=== PATIENT | female | born 1930 | race Caucasian/White ===

== ENCOUNTER 2017-03-09 15:03 | Inpatient (IN) | payer OTHER, BC ==
[2017-03-09] MEDS ORDERED: SODIUM CHLORIDE 0.9% 1000 ML INFUS.BAG IV PRN (16:16)
[2017-03-09 16:54] LABS: VENOUS BLOOD GAS HCO3 27.2 meq/L (19-25); VENOUS PH 7.4 (7.32-7.42)
--- NOTE | 2017-03-09 17:04 | PDOC ---
History of Present Illness - History of Present Illness Initial Comments: 03/09/17 17:02 CHIEF COMPLAINT: fever x 3 days HISTORY OF PRESENT ILLNESS: 86 yo F with hx of COPD, hypertension, hypercholesterolemia, asthma, and NIDDM presents to ED with cough and wheezing x 1 week and fever x 3 days. Patient states she saw her PCP MD Beck last week , who increased her prednisone to 20 mg x 5 days and is now tapering at 10 mg. She complains of decreased appetite secondary to nausea "and lots of burping" over the past two days. No recent travel or sick contacts. PAST MEDICAL HISTORY: Denies past medical history FAMILY HISTORY: Denies SOCIAL HISTORY: Denies tobacco, alcohol, illicit drug use. SURGICAL HISTORY: Denies ALLERGIES: No known drug allergies REVIEW OF SYSTEMS General/Constitutional: Denies fever or chills. Denies weakness, weight change. HEENT: Denies change in vision. Denies ear pain or discharge. Denies sore throat. Cardiovascular: Denies chest pain or shortness of breath. Respiratory: "I always have wheezing on the left side, that's why I'm on the prednisone." Denies hemoptysis. Gastrointestinal: Denies nausea, vomiting, diarrhea or constipation. Denies rectal bleeding. Genitourinary: Denies dysuria, frequency, or change in urination. Musculoskeletal: Denies joint or muscle swelling or pain. Denies neck or back pain. Skin and breasts: Denies rash or easy bruising. Neurologic: Denies headache, vertigo, loss of consciousness, or loss of sensation. PHYSICAL EXAM General Appearance: Well-appearing, appropriately dressed. No apparent distress , no intoxication. HEENT: EOMI, PERRLA, normal ENT inspection, normal voice, TMs normal, pharynx normal. No conjunctival pallor. No photophobia, scleral icterus. Neck: Supple. Trachea midline. No tenderness, rigidity, carotid bruit, stridor , lymphadenopathy, or thyromegaly. Respiratory/Chest: Diffuse wheezing to left lobe. No shortness of breath, chest tenderness, respiratory distress, accessory muscle use. No crackles, rales , rhonchi, stridor, wheezing, dullness Cardiovascular: RRR. S1, S2. No JVD, murmur, bradycardia, tachycardia. Vascular Pulses: Dorsalis-Pedis (R): 2+, Dorsalis-Pedis (L): 2+ Gastrointestinal/Abdominal: Normal bowel sounds. Abdomen soft, non-distended. No tenderness or rebound tenderness. No organomegaly, pulsatile mass, guarding , hernia, hepatomegaly, splenomegaly. Lymphatic: No adenopathy, tenderness. Musculoskeletal/Extremities: L CVA tenderness. Normal inspection. FROM of all extremities, normal capillary refill. Pelvis Stable. No tenderness to extremities, pedal edema, swelling, erythema or deformity. Integumentary: Appropriate color, dry, warm. No cyanosis, erythema, jaundice or rash Neurologic: servicer travel trailers II-XII intact. Fully oriented, alert. Appropriate mood/affect. Motor strength 5/5. No appreciable EOM palsy, facial droop or sensory deficit. <Jennifer Anand - Last Filed: 04/11/17 14:30> <Rusty Sanchez - Last Filed: 04/11/17 18:54> - General Chief Complaint: Cold Symptoms Stated Complaint: SOB,WEAKNESS Time Seen by Provider: 03/09/17 15:36 Past History - Past Medical History Anemia: No Asthma: Yes Cancer: No Cardiac Disorders: No CVA: No COPD: Yes CHF: No Dementia: No Diabetes: Yes ([id number]) GI Disorders: Yes (H/O HEMORROIDS) Disorders: No HTN: Yes Hypercholesterolemia: Yes Liver Disease: No Seizures: No Thyroid Disease: No - Surgical History Abdominal Surgery: Yes (umbilical hernia, bilateral inguinal hernias BY Dr. ZAVALA) Appendectomy: No Cardiac Surgery: No Cholecystectomy: No Lung Surgery: No Neurologic Surgery: No Orthopedic Surgery: Yes (Ankle) - Psycho/Social/Smoking Cessation Hx Anxiety: No Suicidal Ideation: No Smoking Status: No Smoking History: Never smoked Have you smoked in the past 12 months: No Number of Cigarettes Smoked Daily: 0 Cigars Per Day: 0 Hx Alcohol Use: No Drug/Substance Use Hx: No Substance Use Type: None Hx Substance Use Treatment: No <Jennifer Anand - Last Filed: 04/11/17 14:30> <Rusty Sanchez - Last Filed: 04/11/17 18:54> - Past Medical History Allergies/Adverse Reactions: Allergies Allergy/AdvReac Type Severity Reaction Status Date / Time No Known Drug Allergies Allergy Verified 03/09/17 15:21 Home Medications: Ambulatory Orders Budesonide/Formeterol Fumarate [SYMBICORT 160/4.5mcg -] 1 inh PO BID 03/09/17 Diltiazem [Cardizem -] 300 mg PO HS 03/09/17 Montelukast Na [Singulair -] 10 mg PO HS 03/09/17 Prednisone [Deltasone -] 10 mg PO DAILY 03/09/17 Rosuvastatin Calcium [Crestor] 5 mg PO DAILY 03/09/17 Sitagliptin Phos/Metformin HCl [Janumet 50-500 mg Tablet] 1 each PO DAILY Tiotropium [place] [Spiriva] 1 inh IH DAILY 03/09/17 Valsartan [Diovan] 160 mg PO DAILY 03/09/17 Acetaminophen [Tylenol .Regular Strength -] 650 mg PO Q6H PRN #0 tablet Arformoterol Tartrate [Brovana -] 1 amp NEB BID amp 03/12/17 Montelukast Na [Singulair -] 10 mg PO HS tablet 03/12/17 Prednisone [Deltasone -] 10 mg PO DAILY tablet 03/12/17 Rosuvastatin [Crestor -] 5 mg PO HS tablet 03/12/17 Valsartan [Diovan] 160 mg PO DAILY tablet 03/12/17 *Physical Exam - Vital Signs Last Vital Signs Temp Pulse Resp BP Pulse Ox 99 F 109 H 18 133/65 95 03/09/17 15:21 03/09/17 15:21 03/09/17 15:21 03/09/17 15:21 03/09/17 15:21 <Jennifer Anand - Last Filed: 04/11/17 14:30> - Vital Signs Last Vital Signs Temp Pulse Resp BP Pulse Ox 99 F 109 H 18 133/65 95 03/09/17 15:21 03/09/17 15:21 03/09/17 15:21 03/09/17 15:21 03/09/17 15:21 <Rusty Sanchez - Last Filed: 04/11/17 18:54> Heart Score/ECG Review - ECG Impressions Comment:: 03/09/17 17:59 Twelve-lead EKG was performed and reviewed by me. There is normal sinus rhythm with a normal rate. Rate of 99 The axis is normal. The intervals are normal. There is normal R wave progression There are no ST or T wave abnormalities. Impression: Normal twelve-lead EKG <Rusty Sanchez - Last Filed: 04/11/17 18:54> ED Treatment Course - LABORATORY CBC & Chemistry Diagram: 03/09/17 20:11 03/09/17 20:11 - ADDITIONAL ORDERS Additional order review: Laboratory Results 03/09/17 16:40 VBG pH 7.40 POC VBG pCO2 45.0 POC VBG pO2 28.4 Mixed VBG HCO3 27.2 H - RADIOLOGY Radiology Studies Ordered: Category Date Time Status CHEST PA & LAT [RAD] Stat Radiology 03/09/17 17:01 Ordered <Jennifer Anand - Last Filed: 04/11/17 14:30> - LABORATORY CBC & Chemistry Diagram: 03/09/17 20:11 03/09/17 20:11 - ADDITIONAL ORDERS Additional order review: Laboratory Results 03/09/17 03/09/17 03/09/17 16:40 16:30 16:30 INR 1.08 PTT (Actin FS) 30.0 VBG pH 7.40 POC VBG pCO2 45.0 POC VBG pO2 28.4 Mixed VBG HCO3 27.2 H Sodium Cancelled Potassium Cancelled Chloride Cancelled Carbon Dioxide Cancelled Anion Gap Cancelled BUN Cancelled Creatinine Cancelled Creat Clearance w eGFR Cancelled Random Glucose Cancelled Calcium Cancelled Total Bilirubin Cancelled AST Cancelled ALT Cancelled Alkaline Phosphatase Cancelled Creatine Kinase Cancelled Troponin I Cancelled Total Protein Cancelled Albumin Cancelled 03/09/17 16:30 RBC 4.47 D MCV 87.6 MCHC 32.5 RDW 13.5 MPV 9.1 Neutrophils % 50.6 D Lymphocytes % 31.6 D Monocytes % 12.7 H D Eosinophils % 4.9 H D Basophils % 0.2 <Rusty Sanchez - Last Filed: 04/11/17 18:54> Medical Decision Making - Medical Decision Making 03/09/17 17:07 86 yo F with hx of COPD, hypertension, hypercholesterolemia, asthma, and NIDDM presents to ED with cough and wheezing x 1 week and fever x 3 days. Patient VS notable for 99.0F oral temp, HR 107. Will order full sepsis workup. DDx includes but is not limited to: pnuemonia, COPD exacerbation, UTI -CBC, CMP, PT/INR, cardiac profile -UA, UCx -EKG, CXR EKG: NSR. 03/09/17 17:44 Labs: WBC 11.8 03/09/17 18:03 Case discussed in detail with oncoming emergency provider including history, physical exam and ancillary studies. In brief, this patient is being seen in the ED for a chief complaint of: I have completed the initial assessment interview note and have ordered the following labs: CBC, CMP, PT/INR, trop, UA, Ucx I have reviewed the following results: CBC, EKG Pending results: CMP, trop, lactic acid, UA, UCx, CXR Please call the PCP: Paul Diez Plan for disposition as follows: pending Oncoming TOD Webb has assumed care for the patient and will complete the evaluation and treatment. 03/09/17 18:56 <Jennifer Anand - Last Filed: 04/11/17 14:30> - Medical Decision Making 04/11/17 18:53 The patient was seen and evaluated in conjunction with MICHELLE Anand under my direct supervision, ancillary studies were reviewed. I agree with the plan as outlined by MICHELLE Anand . <Rusty Sanchez - Last Filed: 04/11/17 18:54> *DC/Admit/Observation/Transfer <Jennifer Anand - Last Filed: 04/11/17 14:30> <Rusty Sanchez - Last Filed: 04/11/17 18:54> Diagnosis at time of Disposition: Acute respiratory distress, COPD exacerbation - Discharge Dispostion Disposition: HOME Condition at time of disposition: Improved - Referrals
[2017-03-09 17:09] LABS: BASOPHIL 0.2 % (0-2.0); EOSINOPHIL 4.9 % (0-4.5); MCH 28.4 pg (25.7-33.7); MCHC 32.5 g/dl (32.0-36.0); MEAN CELL VOLUME 87.6 fl (80-96); MEAN PLT VOLUME 9.1 fl (7.5-11.1); NEUTROPHILS 50.6 % (42.8-82.8); PLATELET COUNT 309 K/MM3 (134-434); RDW 13.5 % (11.6-15.6); WHITE BLOOD COUNT 11.8 K/mm3 (4.0-10.0)
[2017-03-09 17:26] LABS: INR 1.08 (0.82-1.09); PROTHROMBIN TIME (PATIENT) 11.9 SEC (9.98-11.88)
[2017-03-09 19:06] LABS: ALBUMIN 3.1 g/dl (3.4-5.0); ALK PHOS 49 U/L (45-117); ANION GAP 9 (8-16); BILIRUBIN,TOTAL 0.8 mg/dL (0.2-1.0); CALCIUM 8.2 mg/dL (8.5-10.1); CO2 29 mmol/L (21-32); COCKROFT - GAULT 41.7605; CREATININE 0.9 mg/dL (0.55-1.02); GLUCOSE,RANDOM 101 mg/dL (74-106); SGOT/AST 12 U/L (15-37); SGPT/ALT 16 U/L (12-78); TOT PROT 5.6 g/dl (6.4-8.2); TROPONIN I < 0.02 ng/ml (0.00-0.05)
[2017-03-09] MEDS ORDERED: ONDANSETRON *ODT* 4 MG TABLET SL PRN (19:16)
[2017-03-09] MEDS ORDERED: ACETAMINOPHEN 325 MG TABLET (FP) PO PRN (19:16)
--- NOTE | 2017-03-09 19:16 | PDOC ---
*Physical Exam - Vital Signs Last Vital Signs Temp Pulse Resp BP Pulse Ox 99 F 109 H 18 133/65 95 03/09/17 15:21 03/09/17 15:21 03/09/17 15:21 03/09/17 15:21 03/09/17 15:21 <Jon Andrews - Last Filed: 03/09/17 21:41> - Vital Signs Last Vital Signs Temp Pulse Resp BP Pulse Ox 98.5 F 72 20 140/53 95 03/12/17 14:23 03/12/17 14:23 03/12/17 14:23 03/12/17 14:23 03/12/17 09:00 <Rusty Sanchez - Last Filed: 03/13/17 03:04> ED Treatment Course - LABORATORY CBC & Chemistry Diagram: 03/09/17 20:11 03/09/17 17:56 - ADDITIONAL ORDERS Additional order review: Laboratory Results 03/09/17 03/09/17 03/09/17 16:40 16:30 16:30 INR PTT (Actin FS) VBG pH 7.40 POC VBG pCO2 45.0 POC VBG pO2 28.4 Mixed VBG HCO3 27.2 H Sodium Potassium Chloride Carbon Dioxide Anion Gap BUN Creatinine Creat Clearance w eGFR Random Glucose Lactic Acid 1.055 Calcium Total Bilirubin AST ALT Alkaline Phosphatase Creatine Kinase Troponin I Total Protein Albumin Blood Type O POSITIVE Antibody Screen Negative 03/09/17 03/09/17 16:30 16:30 INR 1.08 PTT (Actin FS) 30.0 VBG pH POC VBG pCO2 POC VBG pO2 Mixed VBG HCO3 Sodium Cancelled Potassium Cancelled Chloride Cancelled Carbon Dioxide Cancelled Anion Gap Cancelled BUN Cancelled Creatinine Cancelled Creat Clearance w eGFR Cancelled Random Glucose Cancelled Lactic Acid Calcium Cancelled Total Bilirubin Cancelled AST Cancelled ALT Cancelled Alkaline Phosphatase Cancelled Creatine Kinase Cancelled Troponin I Cancelled Total Protein Cancelled Albumin Cancelled Blood Type Antibody Screen 03/09/17 16:30 RBC 4.47 D MCV 87.6 MCHC 32.5 RDW 13.5 MPV 9.1 Neutrophils % 50.6 D Lymphocytes % 31.6 D Monocytes % 12.7 H D Eosinophils % 4.9 H D Basophils % 0.2 <Jon Andrews - Last Filed: 03/09/17 21:41> - LABORATORY CBC & Chemistry Diagram: 03/09/17 20:11 03/09/17 20:11 - ADDITIONAL ORDERS Additional order review: 03/09/17 16:30 Blood Culture - Preliminary Blood - Peripheral Venous NO GROWTH OBTAINED AFTER 72 HOURS, INCUBATION TO CONTINUE FOR 2 DAYS. 03/09/17 16:30 Blood Culture - Preliminary Blood - Peripheral Venous NO GROWTH OBTAINED AFTER 72 HOURS, INCUBATION TO CONTINUE FOR 2 DAYS. 03/09/17 16:30 RBC 4.47 D MCV 87.6 MCHC 32.5 RDW 13.5 MPV 9.1 Neutrophils % 50.6 D Lymphocytes % 31.6 D Monocytes % 12.7 H D Eosinophils % 4.9 H D Basophils % 0.2 - Medications Given in the ED: ED Medications Discontinued Medications Generic Name Dose Route Start Last Admin Trade Name Freq PRN Reason Stop Dose Admin Arformoterol Tartrate 1 amp 03/09/17 22:00 03/12/17 10:08 Brovana (Restricted To Pulmonology/Resp) - NEB 1 amp BID URSULA Administration Diltiazem HCl 300 mg 03/10/17 10:00 03/12/17 10:08 Cardizem Cd - PO 300 mg DAILY URSULA Administration Furosemide 40 mg 03/10/17 10:00 03/10/17 09:38 Lasix Injection - IVPB 40 mg DAILY URSULA Administration Ceftriaxone Sodium 100 mls @ 200 mls/hr 03/10/17 14:00 03/12/17 10:08 Rocephin 2gm Ivpb (Pre-Docked) IVPB 200 mls/hr DAILY URSULA Administration Insulin Aspart 1 vial 03/09/17 22:00 03/12/17 16:34 Novolog Vial Sliding Scale - SQ 4 units ACHS URSULA Administration Protocol Methylprednisolone Sodium Succinate 40 mg 03/09/17 22:00 03/10/17 09:37 Solu-Medrol - IVPB 40 mg BID URSULA Administration Montelukast Sodium 10 mg 03/09/17 22:00 03/11/17 22:48 Singulair - PO 10 mg HS URSULA Administration Prednisone 10 mg 03/11/17 10:00 03/12/17 10:07 Deltasone - PO 10 mg DAILY URSULA Administration Rosuvastatin Calcium 5 mg 03/09/17 22:00 03/11/17 22:48 Crestor - PO 5 mg HS URSULA Administration Sitagliptin Phosphate 50 mg 03/10/17 07:00 03/12/17 06:27 Januvia - PO 50 mg DAILY@0700 URSULA Administration Valsartan 160 mg 03/10/17 10:00 03/12/17 10:07 Diovan - PO 160 mg DAILY URSULA Administration <Rusty Sanchez - Last Filed: 03/13/17 03:04> Medical Decision Making - Medical Decision Making The patient was seen and evaluated in conjunction with NUNU Andrews under my direct supervision, ancillary studies were reviewed. I independently interviewed and evaluated the patient and I agree with the plan as outlined by NUNU Andrews . <Rusty Sanchez - Last Filed: 03/13/17 03:04> *DC/Admit/Observation/Transfer - Discharge Dispostion Admit: Yes <Jon Andrews - Last Filed: 03/09/17 21:41> <Rusty Sanchez - Last Filed: 03/13/17 03:04> Diagnosis at time of Disposition: Acute respiratory distress, COPD exacerbation - Discharge Dispostion Disposition: HOME Condition at time of disposition: Improved - Referrals - Patient Instructions - Post Discharge Activity
[2017-03-09 19:43] LABS: URINE APPEARANCE CLOUDY; URINE BILIRUBIN NEGATIVE (NEGATIVE); URINE COLOR DKYELLOW; URINE GLUCOSE (UA) NEGATIVE (NEGATIVE); URINE KETONE TRACE (NEGATIVE); URINE NITRITE NEGATIVE (NEGATIVE); URINE UROBILINOGEN NEGATIVE E.U./dl (0.2-1.0)
[2017-03-09 20:06] LABS: URINE BLOOD 1+ (NEGATIVE); URINE LEUK ESTERASE 3+ (NEGATIVE); URINE PROTEIN 1+ (NEGATIVE)
[2017-03-09 20:39] LABS: MCH 27.7 pg (25.7-33.7); MCHC 31.5 g/dl (32.0-36.0); MEAN CELL VOLUME 87.9 fl (80-96); MEAN PLT VOLUME 8.9 fl (7.5-11.1); PLATELET COUNT 293 K/MM3 (134-434); RDW 13.1 % (11.6-15.6); WHITE BLOOD COUNT 12.3 K/mm3 (4.0-10.0)
[2017-03-09 21:25] LABS: ALBUMIN 3.1 g/dl (3.4-5.0); BILIRUBIN,TOTAL 0.6 mg/dL (0.2-1.0); CALCIUM 8.2 mg/dL (8.5-10.1); COCKROFT - GAULT 41.7605; CREATININE 0.9 mg/dL (0.55-1.02); TOT PROT 5.6 g/dl (6.4-8.2)
[2017-03-09 21:29] LABS: URINE MUCUS RARE; URINE RBC 317 /hpf (0-3); URINE WBC 1322 /hpf (3-5)
[2017-03-09 21:38] LABS: ERYTHROCYTE SEDIMENTATION RATE 36 mm/hr (0-30)
[2017-03-09] MEDS: MONTELUKAST NA 10 MG TABLET PO SCH (22:24)
[2017-03-09] MEDS: methylPREDNISolone NA SUCC 40 MG/1 ML VIAL IVPB SCH (22:24)
[2017-03-09] MEDS: INSULIN SLIDING SCALE (NOVOLOG) 1 VIAL SQ SCH (22:25)
[2017-03-09] MEDS: ROSUVASTATIN CA 5 MG TABLET (FP) PO SCH (22:40)
[2017-03-09] MEDS: ARFORMOTEROL TARTRATE 15 MCG/2 ML VIAL NEB SCH (22:54)
[2017-03-09 23:19] VITALS: BMI 24.5
[2017-03-10] MEDS: sitaGLIPtin PHOSPHATE 50 MG TABLET PO SCH (06:04)
[2017-03-10] MEDS: INSULIN SLIDING SCALE (NOVOLOG) 1 VIAL SQ SCH ×4 (06:05→21:41)
[2017-03-10] MEDS ORDERED: PT OWN MED DRAWER 7, Y5N ONE (09:36)
[2017-03-10] MEDS: methylPREDNISolone NA SUCC 40 MG/1 ML VIAL IVPB SCH (09:37)
[2017-03-10] MEDS: VALSARTAN 160 MG TABLET (UD) PO SCH (09:38)
[2017-03-10] MEDS ORDERED: FUROSEMIDE 40 MG/4 ML INJECTABLE VIAL IVPB SCH (10:00)
[2017-03-10] MEDS: ARFORMOTEROL TARTRATE 15 MCG/2 ML VIAL NEB SCH ×2 (10:27→22:53)
--- NOTE | 2017-03-10 11:17 | EKG ---
Test Reason : Blood Pressure : / mmHG Vent. Rate : 099 BPM Atrial Rate : 099 BPM P-R Int : 160 ms QRS Dur : 072 ms QT Int : 322 ms P-R-T Axes : 079 044 063 degrees QTc Int : 413 ms NORMAL SINUS RHYTHM NORMAL ECG WHEN COMPARED WITH ECG OF 21-MAY-2016 10:21, NO SIGNIFICANT CHANGE WAS FOUND Confirmed by JAIME CORDOVA MD ([id number]) on 03/10/2017 11:17:28 AM Referred By: Confirmed By:JAIME CORDOVA MD
[2017-03-10] MEDS: CEFTRIAXONE 100 ML IVPB SCH (15:08)
--- NOTE | 2017-03-10 17:16 | HP ---
Admitting History and Physical - Primary Care Physician PCP: Paul Diez - Admission Chief Complaint: WEAK AND DIZZY/ RESP DISTRESS History of Present Illness: 86 Y/O FEMALE WITH ASTHMA EXACERBATION AND ACUTE UTI. HISTORY OF DM/HTN/ LIPIDEMIA History Source: Patient - Past Medical History Pulmonary: Yes: Asthma, COPD Gastrointestinal: Yes: Constipation, Hemorrhoids, Other (RECTAL BLEEDING) ...: No Endocrine: Yes: Diabetes Mellitus - Smoking History Smoking history: Never smoked Have you smoked in the past 12 months: No Aproximately how many cigarettes per day: 0 - Alcohol/Substance Use Hx Alcohol Use: No Home Medications - Allergies Allergies/Adverse Reactions: Allergies Allergy/AdvReac Type Severity Reaction Status Date / Time No Known Drug Allergies Allergy Verified 03/09/17 15:21 - Home Medications Home Medications: Ambulatory Orders Budesonide/Formeterol Fumarate [SYMBICORT 160/4.5mcg -] 1 inh PO BID 03/09/17 Diltiazem [Cardizem -] 300 mg PO HS 03/09/17 Montelukast Na [Singulair -] 10 mg PO HS 03/09/17 Prednisone [Deltasone -] 10 mg PO DAILY 03/09/17 Rosuvastatin Calcium [Crestor] 5 mg PO DAILY 03/09/17 Sitagliptin Phos/Metformin HCl [Janumet 50-500 mg Tablet] 1 each PO DAILY Tiotropium [place] [Spiriva] 1 inh IH DAILY 03/09/17 Valsartan [Diovan] 160 mg PO DAILY 03/09/17 Review of Systems - Review of Systems Constitutional: reports: Loss of Appetite, Weakness Eyes: reports: No Symptoms HENT: reports: No Symptoms Neck: reports: No Symptoms Cardiovascular: reports: No Symptoms Respiratory: reports: SOB Gastrointestinal: reports: No Symptoms Genitourinary: reports: Urgency Musculoskeletal: reports: No Symptoms Integumentary: reports: No Symptoms Neurological: reports: No Symptoms Endocrine: reports: No Symptoms Physical Examination Vital Signs: Vital Signs Temperature 98.0 F 03/10/17 14:00 Pulse Rate 86 03/10/17 14:00 Respiratory Rate 20 03/10/17 14:00 Blood Pressure 112/66 03/10/17 14:00 O2 Sat by Pulse Oximetry (%) 96 03/10/17 09:00 Constitutional: Yes: Mild Distress Eyes: Yes: WNL HENT: Yes: WNL Neck: Yes: WNL Cardiovascular: Yes: WNL Respiratory: Yes: Diminished, Wheezes Gastrointestinal: Yes: WNL Renal/: Yes: Other Musculoskeletal: Yes: WNL Extremities: Yes: WNL Edema: Yes Edema: LLE: Trace, RLE: Trace Peripheral Pulses WNL: Yes Integumentary: Yes: WNL Wound/Incision: Yes: Clean/Dry Neurological: Yes: WNL ...Motor Strength: WNL Psychiatric: Yes: WNL Labs: CBC, BMP 03/09/17 20:11 03/09/17 20:11 Imaging - Results Chest X-ray: Report Reviewed Problem List - Problems (1) Acute respiratory distress Code(s): R06.00 - DYSPNEA, UNSPECIFIED (2) DM2 (diabetes mellitus, type 2) Code(s): E11.9 - TYPE 2 DIABETES MELLITUS WITHOUT COMPLICATIONS Qualifiers: Diabetes mellitus complication detail: with diabetic retinopathy (3) UTI (urinary tract infection) Code(s): N39.0 - URINARY TRACT INFECTION, SITE NOT SPECIFIED Qualifiers: Urinary tract infection type: acute cystitis Assessment/Plan IV ABX IV STEROIDS ID CONSULT URINE C AND S PENDING CHECK LABS
[2017-03-10] MEDS ORDERED: INSULIN (NOVOLOG) ASPART 100 UNITS/ML 10ML VIAL ONE (21:16)
[2017-03-10] MEDS: ROSUVASTATIN CA 5 MG TABLET (FP) PO SCH (21:40)
[2017-03-10] MEDS: MONTELUKAST NA 10 MG TABLET PO SCH (21:41)
[2017-03-11] MEDS: INSULIN SLIDING SCALE (NOVOLOG) 1 VIAL SQ SCH ×4 (06:35→22:48)
[2017-03-11] MEDS: sitaGLIPtin PHOSPHATE 50 MG TABLET PO SCH (06:36)
[2017-03-11] MEDS ORDERED: INSULIN (NOVOLOG) ASPART 100 UNITS/ML 10ML VIAL ONE ×2 (06:39→11:22)
[2017-03-11] MEDS ORDERED: PT OWN MED DRAWER 7, Y5N ONE (09:15)
[2017-03-11] MEDS: predniSONE 10 MG TABLET (UD) PO SCH (09:17)
[2017-03-11] MEDS: VALSARTAN 160 MG TABLET (UD) PO SCH (09:17)
[2017-03-11] MEDS: CEFTRIAXONE 100 ML IVPB SCH (09:18)
[2017-03-11] MEDS: ARFORMOTEROL TARTRATE 15 MCG/2 ML VIAL NEB SCH ×2 (10:15→22:05)
--- NOTE | 2017-03-11 14:25 | PN ---
Progress Note (short form) - Note Progress Note: ID Consult dictated UTI/ possible sepsis secondary to UTI COPD Await c/s Continue ceftriaxone
--- NOTE | 2017-03-11 15:23 | CONS ---
DATE OF CONSULTATION: DATE OF DICTATION: 03/11/2017 An 86-year-old female evaluated for fever. The patient has a history of steroid-dependent COPD. She reports for the last week she had had increased dyspnea, cough and wheezing. She was instructed by her PMD to increase her prednisone dose. Over the past 2 to 3 days she reports developing fever. Source of fever not clear. She denies any chest pain, sputum production or hemoptysis. She has had no vomiting or diarrhea. Denies any urinary tract symptoms. On admission, she was found to have pyuria. Cultures are pending. She was empirically treated with ceftriaxone. She is a . She denies any ill contacts. No recent travel. No recent hospitalizations. She reports having received influenza vaccine. PAST MEDICAL HISTORY: Positive for steroid-dependent COPD, hypertension, hyperlipidemia, asthma. PAST SURGICAL HISTORY: Status post umbilical hernia repair, bilateral inguinal hernia. No known allergies. MEDICATION: Zofran, prednisone, Tylenol, Diovan, Cardizem, Januvia, Crestor, NovoLog, Singulair. SOCIAL HISTORY: She is a . She is a lifelong nonsmoker. No recent travel or pet exposure. SYSTEMS REVIEW: Neurologic: No loss of consciousness, seizure activity, focal weakness. Cardiac: Negative chest pain or palpitations. Respiratory: As per HPI. Gastrointestinal: Negative vomiting or diarrhea. Genitourinary: As per HPI. LABORATORY DATA: White count 12.3, hematocrit 38.3, platelet count 293. Urinalysis: 1322 white cells. Urine culture pending. Blood cultures preliminarily negative. Chest x-ray negative for acute infiltrate. BUN 11, creatinine 0.9. PHYSICAL EXAMINATION: General: She is out of bed to chair. She is not acutely toxic appearing in no acute respiratory distress. Vital Signs: Temperature 98.0. Blood pressure 133/77. Pulse 71, regular. Respiration 20 per minute. Eyes: Sclerae anicteric. Heart Sounds: S1, S2. Lungs: Clear. Diminished breath sounds bilaterally. Abdomen: Obese, soft, nontender. Extremities: Positive for edema. IMPRESSION 1. Urinary tract infection/possible sepsis secondary to urinary tract infection. 2. Chronic obstructive pulmonary disease. Await cultures. Empiric antibiotic coverage with ceftriaxone. Influenza swab. Will follow. Thank you for the kind referral. JANN WEBBER M.D. [id number]
--- NOTE | 2017-03-11 19:06 | PN ---
Progress Note, Physician History of Present Illness: doing well - Current Medication List Current Medications: Active Medications Acetaminophen (Tylenol -) 650 mg PO Q6H PRN PRN Reason: FEVER OR PAIN Arformoterol Tartrate (Brovana (Restricted To Pulmonology/Resp) -) 1 amp NEB BID [facility] Last Admin: 03/11/17 10:15 Dose: 1 amp Diltiazem HCl (Cardizem Cd -) 300 mg PO DAILY [facility] Last Admin: 03/11/17 09:17 Dose: 300 mg Ceftriaxone Sodium (Rocephin 2gm Ivpb (Pre-Docked)) 100 mls @ 200 mls/hr IVPB DAILY [facility] Last Admin: 03/11/17 09:18 Dose: 200 mls/hr Insulin Aspart (Novolog Vial Sliding Scale -) 1 vial SQ ACHS [facility] PRN Reason: Protocol Last Admin: 03/11/17 16:43 Dose: 4 units Montelukast Sodium (Singulair -) 10 mg PO HS [facility] Last Admin: 03/10/17 21:41 Dose: 10 mg Ondansetron HCl (Zofran Odt -) 4 mg SL Q6H PRN PRN Reason: NAUSEA AND/OR VOMITING Prednisone (Deltasone -) 10 mg PO DAILY [facility] Last Admin: 03/11/17 09:17 Dose: 10 mg Rosuvastatin Calcium (Crestor -) 5 mg PO HS [facility] Last Admin: 03/10/17 21:40 Dose: 5 mg Sitagliptin Phosphate (Januvia -) 50 mg PO DAILY@0700 [facility] Last Admin: 03/11/17 06:36 Dose: 50 mg Sodium Chloride (Normal Saline -) 1,000 ml IV Q20M PRN PRN Reason: MAP<65mm Hg OR SBP <90 Valsartan (Diovan -) 160 mg PO DAILY [facility] Last Admin: 03/11/17 09:17 Dose: 160 mg - Objective Vital Signs: Vital Signs Temperature 98.3 F 03/11/17 18:58 Pulse Rate 65 03/11/17 18:58 Respiratory Rate 20 03/11/17 18:58 Blood Pressure 120/61 03/11/17 18:58 O2 Sat by Pulse Oximetry (%) 95 03/11/17 09:00 Constitutional: Yes: No Distress HENT: Yes: Atraumatic Neck: Yes: Supple Cardiovascular: Yes: Regular Rate and Rhythm Respiratory: Yes: CTA Bilaterally Gastrointestinal: Yes: Normal Bowel Sounds Extremities: Yes: WNL Neurological: Yes: Alert, Oriented Labs: CBC, BMP 03/09/17 20:11 03/09/17 20:11 INR, PTT INR 1.08 (0.82-1.09) 03/09/17 16:30 Problem List - Problems (1) UTI (urinary tract infection) Assessment/Plan: on iv abx stable Code(s): N39.0 - URINARY TRACT INFECTION, SITE NOT SPECIFIED Qualifiers: Urinary tract infection type: acute cystitis (2) Asthma dependent on systemic steroids with acute exacerbation Assessment/Plan: stable Code(s): J45.901 - UNSPECIFIED ASTHMA WITH (ACUTE) EXACERBATION Z79.52 - DETENTION (CURRENT) USE OF SYSTEMIC STEROIDS (3) DM2 (diabetes mellitus, type 2) Assessment/Plan: on meds stable Code(s): E11.9 - TYPE 2 DIABETES MELLITUS WITHOUT COMPLICATIONS Qualifiers: Diabetes mellitus complication detail: with diabetic retinopathy (4) HTN (hypertension) Assessment/Plan: on meds stable Code(s): I10 - ESSENTIAL (PRIMARY) HYPERTENSION Assessment/Plan covering dr elizalde
[2017-03-11] MEDS: MONTELUKAST NA 10 MG TABLET PO SCH (22:48)
[2017-03-11] MEDS: ROSUVASTATIN CA 5 MG TABLET (FP) PO SCH (22:48)
[2017-03-12] MEDS: sitaGLIPtin PHOSPHATE 50 MG TABLET PO SCH (06:27)
[2017-03-12] MEDS: INSULIN SLIDING SCALE (NOVOLOG) 1 VIAL SQ SCH ×3 (06:27→16:34)
[2017-03-12] MEDS: predniSONE 10 MG TABLET (UD) PO SCH (10:07)
[2017-03-12] MEDS: VALSARTAN 160 MG TABLET (UD) PO SCH (10:07)
[2017-03-12] MEDS: CEFTRIAXONE 100 ML IVPB SCH (10:08)
[2017-03-12] MEDS: ARFORMOTEROL TARTRATE 15 MCG/2 ML VIAL NEB SCH (10:08)
[2017-03-12 15:27] VITALS: BP 140/53; PULSE 72; TEMP 98.5
--- NOTE | 2017-03-12 16:15 | PN ---
Progress Note, Physician History of Present Illness: Awake, alert No c/o fever/ chills No c/o dysuria/ hematuria Urine c/s no growth - Current Medication List Current Medications: Active Medications Acetaminophen (Tylenol -) 650 mg PO Q6H PRN PRN Reason: FEVER OR PAIN Arformoterol Tartrate (Brovana (Restricted To Pulmonology/Resp) -) 1 amp NEB BID [facility] Last Admin: 03/12/17 10:08 Dose: 1 amp Diltiazem HCl (Cardizem Cd -) 300 mg PO DAILY [facility] Last Admin: 03/12/17 10:08 Dose: 300 mg Ceftriaxone Sodium (Rocephin 2gm Ivpb (Pre-Docked)) 100 mls @ 200 mls/hr IVPB DAILY [facility] Last Admin: 03/12/17 10:08 Dose: 200 mls/hr Insulin Aspart (Novolog Vial Sliding Scale -) 1 vial SQ ACHS [facility] PRN Reason: Protocol Last Admin: 03/12/17 11:42 Dose: Not Given Montelukast Sodium (Singulair -) 10 mg PO [facility] Last Admin: 03/11/17 22:48 Dose: 10 mg Ondansetron HCl (Zofran Odt -) 4 mg SL Q6H PRN PRN Reason: NAUSEA AND/OR VOMITING Prednisone (Deltasone -) 10 mg PO DAILY [facility] Last Admin: 03/12/17 10:07 Dose: 10 mg Rosuvastatin Calcium (Crestor -) 5 mg PO HS [facility] Last Admin: 03/11/17 22:48 Dose: 5 mg Sitagliptin Phosphate (Januvia -) 50 mg PO DAILY@0700 [facility] Last Admin: 03/12/17 06:27 Dose: 50 mg Sodium Chloride (Normal Saline -) 1,000 ml IV Q20M PRN PRN Reason: MAP<65mm Hg OR SBP <90 Valsartan (Diovan -) 160 mg PO DAILY [facility] Last Admin: 03/12/17 10:07 Dose: 160 mg - Objective Vital Signs: Vital Signs Temperature 98.5 F 03/12/17 14:23 Pulse Rate 72 03/12/17 14:23 Respiratory Rate 20 03/12/17 14:23 Blood Pressure 140/53 03/12/17 14:23 O2 Sat by Pulse Oximetry (%) 95 03/12/17 09:00 Constitutional: Yes: No Distress Cardiovascular: Yes: Regular Rate and Rhythm, S1, S2 Respiratory: Yes: Diminished Gastrointestinal: Yes: Normal Bowel Sounds, Soft, Abdomen, Obese. No: Tenderness Labs: CBC, BMP 03/09/17 20:11 03/09/17 20:11 INR, PTT INR 1.08 (0.82-1.09) 03/09/17 16:30 Assessment/Plan UTI S/P course of ceftriaxone COPD Observe off antibiotics
[2017-03-12] MEDS ORDERED: INSULIN (NOVOLOG) ASPART 100 UNITS/ML 10ML VIAL ONE (16:29)
--- NOTE | 2017-03-12 17:18 | DS ---
Physical Examination Vital Signs: Vital Signs Temperature 98.5 F 03/12/17 14:23 Pulse Rate 72 03/12/17 14:23 Respiratory Rate 20 03/12/17 14:23 Blood Pressure 140/53 03/12/17 14:23 O2 Sat by Pulse Oximetry (%) 95 03/12/17 09:00 Constitutional: Yes: No Distress Eyes: Yes: WNL HENT: Yes: WNL Neck: Yes: WNL Cardiovascular: Yes: WNL Respiratory: Yes: WNL Gastrointestinal: Yes: WNL Renal/: Yes: WNL Musculoskeletal: Yes: WNL Extremities: Yes: WNL Edema: No Peripheral Pulses WNL: Yes Integumentary: Yes: WNL Wound/Incision: Yes: Clean/Dry Neurological: Yes: WNL ...Motor Strength: WNL Psychiatric: Yes: WNL Labs: CBC, BMP 03/09/17 20:11 03/09/17 20:11 Discharge Summary Reason For Visit: OBSTRUCTIVE CHRONIC BRONCHITIS;ACUTE RESP DISTRESS Current Active Problems Acute respiratory distress (Acute) COPD exacerbation (Acute) UTI (urinary tract infection) (Acute) Procedures: Principal: CXR Other Procedures: LABS/CX Hospital Course: ADMITTED FOR ACUTE CYSTITIS/ACUTE ASTHMA EXACERBATION, TREATED WITH IV ABX AND IV STEROIDS, IMPROVED F/U OUTPATIENT Condition: Improved - Instructions Diet, Activity, Other Instructions: ADA/LOW SODIUM Referrals: Paul Diez MD [Primary Care Provider] - Disposition: HOME - Home Medications Comprehensive Discharge Medication List: Ambulatory Orders Budesonide/Formeterol Fumarate [SYMBICORT 160/4.5mcg -] 1 inh PO BID 03/09/17 Diltiazem [Cardizem -] 300 mg PO HS 03/09/17 Montelukast Na [Singulair -] 10 mg PO HS 03/09/17 Prednisone [Deltasone -] 10 mg PO DAILY 03/09/17 Rosuvastatin Calcium [Crestor] 5 mg PO DAILY 03/09/17 Sitagliptin Phos/Metformin HCl [Janumet 50-500 mg Tablet] 1 each PO DAILY Tiotropium [place] [Spiriva] 1 inh IH DAILY 03/09/17 Valsartan [Diovan] 160 mg PO DAILY 03/09/17 Acetaminophen [Tylenol .Regular Strength -] 650 mg PO Q6H PRN #0 tablet Arformoterol Tartrate [Brovana -] 1 amp NEB BID amp 03/12/17 Montelukast Na [Singulair -] 10 mg PO HS tablet 03/12/17 Prednisone [Deltasone -] 10 mg PO DAILY tablet 03/12/17 Rosuvastatin [Crestor -] 5 mg PO HS tablet 03/12/17 Valsartan [Diovan] 160 mg PO DAILY tablet 03/12/17
== END 2017-03-12 19:12 | disposition home or self-care (01) | DRG 191 ==
LOC: JER 15:03 → JERBED 19:16 → J5S 21:53
PROVIDERS: ADMIT Family Medicine; ATTEND Family Medicine
DX: J44.1 Chronic obstructive pulmonary disease with (acute) exacerbation (principal); N39.0 Urinary tract infection, site not specified; I10 Essential (primary) hypertension; E78.00 Pure hypercholesterolemia, unspecified; E11.9 Type 2 diabetes mellitus without complications; K42.9 Umbilical hernia without obstruction or gangrene; K40.20 Bilateral inguinal hernia, without obstruction or gangrene, not specified as recurrent; K59.09 Other constipation; K64.8 Other hemorrhoids; R06.00 Dyspnea, unspecified; Z79.52 Long term (current) use of systemic steroids
CPT/HCPCS: 36415; 71020-TC; 80053; 81003; 81015; 82550; 82803; 83036; 83605; 83880; 84484; 85025; 85027; 85610; 85651; 85730; 86850; 86900; 86901; 87040; 87086; 87254; 87804; 93005; 93010; 94640; 99282-25

== ENCOUNTER 2017-06-25 16:01 | Inpatient (IN) | payer OTHER, BC ==
--- NOTE | 2017-06-25 16:26 | PDOC ---
History of Present Illness - General Chief Complaint: Shortness of Breath Stated Complaint: TROUBLE BREATHING, FATIGUE Time Seen by Provider: 06/25/17 16:23 History Source: Patient Exam Limitations: No Limitations - History of Present Illness Initial Comments: 06/25/17 16:25 CHIEF COMPLAINT: Shortness of breath HISTORY OF PRESENT ILLNESS: This is an 87-year-old female with a history of HTN , HLD, asthma (prednisone-dependent), and NIDDM who presents complaining of two days of shortness of breath (with dyspnea on minimal exertion), cough productive of yellow sputum, chills, and nausea. She reports no relief from albuterol nebulizers at home. She denies travel or sick contacts. V/s on arrival are notable for SpO2 89% on room air. PCP is Dr. Diez. REVIEW OF SYSTEMS: GENERAL/CONSTITUTIONAL: Chills, no fever. No weakness. No weight change. HEAD, EYES, EARS, NOSE AND THROAT: No change in vision. No ear pain or discharge. No sore throat. CARDIOVASCULAR: No chest pain or palpitations. RESPIRATORY: See HPI. GASTROINTESTINAL: Nausea. No vomiting, diarrhea or constipation. GENITOURINARY: No dysuria, frequency, or change in urination. MUSCULOSKELETAL: No joint or muscle swelling or pain. No neck or back pain. SKIN: No rash or easy bruising. NEUROLOGIC: No headache, vertigo, loss of consciousness, or loss of sensation. PSYCHIATRIC: No depression or anxiety. ENDOCRINE: No increased thirst. No abnormal weight change. HEMATOLOGIC/LYMPHATIC: No anemia, easy bleeding, or history of blood clots. ALLERGIC/IMMUNOLOGIC: No hives or skin allergy. No latex allergy. PHYSICAL EXAM: GENERAL: The patient is awake, alert, and fully oriented, in no acute distress. ENT: Pupils equal, round and reactive to light, extraocular movements intact, sclera anicteric, conjunctiva clear. Neck supple. LUNGS: Diffuse expiratory wheezing with scattered ronchi. Normal excursion. No respiratory distress or use of accessory muscles. CV: RRR, S1/S2, no MRG. Cap refill < 2 sec. ABDOMEN: Soft, non-distended, non-tender. EXTREMITIES: Normal range of motion, no edema. NEUROLOGICAL: Normal speech, normal gait. CN II-XII grossly intact. PSYCH: Normal mood, normal affect. SKIN: Warm, dry, normal turgor, no rashes or lesions noted. Past History - Past Medical History Allergies/Adverse Reactions: Allergies Allergy/AdvReac Type Severity Reaction Status Date / Time No Known Drug Allergies Allergy Verified 06/25/17 16:07 Home Medications: Ambulatory Orders Budesonide/Formeterol Fumarate [SYMBICORT 160/4.5mcg -] 1 inh PO BID 03/09/17 Diltiazem [Cardizem -] 300 mg PO HS 03/09/17 Montelukast Na [Singulair -] 10 mg PO HS 03/09/17 Prednisone [Deltasone -] 5 mg PO DAILY 03/09/17 Rosuvastatin Calcium [Crestor] 5 mg PO DAILY 03/09/17 Sitagliptin Phos/Metformin HCl [Janumet 50-500 mg Tablet] 1 each PO DAILY Tiotropium [place] [Spiriva] 1 inh IH DAILY 03/09/17 Valsartan [Diovan] 160 mg PO DAILY 03/09/17 Acetaminophen [Tylenol .Regular Strength -] 650 mg PO Q6H PRN #0 tablet Sitagliptin Phos/Metformin HCl [Janumet 50-500 mg Tablet] 1 tablet PO DAILY Anemia: No Asthma: Yes Cancer: No Cardiac Disorders: No CVA: No COPD: Yes CHF: No Dementia: No Diabetes: Yes ([id number]) GI Disorders: Yes (H/O HEMORROIDS) Disorders: No HTN: Yes Hypercholesterolemia: Yes Liver Disease: No Seizures: No Thyroid Disease: No - Surgical History Abdominal Surgery: Yes (umbilical hernia, bilateral inguinal hernias BY Dr. ZAVALA) Appendectomy: No Cardiac Surgery: No Cholecystectomy: No Lung Surgery: No Neurologic Surgery: No Orthopedic Surgery: Yes (Ankle) - Psycho/Social/Smoking Cessation Hx Anxiety: No Suicidal Ideation: No Smoking Status: No Smoking History: Never smoked Have you smoked in the past 12 months: No Number of Cigarettes Smoked Daily: 0 Cigars Per Day: 0 Hx Alcohol Use: No Drug/Substance Use Hx: No Substance Use Type: None Hx Substance Use Treatment: No *Physical Exam - Vital Signs Last Vital Signs Temp Pulse Resp BP Pulse Ox 98.1 F 80 16 144/67 89 L 06/25/17 16:04 06/25/17 16:04 06/25/17 16:04 06/25/17 16:04 06/25/17 16:04 ED Treatment Course - LABORATORY CBC & Chemistry Diagram: 06/25/17 17:00 06/25/17 17:00 - RADIOLOGY Radiology Studies Ordered: Category Date Time Status CHEST PA & LAT [RAD] Stat Radiology 06/25/17 16:24 Ordered Medical Decision Making - Medical Decision Making 06/25/17 17:22 A/P: 87 year old asthmatic female with shortness of breath, productive cough, and hypoxia. 1. EKG 2. Cardiac labs 3. CXR 4. DuoNeb followed by albuterol nebulizers 5. Solu-Medrol 125mg IVP 6. Re-assess WBC 11.1. 06/25/17 18:48 CXR: Bibasilar atelectasis, no definite infiltrate. 4mm pulmonary nodule not previously seen. Patient re-examined with very little improvement in wheezing. Will add azithromycin. Will obtain CT Chest to rule out infiltrate and request observation. *DC/Admit/Observation/Transfer Diagnosis at time of Disposition: Bronchitis Asthma Qualifiers: Asthma severity: unspecified severity Asthma complication type: with acute exacerbation Qualified Code(s): J45.901 - Unspecified asthma with (acute) exacerbation - Discharge Dispostion Condition at time of disposition: Guarded Admit: Yes
[2017-06-25] MEDS ORDERED: ALBUTEROL SO4 2.5/IPRATROPIUM 0.5 INH SOL 3 ML VIAL.NEB. NEB ONE ×2 (16:32→16:40)
[2017-06-25] MEDS ORDERED: methylPREDNISolone NA SUCC 125 MG/2 ML VIAL IVPB ONE (16:33)
[2017-06-25] MEDS ORDERED: ALBUTEROL SO4 0.083% IH SOL 2.5 MG/3 ML VIAL.NEB. NEB ONE (16:39)
[2017-06-25] MEDS ORDERED: methylPREDNISolone NA SUCC 125 MG/2 ML VIAL ONE (16:40)
[2017-06-25] MEDS: ALBUTEROL SO4 0.083% IH SOL 2.5 MG/3 ML VIAL.NEB. NEB SCH ×3 (17:10→17:21)
[2017-06-25 17:17] LABS: BASOPHIL 1.1 % (0-2.0); EOSINOPHIL 5.3 % (0-4.5); MCH 28.3 pg (25.7-33.7); MCHC 32.7 g/dl (32.0-36.0); MEAN CELL VOLUME 86.4 fl (80-96); MEAN PLT VOLUME 8.3 fl (7.5-11.1); NEUTROPHILS 40.6 % (42.8-82.8); PLATELET COUNT 347 K/MM3 (134-434); RDW 14.3 % (11.6-15.6); WHITE BLOOD COUNT 11.1 K/mm3 (4.0-10.0)
[2017-06-25 17:40] LABS: ALBUMIN 3.8 g/dl (3.4-5.0); ANION GAP 9 (8-16); CALCIUM 9.5 mg/dL (8.5-10.1); CO2 30 mmol/L (21-32); CREATININE 0.9 mg/dL (0.55-1.02); GLUCOSE,RANDOM 99 mg/dL (74-106); SGOT/AST 9 U/L (15-37)
[2017-06-25 18:00] LABS: ALK PHOS 66 U/L (45-117); BILIRUBIN,TOTAL 0.7 mg/dL (0.2-1.0); SGPT/ALT 20 U/L (12-78); TOT PROT 6.8 g/dl (6.4-8.2)
[2017-06-25 18:42] LABS: CPK 42 IU/L (26-192)
[2017-06-25 18:45] LABS: TROPONIN I < 0.02 ng/ml (0.00-0.05)
[2017-06-25] MEDS ORDERED: AZITHROMYCIN IVPB 500 MG in DEXTROSE 5%-WATER - 250 ML IVPB ONE (18:49)
[2017-06-25] MEDS ORDERED: AZITHROMYCIN IVPB 250 ML IVPB ONE (19:11)
[2017-06-25] MEDS ORDERED: ACETAMINOPHEN 325 MG TABLET (FP) PO PRN (20:01)
[2017-06-25 22:25] VITALS: BMI 24.5
[2017-06-25] MEDS: INSULIN SLIDING SCALE (NOVOLOG) 1 VIAL SQ SCH (22:58)
[2017-06-25] MEDS: BUDESONIDE/FORMETEROL FUMARATE 160/4.5 mcg INHALER IH SCH (22:58)
[2017-06-25] MEDS: ROSUVASTATIN CA 10 MG TABLET (FP) PO SCH (22:58)
[2017-06-25] MEDS: ACLIDINIUM BROMIDE 400 MCG/INH AERO.POWD IH SCH (22:58)
[2017-06-25] MEDS: MONTELUKAST NA 10 MG TABLET PO SCH (22:58)
[2017-06-26 02:02] LABS: URINE APPEARANCE SLCLOUDY; URINE BILIRUBIN NEGATIVE (NEGATIVE); URINE BLOOD NEGATIVE (NEGATIVE); URINE COLOR LTYELLOW; URINE GLUCOSE (UA) 3+ (NEGATIVE); URINE KETONE TRACE (NEGATIVE); URINE NITRITE NEGATIVE (NEGATIVE); URINE PROTEIN NEGATIVE (NEGATIVE); URINE UROBILINOGEN NEGATIVE mg/dL (0.2-1.0)
[2017-06-26 02:07] LABS: URINE LEUK ESTERASE 3+ (NEGATIVE)
[2017-06-26 02:08] LABS: URINE RBC 2 /hpf (0-3); URINE WBC 23 /hpf (3-5)
[2017-06-26] MEDS: sitaGLIPtin PHOSPHATE 50 MG TABLET PO SCH (06:30)
[2017-06-26] MEDS: metFORMIN HCL 500 MG TABLET (FP) PO SCH ×2 (06:30→17:52)
[2017-06-26] MEDS: INSULIN SLIDING SCALE (NOVOLOG) 1 VIAL SQ SCH ×4 (06:36→22:47)
[2017-06-26 08:26] LABS: MCH 28.4 pg (25.7-33.7); MCHC 32.8 g/dl (32.0-36.0); MEAN CELL VOLUME 86.7 fl (80-96); MEAN PLT VOLUME 8.7 fl (7.5-11.1); PLATELET COUNT 319 K/MM3 (134-434); RDW 14.4 % (11.6-15.6); WHITE BLOOD COUNT 9.5 K/mm3 (4.0-10.0)
[2017-06-26 09:05] LABS: ALBUMIN 3.5 g/dl (3.4-5.0); ALK PHOS 69 U/L (45-117); ANION GAP 12 (8-16); BILIRUBIN,TOTAL 0.4 mg/dL (0.2-1.0); CALCIUM 9.1 mg/dL (8.5-10.1); CHOLESTEROL 150 mg/dL (50-200); CO2 24 mmol/L (21-32); CREATININE 1.1 mg/dL (0.55-1.02); LDL CHOLESTEROL (ONLY SJRH) 69 mg/dL (5-100); SGOT/AST 6 U/L (15-37); SGPT/ALT 18 U/L (12-78); TOT PROT 6.5 g/dl (6.4-8.2)
[2017-06-26 09:13] LABS: GLUCOSE,RANDOM 307 mg/dL (74-106)
[2017-06-26] MEDS ORDERED: AZITHROMYCIN 250 MG TABLET (FP) PO SCH (10:00)
[2017-06-26] MEDS ORDERED: CEFTRIAXONE 50 ML IVPB SCH (10:00)
[2017-06-26] MEDS ORDERED: PT OWN MED DRAWER 7, Y5N ONE ×2 (10:53→21:07)
[2017-06-26] MEDS: VALSARTAN 160 MG TABLET (UD) PO SCH (11:02)
[2017-06-26] MEDS: POLYETHYLENE GLYCOL 3350 119 GM BTL PO SCH (11:03)
[2017-06-26] MEDS: ACLIDINIUM BROMIDE 400 MCG/INH AERO.POWD IH SCH ×2 (11:03→22:29)
[2017-06-26] MEDS: BUDESONIDE/FORMETEROL FUMARATE 160/4.5 mcg INHALER IH SCH ×2 (11:03→22:28)
--- NOTE | 2017-06-26 12:02 | CON.PULM ---
Consult Consult Specialty:: PULMONARY Referred by:: Dr. Diez Reason for Consultation:: shortness of breath - History of Present Illness Chief Complaint: shortness of breath History of Present Illness: 87yo female with h/o HTN, hyperlipidemia, DM, asthma/COPD who presents with chills and sweats x 2 days. Also reports increasing shortness of breath. No significant change in her chronic cough productive of white/light yellow sputum. She reports chronic wheezing as well which is unchanged. No nausea, vomiting or abdominal pain. No recent travel or sick contacts. She is a never smoker but has had significant 2nd hand smoke exposure. She is not on home O2 but upon arrival to the ER, she was saturating 89% on room air. - History Source History Provided By: Patient, Medical Record Limitations to Obtaining History: No Limitations - Past Medical History Pulmonary: Yes: Asthma, COPD Gastrointestinal: Yes: Constipation, Hemorrhoids, Other (RECTAL BLEEDING) Endocrine: Yes: Diabetes Mellitus - Alcohol/Substance Use Hx Alcohol Use: No - Smoking History Smoking history: Never smoked Have you smoked in the past 12 months: No Aproximately how many cigarettes per day: 0 Home Medications - Allergies Allergies/Adverse Reactions: Allergies Allergy/AdvReac Type Severity Reaction Status Date / Time No Known Drug Allergies Allergy Verified 06/25/17 16:07 - Home Medications Home Medications: Ambulatory Orders Budesonide/Formeterol Fumarate [SYMBICORT 160/4.5mcg -] 1 inh PO BID 03/09/17 Diltiazem [Cardizem -] 300 mg PO HS 03/09/17 Montelukast Na [Singulair -] 10 mg PO HS 03/09/17 Prednisone [Deltasone -] 5 mg PO DAILY 03/09/17 Rosuvastatin Calcium [Crestor] 5 mg PO DAILY 03/09/17 Sitagliptin Phos/Metformin HCl [Janumet 50-500 mg Tablet] 1 each PO DAILY Tiotropium [place] [Spiriva] 1 inh IH DAILY 03/09/17 Valsartan [Diovan] 160 mg PO DAILY 03/09/17 Acetaminophen [Tylenol .Regular Strength -] 650 mg PO Q6H PRN #0 tablet Review of Systems - Review of Systems Constitutional: reports: Chills, Malaise, Night Sweats, Weakness Eyes: denies: Recent Change in Vision HENT: denies: Nasal Congestion, Throat Pain Neck: denies: Stiffness, Tenderness Cardiovascular: reports: Shortness of Breath. denies: Chest Pain, Palpitations Respiratory: reports: Cough, SOB, SOB on Exertion, Wheezing. denies: Hemoptysis Gastrointestinal: denies: Abdominal Pain, Nausea, Vomiting Genitourinary: denies: Dysuria, Hematuria Neurological: denies: Dizziness, Headache Endocrine: denies: Unexplained Weight Loss Physical Exam Vital Sings: Vital Signs Temperature 98.0 F 06/26/17 11:00 Pulse Rate 76 06/26/17 11:00 Respiratory Rate 20 06/26/17 11:00 Blood Pressure 123/53 06/26/17 11:00 O2 Sat by Pulse Oximetry (%) 96 06/25/17 22:00 Constitutional: Yes: Calm Eyes: Yes: Conjunctiva Clear, EOM Intact HENT: Yes: Atraumatic, Normocephalic Neck: Yes: Supple, Trachea Midline Cardiovascular: Yes: Regular Rate and Rhythm Respiratory: Yes: Rales (scattered) ...Clubbing: No Gastrointestinal: Yes: Normal Bowel Sounds, Soft. No: Tenderness Edema: No Neurological: Yes: Alert, Oriented Labs: CBC, BMP 06/26/17 08:05 06/26/17 08:05 Imaging - Results Cat Scan: Report Reviewed, Image Reviewed (basilar atelectasis, RLL nodule) Problem List - Problems (1) UTI (urinary tract infection) Code(s): N39.0 - URINARY TRACT INFECTION, SITE NOT SPECIFIED Qualifiers: Urinary tract infection type: acute cystitis (2) COPD exacerbation Code(s): J44.1 - CHRONIC OBSTRUCTIVE PULMONARY DISEASE W (ACUTE) EXACERBATION (3) DM2 (diabetes mellitus, type 2) Code(s): E11.9 - TYPE 2 DIABETES MELLITUS WITHOUT COMPLICATIONS Qualifiers: Diabetes mellitus complication detail: with diabetic retinopathy (4) HTN (hypertension) Code(s): I10 - ESSENTIAL (PRIMARY) HYPERTENSION Assessment/Plan UTI Acute COPD Exacerbation HTN DM Atelectasis Hypoxia - antibiotics for UTI - f/u cultures - inhaled bronchodilators - received IV medrol in ER with improvement, can resume her home dose of prednisone - check ambulatory SpO2 on room air when ready for discharge to assess for home O2 - incentive spirometry - DVT prophylaxis Thank you for this consult Patrice Balderas MD
[2017-06-26] MEDS: predniSONE 5 MG TABLET (UD) PO SCH (13:06)
--- NOTE | 2017-06-26 14:40 | CON.CARD ---
Consult Consult Specialty:: Cardiology Referred by:: Dr. Diez Reason for Consultation:: Shortness of breath - History of Present Illness Chief Complaint: Shortness of breath History of Present Illness: 87-year-old woman with a PMHx of HTN, DM, HLD, asthma/COPD (prednisone-dependent ) and NIDDM who is admitted with shortness of breath. The patient has two days of shortness of breath with decreased exercise tolerance, cough productive of yellow sputum, chills, and nausea. She reports no relief from albuterol nebulizers at home. V/s on arrival are notable for SpO2 89% on room air. She was seen by pulmonary for COPD exacerbation. Seen by ID for UTI. The patient denies chest pain, palpitation, dizziness, syncope or near syncope. She has mild ankle edema. But she has no orthopnea or PND. 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: Alzheimer's, CVA, Dementia, Migraine, Multiple Sclerosis, Peripheral Neuropathy, Parkinson's, Seizure, Syncope, TIA, Vertigo, Other Pulmonary: Yes: Asthma, COPD Gastrointestinal: Yes: Constipation, Hemorrhoids, Other (RECTAL BLEEDING) Endocrine: Yes: Diabetes Mellitus - Alcohol/Substance Use Hx Alcohol Use: No - Smoking History Smoking history: Never smoked Have you smoked in the past 12 months: No Aproximately how many cigarettes per day: 0 - Social History History of Recent Travel: No Home Medications - Allergies Allergies/Adverse Reactions: Allergies Allergy/AdvReac Type Severity Reaction Status Date / Time No Known Drug Allergies Allergy Verified 06/25/17 16:07 - Home Medications Home Medications: Ambulatory Orders Budesonide/Formeterol Fumarate [SYMBICORT 160/4.5mcg -] 1 inh PO BID 03/09/17 Diltiazem [Cardizem -] 300 mg PO HS 03/09/17 Montelukast Na [Singulair -] 10 mg PO HS 03/09/17 Prednisone [Deltasone -] 5 mg PO DAILY 03/09/17 Rosuvastatin Calcium [Crestor] 5 mg PO DAILY 03/09/17 Sitagliptin Phos/Metformin HCl [Janumet 50-500 mg Tablet] 1 each PO DAILY Tiotropium [place] [Spiriva] 1 inh IH DAILY 03/09/17 Valsartan [Diovan] 160 mg PO DAILY 03/09/17 Acetaminophen [Tylenol .Regular Strength -] 650 mg PO Q6H PRN #0 tablet Review of Systems - Review of Systems Cardiovascular: reports: Shortness of Breath Respiratory: reports: Cough, SOB, SOB on Exertion, Wheezing Gastrointestinal: reports: No Symptoms Genitourinary: reports: No Symptoms Vital Signs: Vital Signs Temperature 98.0 F 06/26/17 11:00 Pulse Rate 76 06/26/17 11:00 Respiratory Rate 20 06/26/17 11:00 Blood Pressure 123/53 06/26/17 11:00 O2 Sat by Pulse Oximetry (%) 96 06/25/17 22:00 Constitutional: Yes: Well Nourished, No Distress Eyes: Yes: WNL, Conjunctiva Clear, PERRL HENT: Yes: Atraumatic, Normocephalic Neck: Yes: Supple, Trachea Midline Respiratory: Yes: Regular, Diminished, On Nasal O2, Rales, Rhonchi, SOB on Exertion Gastrointestinal: Yes: WNL Renal/: Yes: WNL Cardiovascular: Yes: Regular Rate and Rhythm JVD: No Carotid Bruit: No Heart Sounds: Yes: S1, S2 Musculoskeletal: Yes: WNL Edema: Yes Edema: LLE: Trace, RLE: Trace Peripheral Pulses WNL: Yes - Other Data Labs, Other Data: CBC, BMP 06/26/17 08:05 06/26/17 08:05 Sinus rhythm at 73 BPM, Normal axis. Normal ST-T. Echo: Other (Normal cardiac dimension and systolic function in April 2013.) Imaging - Results Chest X-ray: Report Reviewed Cat Scan: Report Reviewed Problem List - Problems (1) Dyspnea and respiratory abnormalities Code(s): R06.00 - DYSPNEA, UNSPECIFIED R06.89 - OTHER ABNORMALITIES OF BREATHING Assessment/Plan 87-year-old woman with a PMHx of HTN, DM, HLD, asthma/COPD (prednisone-dependent ) and NIDDM who is admitted with shortness of breath. She was seen by pulmonary for COPD exacerbation. Seen by ID for UTI. She has no symptoms of angina or CHF except mild ankle edema. 1) Dyspnea: Worsening dyspnea, likely secondary to COPD exacerbation. She has no physical signs of CHF except for mild ankle edema. Echocardiogram in April 2013 showed normal cardiac function. 2) HTN. BP is well controlled. Continue Valsartan and cardizem. Please call us for reconsult as neede.
--- NOTE | 2017-06-26 15:07 | PN ---
Teaching Attending Note Name of Resident: Allen Jimenez ATTENDING PHYSICIAN STATEMENT I saw and evaluated the patient. I reviewed the resident's note and discussed the case with the resident. I agree with the resident's findings and plan as documented. SUBJECTIVE: feels well had one day of chills and sweats at home-Sunday wheezing on arrival to ED- now feels well back at baseline turning a/c off and on at home on Sunday no fevers some SOB no dysuria OBJECTIVE: Vital Signs Period Temp Pulse Resp BP Sys/[place] Pulse Ox Last 24 Hr 97.9 F-98.1 F 70-82 16-20 119-151/51-67 89-96 cor-rrr lungs decreased bs at bases abd soft,nt ext no edema no suprpubic discomfort, no cvat CBC, BMP 06/26/17 08:05 06/26/17 08:05 cultures pending ASSESSMENT AND PLAN: copd exacerbation- ?bronchitis doubt UTI continue rocephin d/c zithromax f/u cultures in am suspect she can go home in am
--- NOTE | 2017-06-26 15:30 | CONSULT ---
Consultation: REQUESTING PROVIDER: CONSULT REQUEST: We have been asked to medically evaluate this patient for ( specify). HISTORY OF PRESENT ILLNESS: Patient is an 87 yo F with a history of COPD ( prednisone dependent) and DM, came in to the ED complaining of 1 day of severe chills, night sweats and nausea. She also experiences some productive cough with yellow sputum which says is chronic for her. She denies fever, dysuria, vomiting, weight changes, dizziness, sore throat, recent travel, and exposure to sick contacts. Anemia: No Asthma: Yes Cancer: No Cardiac Disorders: No CVA: No COPD: Yes CHF: No Dementia: No Diabetes: Yes ([id number]) GI Disorders: Yes (H/O HEMORROIDS) Disorders: No HTN: Yes Hypercholesterolemia: Yes Liver Disease: No Seizures: No Thyroid Disease: No - Surgical History Abdominal Surgery: Yes (umbilical hernia, bilateral inguinal hernias BY Dr. ZAVALA) Appendectomy: No Cardiac Surgery: No Cholecystectomy: No Lung Surgery: No Neurologic Surgery: No Orthopedic Surgery: Yes (Ankle) - Psycho/Social/Smoking Cessation Hx Anxiety: No Suicidal Ideation: No Smoking Status: No Smoking History: Never smoked Have you smoked in the past 12 months: No Number of Cigarettes Smoked Daily: 0 Cigars Per Day: 0 Hx Alcohol Use: No Drug/Substance Use Hx: No Substance Use Type: None Hx Substance Use Treatment: No REVIEW OF SYSTEMS: CONSTITUTIONAL: chills, diaphoresis Absent: fever, generalized weakness, malaise, loss of appetite, weight change HEENT: Absent: rhinorrhea, nasal congestion, throat pain, throat swelling, difficulty swallowing, mouth swelling, ear pain, eye pain, visual changes CARDIOVASCULAR: Absent: chest pain, syncope, palpitations, irregular heart rate, lightheadedness , peripheral edema RESPIRATORY: cough, SOB, dyspnea on minimal exertion Absent: orthopnea, wheezing, stridor, hemoptysis GASTROINTESTINAL: Absent: abdominal pain, abdominal distension, nausea, vomiting, diarrhea, constipation, melena, hematochezia GENITOURINARY: Absent: dysuria, frequency, urgency, hesitancy, hematuria, flank pain, genital pain MUSCULOSKELETAL: Absent: myalgia, arthralgia, joint swelling, back pain, neck pain SKIN: Absent: rash, itching, pallor HEMATOLOGIC/IMMUNOLOGIC: Absent: easy bleeding, easy bruising, lymphadenopathy, frequent infections ENDOCRINE: Absent: unexplained weight gain, unexplained weight loss, heat intolerance, cold intolerance NEUROLOGIC: Absent: headache, focal weakness or paresthesias, dizziness, unsteady gait, seizure, mental status changes, bladder or bowel incontinence PSYCHIATRIC: Absent: anxiety, depression, suicidal or homicidal ideation, hallucinations. PHYSICAL EXAMINATION Vital Signs - 24 hr 06/25/17 06/25/17 06/25/17 20:30 20:48 22:00 Temperature 97.9 F 97.9 F Pulse Rate 76 Pulse Rate [ 82 Apical] Respiratory 16 18 18 Rate Blood Pressure 133/51 Blood Pressure 151/64 [Right Arm] O2 Sat by Pulse 92 L 96 96 Oximetry (%) 06/26/17 06/26/17 06/26/17 06:00 11:00 14:16 Temperature 97.9 F 98.0 F 98.4 F Pulse Rate 70 76 82 Pulse Rate [ Apical] Respiratory 18 20 22 Rate Blood Pressure 119/53 123/53 149/72 Blood Pressure [Right Arm] O2 Sat by Pulse Oximetry (%) GENERAL: Awake, alert, and fully oriented, in no acute distress. HEAD: Normal with no signs of trauma. EYES: Pupils equal, round and reactive to light, extraocular movements intact, sclera anicteric, conjunctiva clear. No lid lag. EARS, NOSE, THROAT: Ears normal, nares patent, oropharynx clear without exudates. Moist mucous membranes. NECK: Normal range of motion, supple without lymphadenopathy, JVD, or masses. LUNGS: Breath sounds equal, clear to auscultation bilaterally. No wheezes, and no crackles. No accessory muscle use. HEART: Regular rate and rhythm, normal S1 and S2 without murmur, rub or gallop. ABDOMEN: Soft, nontender, not distended, normoactive bowel sounds, no guarding, no rebound, no masses. No hepatomegaly or splenomegaly. UPPER EXTREMITIES: 2+ pulses, warm, well-perfused. No cyanosis. No clubbing. Cap refill <2 seconds. No peripheral edema. LOWER EXTREMITIES: 2+ pulses, warm, well-perfused. No calf tenderness. No peripheral edema. PSYCHIATRIC: Cooperative. Good eye contact. Appropriate mood and affect. SKIN: Warm, dry, normal turgor, no rashes or lesions noted. Laboratory Results - last 24 hr 06/25/17 06/26/1717 22:14 00:00 06:34 WBC RBC Hgb Hct MCV MCH MCHC RDW Plt Count MPV Sodium Potassium Chloride Carbon Dioxide Anion Gap BUN Creatinine Creat Clearance w eGFR POC Glucometer 285 271 Random Glucose Hemoglobin A1c % Calcium Total Bilirubin AST ALT Alkaline Phosphatase Total Protein Albumin Triglycerides Cholesterol Total LDL Cholesterol HDL Cholesterol Urine Color Ltyellow Urine Appearance Slcloudy Urine pH 5.0 Urine Protein Negative Urine Glucose (UA) 3+ H Urine Ketones Trace H Urine Blood Negative Urine Nitrite Negative Urine Bilirubin Negative Urine Urobilinogen Negative Ur Leukocyte Esterase 3+ H Urine RBC 2 Urine WBC 23 Ur Epithelial Cells Rare 06/26/17 06/26/17 06/26/17 08:05 08:05 08:05 WBC 9.5 RBC 4.49 Hgb 12.7 Hct 38.9 MCV 86.7 MCH 28.4 MCHC 32.8 RDW 14.4 Plt Count 319 MPV 8.7 Sodium 136 Potassium 4.5 Chloride 100 Carbon Dioxide 24 Anion Gap 12 BUN 23 H D Creatinine 1.1 H D Creat Clearance w eGFR 46.98 POC Glucometer Random Glucose 307 H* D Hemoglobin A1c % 8.0 H D Calcium 9.1 Total Bilirubin 0.4 D AST 6 L D ALT 18 Alkaline Phosphatase 69 Total Protein 6.5 Albumin 3.5 Triglycerides 82 Cholesterol 150 Total LDL Cholesterol 69 HDL Cholesterol 57 D Urine Color Urine Appearance Urine pH Urine Protein Urine Glucose (UA) Urine Ketones Urine Blood Urine Nitrite Urine Bilirubin Urine Urobilinogen Ur Leukocyte Esterase Urine RBC Urine WBC Ur Epithelial Cells 06/26/17 11:31 WBC RBC Hgb Hct MCV MCH MCHC RDW Plt Count MPV Sodium Potassium Chloride Carbon Dioxide Anion Gap BUN Creatinine Creat Clearance w eGFR POC Glucometer 298 Random Glucose Hemoglobin A1c % Calcium Total Bilirubin AST ALT Alkaline Phosphatase Total Protein Albumin Triglycerides Cholesterol Total LDL Cholesterol HDL Cholesterol Urine Color Urine Appearance Urine pH Urine Protein Urine Glucose (UA) Urine Ketones Urine Blood Urine Nitrite Urine Bilirubin Urine Urobilinogen Ur Leukocyte Esterase Urine RBC Urine WBC Ur Epithelial Cells Active Medications Generic Name Dose Route Start Last Admin Trade Name Freq PRN Reason Stop Dose Admin Acetaminophen 650 mg 06/25/17 20:01 Tylenol - PO Q6H PRN FEVER OR PAIN Aclidinium [place] 1 puff 06/25/17 22:00 06/26/17 11:03 Tudorza - IH 1 puff BID URSULA Administration Albuterol Sulfate 1 amp 06/26/17 18:00 Ventolin 0.083% Nebulizer Soln - NEB QIDR URSULA Azithromycin 250 mg 06/26/17 10:00 06/26/17 11:02 Zithromax - PO 250 mg DAILY URSULA Administration Budesonide/Formoterol Fumarate 2 puff 06/25/17 22:00 06/26/17 11:03 Symbicort 160/4.5mcg - IH 2 puff BID URSULA Administration Diltiazem HCl 300 mg 06/26/17 10:00 06/26/17 12:17 Cardizem Cd - PO 300 mg DAILY URSULA Administration Ceftriaxone Sodium 50 mls @ 100 mls/hr 06/26/17 10:00 06/26/17 11:03 Rocephin 1gm Ivpb (Pre-Docked) IVPB 100 mls/hr DAILY URSULA Administration Insulin Aspart 1 vial 06/25/17 22:00 06/26/17 13:06 Novolog Vial Sliding Scale - SQ 4 units ACHS URSULA Administration Protocol Metformin HCl 500 mg 06/26/17 07:00 06/26/17 06:30 Glucophage - PO 500 mg BID@0700,1630 URSULA Administration Montelukast Sodium 10 mg 06/25/17 22:00 06/25/17 22:58 Singulair - PO 10 mg HS URSULA Administration Polyethylene Glycol 17 gm 06/26/17 10:00 06/26/17 11:03 Miralax (For Daily Use) - PO 17 gm DAILY URSULA Administration Prednisone 5 mg 06/26/17 12:15 06/26/17 13:06 Deltasone - PO 5 mg DAILY URSULA Administration Rosuvastatin Calcium 10 mg 06/25/17 22:00 06/25/17 22:58 Crestor - PO 10 mg HS URSULA Administration Sitagliptin Phosphate 50 mg 06/26/17 07:00 06/26/17 06:30 Januvia - PO 50 mg DAILY@0700 URSULA Administration Valsartan 160 mg 06/26/17 10:00 06/26/17 11:02 Diovan - PO 160 mg DAILY URSULA Administration ASSESSMENT/PLAN: 1) Doubtful UTI -afebrile -asymptomatic -Cultures pending. F/up in the AM 2) COPD exacerbation - ?bronchitis -history of COPD -continue rocephin -d/c zithromax -Possibly can go home in the AM Dispo: We will continue to follow the patient. Thank you for this consultative opportunity. Visit type - Emergency Visit Emergency Visit: No - New Patient This patient is new to me today: Yes Date on this admission: 06/26/17 - Critical Care Critical Care patient: No
--- NOTE | 2017-06-26 16:07 | HP ---
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: Alzheimer's, CVA, Dementia, Migraine, Multiple Sclerosis, Peripheral Neuropathy, Parkinson's, Seizure, Syncope, TIA, Vertigo, Other Pulmonary: Yes: Asthma, COPD Gastrointestinal: Yes: Constipation, Hemorrhoids, Other (RECTAL BLEEDING) Endocrine: Yes: Diabetes Mellitus - Smoking History Smoking history: Never smoked Have you smoked in the past 12 months: No Aproximately how many cigarettes per day: 0 - Alcohol/Substance Use Hx Alcohol Use: No - Social History History of Recent Travel: No Home Medications - Allergies Allergies/Adverse Reactions: Allergies Allergy/AdvReac Type Severity Reaction Status Date / Time No Known Drug Allergies Allergy Verified 06/25/17 16:07 - Home Medications Home Medications: Ambulatory Orders Budesonide/Formeterol Fumarate [SYMBICORT 160/4.5mcg -] 1 inh PO BID 03/09/17 Diltiazem [Cardizem -] 300 mg PO HS 03/09/17 Montelukast Na [Singulair -] 10 mg PO HS 03/09/17 Prednisone [Deltasone -] 5 mg PO DAILY 03/09/17 Rosuvastatin Calcium [Crestor] 5 mg PO DAILY 03/09/17 Sitagliptin Phos/Metformin HCl [Janumet 50-500 mg Tablet] 1 each PO DAILY Tiotropium [place] [Spiriva] 1 inh IH DAILY 03/09/17 Valsartan [Diovan] 160 mg PO DAILY 03/09/17 Acetaminophen [Tylenol .Regular Strength -] 650 mg PO Q6H PRN #0 tablet Review of Systems - Review of Systems Constitutional: reports: Fever, Lethargy, Loss of Appetite, Malaise, Night Sweats, Weakness Eyes: reports: No Symptoms HENT: reports: No Symptoms Neck: reports: No Symptoms Cardiovascular: reports: No Symptoms Respiratory: reports: Cough, SOB Gastrointestinal: reports: Abdominal Pain, Constipation Genitourinary: reports: Incontinence Musculoskeletal: reports: No Symptoms Integumentary: reports: No Symptoms Neurological: reports: No Symptoms Endocrine: reports: No Symptoms Hematology/Lymphatic: reports: No Symptoms Psychiatric: reports: No Symptoms Physical Examination Vital Signs: Vital Signs Temperature 98.4 F 06/26/17 14:16 Pulse Rate 82 06/26/17 14:16 Respiratory Rate 22 06/26/17 14:16 Blood Pressure 149/72 06/26/17 14:16 O2 Sat by Pulse Oximetry (%) 96 06/25/17 22:00 Constitutional: Yes: Mild Distress Eyes: Yes: WNL HENT: Yes: WNL Neck: Yes: WNL Cardiovascular: Yes: WNL Respiratory: Yes: Wheezes Gastrointestinal: Yes: WNL Renal/: Yes: WNL Musculoskeletal: Yes: WNL Extremities: Yes: WNL Edema: No Peripheral Pulses WNL: Yes Integumentary: Yes: WNL Wound/Incision: Yes: Clean/Dry Neurological: Yes: WNL ...Motor Strength: WNL Psychiatric: Yes: WNL Labs: CBC, BMP 06/26/17 08:05 06/26/17 08:05 Imaging - Results Cat Scan: Report Reviewed Ultrasound: Report Reviewed Problem List - Problems (1) DM2 (diabetes mellitus, type 2) Code(s): E11.9 - TYPE 2 DIABETES MELLITUS WITHOUT COMPLICATIONS Qualifiers: Diabetes mellitus complication detail: with diabetic retinopathy (2) UTI (urinary tract infection) Code(s): N39.0 - URINARY TRACT INFECTION, SITE NOT SPECIFIED Qualifiers: Urinary tract infection type: acute cystitis Assessment/Plan IV CEFTRIAXONE URINE CX PENDING ID CONSULT BLADDER SONO NORMAL STOP AZITHROMYCIN
[2017-06-26] MEDS: ALBUTEROL SO4 0.083% IH SOL 2.5 MG/3 ML VIAL.NEB. NEB SCH (18:01)
[2017-06-26] MEDS ORDERED: SENNOSIDES 8.6MG TABLET (FP) PO SCH (22:00)
[2017-06-26] MEDS: MONTELUKAST NA 10 MG TABLET PO SCH (22:28)
[2017-06-26] MEDS: ROSUVASTATIN CA 10 MG TABLET (FP) PO SCH (22:28)
[2017-06-27] MEDS: ALBUTEROL SO4 0.083% IH SOL 2.5 MG/3 ML VIAL.NEB. NEB SCH ×3 (00:02→11:40)
[2017-06-27] MEDS: metFORMIN HCL 500 MG TABLET (FP) PO SCH (06:27)
[2017-06-27] MEDS: sitaGLIPtin PHOSPHATE 50 MG TABLET PO SCH (06:27)
[2017-06-27] MEDS: INSULIN SLIDING SCALE (NOVOLOG) 1 VIAL SQ SCH ×2 (06:28→11:42)
[2017-06-27] MEDS ORDERED: PT OWN MED DRAWER 7, Y5N ONE ×2 (09:18→15:56)
[2017-06-27] MEDS: predniSONE 5 MG TABLET (UD) PO SCH (09:24)
[2017-06-27] MEDS: POLYETHYLENE GLYCOL 3350 119 GM BTL PO SCH (09:24)
[2017-06-27] MEDS: VALSARTAN 160 MG TABLET (UD) PO SCH (09:24)
[2017-06-27] MEDS: ACLIDINIUM BROMIDE 400 MCG/INH AERO.POWD IH SCH (09:25)
[2017-06-27] MEDS: BUDESONIDE/FORMETEROL FUMARATE 160/4.5 mcg INHALER IH SCH (09:25)
--- NOTE | 2017-06-27 09:53 | DS ---
Physical Examination Vital Signs: Vital Signs Temperature 98.1 F 06/27/17 06:00 Pulse Rate 60 06/27/17 06:00 Respiratory Rate 18 06/27/17 06:00 Blood Pressure 105/45 06/27/17 06:00 O2 Sat by Pulse Oximetry (%) 96 06/26/17 21:05 Constitutional: Yes: No Distress Eyes: Yes: WNL HENT: Yes: WNL Neck: Yes: WNL Cardiovascular: Yes: WNL Respiratory: Yes: Wheezes Gastrointestinal: Yes: WNL Renal/: Yes: WNL Musculoskeletal: Yes: WNL Extremities: Yes: WNL Edema: No Peripheral Pulses WNL: Yes Integumentary: Yes: WNL Wound/Incision: Yes: Clean/Dry Neurological: Yes: WNL ...Motor Strength: WNL Psychiatric: Yes: WNL Labs: CBC, BMP 06/26/17 08:05 06/26/17 08:05 Discharge Summary Reason For Visit: ASTHMA,BRONCHITIS Current Active Problems Asthma (Acute) Bronchitis (Acute) Dyspnea and respiratory abnormalities (Acute) Procedures: Principal: echo Other Procedures: ct scan Hospital Course: admitted for dizziness, fever, chills, woked up for infection, + UTI. treated with abx. Echo was read as difficult to interpret with possible vlavular changes and thrombus? Discussed with staff to contact cardiology dr zuleta prior to discharge to clear from their point of view or to keep here for further work up. Condition: Improved - Instructions Diet, Activity, Other Instructions: ada low sodium see dr frances in 1 week Referrals: Paul Frances MD [Primary Care Provider] - Disposition: HOME - Home Medications Comprehensive Discharge Medication List: Ambulatory Orders Budesonide/Formeterol Fumarate [SYMBICORT 160/4.5mcg -] 1 inh PO BID 03/09/17 Diltiazem [Cardizem -] 300 mg PO HS 03/09/17 Montelukast Na [Singulair -] 10 mg PO HS 03/09/17 Prednisone [Deltasone -] 5 mg PO DAILY 03/09/17 Rosuvastatin Calcium [Crestor] 5 mg PO DAILY 03/09/17 Sitagliptin Phos/Metformin HCl [Janumet 50-500 mg Tablet] 1 each PO DAILY Tiotropium [place] [Spiriva] 1 inh IH DAILY 03/09/17 Valsartan [Diovan] 160 mg PO DAILY 03/09/17 Acetaminophen [Tylenol .Regular Strength -] 650 mg PO Q6H PRN #0 tablet
[2017-06-27] MEDS ORDERED: NITROFURANTOIN MACROCRYSTAL 50 MG CAPSULE (FP) PO SCH (10:00)
[2017-06-27] MEDS ORDERED: CEFTRIAXONE 1 GM in DEXTROSE 5%-WATER - 50 ML IVPB SCH (10:00)
--- NOTE | 2017-06-27 12:12 | PN ---
Progress Note (short form) - Note Progress Note: PULMONARY Denies shortness of breath, cough or wheezing. Last Vital Signs Temp Pulse Resp BP Pulse Ox 98.1 F 60 18 105/45 96 06/27/17 06:00 06/27/17 06:00 06/27/17 06:00 06/27/17 06:00 06/26/17 21:05 Gen: NAD in chair Heart: RRR Lung: decreased breath sounds at the bases Abd: soft, nontender Ext: no edema CBC, BMP 06/26/17 08:05 06/26/17 08:05 Active Medications Acetaminophen (Tylenol -) 650 mg PO Q6H PRN PRN Reason: FEVER OR PAIN Aclidinium [place] (Tudorza -) 1 puff IH BID [facility] Last Admin: 06/27/17 09:25 Dose: 1 puff Albuterol Sulfate (Ventolin 0.083% Nebulizer Soln -) 1 amp NEB QIDR [facility] Last Admin: 06/27/17 07:13 Dose: 1 amp Budesonide/Formoterol Fumarate (Symbicort 160/4.5mcg -) 2 puff IH BID [facility] Last Admin: 06/27/17 09:25 Dose: 2 puff Diltiazem HCl (Cardizem Cd -) 300 mg PO DAILY [facility] Last Admin: 06/27/17 09:24 Dose: 300 mg Ceftriaxone Sodium 1 gm/ (Dextrose) 50 mls @ 100 mls/hr IVPB DAILY [facility] Last Admin: 06/27/17 09:37 Dose: Not Given Insulin Aspart (Novolog Vial Sliding Scale -) 1 vial SQ ACHS [facility] PRN Reason: Protocol Last Admin: 06/27/17 11:42 Dose: Not Given Metformin HCl (Glucophage -) 500 mg PO BID@0700,1630 [facility] Last Admin: 06/27/17 06:27 Dose: 500 mg Montelukast Sodium (Singulair -) 10 mg PO HS [facility] Last Admin: 06/26/17 22:28 Dose: 10 mg Nitrofurantoin Macrocrystals (Macrodantin -) 100 mg PO BID [facility] Polyethylene Glycol (Miralax (For Daily Use) -) 17 gm PO DAILY [facility] Last Admin: 06/27/17 09:24 Dose: 17 gm Prednisone (Deltasone -) 5 mg PO DAILY [facility] Last Admin: 06/27/17 09:24 Dose: 5 mg Rosuvastatin Calcium (Crestor -) 10 mg PO [facility] Last Admin: 06/26/17 22:28 Dose: 10 mg Senna (Senna -) 1 tab PO [facility] Last Admin: 06/26/17 22:28 Dose: 1 tab Sitagliptin Phosphate (Januvia -) 50 mg PO DAILY@0700 [facility] Last Admin: 06/27/17 06:27 Dose: 50 mg Valsartan (Diovan -) 160 mg PO DAILY [facility] Last Admin: 06/27/17 09:24 Dose: 160 mg A/P UTI Acute COPD Exacerbation HTN DM Atelectasis Hypoxia - antibiotics for UTI - f/u cultures - inhaled bronchodilators - continue home dose of prednisone - incentive spirometry - DVT prophylaxis - can d/c home from pulmonary standpoint Problem List - Problems (1) UTI (urinary tract infection) Code(s): N39.0 - URINARY TRACT INFECTION, SITE NOT SPECIFIED Qualifiers: Urinary tract infection type: acute cystitis (2) COPD exacerbation Code(s): J44.1 - CHRONIC OBSTRUCTIVE PULMONARY DISEASE W (ACUTE) EXACERBATION (3) DM2 (diabetes mellitus, type 2) Code(s): E11.9 - TYPE 2 DIABETES MELLITUS WITHOUT COMPLICATIONS Qualifiers: Diabetes mellitus complication detail: with diabetic retinopathy (4) HTN (hypertension) Code(s): I10 - ESSENTIAL (PRIMARY) HYPERTENSION
--- NOTE | 2017-06-27 14:45 | PN ---
Physical Exam: SUBJECTIVE: Patient seen and examined. No overnight events and no new complaints. She feels much better than yesterday. She denies urinary symptoms, cough, SOB, chills, and nausea. OBJECTIVE: Vital Signs Period Temp Pulse Resp BP Sys/[place] Pulse Ox Last 24 Hr 97.9 F-98.5 F 60-72 18-22 105-145/45-65 92-98 GENERAL: The patient is awake, alert, and fully oriented, in no acute distress. HEAD: Normal with no signs of trauma. EYES: PERRL, extraocular movements intact, sclera anicteric, conjunctiva clear. No ptosis. ENT: Ears normal, nares patent, oropharynx clear without exudates, moist mucous membranes. NECK: supple, no LAD LUNGS: Breath sounds equal, clear to auscultation bilaterally, no wheezes, no crackles, no accessory muscle use. HEART: Regular rate and rhythm, S1, S2 without murmur, rub or gallop. ABDOMEN: Soft, nontender, nondistended, normoactive bowel sounds, no guarding, no rebound, no hepatosplenomegaly, no masses. EXTREMITIES: 2+ pulses, warm, well-perfused, no edema. PSYCH: Normal mood, normal affect. SKIN: Warm, dry, normal turgor, no rashes or lesions noted Laboratory Results - last 24 hr 06/26/17 06/26/17 06/26/17 00:00 17:43 22:31 POC Glucometer 247 307 Urine Color Ltyellow Urine Appearance Slcloudy Urine pH 5.0 Ur Specific [place] 1.015 Urine Protein Negative Urine Glucose (UA) 3+ H Urine Ketones Trace H Urine Blood Negative Urine Nitrite Negative Urine Bilirubin Negative Urine Urobilinogen Negative Ur Leukocyte Esterase 3+ H Urine RBC 2 Urine WBC 23 Ur Epithelial Cells Rare 06/27/17 06/27/17 05:58 11:08 POC Glucometer 184 169 Urine Color Urine Appearance Urine pH Ur Specific [place] Urine Protein Urine Glucose (UA) Urine Ketones Urine Blood Urine Nitrite Urine Bilirubin Urine Urobilinogen Ur Leukocyte Esterase Urine RBC Urine WBC Ur Epithelial Cells Active Medications Generic Name Dose Route Start Last Admin Trade Name Freq PRN Reason Stop Dose Admin Acetaminophen 650 mg 06/25/17 20:01 Tylenol - PO Q6H PRN FEVER OR PAIN Aclidinium [place] 1 puff 06/25/17 22:00 08/16/17 09:25 Tudorza - IH 1 puff BID URSULA Administration Albuterol Sulfate 1 amp 06/26/17 18:00 06/27/17 11:40 Ventolin 0.083% Nebulizer Soln - NEB 1 amp QIDR URSULA Administration Budesonide/Formoterol Fumarate 2 puff 06/25/17 22:00 06/27/17 09:25 Symbicort 160/4.5mcg - IH 2 puff BID URSULA Administration Diltiazem HCl 300 mg 06/26/17 10:00 06/27/17 09:24 Cardizem Cd - PO 300 mg DAILY URSULA Administration Ceftriaxone Sodium 1 gm/ 50 mls @ 100 mls/hr 06/27/17 10:00 06/27/17 09:37 Dextrose IVPB Not Given DAILY URSULA Insulin Aspart 1 vial 06/25/17 22:00 06/27/17 11:42 Novolog Vial Sliding Scale - SQ Not Given ACHS URSULA Protocol Metformin HCl 500 mg 06/26/17 07:00 06/27/17 06:27 Glucophage - PO 500 mg BID@0700,1630 URSULA Administration Montelukast Sodium 10 mg 06/25/17 22:00 06/26/17 22:28 Singulair - PO 10 mg HS URSULA Administration Polyethylene Glycol 17 gm 06/26/17 10:00 06/27/17 09:24 Miralax (For Daily Use) - PO 17 gm DAILY URSULA Administration Prednisone 5 mg 06/26/17 12:15 06/27/17 09:24 Deltasone - PO 5 mg DAILY URSULA Administration Rosuvastatin Calcium 10 mg 06/25/17 22:00 06/26/17 22:28 Crestor - PO 10 mg HS URSULA Administration Senna 1 tab 06/26/17 22:00 06/26/17 22:28 Senna - PO 1 tab HS URSULA Administration Sitagliptin Phosphate 50 mg 06/26/17 07:00 06/27/17 06:27 Januvia - PO 50 mg DAILY@0700 URSULA Administration Valsartan 160 mg 06/26/17 10:00 06/27/17 09:24 Diovan - PO 160 mg DAILY URSULA Administration Microbiology 06/26/17 00:00 Urine - Urine Clean Catch Urine Culture - Preliminary Beta Hemolytic Strep ASSESSMENT/PLAN: 87 yo F with a past medical history of COPD admitted for UTI secondary to beta hemolytic strep. Problem List - Problems (1) UTI (urinary tract infection) Assessment/Plan: -Cultures were positive for beta hemolytic strept - treated with 2 days of IV antibiotics with resolution of symptoms -recommend continuing antibiotic therapy with Amoxocillin 500mg BID for 7 days. Visit type - Emergency Visit Emergency Visit: Yes ED Registration Date: 06/25/17 Care time: The patient presented to the Emergency Department on the above date and was hospitalized for further evaluation of their emergent condition. - New Patient This patient is new to me today: No - Critical Care Critical Care patient: No - Discharge Referral Referred to [facility] No
--- NOTE | 2017-06-27 14:59 | PN ---
Progress Note, Physician Chief Complaint: Patient is sitting comfortably. She has improved SOB. No chest pain or SOB. Echocardiogram images 06/27/2017 reviwed which showed normal LV size, wall motion and systolic function. 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 No evidence of apical thrombus. History of Present Illness: 87-year-old woman with a PMHx of HTN, DM, HLD, asthma/COPD (prednisone-dependent ) and NIDDM who is admitted with shortness of breath. The patient has two days of shortness of breath with decreased exercise tolerance, cough productive of yellow sputum, chills, and nausea. She reports no relief from albuterol nebulizers at home. V/s on arrival are notable for SpO2 89% on room air. She was seen by pulmonary for COPD exacerbation. Seen by ID for UTI. The patient denies chest pain, palpitation, dizziness, syncope or near syncope. She has mild ankle edema. But she has no orthopnea or PND. Echocardiogram images 06/27/2017 reviwed. It showed normal LV size with hyperkenetic wall motion and increased LV systolic function. 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 No evidence of apical thrombus. - Current Medication List Current Medications: Active Medications Acetaminophen (Tylenol -) 650 mg PO Q6H PRN PRN Reason: FEVER OR PAIN Aclidinium [place] (Tudorza -) 1 puff IH BID [facility] Last Admin: 06/27/17 09:25 Dose: 1 puff Albuterol Sulfate (Ventolin 0.083% Nebulizer Soln -) 1 amp NEB QIDR [facility] Last Admin: 06/27/17 11:40 Dose: 1 amp Budesonide/Formoterol Fumarate (Symbicort 160/4.5mcg -) 2 puff IH BID [facility] Last Admin: 06/27/17 09:25 Dose: 2 puff Diltiazem HCl (Cardizem Cd -) 300 mg PO DAILY [facility] Last Admin: 06/27/17 09:24 Dose: 300 mg Ceftriaxone Sodium 1 gm/ (Dextrose) 50 mls @ 100 mls/hr IVPB DAILY [facility] Last Admin: 06/27/17 09:37 Dose: Not Given Insulin Aspart (Novolog Vial Sliding Scale -) 1 vial SQ ACHS [facility] PRN Reason: Protocol Last Admin: 06/27/17 11:42 Dose: Not Given Metformin HCl (Glucophage -) 500 mg PO BID@0700,1630 [facility] Last Admin: 06/27/17 06:27 Dose: 500 mg Montelukast Sodium (Singulair -) 10 mg PO [facility] Last Admin: 06/26/17 22:28 Dose: 10 mg Polyethylene Glycol (Miralax (For Daily Use) -) 17 gm PO DAILY [facility] Last Admin: 06/27/17 09:24 Dose: 17 gm Prednisone (Deltasone -) 5 mg PO DAILY [facility] Last Admin: 06/27/17 09:24 Dose: 5 mg Rosuvastatin Calcium (Crestor -) 10 mg PO [facility] Last Admin: 06/26/17 22:28 Dose: 10 mg Senna (Senna -) 1 tab PO [facility] Last Admin: 06/26/17 22:28 Dose: 1 tab Sitagliptin Phosphate (Januvia -) 50 mg PO DAILY@0700 [facility] Last Admin: 06/27/17 06:27 Dose: 50 mg Valsartan (Diovan -) 160 mg PO DAILY [facility] Last Admin: 06/27/17 09:24 Dose: 160 mg - Objective Vital Signs: Vital Signs Temperature 97.9 F 06/27/17 10:00 Pulse Rate 69 06/27/17 11:40 Respiratory Rate 22 06/27/17 10:00 Blood Pressure 116/54 06/27/17 10:00 O2 Sat by Pulse Oximetry (%) 97 06/27/17 11:40 Constitutional: Yes: Well Nourished, No Distress Eyes: Yes: WNL, Conjunctiva Clear, PERRL HENT: Yes: Atraumatic, Normocephalic Neck: Yes: Supple, Trachea Midline Cardiovascular: Yes: Regular Rate and Rhythm, Murmur, S1, S2, Other (II/ PRADIP.) Respiratory: Yes: Regular, Diminished (Poor air entry with decreased BS.) Gastrointestinal: Yes: Normal Bowel Sounds, Soft ...Rectal Exam: Yes: Deferred Extremities: Yes: WNL Edema: No Labs: CBC, BMP 06/26/17 08:05 06/26/17 08:05 Problem List - Problems (1) Dyspnea and respiratory abnormalities Code(s): R06.00 - DYSPNEA, UNSPECIFIED R06.89 - OTHER ABNORMALITIES OF BREATHING Assessment/Plan 87-year-old woman with a PMHx of HTN, DM, HLD, asthma/COPD (prednisone-dependent ) and NIDDM who is admitted with shortness of breath. She was seen by pulmonary for COPD exacerbation. Seen by ID for UTI. She has no symptoms of angina or CHF except mild ankle edema. 1) Echo 06/27/2017 showed Increased apical echogenicity. Echocardiogram images 06/27/2017 reviwed which showed normal LV size, wall motion and systolic function. 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 No evidence of apical thrombus. 2) Dyspnea: COPD exacerbation with improved dyspnea on current regimen. She has no physical signs of CHF except for mild ankle edema. 3) HTN. BP is well controlled. Continue Valsartan and cardizem. Please call us for reconsult as neede.
[2017-06-27 15:30] VITALS: BP 150/56; PULSE 88; TEMP 98.5
--- NOTE | 2017-06-27 16:46 | EKG ---
Test Reason : Blood Pressure : / mmHG Vent. Rate : 073 BPM Atrial Rate : 073 BPM P-R Int : 160 ms QRS Dur : 076 ms QT Int : 410 ms P-R-T Axes : 080 046 070 degrees QTc Int : 451 ms NORMAL SINUS RHYTHM CANNOT RULE OUT ANTERIOR INFARCT , AGE UNDETERMINED ABNORMAL ECG WHEN COMPARED WITH ECG OF 09-MAR-2017 16:32, NO SIGNIFICANT CHANGE WAS FOUND Confirmed by CINDI BREWSTER MD ([id number]) on 06/27/2017 4:46:02 PM Referred By: Confirmed By:CINDI BREWSTER MD
--- NOTE | 2017-06-29 12:11 | PN ---
Teaching Attending Note Name of Resident: Allen Jimenez ATTENDING PHYSICIAN STATEMENT I saw and evaluated the patient. I reviewed the resident's note and discussed the case with the resident. I agree with the resident's findings and plan as documented. SUBJECTIVE: no complaints OBJECTIVE: ASSESSMENT AND PLAN: patient was seen prior to discharge out of bed resting comfortably agree with switch to po antibiotics as outlined in the resident note
== END 2017-06-27 16:32 | disposition home health service (06) | DRG 191 ==
LOC: JER 16:01 → JERBED 18:50 → OBSVTOIN 19:53 → J5S 21:52
PROVIDERS: ADMIT Family Medicine; ATTEND Family Medicine
DX: J44.1 Chronic obstructive pulmonary disease with (acute) exacerbation (principal); N39.0 Urinary tract infection, site not specified; J98.11 Atelectasis; J45.901 Unspecified asthma with (acute) exacerbation; I10 Essential (primary) hypertension; E11.9 Type 2 diabetes mellitus without complications; E78.5 Hyperlipidemia, unspecified; J20.9 Acute bronchitis, unspecified
CPT/HCPCS: 36415; 71020-TC; 71250-TC; 76856-TC; 80053; 80061; 81003; 81015; 83036; 83721; 83880; 84484; 85025; 85027; 87040; 87086; 87186; 93005; 93010; 93306-TC; 94640; 99284-25; G0378

== ENCOUNTER 2018-11-21 12:23 | Inpatient (IN) | payer OTHER, BC ==
[2018-11-21 12:38] VITALS: BMI 33.2
[2018-11-21] MEDS ORDERED: methylPREDNISolone NA SUCC 125 MG/2 ML VIAL IVPUSH ONE (13:20)
[2018-11-21] MEDS ORDERED: ALBUTEROL SO4 2.5/IPRATROPIUM 0.5 INH SOL 3 ML VIAL.NEB. NEB ONE ×2 (13:20→13:41)
--- NOTE | 2018-11-21 13:36 | PDOC ---
History of Present Illness - General Chief Complaint: Shortness of Breath Stated Complaint: SOB Time Seen by Provider: 11/21/18 13:06 History Source: Patient Exam Limitations: Clinical Condition - History of Present Illness Initial Comments: 11/21/18 13:33 Patient with history of COPD, asthma, hypertension and hyperlipidemia and diabetes on meds present with complaint of one-week history of persistent cough , shortness of breath and chills. Patient reported using Symbicort for COPD. Patient not on oxygen therapy at home. Patient denies fever, dizziness, chest pain, nausea or vomiting. Patient denies any other symptoms. Timing/Duration: 1 week Past History - Past Medical History Allergies/Adverse Reactions: Allergies Allergy/AdvReac Type Severity Reaction Status Date / Time No Known Drug Allergies Allergy Verified 11/21/18 12:34 Home Medications: Ambulatory Orders Budesonide/Formeterol Fumarate [SYMBICORT 160/4.5mcg -] 1 inh PO BID 03/09/17 Diltiazem [Cardizem -] 300 mg PO HS 03/09/17 Montelukast Na [Singulair -] 10 mg PO HS 03/09/17 Rosuvastatin Calcium [Crestor] 5 mg PO DAILY 03/09/17 Sitagliptin Phos/Metformin HCl [Janumet 50-500 mg Tablet] 1 each PO DAILY Tiotropium [place] [Spiriva] 1 inh IH DAILY 03/09/17 Valsartan [Diovan] 160 mg PO DAILY 03/09/17 predniSONE [Deltasone -] 5 mg PO DAILY 03/09/17 Acetaminophen [Tylenol .Regular Strength -] 650 mg PO Q6H PRN #0 tablet Budesonide/Formeterol Fumarate [SYMBICORT 160/4.5mcg -] 2 puff IH BID inhaler 06/27/17 Montelukast Na [Singulair -] 10 mg PO HS tablet 06/27/17 Nitrofurantoin Macrocrystal [Macrodantin -] 100 mg PO BID #20 tab 06/27/17 Polyethylene Glycol 3350 [Miralax 119 gm Btl -] 17 gm PO DAILY #1 bottle Sennosides [Senna -] 1 tab PO HS #30 tablet 06/27/17 Anemia: No Asthma: Yes Cancer: No Cardiac Disorders: No CVA: No COPD: Yes CHF: No Dementia: No Diabetes: Yes ([id number]) GI Disorders: Yes (H/O HEMORROIDS) Disorders: No HTN: Yes Hypercholesterolemia: Yes Liver Disease: No Seizures: No Thyroid Disease: No - Surgical History Abdominal Surgery: Yes (umbilical hernia, bilateral inguinal hernias BY Dr. ZAVALA) Appendectomy: No Cardiac Surgery: No Cholecystectomy: No Lung Surgery: No Neurologic Surgery: No Orthopedic Surgery: Yes (Ankle) - Immunization History Immunization Up to Date: Yes - Suicide/Smoking/Psychosocial Hx Smoking Status: No Smoking History: Never smoked Have you smoked in the past 12 months: No Number of Cigarettes Smoked Daily: 0 Cigars Per Day: 0 Information on smoking cessation initiated: No Hx Alcohol Use: No Drug/Substance Use Hx: No Substance Use Type: None Hx Substance Use Treatment: No Review of Systems - Review of Systems Able to Perform ROS?: Yes Is the patient limited Divehi proficient: No Constitutional: Yes: Chills, Malaise. No: Fever, Weakness HEENTM: Yes: Symptoms Reported, See HPI, Nose Congestion. No: Eye Pain, Blurred Vision, Tearing, Recent change in vision, Double Vision, Cataracts, Ear Pain, Ocular Prothesis, Ear Discharge, Nose Pain, Tinnitus, Nose Bleeding, Hearing Loss, Throat Pain, Throat Swelling, Mouth Pain, Dental Problems, Difficulty Swallowing, Mouth Swelling, Other Respiratory: Yes: Symptoms reported, See HPI, Cough, Shortness of Breath, SOB with Exertion, Wheezing, Productive cough (yellow). No: Orthopnea, SOB at Rest , Stridor, Hemoptysis, Other Cardiac (ROS): No: Symptoms Reported, See HPI, Chest Pain, Edema, Irregular Heart Rate, Lightheadedness, Palpitations, Syncope, Chest Tightness, Other ABD/GI: No: Constipated, Diarrhea, Nausea, Vomiting All Other Systems: Reviewed and Negative *Physical Exam - Vital Signs Last Vital Signs Temp Pulse Resp BP Pulse Ox 98.2 F 85 16 177/65 H 90 L 11/21/18 12:34 11/21/18 12:34 11/21/18 12:34 11/21/18 12:34 11/21/18 12:34 - Physical Exam Comments: 11/21/18 13:35 GENERAL: Well developed, well nourished. Awake and alert. No acute distress. HEENT: Normocephalic, atraumatic. PERRLA, EOMI. No conjunctival pallor. Sclera are non-icteric. Moist mucous membranes. Oropharynx is clear. NECK: Supple. Full ROM. CARDIOVASCULAR: Regular rate and rhythm. No murmurs, rubs, or gallops. Distal pulses are 2+ and symmetric. PULMONARY: Moderate diffuse wheezing with rhonchi to bilateral lung edwards.No evidence of respiratory distress. No rales . ABDOMINAL: Soft. Non-tender. Non-distended. No rebound or guarding. No organomegaly. Normoactive bowel sounds. MUSCULOSKELETAL Normal range of motion at all joints. EXTREMITIES: No cyanosis. No clubbing. No edema. No calf tenderness. SKIN: Warm and dry. Normal capillary refill. No rashes. No jaundice. NEUROLOGICAL: Alert, awake, appropriate. Gait is normal without ataxia. PSYCHIATRIC: Cooperative. Good eye contact. Appropriate mood General Appearance: Yes: Nourished, Appropriately Dressed, Mild Distress Moderate Sedation - Procedure Monitoring Vital Signs: Procedure Monitoring Vital Signs Temperature 98.2 F 11/21/18 12:34 Pulse Rate 85 11/21/18 12:34 Respiratory Rate 16 11/21/18 12:34 Blood Pressure 177/65 H 11/21/18 12:34 O2 Sat by Pulse Oximetry (%) 90 L 11/21/18 12:34 ED Treatment Course - LABORATORY CBC & Chemistry Diagram: 11/21/18 13:00 11/21/18 13:00 Medical Decision Making - Medical Decision Making 11/21/18 13:05 Patient with history of COPD, asthma, hypertension and hyperlipidemia and diabetes on meds present with complaint of one-week history of persistent cough , shortness of breath and chills.Exam significant for moderate diffuse wheezing with rhonchi. Patient with no O2 sat of 90% on room air. Patient placed on oxygen therapy from triage. Nebulizer treatment with Atrovent and albuterol ordered. Solu-Medrol 125 mg IV push ordered for bronchospasm. Chest x-ray ordered. Reassess after nebulizer treatment. 11/21/18 15:25 Patient with mild wheezing after nebulizer treatment. Chest x-ray shows small haziness in left lower lobe which is unchanged from last chest x-ray from last year. Patient will be admitted for COPD exacerbation given persistent wheezing after nebulizer and Solu-Medrol treatment. 11/21/18 16:[address] Diez who agrees to admit patient under him *DC/Admit/Observation/Transfer Diagnosis at time of Disposition: COPD exacerbation - Discharge Dispostion Condition at time of disposition: Stable Decision to Admit order: Yes Decision to Admit order Date/Time: 11/21/18 15:29 Admit for COPD exacerbation treatment - Referrals - Patient Instructions - Post Discharge Activity
[2018-11-21] MEDS ORDERED: methylPREDNISolone NA SUCC 125 MG/2 ML VIAL ONE (13:41)
[2018-11-21 13:54] LABS: BASO % 1.1 % (0-2.0); HEMATOCRIT 41.6 % (32.4-45.2); HEMOGLOBIN 14.3 GM/dL (10.7-15.3); LYMPH % 25.4 % (8-40); MCH 29.5 pg (25.7-33.7); MCHC 34.3 g/dl (32.0-36.0); MEAN CELL VOLUME 86.1 fl (80-96); MEAN PLT VOLUME 8.7 fl (7.5-11.1); MONO % 12.5 % (3.8-10.2); PLATELET COUNT 309 K/MM3 (134-434); RBC 4.84 M/mm3 (3.60-5.2); RDW 14.1 % (11.6-15.6); WHITE BLOOD COUNT 11.2 K/mm3 (4.0-10.0)
[2018-11-21 14:26] LABS: ALBUMIN 3.6 g/dl (3.4-5.0); ALK PHOS 76 U/L (45-117); ANION GAP 7 MMOL/L (8-16); BILIRUBIN,TOTAL 0.5 mg/dL (0.2-1); BLOOD UREA NITROGEN 18 mg/dL (7-18); CALCIUM 8.7 mg/dL (8.5-10.1); CHLORIDE 99 mmol/L (98-107); CO2 31 mmol/L (21-32); CREATININE 0.9 mg/dL (0.55-1.3); GLUCOSE,RANDOM 87 mg/dL (74-106); POTASSIUM 4.6 mmol/L (3.5-5.1); SGOT/AST 26 U/L (15-37); SGPT/ALT 25 U/L (13-61); SODIUM 136 mmol/L (136-145)
[2018-11-21] MEDS ORDERED: ACETAMINOPHEN 325 MG TABLET (FP) PO PRN (22:35)
[2018-11-21] MEDS: methylPREDNISolone NA SUCC 40 MG/1 ML VIAL IVPUSH SCH (22:50)
[2018-11-22] MEDS: metFORMIN HCL 500 MG TABLET (FP) PO SCH ×2 (06:04→17:22)
[2018-11-22] MEDS: sitaGLIPtin PHOSPHATE 50 MG TABLET PO SCH (06:04)
[2018-11-22] MEDS: INSULIN SLIDING SCALE (NOVOLOG) 1 VIAL SQ SCH ×4 (06:04→22:01)
[2018-11-22 07:47] LABS: HEMATOCRIT 42.3 % (32.4-45.2); HEMOGLOBIN 13.5 GM/dL (10.7-15.3); MEAN CELL VOLUME 87.5 fl (80-96); MEAN PLT VOLUME 8.7 fl (7.5-11.1); PLATELET COUNT 289 K/MM3 (134-434); RBC 4.83 M/mm3 (3.60-5.2); WHITE BLOOD COUNT 6.1 K/mm3 (4.0-10.0)
[2018-11-22 08:24] LABS: ALBUMIN 3.5 g/dl (3.4-5.0); ALK PHOS 76 U/L (45-117); ANION GAP 11 MMOL/L (8-16); BILIRUBIN,TOTAL 0.4 mg/dL (0.2-1); BLOOD UREA NITROGEN 32 mg/dL (7-18); CALCIUM 8.4 mg/dL (8.5-10.1); CHLORIDE 97 mmol/L (98-107); CO2 27 mmol/L (21-32); CREATININE 1.3 mg/dL (0.55-1.3); GLUCOSE,RANDOM 264 mg/dL (74-106); POTASSIUM 3.7 mmol/L (3.5-5.1); SGOT/AST 10 U/L (15-37); SGPT/ALT 23 U/L (13-61); SODIUM 134 mmol/L (136-145); TOT PROT 6.9 g/dl (6.4-8.2)
[2018-11-22] MEDS ORDERED: PT OWN MED DRAWER 7, Y5N ONE ×2 (10:15→21:53)
[2018-11-22] MEDS: POLYETHYLENE GLYCOL 3350 119 GM BTL PO SCH (10:30)
[2018-11-22] MEDS: TIOTROPIUM BROMIDE 2.5 MCG (SPIRIVA) RESPIMAT INHALER IH SCH (10:31)
[2018-11-22] MEDS: methylPREDNISolone NA SUCC 40 MG/1 ML VIAL IVPUSH SCH ×2 (10:31→17:22)
[2018-11-22] MEDS: VALSARTAN 160 MG TABLET (UD) PO SCH (10:31)
--- NOTE | 2018-11-22 10:48 | ECHO ---
Name: MARIA LUZ SNOWDEN Exam:Adult Echocardiogram Study Date: 11/22/2018 07:53 AM Age: 88 yrs Reason For Study: EF Height: 60 in Weight: 170 lb BSA: 1.7 m2 MMode/2D Measurements & Calculations IVSd: 1.0 cm Ao root diam: 3.0 cm LVIDd: 3.2 cm LA dimension: 2.6 cm LVIDs: 2.0 cm LVPWd: 1.0 cm EDV(Teich): 42.0 ml LVOT diam: 2.0 cm ESV(Teich): 12.7 ml Doppler Measurements & Calculations MV E max karson: 108.0 cm/sec TR max karson: 202.2 cm/sec MV A max karson: 122.7 cm/sec TR max P.4 mmHg MV E/A: 0.88 MV dec time: 0.18 sec Med Peak E' Karson: 6.1 cm/sec Med E/e': 17.7 Lat Peak E' Karson: 6.2 cm/sec Lat E/e': 17.4 Left Ventricle Left ventricular systolic function is normal. Ejection Fraction = 55-60%. The transmitral spectral Do ppler flow pattern is suggestive of impaired LV relaxation. Right Ventricle The right ventricle is normal in size and function. Atria Normal left and right atrial size and function. Mitral Valve There is moderate mitral annular calcification. There is no mitral valve stenosis. There is mild mitr al regurgitation. Tricuspid Valve The tricuspid valve is normal in structure and function. There is mild tricuspid regurgitation. Aortic Valve There is mild aortic sclerosis.;. No hemodynamically significant valvular aortic stenosis. No aortic regurgitation is present. Pulmonic Valve The pulmonic valve is not well seen, but is grossly normal. There is no pulmonic valvular stenosis. Great Vessels The aortic root is normal size. Pericardium/Pleura There is pericardial thickening and/or a small pericardial effusion. Interpretation Summary Left ventricular systolic function is normal. Ejection Fraction = 55-60%. The right ventricle is normal in size and function. There is moderate mitral annular calcification. There is mild mitral regurgitation. There is mild tricuspid regurgitation. There is mild aortic sclerosis.; There is pericardial thickening and/or a small pericardial effusion. MD Jacobs *Shy 11/22/2018 10:48 AM
[2018-11-22] MEDS ORDERED: INSULIN (NOVOLOG) ASPART 100 UNITS/ML 10ML VIAL ONE (11:27)
[2018-11-22] MEDS: BUDESONIDE/FORMETEROL FUMARATE 160/4.5 mcg INHALER IH SCH ×2 (12:53→22:01)
--- NOTE | 2018-11-22 13:27 | PN ---
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
[2018-11-22] MEDS ORDERED: ALBUTEROL SO4 0.083% IH SOL 2.5 MG/3 ML VIAL.NEB. NEB PRN (13:28)
--- NOTE | 2018-11-22 14:05 | CONS ---
DATE OF CONSULTATION: 11/22/2018 PULMONARY CONSULTATION REFERRING PHYSICIAN: Paul Diez MD Patient is an 88-year-old white female known to me in previous hospitalizations as well as office followup of past medical history of chronic and persistent asthma, hypertension, hyperlipidemia, diabetes, nonsmoker, admitted to [facility] with complaint of 1-2 week history of increasing shortness of breath, cough, chest congestion. Patient states about a week and a half prior to admission she started developing some cough productive of yellowish sputum. At the time she was placed on antibiotic therapy. She was also started on her prednisone 40 mg. Despite these measures, symptoms worsened at which time she was advised to go to the emergency room. Denies any fever. Did have some chills. Denies any nausea or vomiting or diaphoresis. Denies hemoptysis. On admission she was started on inhaled bronchodilators and steroids. Patient states was a nonsmoker. She has a history of multiple exacerbations of asthma requiring hospitalization as well as steroid therapy. PAST MEDICAL HISTORY: Again includes chronic and persistent asthma, hypertension, hyperlipidemia, diabetes. CURRENT MEDICATIONS: Include Symbicort, Solu-Medrol, Tylenol, Diovan, Spiriva, Glucophage, Cardizem, MiraLAX, Januvia, Crestor, NovoLog, Singulair. REVIEW OF SYSTEMS: Positive for cough. Positive shortness of breath. Positive for chills. No chest pain. No palpitation. No fever. No nausea. No vomiting. No abdominal pain. PHYSICAL EXAMINATION: General: Patient is an elderly, white female, awake, alert, in no acute distress. Vital Signs: She is currently afebrile, O2 saturation is 91% on room air, respiratory rate is 18, blood pressure is 146/60. HEENT: Exam is normocephalic, atraumatic. Neck: Supple. Heart: Regular, S1, S2. Chest: Scattered bilateral wheezes throughout. Abdomen: Soft. Bowel sounds positive. Extremities: No cyanosis. Edema. LABORATORIES: WBC is 6.1, hemoglobin 13.5, hematocrit 42.3 with a platelet count 289,000. Sodium 134. BUN 32, creatinine 1.3. Chest x-ray reveals prominent left basilar atelectasis. IMPRESSION: Chronic persistent asthma with acute exacerbation likely secondary to: 1. Upper respiratory infection. 2. Hypertension. 3. Diabetes. 4. Hyperlipidemia. PLAN: IV steroids. Inhaled bronchodilators. Supplemental O2. Antibiotics. Obtain CT scan of the chest. Monitor peak flow. Sputum for C and S. REFUGIO YOUNG M.D. [id number]
[2018-11-22 14:38] LABS: URINE APPEARANCE CLEAR; URINE BILIRUBIN NEGATIVE (<2.0 mg/dL); URINE COLOR LTYELLOW; URINE GLUCOSE (UA) 3+ (NEGATIVE); URINE KETONE NEGATIVE (NEGATIVE); URINE LEUK ESTERASE 2+ (NEGATIVE); URINE NITRITE NEGATIVE (NEGATIVE); URINE PROTEIN NEGATIVE (NEGATIVE); URINE UROBILINOGEN NEGATIVE mg/dL (0.2-1.0)
[2018-11-22 15:12] LABS: EPI CELLS RARE /HPF (FEW); URINE BACTERIA RARE /hpf (NONE SEEN); URINE HYALINE CAST 3 /lpf
--- NOTE | 2018-11-22 18:29 | HP ---
Admitting History and Physical - Primary Care Physician PCP: Paul Diez - Admission Chief Complaint: Cough and Difficulty breathing History of Present Illness: Patient is a 88 y/o female patient with past medical history of COPD, asthma, HTN, HLD, Diabetes. Patient states that since last weekend she was experiencing heavy breathing and productive cough with yellow/white sputum. She had an appointment with her guest services agent Dr. Dodd who said patient should come to ED. CXR in ED shows L basilar atelectasis. Patient denies chest pain. States dyspnea is improving but cough is about the same. History Source: Patient Limitations to Obtaining History: No Limitations - Past Medical History Pulmonary: Yes: Asthma, COPD Gastrointestinal: Yes: Constipation, Hemorrhoids, Other (RECTAL BLEEDING) ...: No Endocrine: Yes: Diabetes Mellitus - Past Surgical History Past Surgical History: Yes: Hernia Repair - Smoking History Smoking history: Never smoked Have you smoked in the past 12 months: No Aproximately how many cigarettes per day: 0 - Alcohol/Substance Use Hx Alcohol Use: No - Social History Usual Living Arrangement: Yes: Alone (Lives with son in 2 family house) ADL: Family Assistance History of Recent Travel: No <Ghazala Penaloza - Last Filed: 11/22/18 18:23> Home Medications <Ghazala Penaloza - Last Filed: 11/22/18 18:23> <Paul Diez - Last Filed: 11/23/18 08:36> - Allergies Allergies/Adverse Reactions: Allergies Allergy/AdvReac Type Severity Reaction Status Date / Time No Known Drug Allergies Allergy Verified 11/21/18 12:34 - Home Medications Home Medications: Ambulatory Orders Diltiazem [Cardizem -] 300 mg PO HS 03/09/17 Rosuvastatin Calcium [Crestor] 5 mg PO DAILY 03/09/17 Sitagliptin Phos/Metformin HCl [Janumet 50-500 mg Tablet] 1 each PO HS 03/09/17 Tiotropium [place] [Spiriva] 1 inh IH DAILY 03/09/17 predniSONE [Deltasone -] 5 mg PO DAILY 03/09/17 Montelukast Na [Singulair -] 10 mg PO HS tablet 06/27/17 Budesonide/Formeterol Fumarate [SYMBICORT 160/4.5mcg -] 2 puff IH DAILY Losartan Potassium 100 mg PO DAILY 11/21/18 Review of Systems - Review of Systems Constitutional: reports: No Symptoms Eyes: reports: No Symptoms HENT: reports: Hearing Loss Neck: reports: No Symptoms Cardiovascular: reports: No Symptoms Respiratory: reports: Cough, SOB Gastrointestinal: reports: No Symptoms Genitourinary: reports: No Symptoms Breasts: reports: No Symptoms Reported Musculoskeletal: reports: Muscle Weakness Integumentary: reports: No Symptoms Neurological: reports: No Symptoms Endocrine: reports: No Symptoms Hematology/Lymphatic: reports: No Symptoms Psychiatric: reports: No Symptoms <Ghazala Penaloza - Last Filed: 11/22/18 18:23> Physical Examination Vital Signs: Vital Signs Temperature 98.1 F 11/22/18 17:37 Pulse Rate 67 11/22/18 17:37 Respiratory Rate 18 11/22/18 17:37 Blood Pressure 128/57 L 11/22/18 17:37 O2 Sat by Pulse Oximetry (%) 91 L 11/22/18 09:00 Constitutional: Yes: No Distress, Calm Eyes: Yes: Conjunctiva Clear Neck: Yes: Supple Cardiovascular: Yes: Regular Rate and Rhythm Respiratory: Yes: On Nasal O2, Wheezes Gastrointestinal: Yes: Normal Bowel Sounds, Soft Musculoskeletal: Yes: Muscle Weakness Extremities: Yes: WNL Edema: No Integumentary: Yes: WNL Neurological: Yes: Alert Psychiatric: Yes: Alert Labs: CBC, JIA 11/22/18 06:30 11/22/18 06:30 <Ghazala Penaloza - Last Filed: 11/22/18 18:23> Vital Signs: Vital Signs Temperature 97.6 F 11/23/18 05:49 Pulse Rate 70 11/23/18 05:49 Respiratory Rate 18 11/23/18 05:49 Blood Pressure 133/72 11/23/18 05:49 O2 Sat by Pulse Oximetry (%) 95 11/22/18 21:00 Labs: CBC, JIA 11/22/18 06:30 11/22/18 06:30 <Paul Diez - Last Filed: 11/23/18 08:36> Imaging - Results Chest X-ray: Report Reviewed Cat Scan: Pending <Ghazala Penaloza - Last Filed: 11/22/18 18:23> Problem List - Problems (1) COPD exacerbation Code(s): J44.1 - CHRONIC OBSTRUCTIVE PULMONARY DISEASE W (ACUTE) EXACERBATION (2) Asthma Code(s): J45.909 - UNSPECIFIED ASTHMA, UNCOMPLICATED (3) DM2 (diabetes mellitus, type 2) Code(s): E11.9 - TYPE 2 DIABETES MELLITUS WITHOUT COMPLICATIONS (4) HTN (hypertension) Code(s): I10 - ESSENTIAL (PRIMARY) HYPERTENSION <Ghazala Penaloza - Last Filed: 11/22/18 18:23> Assessment/Plan -Pulm on board -Chest CT scan pending -bronchodilators, O2 via NC -keep SpO2 >90% -incentive spirometer -sputum c+s ordered -IV solumedrol -cont with valsartin, cardizem -cont with rosuvastatin -BGM, ACHS, ISS, metformin and januvia -diabetic diet -fall precaution -PT -dvt ppx <Ghazala Penaloza - Last Filed: 11/22/18 18:23> I HAVE SEEN AND EXAMINED THE ELINOR PATIENT AND AGREE WITH NOTE <Paul Diez - Last Filed: 11/23/18 08:36>
[2018-11-22] MEDS: MONTELUKAST NA 10 MG TABLET PO SCH (22:01)
[2018-11-22] MEDS: SENNOSIDES 8.6MG TABLET (FP) PO SCH (22:01)
[2018-11-22] MEDS: ROSUVASTATIN CA 5 MG TABLET (FP) PO SCH (22:28)
[2018-11-23] MEDS: methylPREDNISolone NA SUCC 40 MG/1 ML VIAL IVPUSH SCH ×3 (01:36→17:50)
[2018-11-23] MEDS: sitaGLIPtin PHOSPHATE 50 MG TABLET PO SCH (06:12)
[2018-11-23] MEDS: INSULIN SLIDING SCALE (NOVOLOG) 1 VIAL SQ SCH ×4 (06:13→21:13)
[2018-11-23] MEDS: metFORMIN HCL 500 MG TABLET (FP) PO SCH ×2 (06:13→17:50)
[2018-11-23] MEDS: VALSARTAN 160 MG TABLET (UD) PO SCH (09:29)
[2018-11-23] MEDS: POLYETHYLENE GLYCOL 3350 119 GM BTL PO SCH (09:30)
[2018-11-23] MEDS: BUDESONIDE/FORMETEROL FUMARATE 160/4.5 mcg INHALER IH SCH ×2 (09:31→22:02)
[2018-11-23] MEDS: TIOTROPIUM BROMIDE 2.5 MCG (SPIRIVA) RESPIMAT INHALER IH SCH (09:31)
--- NOTE | 2018-11-23 09:43 | PN ---
Progress Note, Physician History of Present Illness: Feels better - Current Medication List Current Medications: Active Medications Acetaminophen (Tylenol -) 650 mg PO Q6H PRN PRN Reason: FEVER Albuterol Sulfate (Ventolin 0.083% Nebulizer Soln -) 1 amp NEB Q4H PRN PRN Reason: SHORT OF BREATH/WHEEZING Last Admin: 11/22/18 17:44 Dose: 1 amp Budesonide/Formoterol Fumarate (Symbicort 160/4.5mcg -) 2 puff IH BID [facility] Last Admin: 11/23/18 09:31 Dose: 2 puff Diltiazem HCl (Cardizem Cd -) 300 mg PO DAILY [facility] Last Admin: 11/23/18 09:30 Dose: 300 mg Insulin Aspart (Novolog Vial Sliding Scale -) 1 vial SQ [facility]; Protocol Last Admin: 11/23/18 06:13 Dose: 4 units Metformin HCl (Glucophage -) 500 mg PO BID@0700,1630 [facility] Last Admin: 11/23/18 06:13 Dose: 500 mg Methylprednisolone Sodium Succinate (Solu-Medrol -) 40 mg IVPUSH Q8H-IV [facility] Last Admin: 11/23/18 09:29 Dose: 40 mg Montelukast Sodium (Singulair -) [address] [facility] Last Admin: 11/22/18 22:01 Dose: 10 mg Polyethylene Glycol (Miralax (For Daily Use) -) 17 gm PO DAILY [facility] Last Admin: 11/23/18 09:30 Dose: Not Given Rosuvastatin Calcium (Crestor -) [address] [facility] Last Admin: 11/22/18 22:28 Dose: 5 mg Senna (Senna -) [address] [facility] Last Admin: 11/22/18 22:01 Dose: 1 tab Sitagliptin Phosphate (Januvia -) 50 mg PO DAILY@0700 [facility] Last Admin: 11/23/18 06:12 Dose: 50 mg Tiotropium [place] (Spiriva Respimat) 2 puff IH DAILY [facility] Last Admin: 11/23/18 09:31 Dose: 2 puff Valsartan (Diovan -) 160 mg PO DAILY [facility] Last Admin: 11/23/18 09:29 Dose: 160 mg - Objective Vital Signs: Vital Signs Temperature 98.2 F 11/23/18 09:29 Pulse Rate 69 11/23/18 09:29 Respiratory Rate 18 11/23/18 09:29 Blood Pressure 129/56 L 11/23/18 09:29 O2 Sat by Pulse Oximetry (%) 95 11/22/18 21:00 Cardiovascular: Yes: Regular Rate and Rhythm Respiratory: Yes: Regular, CTA Bilaterally Gastrointestinal: Yes: Normal Bowel Sounds, Soft Labs: CBC, BMP 11/22/18 06:30 11/22/18 06:30 Problem List - Problems (1) COPD exacerbation Assessment/Plan: -Continue with Symbicort and spiriva -IV Steroids Code(s): J44.1 - CHRONIC OBSTRUCTIVE PULMONARY DISEASE W (ACUTE) EXACERBATION (2) DM2 (diabetes mellitus, type 2) Code(s): E11.9 - TYPE 2 DIABETES MELLITUS WITHOUT COMPLICATIONS (3) HTN (hypertension) Assessment/Plan: -Monitor Code(s): I10 - ESSENTIAL (PRIMARY) HYPERTENSION
--- NOTE | 2018-11-23 15:20 | PN ---
Progress Note, Physician History of Present Illness: PULMONARY ALERT,FEELING BETTER,LESS DYSPNEIC. - Current Medication List Current Medications: Active Medications Acetaminophen (Tylenol -) 650 mg PO Q6H PRN PRN Reason: FEVER Albuterol Sulfate (Ventolin 0.083% Nebulizer Soln -) 1 amp NEB Q4H PRN PRN Reason: COUGH Budesonide/Formoterol Fumarate (Symbicort 160/4.5mcg -) 2 puff IH BID [facility] Last Admin: 11/23/18 09:31 Dose: 2 puff Diltiazem HCl (Cardizem Cd -) 300 mg PO DAILY [facility] Last Admin: 11/23/18 09:30 Dose: 300 mg Insulin Aspart (Novolog Vial Sliding Scale -) 1 vial SQ [facility]; Protocol Last Admin: 11/23/18 12:23 Dose: 4 units Metformin HCl (Glucophage -) 500 mg PO BID@0700,1630 [facility] Last Admin: 11/23/18 06:13 Dose: 500 mg Methylprednisolone Sodium Succinate (Solu-Medrol -) 40 mg IVPUSH Q8H-IV [facility] Last Admin: 11/23/18 09:29 Dose: 40 mg Montelukast Sodium (Singulair -) 10 mg PO [facility] Last Admin: 11/22/18 22:01 Dose: 10 mg Polyethylene Glycol (Miralax (For Daily Use) -) 17 gm PO DAILY [facility] Last Admin: 11/23/18 09:30 Dose: Not Given Rosuvastatin Calcium (Crestor -) 5 mg PO [facility] Last Admin: 11/22/18 22:28 Dose: 5 mg Senna (Senna -) 1 tab PO [facility] Last Admin: 11/22/18 22:01 Dose: 1 tab Sitagliptin Phosphate (Januvia -) 50 mg PO DAILY@0700 [facility] Last Admin: 11/23/18 06:12 Dose: 50 mg Tiotropium [place] (Spiriva Respimat) 2 puff IH DAILY [facility] Last Admin: 11/23/18 09:31 Dose: 2 puff Valsartan (Diovan -) 160 mg PO DAILY [facility] Last Admin: 11/23/18 09:29 Dose: 160 mg - Objective Vital Signs: Vital Signs Temperature 98.2 F 11/23/18 09:29 Pulse Rate 69 11/23/18 09:29 Respiratory Rate 18 11/23/18 09:29 Blood Pressure 129/56 L 11/23/18 09:29 O2 Sat by Pulse Oximetry (%) 95 11/23/18 09:00 Constitutional: Yes: Well Nourished, Calm Eyes: Yes: WNL HENT: Yes: WNL Neck: Yes: WNL Cardiovascular: Yes: Regular Rate and Rhythm, S1, S2 Respiratory: Yes: Wheezes (SCATTERED МАРИНА WHEEZES) Gastrointestinal: Yes: Normal Bowel Sounds, Soft Extremities: Yes: WNL Edema: No Labs: Problem List - Problems (1) Asthma Code(s): J45.909 - UNSPECIFIED ASTHMA, UNCOMPLICATED (2) Asthma dependent on systemic steroids with acute exacerbation Code(s): J45.901 - UNSPECIFIED ASTHMA WITH (ACUTE) EXACERBATION; 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 (3) DM2 (diabetes mellitus, type 2) Code(s): E11.9 - TYPE 2 DIABETES MELLITUS WITHOUT COMPLICATIONS (4) HTN (hypertension) Code(s): I10 - ESSENTIAL (PRIMARY) HYPERTENSION Assessment/Plan IMP CHRONIC PERSISTENT ASTHMA WITH ACUTE EXACERBATION CLINICALLY IMPROVING LIKELY URI DM HTN HLD PLAN IV STEROIDS INHALED BRONCHODILATORS O2 TO MAINTAIN O2 SAT > 90% MONITOR 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
[2018-11-23] MEDS ORDERED: PT OWN MED DRAWER 7, Y5N ONE (20:07)
[2018-11-23] MEDS: MONTELUKAST NA 10 MG TABLET PO SCH (21:09)
[2018-11-23] MEDS: SENNOSIDES 8.6MG TABLET (FP) PO SCH (21:09)
[2018-11-23] MEDS: ROSUVASTATIN CA 5 MG TABLET (FP) PO SCH (21:09)
[2018-11-23] MEDS: ALBUTEROL SO4 0.083% IH SOL 2.5 MG/3 ML VIAL.NEB. NEB PRN (21:35)
[2018-11-24] MEDS: methylPREDNISolone NA SUCC 40 MG/1 ML VIAL IVPUSH SCH ×3 (01:19→17:19)
[2018-11-24] MEDS: metFORMIN HCL 500 MG TABLET (FP) PO SCH ×2 (06:05→17:19)
[2018-11-24] MEDS: sitaGLIPtin PHOSPHATE 50 MG TABLET PO SCH (06:05)
[2018-11-24] MEDS: INSULIN SLIDING SCALE (NOVOLOG) 1 VIAL SQ SCH ×4 (06:05→21:25)
[2018-11-24] MEDS ORDERED: PT OWN MED DRAWER 7, Y5N ONE ×4 (09:04→20:49)
--- NOTE | 2018-11-24 09:22 | PN ---
Progress Note, Physician - Current Medication List Current Medications: Active Medications Acetaminophen (Tylenol -) 650 mg PO Q6H PRN PRN Reason: FEVER Albuterol Sulfate (Ventolin 0.083% Nebulizer Soln -) 1 amp NEB Q4H PRN PRN Reason: COUGH Last Admin: 11/23/18 21:35 Dose: 1 amp Budesonide/Formoterol Fumarate (Symbicort 160/4.5mcg -) 2 puff IH BID [facility] Last Admin: 11/23/18 22:02 Dose: 2 puff Diltiazem HCl (Cardizem Cd -) 300 mg PO DAILY [facility] Last Admin: 11/23/18 09:30 Dose: 300 mg Insulin Aspart (Novolog Vial Sliding Scale -) 1 vial SQ ACHS [facility]; Protocol Last Admin: 11/24/18 06:05 Dose: 4 units Metformin HCl (Glucophage -) 500 mg PO BID@0700,1630 [facility] Last Admin: 11/24/18 06:05 Dose: 500 mg Methylprednisolone Sodium Succinate (Solu-Medrol -) 40 mg IVPUSH Q8H-IV [facility] Last Admin: 11/24/18 01:19 Dose: 40 mg Montelukast Sodium (Singulair -) 10 mg PO [facility] Last Admin: 11/23/18 21:09 Dose: 10 mg Polyethylene Glycol (Miralax (For Daily Use) -) 17 gm PO DAILY [facility] Last Admin: 11/23/18 09:30 Dose: Not Given Rosuvastatin Calcium (Crestor -) 5 mg PO [facility] Last Admin: 11/23/18 21:09 Dose: 5 mg Senna (Senna -) 1 tab PO [facility] Last Admin: 11/23/18 21:09 Dose: 1 tab Sitagliptin Phosphate (Januvia -) 50 mg PO DAILY@0700 [facility] Last Admin: 11/24/18 06:05 Dose: 50 mg Tiotropium [place] (Spiriva Respimat) 2 puff IH DAILY [facility] Last Admin: 11/23/18 09:31 Dose: 2 puff Valsartan (Diovan -) 160 mg PO DAILY [facility] Last Admin: 11/23/18 09:29 Dose: 160 mg - Objective Vital Signs: Vital Signs Temperature 97.8 F 11/24/18 06:11 Pulse Rate 67 11/24/18 06:11 Respiratory Rate 20 11/24/18 06:11 Blood Pressure 124/62 11/24/18 06:11 O2 Sat by Pulse Oximetry (%) 95 11/23/18 21:00 Cardiovascular: Yes: Regular Rate and Rhythm Respiratory: Yes: Rhonchi, Wheezes Gastrointestinal: Yes: Normal Bowel Sounds, Soft Labs: CBC, BMP 11/22/18 06:30 11/22/18 06:30 Problem List - Problems (1) COPD exacerbation Assessment/Plan: -Continue with Symbicort and spiriva -IV Steroids Code(s): J44.1 - CHRONIC OBSTRUCTIVE PULMONARY DISEASE W (ACUTE) EXACERBATION (2) DM2 (diabetes mellitus, type 2) Code(s): E11.9 - TYPE 2 DIABETES MELLITUS WITHOUT COMPLICATIONS (3) HTN (hypertension) Assessment/Plan: -Monitor Code(s): I10 - ESSENTIAL (PRIMARY) HYPERTENSION
[2018-11-24] MEDS: VALSARTAN 160 MG TABLET (UD) PO SCH (09:36)
[2018-11-24] MEDS: POLYETHYLENE GLYCOL 3350 119 GM BTL PO SCH (09:37)
[2018-11-24] MEDS: BUDESONIDE/FORMETEROL FUMARATE 160/4.5 mcg INHALER IH SCH ×2 (09:38→21:26)
[2018-11-24] MEDS: TIOTROPIUM BROMIDE 2.5 MCG (SPIRIVA) RESPIMAT INHALER IH SCH (10:47)
--- NOTE | 2018-11-24 13:33 | PN ---
Progress Note, Physician History of Present Illness: pulmonary alert,less congested,+ cough clear sputum - Current Medication List Current Medications: Active Medications Acetaminophen (Tylenol -) 650 mg PO Q6H PRN PRN Reason: FEVER Albuterol Sulfate (Ventolin 0.083% Nebulizer Soln -) 1 amp NEB Q4H PRN PRN Reason: COUGH Last Admin: 11/23/18 21:35 Dose: 1 amp Budesonide/Formoterol Fumarate (Symbicort 160/4.5mcg -) 2 puff IH BID [facility] Last Admin: 11/24/18 09:38 Dose: 2 puff Diltiazem HCl (Cardizem Cd -) 300 mg PO DAILY [facility] Last Admin: 11/24/18 09:37 Dose: 300 mg Insulin Aspart (Novolog Vial Sliding Scale -) 1 vial SQ ACHS [facility]; Protocol Last Admin: 11/24/18 11:21 Dose: 2 units Metformin HCl (Glucophage -) 500 mg PO BID@0700,1630 [facility] Last Admin: 11/24/18 06:05 Dose: 500 mg Methylprednisolone Sodium Succinate (Solu-Medrol -) 40 mg IVPUSH Q8H-IV [facility] Last Admin: 11/24/18 09:36 Dose: 40 mg Montelukast Sodium (Singulair -) 10 mg PO [facility] Last Admin: 11/23/18 21:09 Dose: 10 mg Polyethylene Glycol (Miralax (For Daily Use) -) 17 gm PO DAILY [facility] Last Admin: 11/24/18 09:37 Dose: Not Given Rosuvastatin Calcium (Crestor -) 5 mg PO [facility] Last Admin: 11/23/18 21:09 Dose: 5 mg Senna (Senna -) 1 tab PO [facility] Last Admin: 11/23/18 21:09 Dose: 1 tab Sitagliptin Phosphate (Januvia -) 50 mg PO DAILY@0700 [facility] Last Admin: 11/24/18 06:05 Dose: 50 mg Tiotropium [place] (Spiriva Respimat) 2 puff IH DAILY [facility] Last Admin: 11/24/18 10:47 Dose: 2 puff Valsartan (Diovan -) 160 mg PO DAILY [facility] Last Admin: 11/24/18 09:36 Dose: 160 mg - Objective Vital Signs: Vital Signs Temperature 97.6 F 11/24/18 09:00 Pulse Rate 62 01/13/19 09:00 Respiratory Rate 20 11/24/18 09:00 Blood Pressure 121/63 11/24/18 09:00 O2 Sat by Pulse Oximetry (%) 96 11/24/18 09:00 Constitutional: Yes: Well Nourished, Calm Eyes: Yes: WNL HENT: Yes: WNL Neck: Yes: WNL Cardiovascular: Yes: Regular Rate and Rhythm, S1, S2 Respiratory: Yes: Wheezes (less wheezes bilaterally) Gastrointestinal: Yes: Normal Bowel Sounds, Soft Extremities: Yes: WNL Edema: No Labs: CBC, BMP Problem List - Problems (1) Asthma Code(s): J45.909 - UNSPECIFIED ASTHMA, UNCOMPLICATED (2) Asthma dependent on systemic steroids with acute exacerbation Code(s): J45.901 - UNSPECIFIED ASTHMA WITH (ACUTE) EXACERBATION; Z79.52 - CUSTODIAL (CURRENT) USE OF SYSTEMIC STEROIDS (3) DM2 (diabetes mellitus, type 2) Code(s): E11.9 - TYPE 2 DIABETES MELLITUS WITHOUT COMPLICATIONS (4) HTN (hypertension) Code(s): I10 - ESSENTIAL (PRIMARY) HYPERTENSION Assessment/Plan IMP CHRONIC PERSISTENT ASTHMA WITH ACUTE EXACERBATION CLINICALLY IMPROVING LIKELY URI DM HTN HLD PLAN IV STEROIDS SAME DOSE INHALED BRONCHODILATORS O2 TO MAINTAIN O2 SAT > 90% MONITOR 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
[2018-11-24] MEDS: CEFUROXIME AXETIL 500 MG TABLET PO SCH ×2 (15:15→21:21)
[2018-11-24] MEDS: SENNOSIDES 8.6MG TABLET (FP) PO SCH (21:21)
[2018-11-24] MEDS: MONTELUKAST NA 10 MG TABLET PO SCH (21:21)
[2018-11-24] MEDS: ROSUVASTATIN CA 5 MG TABLET (FP) PO SCH (21:21)
[2018-11-25] MEDS: methylPREDNISolone NA SUCC 40 MG/1 ML VIAL IVPUSH SCH ×3 (01:22→17:54)
[2018-11-25] MEDS: ALBUTEROL SO4 0.083% IH SOL 2.5 MG/3 ML VIAL.NEB. NEB PRN (01:36)
[2018-11-25] MEDS: sitaGLIPtin PHOSPHATE 50 MG TABLET PO SCH (06:16)
[2018-11-25] MEDS: INSULIN SLIDING SCALE (NOVOLOG) 1 VIAL SQ SCH ×4 (06:16→21:37)
[2018-11-25] MEDS: metFORMIN HCL 500 MG TABLET (FP) PO SCH (06:16)
--- NOTE | 2018-11-25 10:06 | EKG ---
Test Reason : Blood Pressure : / mmHG Vent. Rate : 087 BPM Atrial Rate : 087 BPM P-R Int : 224 ms QRS Dur : 074 ms QT Int : 352 ms P-R-T Axes : 043 054 057 degrees QTc Int : 423 ms SINUS RHYTHM WITH 1ST DEGREE A-V BLOCK CANNOT RULE OUT ANTERIOR INFARCT (CITED ON OR BEFORE 25-JUN-2017) ABNORMAL ECG WHEN COMPARED WITH ECG OF 25-JUN-2017 19:05, HI INTERVAL HAS INCREASED Confirmed by WINNIE JAMA MD ([id number]) on 11/25/2018 10:06:48 AM Referred By: Confirmed By:WINNIE JAMA MD
[2018-11-25] MEDS ORDERED: sitaGLIPtin PHOSPHATE 50 MG TABLET PO SCH (11:00)
[2018-11-25] MEDS ORDERED: BENZOCAINE/MENTH/CETYLPYRD CL 1 EACH LOZENGE MM PRN (11:04)
--- NOTE | 2018-11-25 11:06 | PN ---
Progress Note, Physician Chief Complaint: SOB COPD exacerbation Pneumonia History of Present Illness: NAD + cough Feeling better Seen by pulmonary on iv abx - Current Medication List Current Medications: Active Medications Acetaminophen (Tylenol -) 650 mg PO Q6H PRN PRN Reason: FEVER Albuterol Sulfate (Ventolin 0.083% Nebulizer Soln -) 1 amp NEB Q4H PRN PRN Reason: COUGH Last Admin: 11/25/18 01:36 Dose: 1 amp Budesonide/Formoterol Fumarate (Symbicort 160/4.5mcg -) 2 puff IH BID [facility] Last Admin: 11/24/18 21:26 Dose: 2 puff Cefuroxime Axetil (Ceftin -) 500 mg PO BID [facility] Last Admin: 11/24/18 21:21 Dose: 500 mg Diltiazem HCl (Cardizem Cd -) 300 mg PO DAILY [facility] Last Admin: 11/24/18 09:37 Dose: 300 mg Insulin Aspart (Novolog Vial Sliding Scale -) 1 vial SQ [facility]; Protocol Last Admin: 11/25/18 06:16 Dose: 2 units Methylprednisolone Sodium Succinate (Solu-Medrol -) 40 mg IVPUSH Q8H-IV [facility] Last Admin: 11/25/18 01:22 Dose: 40 mg Montelukast Sodium (Singulair -) 10 mg PO [facility] Last Admin: 11/24/18 21:21 Dose: 10 mg Polyethylene Glycol (Miralax (For Daily Use) -) 17 gm PO DAILY [facility] Last Admin: 11/24/18 09:37 Dose: Not Given Rosuvastatin Calcium (Crestor -) 5 mg PO [facility] Last Admin: 11/24/18 21:21 Dose: 5 mg Senna (Senna -) 1 tab PO [facility] Last Admin: 11/24/18 21:21 Dose: 1 tab Sitagliptin Phosphate (Januvia -) 100 mg PO DAILY@0700 [facility] Tiotropium [place] (Spiriva Respimat) 2 puff IH DAILY [facility] Last Admin: 11/24/18 10:47 Dose: 2 puff Valsartan (Diovan -) 160 mg PO DAILY [facility] Last Admin: 11/24/18 09:36 Dose: 160 mg - Objective Vital Signs: Vital Signs Temperature 97.2 F L 11/25/18 06:00 Pulse Rate 70 11/25/18 06:00 Respiratory Rate 18 11/25/18 06:00 Blood Pressure 147/58 L 11/25/18 06:00 O2 Sat by Pulse Oximetry (%) 96 11/24/18 21:00 Constitutional: Yes: Well Nourished, No Distress, Calm Cardiovascular: Yes: Regular Rate and Rhythm Respiratory: Yes: Regular Gastrointestinal: Yes: Normal Bowel Sounds, Soft Musculoskeletal: Yes: WNL Extremities: Yes: WNL Edema: No Peripheral Pulses WNL: Yes Neurological: Yes: Alert, Oriented Psychiatric: Yes: Alert, Oriented Labs: CBC, BMP 11/22/18 06:30 11/22/18 06:30 Problem List - Problems (1) Pneumonia Assessment/Plan: -Chest CT reviewed -On IV abx -Seen by Pulmoanry -ID consulted -Check legionella urine ag -IV steroids -bronchodilators -Expectorant PRN Code(s): J18.9 - PNEUMONIA, UNSPECIFIED ORGANISM (2) COPD exacerbation Assessment/Plan: -Chest CT reviewed -On IV abx -Seen by Pulmoanry -ID consulted -Check legionella urine ag -IV steroids -bronchodilators -Expectorant PRN Code(s): J44.1 - CHRONIC OBSTRUCTIVE PULMONARY DISEASE W (ACUTE) EXACERBATION (3) DM2 (diabetes mellitus, type 2) Assessment/Plan: -On metformin at home, hold for now for cr 1.3 -On Januvia 100 mg po daily -BGM ACHS -Insulin Novolog sliding scale -Diabetic/low sodium diet -RD consult -recheck A1c today Code(s): E11.9 - TYPE 2 DIABETES MELLITUS WITHOUT COMPLICATIONS Assessment/Plan see problem list Did well with PT
[2018-11-25] MEDS ORDERED: PT OWN MED DRAWER 7, Y5N ONE ×2 (11:09→12:33)
[2018-11-25] MEDS: VALSARTAN 160 MG TABLET (UD) PO SCH (11:16)
[2018-11-25] MEDS: CEFUROXIME AXETIL 500 MG TABLET PO SCH (11:16)
[2018-11-25] MEDS: TIOTROPIUM BROMIDE 2.5 MCG (SPIRIVA) RESPIMAT INHALER IH SCH (11:18)
[2018-11-25] MEDS: POLYETHYLENE GLYCOL 3350 119 GM BTL PO SCH (11:18)
[2018-11-25] MEDS: BUDESONIDE/FORMETEROL FUMARATE 160/4.5 mcg INHALER IH SCH ×2 (11:18→21:36)
--- NOTE | 2018-11-25 11:20 | PN ---
Progress Note (short form) - Note Progress Note: PULMONARY Still with shortness of breath, cough with yellow sputum and wheezing. Vital Signs Period Temp Pulse Resp BP Sys/[place] Pulse Ox Last 24 Hr 97.2 F-98 F 60-70 18-18 117-147/51-78 96 Gen: NAD in chair Heart: RRR Lung: bilateral rhonchi, wheezes Abd: soft, nontender Ext: no edema CBC, BMP 11/22/18 06:30 11/22/18 06:30 Active Medications Acetaminophen (Tylenol -) 650 mg PO Q6H PRN PRN Reason: FEVER Albuterol Sulfate (Ventolin 0.083% Nebulizer Soln -) 1 amp NEB Q4H PRN PRN Reason: COUGH Last Admin: 11/25/18 01:36 Dose: 1 amp Benzocaine/Menthol (Cepacol Lozenge -) 1 each MM PRN PRN PRN Reason: SORE THROAT Budesonide/Formoterol Fumarate (Symbicort 160/4.5mcg -) 2 puff IH BID [facility] Last Admin: 11/24/18 21:26 Dose: 2 puff Cefuroxime Axetil (Ceftin -) 500 mg PO BID [facility] Last Admin: 11/24/18 21:21 Dose: 500 mg Diltiazem HCl (Cardizem Cd -) 300 mg PO DAILY [facility] Last Admin: 11/24/18 09:37 Dose: 300 mg Guaifenesin (Diabetic Tussin Dm -) 10 ml PO Q6H [facility] Insulin Aspart (Novolog Vial Sliding Scale -) 1 vial SQ [facility]; Protocol Last Admin: 11/25/18 06:16 Dose: 2 units Methylprednisolone Sodium Succinate (Solu-Medrol -) 40 mg IVPUSH Q8H-IV [facility] Last Admin: 11/25/18 01:22 Dose: 40 mg Montelukast Sodium (Singulair -) 10 mg PO HS [facility] Last Admin: 11/24/18 21:21 Dose: 10 mg Polyethylene Glycol (Miralax (For Daily Use) -) 17 gm PO DAILY [facility] Last Admin: 11/24/18 09:37 Dose: Not Given Rosuvastatin Calcium (Crestor -) 5 mg PO HS [facility] Last Admin: 11/24/18 21:21 Dose: 5 mg Senna (Senna -) 1 tab PO [facility] Last Admin: 11/24/18 21:21 Dose: 1 tab Sitagliptin Phosphate (Januvia -) 100 mg PO DAILY@0700 [facility] Tiotropium [place] (Spiriva Respimat) 2 puff IH DAILY [facility] Last Admin: 11/24/18 10:47 Dose: 2 puff Valsartan (Diovan -) 160 mg PO DAILY [facility] Last Admin: 11/24/18 09:36 Dose: 160 mg A/P Acute Asthma Exacerbation URI HTN DM Hyperlipidemia - continue medrol at current dose - inhaled bronchodilators standing and PRN - O2 to keep SpO2 >90% - empiric azithromycin - glucose control while on systemic steroids - DVT prophylaxis
--- NOTE | 2018-11-25 11:55 | PN ---
Progress Note (short form) - Note Progress Note: ID consult dictated imp/reccd 88 yo female lives at home with son son had a cold, she started sneezing last weeknd, then started wheezing and coughing, saw Dr Dodd last who advised admission no fevers +yellow sputum production no travel UTD on vaccines saw Dr Diez 10/23 and was given prednisone taper and Zpak with improvement imp/reccd copd exacerbation cannot r/o pneumonia (ct scan with bibasilar atelectasis/infiltrates) influenza screen negative continue rocephin/zithromax f/u cultures urinary antigens Problem List - Problems (1) COPD exacerbation Code(s): J44.1 - CHRONIC OBSTRUCTIVE PULMONARY DISEASE W (ACUTE) EXACERBATION (2) Pneumonia Code(s): J18.9 - PNEUMONIA, UNSPECIFIED ORGANISM
[2018-11-25 12:03] LABS: BASO % 0.1 % (0-2.0); HEMOGLOBIN 13.3 GM/dL (10.7-15.3); LYMPH % 9.8 % (8-40); MCH 29.5 pg (25.7-33.7); MCHC 34.1 g/dl (32.0-36.0); MEAN CELL VOLUME 86.5 fl (80-96); MEAN PLT VOLUME 8.9 fl (7.5-11.1); NEUT % 83.1 % (42.8-82.8); PLATELET COUNT 343 K/MM3 (134-434); RDW 14.7 % (11.6-15.6); WHITE BLOOD COUNT 15.7 K/mm3 (4.0-10.0)
[2018-11-25] MEDS ORDERED: AZITHROMYCIN IVPB 500 MG in DEXTROSE 5%-WATER - 250 ML IVPB SCH (12:30)
[2018-11-25] MEDS ORDERED: cefTRIAXone SODIUM 1 GM VIAL ONE (12:33)
[2018-11-25] MEDS ORDERED: DEXTROSE 5%-WATER - 50 ML IVPB ONE (12:33)
[2018-11-25] MEDS: CEFTRIAXONE 1 GM in DEXTROSE 5%-WATER - 50 ML IVPB SCH (12:38)
[2018-11-25 12:45] LABS: ALBUMIN 3.2 g/dl (3.4-5.0); ALK PHOS 63 U/L (45-117); ANION GAP 12 MMOL/L (8-16); BILIRUBIN,TOTAL 0.3 mg/dL (0.2-1); BLOOD UREA NITROGEN 41 mg/dL (7-18); CALCIUM 8.1 mg/dL (8.5-10.1); CHLORIDE 104 mmol/L (98-107); CO2 23 mmol/L (21-32); CREATININE 1.2 mg/dL (0.55-1.3); GLUCOSE,RANDOM 250 mg/dL (74-106); POTASSIUM 4.6 mmol/L (3.5-5.1); SGOT/AST 4 U/L (15-37); SGPT/ALT 23 U/L (13-61); SODIUM 139 mmol/L (136-145); TOT PROT 6.3 g/dl (6.4-8.2)
--- NOTE | 2018-11-25 13:18 | CONS ---
DATE OF CONSULTATION: DATE OF DICTATION: 11/25/2018 REQUESTING PHYSICIAN: Paul Diez MD HISTORY: This is an 88-year-old woman. She lives at home with her son. Her son had a cold, which she thinks she caught from him now about 9-10 days ago. She started sneezing and feeling like she had cold symptoms. By Sunday, she started having chest congestion, cough, and wheezing. She had an appointment to see Dr. Dodd, which she kept on who advised admission. She had a CAT scan done that reveals a question of bibasilar infiltrates versus atelectasis. She has had no fever, but she has had copious yellow sputum production. No hemoptysis. There is no history of any travel. She is up to date on vaccines. Her most recent URI bronchitis was in October when she saw Dr. Diez. She was given a prednisone taper and a Z-James with improvement. PAST MEDICAL HISTORY: Notable for COPD, asthma, hypertension, hyperlipidemia, and diabetes. She has a history of constipation and hemorrhoids with rectal bleeding in the past. She is also very hard of hearing. PAST SURGICAL HISTORY: Notable for hernia repair. ALLERGIES: She has no known drug allergies. MEDICATIONS: At home include losartan, Singulair, Cardizem, Symbicort, Crestor, Janumet, Spiriva, and prednisone 5 mg. FAMILY HISTORY: Noncontributory. SOCIAL HISTORY: Her son lives with her. There is no history of any cigarette or substance use. She is up to date on her vaccines. REVIEW OF SYSTEMS: Her appetite is fair. She has not had any vomiting. She has had no diarrhea. PHYSICAL EXAMINATION: Vital Signs: She is afebrile. Temperature is 97.2. She has been afebrile since admission. HEENT: She is normocephalic. Her eyes are anicteric. Neck: Supple. Lungs: Bilateral rhonchi and wheezes. Heart: Regular rate and rhythm. Abdomen: Soft and nontender. Extremities: Without edema. White count is 6.1, hemoglobin 13.5, platelets 280. BUN 32, creatinine 1.3 with normal LFTs. Urinalysis has 18 white cells. Influenza screen was negative. A sputum culture is pending. 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 Chest CT has been read as there is a development of posterior bibasilar opacities representing a combination of atelectasis and small infiltrates. In summary, this is an elderly woman admitted with wheezing and cough and worsening respiratory status with yellow sputum production up to date on vaccines, Influenza screen negative with a COPD exacerbation. Cannot rule out pneumonia. Would treat her with Rocephin and Zithromax for community-acquired pneumonia at this time. Would order a Legionella urinary antigen for completeness. Further recommendations to follow. Fred [id number]
[2018-11-25] MEDS: AZITHROMYCIN IVPB 500 MG/250 ML BAG IVPB SCH (13:34)
[2018-11-25] MEDS: ALBUTEROL SO4 2.5/IPRATROPIUM 0.5 INH SOL 3 ML VIAL.NEB. NEB SCH ×3 (14:16→20:50)
[2018-11-25 14:23] LABS: ACANTHOCYTES 0; ANISOCYTOSIS 0; HELMET CELLS 0; HOWELL-JOLLY BODIES 0; MACROCYTOSIS 0; OVALOCYTE 0; PLATELET ESTIMATE NORMAL; ROULEAU 0; SICKELED CELLS 0; TARGET CELLS 0; TEAR DROP CELLS 0; TOXIC GRANULATION 0
[2018-11-25] MEDS: guaiFENesin/D-M SUGAR-FREE/ACLHOL-FREE 118 ML BOTTLE PO SCH ×3 (15:34→23:00)
[2018-11-25] MEDS: MONTELUKAST NA 10 MG TABLET PO SCH (21:34)
[2018-11-25] MEDS: SENNOSIDES 8.6MG TABLET (FP) PO SCH (21:34)
[2018-11-25] MEDS: ROSUVASTATIN CA 5 MG TABLET (FP) PO SCH (21:35)
[2018-11-26] MEDS: methylPREDNISolone NA SUCC 40 MG/1 ML VIAL IVPUSH SCH ×3 (02:20→18:02)
[2018-11-26] MEDS: guaiFENesin/D-M SUGAR-FREE/ACLHOL-FREE 118 ML BOTTLE PO SCH ×4 (05:57→22:30)
[2018-11-26] MEDS: sitaGLIPtin PHOSPHATE 50 MG TABLET PO SCH (06:47)
[2018-11-26] MEDS: INSULIN SLIDING SCALE (NOVOLOG) 1 VIAL SQ SCH ×4 (07:10→21:52)
[2018-11-26] MEDS: INSULIN (LEVEMIR) 100 UNITS/ML UNITS SQ SCH (07:11)
[2018-11-26] MEDS: ALBUTEROL SO4 2.5/IPRATROPIUM 0.5 INH SOL 3 ML VIAL.NEB. NEB SCH ×4 (08:02→20:30)
--- NOTE | 2018-11-26 09:03 | PN ---
Progress Note, Physician - Current Medication List Current Medications: Active Medications Acetaminophen (Tylenol -) 650 mg PO Q6H PRN PRN Reason: FEVER Albuterol Sulfate (Ventolin 0.083% Nebulizer Soln -) 1 amp NEB Q4H PRN PRN Reason: COUGH Last Admin: 11/25/18 01:36 Dose: 1 amp Albuterol/Ipratropium (Duoneb -) 1 amp NEB RQID [facility] Last Admin: 11/26/18 08:02 Dose: 1 amp Benzocaine/Menthol (Cepacol Lozenge -) 1 each MM PRN PRN PRN Reason: SORE THROAT Budesonide/Formoterol Fumarate (Symbicort 160/4.5mcg -) 2 puff IH BID [facility] Last Admin: 11/25/18 21:36 Dose: 2 puff Diltiazem HCl (Cardizem Cd -) 300 mg PO DAILY [facility] Last Admin: 11/25/18 11:17 Dose: 300 mg Guaifenesin (Diabetic Tussin Dm -) 10 ml PO Q6H [facility] Last Admin: 11/26/18 05:57 Dose: 10 ml Ceftriaxone Sodium 1 gm/ (Dextrose) 50 mls @ 100 mls/hr IVPB DAILY [facility]; Protocol Last Admin: 11/25/18 12:38 Dose: 100 mls/hr Azithromycin (Zithromax 500mg Ivpb (Pre-Docked)) 500 mg in 250 mls @ 250 mls/ hr IVPB DAILY [facility] Last Admin: 11/25/18 13:34 Dose: 250 mls/hr Insulin Aspart (Novolog Vial Sliding Scale -) 1 vial SQ ACHS [facility]; Protocol Last Admin: 11/26/18 07:10 Dose: 2 units Insulin Detemir (Levemir Vial) 10 units SQ AM [facility] Last Admin: 11/26/18 07:11 Dose: 10 units Methylprednisolone Sodium Succinate (Solu-Medrol -) 40 mg IVPUSH Q8H-IV [facility] Last Admin: 11/26/18 02:20 Dose: 40 mg Montelukast Sodium (Singulair -) 10 mg PO HS [facility] Last Admin: 11/25/18 21:34 Dose: 10 mg Polyethylene Glycol (Miralax (For Daily Use) -) 17 gm PO DAILY [facility] Last Admin: 11/25/18 11:18 Dose: Not Given Rosuvastatin Calcium (Crestor -) 5 mg PO [facility] Last Admin: 11/25/18 21:35 Dose: 5 mg Senna (Senna -) 1 tab PO [facility] Last Admin: 11/25/18 21:34 Dose: 1 tab Sitagliptin Phosphate (Januvia -) 50 mg PO DAILY@0700 [facility] Last Admin: 11/26/18 06:47 Dose: 50 mg Valsartan (Diovan -) 160 mg PO DAILY [facility] Last Admin: 11/25/18 11:16 Dose: 160 mg - Objective Vital Signs: Vital Signs Temperature 97.7 F 11/26/18 06:00 Pulse Rate 68 11/26/18 06:00 Respiratory Rate 20 11/26/18 06:00 Blood Pressure 144/52 L 11/26/18 06:00 O2 Sat by Pulse Oximetry (%) 96 11/25/18 21:00 Labs: CBC, BMP 11/25/18 11:35 11/25/18 11:35 Problem List - Problems (1) COPD exacerbation Code(s): J44.1 - CHRONIC OBSTRUCTIVE PULMONARY DISEASE W (ACUTE) EXACERBATION (2) DM2 (diabetes mellitus, type 2) Code(s): E11.9 - TYPE 2 DIABETES MELLITUS WITHOUT COMPLICATIONS (3) HTN (hypertension) Code(s): I10 - ESSENTIAL (PRIMARY) HYPERTENSION
[2018-11-26] MEDS ORDERED: cefTRIAXone SODIUM 1 GM VIAL ONE (10:15)
[2018-11-26] MEDS ORDERED: DEXTROSE 5%-WATER - 50 ML IVPB ONE (10:15)
--- NOTE | 2018-11-26 10:28 | PN ---
Progress Note, Physician History of Present Illness: pulmonary alert,still congested,+ cough yellow sputum. - Current Medication List Current Medications: Active Medications Acetaminophen (Tylenol -) 650 mg PO Q6H PRN PRN Reason: FEVER Albuterol Sulfate (Ventolin 0.083% Nebulizer Soln -) 1 amp NEB Q4H PRN PRN Reason: COUGH Last Admin: 11/25/18 01:36 Dose: 1 amp Albuterol/Ipratropium (Duoneb -) 1 amp NEB RQID [facility] Last Admin: 11/26/18 08:02 Dose: 1 amp Benzocaine/Menthol (Cepacol Lozenge -) 1 each MM PRN PRN PRN Reason: SORE THROAT Budesonide/Formoterol Fumarate (Symbicort 160/4.5mcg -) 2 puff IH BID [facility] Last Admin: 11/25/18 21:36 Dose: 2 puff Diltiazem HCl (Cardizem Cd -) 300 mg PO DAILY [facility] Last Admin: 11/25/18 11:17 Dose: 300 mg Guaifenesin (Diabetic Tussin Dm -) 10 ml PO Q6H [facility] Last Admin: 11/26/18 05:57 Dose: 10 ml Ceftriaxone Sodium 1 gm/ (Dextrose) 50 mls @ 100 mls/hr IVPB DAILY [facility]; Protocol Last Admin: 11/25/18 12:38 Dose: 100 mls/hr Azithromycin (Zithromax 500mg Ivpb (Pre-Docked)) 500 mg in 250 mls @ 250 mls/ hr IVPB DAILY [facility] Last Admin: 11/25/18 13:34 Dose: 250 mls/hr Insulin Aspart (Novolog Vial Sliding Scale -) 1 vial SQ ACHS [facility]; Protocol Last Admin: 11/26/18 07:10 Dose: 2 units Insulin Detemir (Levemir Vial) 10 units SQ AM [facility] Last Admin: 11/26/18 07:11 Dose: 10 units Methylprednisolone Sodium Succinate (Solu-Medrol -) 40 mg IVPUSH Q8H-IV [facility] Last Admin: 11/26/18 02:20 Dose: 40 mg Montelukast Sodium (Singulair -) 10 mg PO HS [facility] Last Admin: 11/25/18 21:34 Dose: 10 mg Polyethylene Glycol (Miralax (For Daily Use) -) 17 gm PO DAILY [facility] Last Admin: 11/25/18 11:18 Dose: Not Given Rosuvastatin Calcium (Crestor -) 5 mg PO [facility] Last Admin: 11/25/18 21:35 Dose: 5 mg Senna (Senna -) 1 tab PO HS [facility] Last Admin: 11/25/18 21:34 Dose: 1 tab Sitagliptin Phosphate (Januvia -) 50 mg PO DAILY@0700 [facility] Last Admin: 11/26/18 06:47 Dose: 50 mg Valsartan (Diovan -) 160 mg PO DAILY [facility] Last Admin: 11/25/18 11:16 Dose: 160 mg - Objective Vital Signs: Vital Signs Temperature 97.7 F 11/26/18 06:00 Pulse Rate 68 11/26/18 06:00 Respiratory Rate 20 11/26/18 06:00 Blood Pressure 144/52 L 11/26/18 06:00 O2 Sat by Pulse Oximetry (%) 96 11/25/18 21:00 Constitutional: Yes: Well Nourished, Calm Eyes: Yes: WNL HENT: Yes: WNL Neck: Yes: WNL Cardiovascular: Yes: Regular Rate and Rhythm, S1, S2 Respiratory: Yes: Wheezes (bilateral wheezes) Gastrointestinal: Yes: Normal Bowel Sounds, Soft Extremities: Yes: WNL Edema: No Labs: CBC, BMP Problem List - Problems (1) Asthma Code(s): J45.909 - UNSPECIFIED ASTHMA, UNCOMPLICATED (2) Asthma dependent on systemic steroids with acute exacerbation Code(s): J45.901 - UNSPECIFIED ASTHMA WITH (ACUTE) EXACERBATION; Z79.52 - [facility] (CURRENT) USE OF SYSTEMIC STEROIDS (3) DM2 (diabetes mellitus, type 2) Code(s): E11.9 - TYPE 2 DIABETES MELLITUS WITHOUT COMPLICATIONS (4) HTN (hypertension) Code(s): I10 - ESSENTIAL (PRIMARY) HYPERTENSION Assessment/Plan IMP CHRONIC PERSISTENT ASTHMA WITH ACUTE EXACERBATION CLINICALLY IMPROVING LIKELY URI DM HTN HLD PLAN IV STEROIDSSAME DOSE ABX PER ID INHALED BRONCHODILATORS O2 TO MAINTAIN O2 SAT > 90% MONITOR PEAK FLOW 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
[2018-11-26] MEDS: VALSARTAN 160 MG TABLET (UD) PO SCH (10:37)
[2018-11-26] MEDS: AZITHROMYCIN IVPB 500 MG/250 ML BAG IVPB SCH (10:37)
[2018-11-26] MEDS: CEFTRIAXONE 1 GM in DEXTROSE 5%-WATER - 50 ML IVPB SCH (10:37)
[2018-11-26] MEDS: POLYETHYLENE GLYCOL 3350 119 GM BTL PO SCH (10:39)
[2018-11-26] MEDS: BUDESONIDE/FORMETEROL FUMARATE 160/4.5 mcg INHALER IH SCH ×2 (10:40→21:54)
--- NOTE | 2018-11-26 12:29 | PN ---
Progress Note, Physician Chief Complaint: Pneumonia COPD exacerbation Cough SOB History of Present Illness: Previous notes and events reviewed awake and alert, OOB to chair afebrile c/o productive cough with yellow phlegm - Current Medication List Current Medications: Active Medications Acetaminophen (Tylenol -) 650 mg PO Q6H PRN PRN Reason: FEVER Albuterol Sulfate (Ventolin 0.083% Nebulizer Soln -) 1 amp NEB Q4H PRN PRN Reason: COUGH Last Admin: 11/25/18 01:36 Dose: 1 amp Albuterol/Ipratropium (Duoneb -) 1 amp NEB RQID [facility] Last Admin: 11/26/18 11:23 Dose: 1 amp Benzocaine/Menthol (Cepacol Lozenge -) 1 each MM PRN PRN PRN Reason: SORE THROAT Budesonide/Formoterol Fumarate (Symbicort 160/4.5mcg -) 2 puff IH BID [facility] Last Admin: 11/26/18 10:40 Dose: 2 puff Diltiazem HCl (Cardizem Cd -) 300 mg PO DAILY [facility] Last Admin: 11/26/18 10:38 Dose: 300 mg Guaifenesin (Diabetic Tussin Dm -) 10 ml PO Q6H [facility] Last Admin: 11/26/18 05:57 Dose: 10 ml Ceftriaxone Sodium 1 gm/ (Dextrose) 50 mls @ 100 mls/hr IVPB DAILY [facility]; Protocol Last Admin: 11/26/18 10:37 Dose: 100 mls/hr Azithromycin (Zithromax 500mg Ivpb (Pre-Docked)) 500 mg in 250 mls @ 250 mls/ hr IVPB DAILY [facility] Last Admin: 11/26/18 10:37 Dose: 250 mls/hr Insulin Aspart (Novolog Vial Sliding Scale -) 1 vial SQ ACHS [facility]; Protocol Last Admin: 11/26/18 07:10 Dose: 2 units Insulin Detemir (Levemir Vial) 10 units SQ AM [facility] Last Admin: 11/26/18 07:11 Dose: 10 units Methylprednisolone Sodium Succinate (Solu-Medrol -) 40 mg IVPUSH Q8H-IV [facility] Last Admin: 11/26/18 10:40 Dose: 40 mg Montelukast Sodium (Singulair -) 10 mg PO HS [facility] Last Admin: 11/25/18 21:34 Dose: 10 mg Polyethylene Glycol (Miralax (For Daily Use) -) 17 gm PO DAILY [facility] Last Admin: 11/26/18 10:39 Dose: Not Given Rosuvastatin Calcium (Crestor -) 5 mg PO HS [facility] Last Admin: 11/25/18 21:35 Dose: 5 mg Senna (Senna -) 1 tab PO HS [facility] Last Admin: 11/25/18 21:34 Dose: 1 tab Sitagliptin Phosphate (Januvia -) 50 mg PO DAILY@0700 [facility] Last Admin: 11/26/18 06:47 Dose: 50 mg Valsartan (Diovan -) 160 mg PO DAILY [facility] Last Admin: 11/26/18 10:37 Dose: 160 mg - Objective Vital Signs: Vital Signs Temperature 97.7 F 11/26/18 06:00 Pulse Rate 68 11/26/18 06:00 Respiratory Rate 20 11/26/18 06:00 Blood Pressure 144/52 L 11/26/18 06:00 O2 Sat by Pulse Oximetry (%) 96 11/25/18 21:00 Constitutional: Yes: No Distress, Calm Eyes: Yes: Conjunctiva Clear Neck: Yes: Supple Cardiovascular: Yes: Regular Rate and Rhythm Respiratory: Yes: Rhonchi Gastrointestinal: Yes: Soft Musculoskeletal: Yes: Muscle Weakness Extremities: Yes: WNL Edema: Yes Edema: LLE: Trace, RLE: Trace Integumentary: Yes: WNL Neurological: Yes: Alert, Oriented Psychiatric: Yes: Alert, Oriented Labs: CBC, BMP 11/25/18 11:35 11/25/18 11:35 - ....Imaging Chest X-ray: Report Reviewed <Ghazala Penaloza - Last Filed: 11/26/18 12:40> - Current Medication List Current Medications: Active Medications Acetaminophen (Tylenol -) 650 mg PO Q6H PRN PRN Reason: FEVER Albuterol Sulfate (Ventolin 0.083% Nebulizer Soln -) 1 amp NEB Q4H PRN PRN Reason: COUGH Last Admin: 11/25/18 01:36 Dose: 1 amp Albuterol/Ipratropium (Duoneb -) 1 amp NEB RQID [facility] Last Admin: 11/29/18 20:35 Dose: 1 amp Benzocaine/Menthol (Cepacol Lozenge -) 1 each MM PRN PRN PRN Reason: SORE THROAT Budesonide/Formoterol Fumarate (Symbicort 160/4.5mcg -) 2 puff IH BID [facility] Last Admin: 11/29/18 09:27 Dose: 2 puff Diltiazem HCl (Cardizem Cd -) 300 mg PO DAILY [facility] Last Admin: 11/29/18 09:24 Dose: 300 mg Guaifenesin (Diabetic Tussin Dm -) 10 ml PO Q6H [facility] Last Admin: 11/29/18 17:03 Dose: 10 ml Insulin Aspart (Novolog Vial Sliding Scale -) 1 vial SQ ACHS [facility]; Protocol Last Admin: 11/29/18 16:34 Dose: 2 units Insulin Detemir (Levemir Vial) 10 units SQ AM [facility] Last Admin: 11/29/18 06:21 Dose: 10 units Levofloxacin (Levaquin -) 250 mg PO DAILY@0600 [facility] Last Admin: 11/29/18 06:20 Dose: 250 mg Metformin HCl (Glucophage -) 500 mg PO BID@0700,1630 [facility] Last Admin: 11/29/18 16:33 Dose: 500 mg Methimazole (Tapazole -) 5 mg PO DAILY [facility] Last Admin: 11/29/18 09:27 Dose: 5 mg Methylprednisolone Sodium Succinate (Solu-Medrol -) 40 mg IVPUSH Q12H [facility] Last Admin: 11/29/18 09:29 Dose: 40 mg Montelukast Sodium (Singulair -) 10 mg PO [facility] Last Admin: 11/28/18 21:42 Dose: 10 mg Ondansetron HCl (Zofran Odt -) 4 mg SL Q6H PRN PRN Reason: NAUSEA AND/OR VOMITING Last Admin: 11/28/18 12:23 Dose: 4 mg Pantoprazole Sodium (Protonix Iv) 40 mg IVPUSH BID [facility] Last Admin: 11/29/18 09:28 Dose: 40 mg Polyethylene Glycol (Miralax (For Daily Use) -) 17 gm PO DAILY [facility] Last Admin: 11/29/18 09:26 Dose: 17 gm Rosuvastatin Calcium (Crestor -) 5 mg PO [facility] Last Admin: 11/28/18 21:42 Dose: 5 mg Senna (Senna -) 1 tab PO [facility] Last Admin: 11/28/18 21:42 Dose: 1 tab Sitagliptin Phosphate (Januvia -) 50 mg PO DAILY@0700 [facility] Last Admin: 11/29/18 06:20 Dose: 50 mg Valsartan (Diovan -) 160 mg PO DAILY [facility] Last Admin: 11/29/18 09:25 Dose: 160 mg - Objective Vital Signs: Vital Signs Temperature 97.8 F 11/29/18 15:20 Pulse Rate 71 11/29/18 15:20 Respiratory Rate 19 11/29/18 15:20 Blood Pressure 140/67 11/29/18 15:20 O2 Sat by Pulse Oximetry (%) 97 11/29/18 09:00 Labs: CBC, BMP 11/27/18 06:30 11/29/18 11:30 <Paul Diez - Last Filed: 11/29/18 21:15> Problem List - Problems (1) COPD exacerbation Code(s): J44.1 - CHRONIC OBSTRUCTIVE PULMONARY DISEASE W (ACUTE) EXACERBATION (2) Asthma Code(s): J45.909 - UNSPECIFIED ASTHMA, UNCOMPLICATED (3) DM2 (diabetes mellitus, type 2) Code(s): E11.9 - TYPE 2 DIABETES MELLITUS WITHOUT COMPLICATIONS (4) HTN (hypertension) Code(s): I10 - ESSENTIAL (PRIMARY) HYPERTENSION <Ghazala Penaloza - Last Filed: 11/26/18 12:40> - Problems (1) COPD exacerbation Code(s): J44.1 - CHRONIC OBSTRUCTIVE PULMONARY DISEASE W (ACUTE) EXACERBATION (2) Pneumonia Code(s): J18.9 - PNEUMONIA, UNSPECIFIED ORGANISM (3) Acute respiratory distress Code(s): R06.00 - DYSPNEA, UNSPECIFIED (4) Asthma Code(s): J45.909 - UNSPECIFIED ASTHMA, UNCOMPLICATED (5) Asthma dependent on systemic steroids with acute exacerbation Code(s): J45.901 - UNSPECIFIED ASTHMA WITH (ACUTE) EXACERBATION; Z79.52 - [employer] (CURRENT) USE OF SYSTEMIC STEROIDS (6) Bronchitis Code(s): J40 - BRONCHITIS, NOT SPECIFIED ACUTE OR CHRONIC (7) DM2 (diabetes mellitus, type 2) Code(s): E11.9 - TYPE 2 DIABETES MELLITUS WITHOUT COMPLICATIONS (8) Dyspnea and respiratory abnormalities Code(s): R06.00 - DYSPNEA, UNSPECIFIED; R06.89 - OTHER ABNORMALITIES OF BREATHING (9) HTN (hypertension) Code(s): I10 - ESSENTIAL (PRIMARY) HYPERTENSION <Paul Diez - Last Filed: 11/29/18 21:15> Assessment/Plan -Pulm on board -bronchodilators, O2 via NC PRN for SOB -keep SpO2 >90% -albuterol and duoneb tx PRN -guafenisin PRN for cough -incentive spirometer -ID on board, cont IV ABT -IV solumedrol -WBC elev 15.7, will monitor for downward trend -tylenol PRN for fever >100.4F -cont with valsartin, cardizem -cont with rosuvastatin -BGM, ACHS, ISS, metformin and januvia -diabetic diet -fall precaution -PT -dvt ppx <Ghazala Penaloza - Last Filed: 11/26/18 12:40> I HAVE EXAMINED THE PATIENT AND I AGREE WITH THE ABOVE NOTE <Paul Diez - Last Filed: 11/29/18 21:15>
--- NOTE | 2018-11-26 14:29 | CONSULT ---
Consult - text type - Consultation Consultation Note: Renal Consult for Elevated Serum Cr This is a 88 year woman with hx of COPD, Asthma, HTN, HLD, DM who presented from home with SOB and cough and noted to have Cr of 1.3 (baseline Cr 0.9). Pt denies any hx of CKD. Denies any NSAID use. No recent contrast exposure. no flank pain, dysuria, hematuia. No N/V/D. Has wheezing and cough. No CASAREZ, CP, Abd pain, N/V/D. Reports normal oral intake. No skin rash. PMhx: as above Allergies: NKDA Family Hx: NC Social hx: No T/A/D ROS: as per HPI Home Medications Medication Instructions Recorded Diltiazem [Cardizem -] 300 mg PO HS 03/09/17 Rosuvastatin Calcium [Crestor] 5 mg PO DAILY 03/09/17 Sitagliptin Phos/Metformin HCl 1 each PO HS 03/09/17 [Janumet 50-500 mg Tablet] Tiotropium [address] [Spiriva] 1 inh IH DAILY 03/09/17 predniSONE [Deltasone -] 5 mg PO DAILY 03/09/17 Montelukast Na [Singulair -] 10 mg PO HS tablet 06/27/17 Budesonide/Formeterol Fumarate 2 puff IH DAILY 11/21/18 [SYMBICORT 160/4.5mcg -] Losartan Potassium 100 mg PO DAILY 11/21/18 Vital Signs Temperature 97.9 F 11/26/18 10:00 Pulse Rate 88 11/26/18 10:00 Respiratory Rate 22 H 11/26/18 10:00 Blood Pressure 158/78 11/26/18 10:00 O2 Sat by Pulse Oximetry (%) 96 11/25/18 21:00 NAD awake and alert on NC O2 NEck supple, no JVD MMM RRR Course BS, + wheeze soft NT/ND No LE edema, clubbing or cyanosis CBC, BMP 11/25/18 11:35 11/25/18 11:35 Laboratory Tests 11/22/18 14:00 Urine Glucose (UA) 3+ H Ur Leukocyte Esterase 2+ H Urine WBC (Auto) 18 Urine RBC (Auto) <1 Ur Epithelial Cells Rare Current Medications Acetaminophen (Tylenol -) 650 mg PO Q6H PRN PRN Reason: FEVER Albuterol Sulfate (Ventolin 0.083% Nebulizer Soln -) 1 amp NEB Q4H PRN PRN Reason: COUGH Last Admin: 11/25/18 01:36 Dose: 1 amp Albuterol/Ipratropium (Duoneb -) 1 amp NEB RQID [facility] Last Admin: 11/26/18 11:23 Dose: 1 amp Benzocaine/Menthol (Cepacol Lozenge -) 1 each MM PRN PRN PRN Reason: SORE THROAT Budesonide/Formoterol Fumarate (Symbicort 160/4.5mcg -) 2 puff IH BID [facility] Last Admin: 11/26/18 10:40 Dose: 2 puff Diltiazem HCl (Cardizem Cd -) 300 mg PO DAILY [facility] Last Admin: 11/26/18 10:38 Dose: 300 mg Guaifenesin (Diabetic Tussin Dm -) 10 ml PO Q6H [facility] Last Admin: 11/26/18 12:33 Dose: Not Given Ceftriaxone Sodium 1 gm/ (Dextrose) 50 mls @ 100 mls/hr IVPB DAILY [facility]; Protocol Last Admin: 11/26/18 10:37 Dose: 100 mls/hr Azithromycin (Zithromax 500mg Ivpb (Pre-Docked)) 500 mg in 250 mls @ 250 mls/ hr IVPB DAILY [facility] Last Admin: 11/26/18 10:37 Dose: 250 mls/hr Insulin Aspart (Novolog Vial Sliding Scale -) 1 vial SQ ACHS [facility]; Protocol Last Admin: 11/26/18 12:28 Dose: 6 units Insulin Detemir (Levemir Vial) 10 units SQ AM [facility] Last Admin: 11/26/18 07:11 Dose: 10 units Methylprednisolone Sodium Succinate (Solu-Medrol -) 40 mg IVPUSH Q8H-IV [facility] Last Admin: 11/26/18 10:40 Dose: 40 mg Montelukast Sodium (Singulair -) 10 mg PO HS [facility] Last Admin: 11/25/18 21:34 Dose: 10 mg Polyethylene Glycol (Miralax (For Daily Use) -) 17 gm PO DAILY [facility] Last Admin: 11/26/18 10:39 Dose: Not Given Rosuvastatin Calcium (Crestor -) 5 mg PO HS [facility] Last Admin: 11/25/18 21:35 Dose: 5 mg Senna (Senna -) 1 tab PO HS [facility] Last Admin: 11/25/18 21:34 Dose: 1 tab Sitagliptin Phosphate (Januvia -) 50 mg PO DAILY@0700 [facility] Last Admin: 11/26/18 06:47 Dose: 50 mg Valsartan (Diovan -) 160 mg PO DAILY [facility] Last Admin: 11/26/18 10:37 Dose: 160 mg 88 year woman with hx of COPD, Asthma, HTN, HLD, DM who presented from home with SOB and cough and noted to have Cr of 1.3 (baseline Cr 0.9). #ROMIE #PNA #COPD exacerbation #Hypertension #DM ROMIE likely due to mild volume depletion in setting of PNA Check Urine studies for FeNa start trial of IVF NS at 75cc per hour x 24 hours avoid nephrotoxins such as IV contrast and NSAIDs Continue steroids as per pulmonary Note that BUN will rise with just steroids alone Continue Diovan for now, hold if Cr continues to rise Continue Abx as per primary Thank you Will follow Mamadou Gómez DO
[2018-11-26] MEDS ORDERED: SODIUM CHLORIDE 1,000 ML IV SCH (14:45)
[2018-11-26] MEDS ORDERED: PT OWN MED DRAWER 7, Y5N ONE (21:44)
[2018-11-26] MEDS: ROSUVASTATIN CA 5 MG TABLET (FP) PO SCH (21:53)
[2018-11-26] MEDS: SENNOSIDES 8.6MG TABLET (FP) PO SCH (21:53)
[2018-11-26] MEDS: MONTELUKAST NA 10 MG TABLET PO SCH (21:53)
[2018-11-27] MEDS: methylPREDNISolone NA SUCC 40 MG/1 ML VIAL IVPUSH SCH ×3 (02:37→22:44)
[2018-11-27] MEDS: guaiFENesin/D-M SUGAR-FREE/ACLHOL-FREE 118 ML BOTTLE PO SCH ×4 (04:21→22:45)
[2018-11-27] MEDS: INSULIN (LEVEMIR) 100 UNITS/ML UNITS SQ SCH (05:58)
[2018-11-27] MEDS: sitaGLIPtin PHOSPHATE 50 MG TABLET PO SCH (05:59)
[2018-11-27] MEDS: INSULIN SLIDING SCALE (NOVOLOG) 1 VIAL SQ SCH ×4 (05:59→22:45)
[2018-11-27] MEDS: ALBUTEROL SO4 2.5/IPRATROPIUM 0.5 INH SOL 3 ML VIAL.NEB. NEB SCH ×4 (07:50→21:05)
[2018-11-27 07:59] LABS: BASO % 0.2 % (0-2.0); HEMATOCRIT 36.1 % (32.4-45.2); HEMOGLOBIN 12.1 GM/dL (10.7-15.3); LYMPH % 9.3 % (8-40); MCH 29.1 pg (25.7-33.7); MCHC 33.6 g/dl (32.0-36.0); MEAN CELL VOLUME 86.6 fl (80-96); MEAN PLT VOLUME 8.9 fl (7.5-11.1); MONO % 2.9 % (3.8-10.2); NEUT % 87.6 % (42.8-82.8); PLATELET COUNT 314 K/MM3 (134-434); RBC 4.16 M/mm3 (3.60-5.2); RDW 14.4 % (11.6-15.6); WHITE BLOOD COUNT 12.3 K/mm3 (4.0-10.0)
[2018-11-27 08:16] LABS: ALK PHOS 64 U/L (45-117); ANION GAP 10 MMOL/L (8-16); BILIRUBIN,TOTAL 0.3 mg/dL (0.2-1); BLOOD UREA NITROGEN 28 mg/dL (7-18); CALCIUM 7.6 mg/dL (8.5-10.1); CHLORIDE 105 mmol/L (98-107); CO2 23 mmol/L (21-32); CREATININE 0.8 mg/dL (0.55-1.3); GLUCOSE,RANDOM 193 mg/dL (74-106); MAGNESIUM 2.7 mg/dL (1.8-2.4); PHOSPHOROUS 2.2 mg/dL (2.5-4.9); POTASSIUM 4.5 mmol/L (3.5-5.1); SGOT/AST < 3 U/L (15-37); SGPT/ALT 20 U/L (13-61); SODIUM 138 mmol/L (136-145); TOT PROT 5.7 g/dl (6.4-8.2)
[2018-11-27] MEDS ORDERED: PT OWN MED DRAWER 7, Y5N ONE ×4 (09:01→22:39)
[2018-11-27] MEDS: VALSARTAN 160 MG TABLET (UD) PO SCH (09:04)
[2018-11-27] MEDS: POLYETHYLENE GLYCOL 3350 119 GM BTL PO SCH (09:09)
[2018-11-27] MEDS: BUDESONIDE/FORMETEROL FUMARATE 160/4.5 mcg INHALER IH SCH ×2 (09:09→22:47)
--- NOTE | 2018-11-27 09:31 | PN ---
Progress Note (short form) - Note Progress Note: on nasal canulla Vital Signs Period Temp Pulse Resp BP Sys/Castorena Pulse Ox Last 24 Hr 97.5 F-98.2 F 75-88 14-22 134-158/58-78 95 cor-rrr lungs bilateral wheezing abd soft,nt ext no edema CBC, BMP 11/27/18 06:30 11/27/18 06:30 Microbiology 11/26/18 03:38 Urine For Antigen Detection Legionella Antigen - Final 11/26/18 03:38 Urine For Antigen Detection Streptococcus pneumoniae Antigen (M - Final 11/24/18 06:45 Sputum - Expectorated Gram Stain - Final 11/24/18 06:45 Sputum - Expectorated Sputum Culture - Final Stenotrophomon.(X.)Maltophilia 11/22/18 14:00 Urine - Urine Clean Catch Urine Culture - Final Contaminated: Please Repeat 8 imp/reccd copd exacerbation cannot r/o pneumonia (ct scan with bibasilar atelectasis/infiltrates) influenza screen negative d/c iv antibiotics switch to po levaquin 250 daily for 7 days plese call back if needed Problem List - Problems (1) COPD exacerbation Code(s): J44.1 - CHRONIC OBSTRUCTIVE PULMONARY DISEASE W (ACUTE) EXACERBATION (2) Pneumonia Code(s): J18.9 - PNEUMONIA, UNSPECIFIED ORGANISM
--- NOTE | 2018-11-27 09:58 | PN ---
Progress Note, Physician Chief Complaint: AWAKE ALERT CHART AND NOTES REVIEWED STILL WITH DYSPNEA/COUGH - Current Medication List Current Medications: Active Medications Acetaminophen (Tylenol -) 650 mg PO Q6H PRN PRN Reason: FEVER Albuterol Sulfate (Ventolin 0.083% Nebulizer Soln -) 1 amp NEB Q4H PRN PRN Reason: COUGH Last Admin: 11/25/18 01:36 Dose: 1 amp Albuterol/Ipratropium (Duoneb -) 1 amp NEB RQID [facility] Last Admin: 11/26/18 20:30 Dose: 1 amp Benzocaine/Menthol (Cepacol Lozenge -) 1 each MM PRN PRN PRN Reason: SORE THROAT Budesonide/Formoterol Fumarate (Symbicort 160/4.5mcg -) 2 puff IH BID [facility] Last Admin: 11/27/18 09:09 Dose: 2 puff Diltiazem HCl (Cardizem Cd -) 300 mg PO DAILY [facility] Last Admin: 11/27/18 09:06 Dose: 300 mg Guaifenesin (Diabetic Tussin Dm -) 10 ml PO Q6H [facility] Last Admin: 11/27/18 04:21 Dose: Not Given Sodium Chloride (Normal Saline -) 1,000 mls @ 75 mls/hr IV ASDIR [facility] Stop: 11/27/18 14:44 Last Admin: 11/26/18 18:10 Dose: 75 mls/hr Insulin Aspart (Novolog Vial Sliding Scale -) 1 vial SQ [facility]; Protocol Last Admin: 11/27/18 05:59 Dose: Not Given Insulin Detemir (Levemir Vial) 10 units SQ AM [facility] Last Admin: 11/27/18 05:58 Dose: 10 units Levofloxacin (Levaquin -) 250 mg PO DAILY [facility] Methylprednisolone Sodium Succinate (Solu-Medrol -) 40 mg IVPUSH Q8H-IV [facility] Last Admin: 11/27/18 09:04 Dose: 40 mg Montelukast Sodium (Singulair -) 10 mg PO HS [facility] Last Admin: 11/26/18 21:53 Dose: 10 mg Polyethylene Glycol (Miralax (For Daily Use) -) 17 gm PO DAILY [facility] Last Admin: 11/27/18 09:09 Dose: Not Given Rosuvastatin Calcium (Crestor -) 5 mg PO [facility] Last Admin: 11/26/18 21:53 Dose: 5 mg Senna (Senna -) 1 tab PO [facility] Last Admin: 11/26/18 21:53 Dose: 1 tab Sitagliptin Phosphate (Januvia -) 50 mg PO DAILY@0700 [facility] Last Admin: 11/27/18 05:59 Dose: 50 mg Valsartan (Diovan -) 160 mg PO DAILY [facility] Last Admin: 11/27/18 09:04 Dose: 160 mg - Objective Vital Signs: Vital Signs Temperature 97.5 F L 11/27/18 08:28 Pulse Rate 77 11/27/18 08:28 Respiratory Rate 14 11/27/18 08:28 Blood Pressure 149/78 11/27/18 08:28 O2 Sat by Pulse Oximetry (%) 95 11/26/18 21:00 Constitutional: Yes: Mild Distress Eyes: Yes: WNL HENT: Yes: WNL Neck: Yes: WNL Cardiovascular: Yes: Tachycardia Respiratory: Yes: Cough, Rhonchi Gastrointestinal: Yes: WNL Genitourinary: Yes: WNL Musculoskeletal: Yes: WNL Extremities: Yes: WNL Edema: No Peripheral Pulses WNL: Yes Integumentary: Yes: WNL Wound/Incision: Yes: Clean/Dry Neurological: Yes: WNL ...Motor Strength: WNL Psychiatric: Yes: WNL Labs: CBC, BMP 11/27/18 06:30 11/27/18 06:30 Problem List - Problems (1) COPD exacerbation Code(s): J44.1 - CHRONIC OBSTRUCTIVE PULMONARY DISEASE W (ACUTE) EXACERBATION (2) Pneumonia Code(s): J18.9 - PNEUMONIA, UNSPECIFIED ORGANISM (3) Acute respiratory distress Code(s): R06.00 - DYSPNEA, UNSPECIFIED (4) Asthma Code(s): J45.909 - UNSPECIFIED ASTHMA, UNCOMPLICATED (5) Asthma dependent on systemic steroids with acute exacerbation Code(s): J45.901 - UNSPECIFIED ASTHMA WITH (ACUTE) EXACERBATION; Z79.52 - [employer] (CURRENT) USE OF SYSTEMIC STEROIDS (6) Bronchitis Code(s): J40 - BRONCHITIS, NOT SPECIFIED ACUTE OR CHRONIC (7) DM2 (diabetes mellitus, type 2) Code(s): E11.9 - TYPE 2 DIABETES MELLITUS WITHOUT COMPLICATIONS (8) Dyspnea and respiratory abnormalities Code(s): R06.00 - DYSPNEA, UNSPECIFIED; R06.89 - OTHER ABNORMALITIES OF BREATHING (9) HTN (hypertension) Code(s): I10 - ESSENTIAL (PRIMARY) HYPERTENSION Assessment/Plan CONTINUE STEROIDS IV MONITOR BGM WITH SSI NEBS PULM EVAL APPRECIATED DVT PROPHYLAXIS OOB TO CHAIR
--- NOTE | 2018-11-27 13:59 | PN ---
Progress Note (short form) - Note Progress Note: PULMONARY Still with shortness of breath, cough with yellow sputum and wheezing but feels slightly better. Vital Signs Period Temp Pulse Resp BP Sys/Castorena Pulse Ox Last 24 Hr 97.5 F-98.2 F 75-88 14-21 134-149/58-78 95 Gen: NAD in chair Heart: RRR Lung: bilateral rhonchi, wheezes Abd: soft, nontender Ext: no edema CBC, BMP 11/27/18 06:30 11/27/18 06:30 Active Medications Acetaminophen (Tylenol -) 650 mg PO Q6H PRN PRN Reason: FEVER Albuterol Sulfate (Ventolin 0.083% Nebulizer Soln -) 1 amp NEB Q4H PRN PRN Reason: COUGH Last Admin: 11/25/18 01:36 Dose: 1 amp Albuterol/Ipratropium (Duoneb -) 1 amp NEB RQID [facility] Last Admin: 11/27/18 11:30 Dose: 1 amp Benzocaine/Menthol (Cepacol Lozenge -) 1 each MM PRN PRN PRN Reason: SORE THROAT Budesonide/Formoterol Fumarate (Symbicort 160/4.5mcg -) 2 puff IH BID [facility] Last Admin: 11/27/18 09:09 Dose: 2 puff Diltiazem HCl (Cardizem Cd -) 300 mg PO DAILY [facility] Last Admin: 11/27/18 09:06 Dose: 300 mg Guaifenesin (Diabetic Tussin Dm -) 10 ml PO Q6H [facility] Last Admin: 11/27/18 04:21 Dose: Not Given Sodium Chloride (Normal Saline -) 1,000 mls @ 75 mls/hr IV ASDIR [facility] Stop: 11/27/18 14:44 Last Admin: 11/26/18 18:10 Dose: 75 mls/hr Insulin Aspart (Novolog Vial Sliding Scale -) 1 vial SQ ACHS [facility]; Protocol Last Admin: 11/27/18 11:30 Dose: 6 units Insulin Detemir (Levemir Vial) 10 units SQ AM [facility] Last Admin: 11/27/18 05:58 Dose: 10 units Levofloxacin (Levaquin -) 250 mg PO DAILY [facility] Last Admin: 11/27/18 11:14 Dose: 250 mg Methylprednisolone Sodium Succinate (Solu-Medrol -) 40 mg IVPUSH Q8H-IV [facility] Last Admin: 11/27/18 09:04 Dose: 40 mg Montelukast Sodium (Singulair -) 10 mg PO HS [facility] Last Admin: 11/26/18 21:53 Dose: 10 mg Polyethylene Glycol (Miralax (For Daily Use) -) 17 gm PO DAILY [facility] Last Admin: 11/27/18 09:09 Dose: Not Given Rosuvastatin Calcium (Crestor -) 5 mg PO HS [facility] Last Admin: 11/26/18 21:53 Dose: 5 mg Senna (Senna -) 1 tab PO HS [facility] Last Admin: 11/26/18 21:53 Dose: 1 tab Sitagliptin Phosphate (Januvia -) 50 mg PO DAILY@0700 [facility] Last Admin: 11/27/18 05:59 Dose: 50 mg Valsartan (Diovan -) 160 mg PO DAILY [facility] Last Admin: 11/27/18 09:04 Dose: 160 mg A/P Acute Asthma Exacerbation URI HTN DM Hyperlipidemia - will decrease medrol to q12h - inhaled bronchodilators standing and PRN - O2 to keep SpO2 >90% - antibiotics per ID - glucose control while on systemic steroids - DVT prophylaxis
--- NOTE | 2018-11-27 14:07 | PN ---
Progress Note (short form) - Note Progress Note: Renal follow up for ROMIE Pt seen and examined at the bedside has cough no cp, abd pain making urine has been on IVF Vital Signs Temperature 97.5 F L 11/27/18 08:28 Pulse Rate 77 11/27/18 08:28 Respiratory Rate 14 11/27/18 08:28 Blood Pressure 149/78 11/27/18 08:28 O2 Sat by Pulse Oximetry (%) 95 11/26/18 21:00 Intake & Output 11/24/18 11/25/18 11/26/18 11/27/18 23:59 23:59 23:59 23:59 Intake Total 180 169 2545 120 Output Total 135 5 Balance 559 352 3953 120 NAD Dec BS no edema CBC, BMP 11/27/18 06:30 11/27/18 06:30 Current Medications Acetaminophen (Tylenol -) 650 mg PO Q6H PRN PRN Reason: FEVER Albuterol Sulfate (Ventolin 0.083% Nebulizer Soln -) 1 amp NEB Q4H PRN PRN Reason: COUGH Last Admin: 11/25/18 01:36 Dose: 1 amp Albuterol/Ipratropium (Duoneb -) 1 amp NEB RQID [facility] Last Admin: 11/27/18 11:30 Dose: 1 amp Benzocaine/Menthol (Cepacol Lozenge -) 1 each MM PRN PRN PRN Reason: SORE THROAT Budesonide/Formoterol Fumarate (Symbicort 160/4.5mcg -) 2 puff IH BID [facility] Last Admin: 11/27/18 09:09 Dose: 2 puff Diltiazem HCl (Cardizem Cd -) 300 mg PO DAILY [facility] Last Admin: 11/27/18 09:06 Dose: 300 mg Guaifenesin (Diabetic Tussin Dm -) 10 ml PO Q6H [facility] Last Admin: 11/27/18 04:21 Dose: Not Given Sodium Chloride (Normal Saline -) 1,000 mls @ 75 mls/hr IV ASDIR [facility] Stop: 11/27/18 14:44 Last Admin: 11/26/18 18:10 Dose: 75 mls/hr Insulin Aspart (Novolog Vial Sliding Scale -) 1 vial SQ ACHS [facility]; Protocol Last Admin: 11/27/18 11:30 Dose: 6 units Insulin Detemir (Levemir Vial) 10 units SQ AM [facility] Last Admin: 11/27/18 05:58 Dose: 10 units Levofloxacin (Levaquin -) 250 mg PO DAILY [facility] Last Admin: 11/27/18 11:14 Dose: 250 mg Methylprednisolone Sodium Succinate (Solu-Medrol -) 40 mg IVPUSH Q12H [facility] Montelukast Sodium (Singulair -) 10 mg PO HS [facility] Last Admin: 11/26/18 21:53 Dose: 10 mg Polyethylene Glycol (Miralax (For Daily Use) -) 17 gm PO DAILY [facility] Last Admin: 11/27/18 09:09 Dose: Not Given Rosuvastatin Calcium (Crestor -) 5 mg PO HS [facility] Last Admin: 11/26/18 21:53 Dose: 5 mg Senna (Senna -) 1 tab PO [facility] Last Admin: 11/26/18 21:53 Dose: 1 tab Sitagliptin Phosphate (Januvia -) 50 mg PO DAILY@0700 [facility] Last Admin: 11/27/18 05:59 Dose: 50 mg Valsartan (Diovan -) 160 mg PO DAILY [facility] Last Admin: 11/27/18 09:04 Dose: 160 mg 88 year woman with hx of COPD, Asthma, HTN, HLD, DM who presented from home with SOB and cough and noted to have Cr of 1.3 (baseline Cr 0.9). #ROMIE #PNA #COPD exacerbation #Hypertension #DM Renal function now improved to baseline can d/c IVF Trend renal function and electrolytes Mamadou Gómez DO
[2018-11-27 14:08] LABS: ANISOCYTOSIS 1+; MACROCYTOSIS 0; PLATELET ESTIMATE NORMAL
[2018-11-27] MEDS: MONTELUKAST NA 10 MG TABLET PO SCH (22:44)
[2018-11-27] MEDS: SENNOSIDES 8.6MG TABLET (FP) PO SCH (22:44)
[2018-11-27] MEDS: ROSUVASTATIN CA 5 MG TABLET (FP) PO SCH (22:45)
--- NOTE | 2018-11-27 23:20 | CONSULT ---
Consult Consult Specialty:: endocrine Referred by:: clarissa guo np Reason for Consultation:: hyperthyroidism/dm - History of Present Illness Chief Complaint: anxious and tremor History of Present Illness: 88 y/o female patient with past medical history of COPD, asthma, HTN, HLD, Diabetes. Patient states that she has been experiencing heavy breathing and productive cough urti symptoms. She has anxiety and times,denies weight loss, sweats or chest pain. she takes pill for sugar but usually keeps diet and control with medication. - History Source History Provided By: Patient - Past Medical History Pulmonary: Yes: Asthma, COPD Gastrointestinal: Yes: Constipation, Hemorrhoids, Other (RECTAL BLEEDING) ...: No Endocrine: Yes: Diabetes Mellitus - Past Surgical History Past Surgical History: Yes: Hernia Repair - Alcohol/Substance Use Hx Alcohol Use: No - Smoking History Smoking history: Never smoked Have you smoked in the past 12 months: No Aproximately how many cigarettes per day: 0 - Social History ADL: Family Assistance History of Recent Travel: No Home Medications - Allergies Allergies/Adverse Reactions: Allergies Allergy/AdvReac Type Severity Reaction Status Date / Time No Known Drug Allergies Allergy Verified 11/21/18 12:34 - Home Medications Home Medications: Ambulatory Orders Diltiazem [Cardizem -] 300 mg PO HS 03/09/17 Rosuvastatin Calcium [Crestor] 5 mg PO DAILY 03/09/17 Sitagliptin Phos/Metformin HCl [Janumet 50-500 mg Tablet] 1 each PO HS 03/09/17 Tiotropium [place] [Spiriva] 1 inh IH DAILY 03/09/17 predniSONE [Deltasone -] 5 mg PO DAILY 03/09/17 Montelukast Na [Singulair -] 10 mg PO HS tablet 06/27/17 Budesonide/Formeterol Fumarate [SYMBICORT 160/4.5mcg -] 2 puff IH DAILY Losartan Potassium 100 mg PO DAILY 11/21/18 Review of Systems - Review of Systems Constitutional: reports: Weakness Eyes: reports: No Symptoms HENT: reports: No Symptoms Neck: reports: No Symptoms Cardiovascular: reports: Palpitations, Shortness of Breath Respiratory: reports: Exercise Intolerance, SOB on Exertion Gastrointestinal: reports: Bloating Genitourinary: reports: No Symptoms Breasts: reports: No Symptoms Reported Musculoskeletal: reports: Extremity Pain, Muscle Pain, Muscle Cramps, Muscle Weakness Integumentary: reports: No Symptoms Neurological: reports: Tremors, Weakness Endocrine: reports: Intolerance to Heat Physical Exam Vital Signs: Vital Signs Temperature 98.2 F 11/27/18 17:13 Pulse Rate 70 11/27/18 17:13 Respiratory Rate 20 11/27/18 17:13 Blood Pressure 151/71 11/27/18 17:13 O2 Sat by Pulse Oximetry (%) 95 11/27/18 09:00 Constitutional: Yes: Anxious Eyes: Yes: EOM Intact HENT: Yes: Normocephalic Neck: Yes: Trachea Midline Cardiovascular: Yes: Tachycardia Respiratory: Yes: Cough, Rhonchi, Tachypnea Gastrointestinal: Yes: Normal Bowel Sounds ...Rectal Exam: Yes: Deferred Renal/: Yes: WNL Breast(s): Yes: WNL Musculoskeletal: Yes: Back Pain, Muscle Weakness Neurological: Yes: Alert, Oriented, Tremors Labs: CBC, BMP 11/27/18 06:30 11/27/18 06:30 Problem List - Problems (1) Subclinical hyperthyroidism Code(s): E05.90 - THYROTOXICOSIS, UNSP WITHOUT THYROTOXIC CRISIS OR STORM (2) COPD exacerbation Code(s): J44.1 - CHRONIC OBSTRUCTIVE PULMONARY DISEASE W (ACUTE) EXACERBATION (3) Asthma Code(s): J45.909 - UNSPECIFIED ASTHMA, UNCOMPLICATED (4) Asthma dependent on systemic steroids with acute exacerbation Code(s): J45.901 - UNSPECIFIED ASTHMA WITH (ACUTE) EXACERBATION; Z79.52 - 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 OF SYSTEMIC STEROIDS (5) Bronchitis Code(s): J40 - BRONCHITIS, NOT SPECIFIED ACUTE OR CHRONIC (6) DM2 (diabetes mellitus, type 2) Code(s): E11.9 - TYPE 2 DIABETES MELLITUS WITHOUT COMPLICATIONS Assessment/Plan Current Active Problems COPD exacerbation (Acute) Pneumonia (Acute) Subclinical hyperthyroidism (Acute) Abnormal Lab Results 11/27/18 11/27/18 06:30 06:30 WBC 12.3 H Absolute Neuts (auto) 10.8 H Neutrophils % 87.6 H Neutrophils % (Manual) 86.7 H Lymphocytes % (Manual) 7.2 L Monocytes % 2.9 L Monocytes % (Manual) 1 L Nucleated RBC % 2 H BUN 28 H Random Glucose 193 H Calcium 7.6 L Phosphorus 2.2 L Magnesium 2.7 H AST < 3 L Total Protein 5.7 L Albumin 3.0 L Laboratory Results - last 24 hr 11/27/18 11/27/18 06:30 06:30 WBC 12.3 H RBC 4.16 Hgb 12.1 Hct 36.1 MCV 86.6 MCH 29.1 MCHC 33.6 RDW 14.4 Plt Count 314 MPV 8.9 Absolute Neuts (auto) 10.8 H Neutrophils % 87.6 H Neutrophils % (Manual) 86.7 H Band Neutrophils % 0.0 Lymphocytes % 9.3 Lymphocytes % (Manual) 7.2 L Monocytes % 2.9 L Monocytes % (Manual) 1 L Eosinophils % 0.0 Eosinophils % (Manual) 0.0 Basophils % 0.2 Basophils % (Manual) 0.0 Myelocytes % (Man) 2 D Promyelocytes % (Man) 0 Blast Cells % (Manual) 0 Nucleated RBC % 2 H Metamyelocytes 2 D Hypochromia 0 Platelet Estimate Normal Polychromasia 0 Poikilocytosis 0 Anisocytosis 1+ Microcytosis 1+ Macrocytosis 0 Sodium 138 Potassium 4.5 Chloride 105 Carbon Dioxide 23 Anion Gap 10 BUN 28 H Creatinine 0.8 Creat Clearance w eGFR > 60 Random Glucose 193 H Calcium 7.6 L Phosphorus 2.2 L Magnesium 2.7 H Total Bilirubin 0.3 AST < 3 L ALT 20 Alkaline Phosphatase 64 Total Protein 5.7 L Albumin 3.0 L Laboratory Tests 11/26/18 06:15 TSH 0.09 L Free T4 0.76 plan: methimazole 5mg daily to normalize tsh continue januvia 5omg daily bgm qid novolog scale continue titrate as steroid may require insulin doses metformin 500mg bid
[2018-11-28] MEDS: metFORMIN HCL 500 MG TABLET (FP) PO SCH ×2 (06:38→17:21)
[2018-11-28] MEDS: guaiFENesin/D-M SUGAR-FREE/ACLHOL-FREE 118 ML BOTTLE PO SCH ×4 (06:38→23:39)
[2018-11-28] MEDS: sitaGLIPtin PHOSPHATE 50 MG TABLET PO SCH (06:38)
[2018-11-28] MEDS: INSULIN SLIDING SCALE (NOVOLOG) 1 VIAL SQ SCH ×4 (06:39→21:45)
[2018-11-28] MEDS: INSULIN (LEVEMIR) 100 UNITS/ML UNITS SQ SCH (06:39)
[2018-11-28] MEDS: ALBUTEROL SO4 2.5/IPRATROPIUM 0.5 INH SOL 3 ML VIAL.NEB. NEB SCH ×4 (07:34→20:31)
[2018-11-28] MEDS: METHIMAZOLE 5 MG TABLET (FP) PO SCH (10:04)
[2018-11-28] MEDS: methylPREDNISolone NA SUCC 40 MG/1 ML VIAL IVPUSH SCH ×2 (10:04→21:42)
[2018-11-28] MEDS: VALSARTAN 160 MG TABLET (UD) PO SCH (10:04)
[2018-11-28] MEDS: POLYETHYLENE GLYCOL 3350 119 GM BTL PO SCH (10:05)
[2018-11-28] MEDS: BUDESONIDE/FORMETEROL FUMARATE 160/4.5 mcg INHALER IH SCH ×2 (10:07→21:50)
--- NOTE | 2018-11-28 10:09 | PN ---
Progress Note (short form) - Note Progress Note: PULMONARY Still with shortness of breath, cough with yellow sputum, wheezing and chest tightness. Vital Signs Period Temp Pulse Resp BP Sys/Castorena Pulse Ox Last 24 Hr 97.5 F-98.4 F 70-84 12-20 138-158/56-77 95 Gen: NAD in chair Heart: RRR Lung: bilateral rhonchi, wheezes Abd: soft, nontender Ext: no edema CBC, BMP 11/27/18 06:30 11/27/18 06:30 Active Medications Acetaminophen (Tylenol -) 650 mg PO Q6H PRN PRN Reason: FEVER Albuterol Sulfate (Ventolin 0.083% Nebulizer Soln -) 1 amp NEB Q4H PRN PRN Reason: COUGH Last Admin: 11/25/18 01:36 Dose: 1 amp Albuterol/Ipratropium (Duoneb -) 1 amp NEB RQID [facility] Last Admin: 11/28/18 07:34 Dose: 1 amp Benzocaine/Menthol (Cepacol Lozenge -) 1 each MM PRN PRN PRN Reason: SORE THROAT Budesonide/Formoterol Fumarate (Symbicort 160/4.5mcg -) 2 puff IH BID [facility] Last Admin: 11/27/18 22:47 Dose: 2 puff Diltiazem HCl (Cardizem Cd -) 300 mg PO DAILY [facility] Last Admin: 11/27/18 09:06 Dose: 300 mg Guaifenesin (Diabetic Tussin Dm -) 10 ml PO Q6H [facility] Last Admin: 11/28/18 06:38 Dose: 10 ml Insulin Aspart (Novolog Vial Sliding Scale -) 1 vial SQ ACHS [facility]; Protocol Last Admin: 11/28/18 06:39 Dose: 2 units Insulin Detemir (Levemir Vial) 10 units SQ AM [facility] Last Admin: 11/28/18 06:39 Dose: 10 units Levofloxacin (Levaquin -) 250 mg PO DAILY@0600 [facility] Last Admin: 11/28/18 06:39 Dose: 250 mg Metformin HCl (Glucophage -) 500 mg PO BID@0700,1630 [facility] Last Admin: 11/28/18 06:38 Dose: 500 mg Methimazole (Tapazole -) 5 mg PO DAILY [facility] Methylprednisolone Sodium Succinate (Solu-Medrol -) 40 mg IVPUSH Q12H [facility] Last Admin: 11/27/18 22:44 Dose: 40 mg Montelukast Sodium (Singulair -) 10 mg PO HS [facility] Last Admin: 11/27/18 22:44 Dose: 10 mg Polyethylene Glycol (Miralax (For Daily Use) -) 17 gm PO DAILY [facility] Last Admin: 11/27/18 09:09 Dose: Not Given Rosuvastatin Calcium (Crestor -) 5 mg PO [facility] Last Admin: 11/27/18 22:45 Dose: 5 mg Senna (Senna -) 1 tab PO [facility] Last Admin: 11/27/18 22:44 Dose: 1 tab Sitagliptin Phosphate (Januvia -) 50 mg PO DAILY@0700 [facility] Last Admin: 11/28/18 06:38 Dose: 50 mg Valsartan (Diovan -) 160 mg PO DAILY [facility] Last Admin: 11/27/18 09:04 Dose: 160 mg A/P Acute Asthma Exacerbation URI HTN DM Hyperlipidemia - continue medrol at current dose - inhaled bronchodilators standing and PRN - O2 to keep SpO2 >90% - antibiotics per ID - glucose control while on systemic steroids - DVT prophylaxis
[2018-11-28] MEDS ORDERED: PT OWN MED DRAWER 7, Y5N ONE (10:11)
--- NOTE | 2018-11-28 11:33 | PN ---
Progress Note, Physician Chief Complaint: IN A CHAIR SITTING UP STILL COUGHING AND SOB - Current Medication List Current Medications: Active Medications Acetaminophen (Tylenol -) 650 mg PO Q6H PRN PRN Reason: FEVER Albuterol Sulfate (Ventolin 0.083% Nebulizer Soln -) 1 amp NEB Q4H PRN PRN Reason: COUGH Last Admin: 11/25/18 01:36 Dose: 1 amp Albuterol/Ipratropium (Duoneb -) 1 amp NEB RQID [facility] Last Admin: 11/28/18 11:25 Dose: Not Given Benzocaine/Menthol (Cepacol Lozenge -) 1 each MM PRN PRN PRN Reason: SORE THROAT Budesonide/Formoterol Fumarate (Symbicort 160/4.5mcg -) 2 puff IH BID [facility] Last Admin: 11/28/18 10:07 Dose: 2 puff Diltiazem HCl (Cardizem Cd -) 300 mg PO DAILY [facility] Last Admin: 11/28/18 10:12 Dose: 300 mg Guaifenesin (Diabetic Tussin Dm -) 10 ml PO Q6H [facility] Last Admin: 11/28/18 10:14 Dose: 10 ml Insulin Aspart (Novolog Vial Sliding Scale -) 1 vial SQ ACHS [facility]; Protocol Last Admin: 11/28/18 06:39 Dose: 2 units Insulin Detemir (Levemir Vial) 10 units SQ AM [facility] Last Admin: 11/28/18 06:39 Dose: 10 units Levofloxacin (Levaquin -) 250 mg PO DAILY@0600 [facility] Last Admin: 11/28/18 06:39 Dose: 250 mg Metformin HCl (Glucophage -) 500 mg PO BID@0700,1630 [facility] Last Admin: 11/28/18 06:38 Dose: 500 mg Methimazole (Tapazole -) 5 mg PO DAILY [facility] Last Admin: 11/28/18 10:04 Dose: 5 mg Methylprednisolone Sodium Succinate (Solu-Medrol -) 40 mg IVPUSH Q12H [facility] Last Admin: 11/28/18 10:04 Dose: 40 mg Montelukast Sodium (Singulair -) 10 mg PO HS [facility] Last Admin: 11/27/18 22:44 Dose: 10 mg Polyethylene Glycol (Miralax (For Daily Use) -) 17 gm PO DAILY [facility] Last Admin: 11/28/18 10:05 Dose: Not Given Rosuvastatin Calcium (Crestor -) 5 mg PO [facility] Last Admin: 11/27/18 22:45 Dose: 5 mg Senna (Senna -) 1 tab PO [facility] Last Admin: 11/27/18 22:44 Dose: 1 tab Sitagliptin Phosphate (Januvia -) 50 mg PO DAILY@0700 [facility] Last Admin: 11/28/18 06:38 Dose: 50 mg Valsartan (Diovan -) 160 mg PO DAILY [facility] Last Admin: 11/28/18 10:04 Dose: 160 mg - Objective Vital Signs: Vital Signs Temperature 97.5 F L 11/28/18 08:30 Pulse Rate 84 11/28/18 08:30 Respiratory Rate 12 11/28/18 08:30 Blood Pressure 149/77 11/28/18 08:30 O2 Sat by Pulse Oximetry (%) 95 11/27/18 21:00 Constitutional: Yes: Mild Distress HENT: Yes: WNL Cardiovascular: Yes: Regular Rate and Rhythm Respiratory: Yes: Cough, On Nasal O2, Rhonchi Gastrointestinal: Yes: WNL Genitourinary: Yes: WNL Musculoskeletal: Yes: WNL Edema: No Labs: CBC, BMP 11/27/18 06:30 11/27/18 06:30 Problem List - Problems (1) COPD exacerbation Code(s): J44.1 - CHRONIC OBSTRUCTIVE PULMONARY DISEASE W (ACUTE) EXACERBATION (2) Pneumonia Code(s): J18.9 - PNEUMONIA, UNSPECIFIED ORGANISM (3) Acute respiratory distress Code(s): R06.00 - DYSPNEA, UNSPECIFIED (4) Asthma Code(s): J45.909 - UNSPECIFIED ASTHMA, UNCOMPLICATED (5) Asthma dependent on systemic steroids with acute exacerbation Code(s): J45.901 - UNSPECIFIED ASTHMA WITH (ACUTE) EXACERBATION; Z79.52 - HALFWAY (CURRENT) USE OF SYSTEMIC STEROIDS (6) Bronchitis Code(s): J40 - BRONCHITIS, NOT SPECIFIED ACUTE OR CHRONIC (7) DM2 (diabetes mellitus, type 2) Code(s): E11.9 - TYPE 2 DIABETES MELLITUS WITHOUT COMPLICATIONS (8) Dyspnea and respiratory abnormalities Code(s): R06.00 - DYSPNEA, UNSPECIFIED; R06.89 - OTHER ABNORMALITIES OF BREATHING (9) HTN (hypertension) Code(s): I10 - ESSENTIAL (PRIMARY) HYPERTENSION Assessment/Plan CONTINUE STEROIDS IV MONITOR BGM WITH SSI NEBS PULM EVAL APPRECIATED DVT PROPHYLAXIS OOB TO CHAIR
[2018-11-28] MEDS ORDERED: ONDANSETRON *ODT* 4 MG TABLET SL PRN (11:34)
[2018-11-28] MEDS: PANTOPRAZOLE SODIUM 40 MG VIAL IVPUSH SCH ×2 (12:23→21:43)
[2018-11-28] MEDS: ROSUVASTATIN CA 5 MG TABLET (FP) PO SCH (21:42)
[2018-11-28] MEDS: MONTELUKAST NA 10 MG TABLET PO SCH (21:42)
[2018-11-28] MEDS: SENNOSIDES 8.6MG TABLET (FP) PO SCH (21:42)
[2018-11-29] MEDS: guaiFENesin/D-M SUGAR-FREE/ACLHOL-FREE 118 ML BOTTLE PO SCH ×4 (05:00→22:46)
[2018-11-29] MEDS: metFORMIN HCL 500 MG TABLET (FP) PO SCH ×2 (06:20→16:33)
[2018-11-29] MEDS: sitaGLIPtin PHOSPHATE 50 MG TABLET PO SCH (06:20)
[2018-11-29] MEDS: INSULIN (LEVEMIR) 100 UNITS/ML UNITS SQ SCH (06:21)
[2018-11-29] MEDS: INSULIN SLIDING SCALE (NOVOLOG) 1 VIAL SQ SCH ×4 (06:21→21:59)
[2018-11-29] MEDS: ALBUTEROL SO4 2.5/IPRATROPIUM 0.5 INH SOL 3 ML VIAL.NEB. NEB SCH ×4 (07:54→20:35)
[2018-11-29] MEDS ORDERED: PT OWN MED DRAWER 7, Y5N ONE ×4 (09:22→17:01)
[2018-11-29] MEDS: VALSARTAN 160 MG TABLET (UD) PO SCH (09:25)
[2018-11-29] MEDS: POLYETHYLENE GLYCOL 3350 119 GM BTL PO SCH (09:26)
[2018-11-29] MEDS: BUDESONIDE/FORMETEROL FUMARATE 160/4.5 mcg INHALER IH SCH ×2 (09:27→21:56)
[2018-11-29] MEDS: METHIMAZOLE 5 MG TABLET (FP) PO SCH (09:27)
[2018-11-29] MEDS: PANTOPRAZOLE SODIUM 40 MG VIAL IVPUSH SCH ×2 (09:28→22:01)
[2018-11-29] MEDS: methylPREDNISolone NA SUCC 40 MG/1 ML VIAL IVPUSH SCH ×2 (09:29→21:55)
--- NOTE | 2018-11-29 09:31 | PN ---
Progress Note, Physician - Current Medication List Current Medications: Active Medications Acetaminophen (Tylenol -) 650 mg PO Q6H PRN PRN Reason: FEVER Albuterol Sulfate (Ventolin 0.083% Nebulizer Soln -) 1 amp NEB Q4H PRN PRN Reason: COUGH Last Admin: 11/25/18 01:36 Dose: 1 amp Albuterol/Ipratropium (Duoneb -) 1 amp NEB RQID [facility] Last Admin: 11/29/18 07:54 Dose: 1 amp Benzocaine/Menthol (Cepacol Lozenge -) 1 each MM PRN PRN PRN Reason: SORE THROAT Budesonide/Formoterol Fumarate (Symbicort 160/4.5mcg -) 2 puff IH BID [facility] Last Admin: 11/29/18 09:27 Dose: 2 puff Diltiazem HCl (Cardizem Cd -) 300 mg PO DAILY [facility] Last Admin: 11/29/18 09:24 Dose: 300 mg Guaifenesin (Diabetic Tussin Dm -) 10 ml PO Q6H [facility] Last Admin: 11/29/18 05:00 Dose: 10 ml Insulin Aspart (Novolog Vial Sliding Scale -) 1 vial SQ [facility]; Protocol Last Admin: 11/29/18 06:21 Dose: Not Given Insulin Detemir (Levemir Vial) 10 units SQ AM [facility] Last Admin: 11/29/18 06:21 Dose: 10 units Levofloxacin (Levaquin -) 250 mg PO DAILY@0600 [facility] Last Admin: 11/29/18 06:20 Dose: 250 mg Metformin HCl (Glucophage -) 500 mg PO BID@0700,1630 [facility] Last Admin: 11/29/18 06:20 Dose: 500 mg Methimazole (Tapazole -) 5 mg PO DAILY [facility] Last Admin: 11/29/18 09:27 Dose: 5 mg Methylprednisolone Sodium Succinate (Solu-Medrol -) 40 mg IVPUSH Q12H [facility] Last Admin: 11/29/18 09:29 Dose: 40 mg Montelukast Sodium (Singulair -) 10 mg PO HS [facility] Last Admin: 11/28/18 21:42 Dose: 10 mg Ondansetron HCl (Zofran Odt -) 4 mg SL Q6H PRN PRN Reason: NAUSEA AND/OR VOMITING Last Admin: 11/28/18 12:23 Dose: 4 mg Pantoprazole Sodium (Protonix Iv) 40 mg IVPUSH BID [facility] Last Admin: 11/29/18 09:28 Dose: 40 mg Polyethylene Glycol (Miralax (For Daily Use) -) 17 gm PO DAILY [facility] Last Admin: 11/29/18 09:26 Dose: 17 gm Rosuvastatin Calcium (Crestor -) 5 mg PO [facility] Last Admin: 11/28/18 21:42 Dose: 5 mg Senna (Senna -) 1 tab PO [facility] Last Admin: 11/28/18 21:42 Dose: 1 tab Sitagliptin Phosphate (Januvia -) 50 mg PO DAILY@0700 [facility] Last Admin: 11/29/18 06:20 Dose: 50 mg Valsartan (Diovan -) 160 mg PO DAILY [facility] Last Admin: 11/29/18 09:25 Dose: 160 mg - Objective Vital Signs: Vital Signs Temperature 98.2 F 11/29/18 06:32 Pulse Rate 76 11/29/18 06:32 Respiratory Rate 18 11/29/18 06:32 Blood Pressure 141/79 11/29/18 06:32 O2 Sat by Pulse Oximetry (%) 95 11/28/18 21:00 Cardiovascular: Yes: S1, S2 Labs: CBC, BMP 11/27/18 06:30 11/27/18 06:30 Problem List - Problems (1) COPD exacerbation Assessment/Plan: -Continue with Symbicort and spiriva -IV Steroids Code(s): J44.1 - CHRONIC OBSTRUCTIVE PULMONARY DISEASE W (ACUTE) EXACERBATION (2) DM2 (diabetes mellitus, type 2) Assessment/Plan: SS Code(s): E11.9 - TYPE 2 DIABETES MELLITUS WITHOUT COMPLICATIONS (3) HTN (hypertension) Assessment/Plan: -Monitor Code(s): I10 - ESSENTIAL (PRIMARY) HYPERTENSION
--- NOTE | 2018-11-29 11:24 | PN ---
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
[2018-11-29 12:02] LABS: ANION GAP 13 MMOL/L (8-16); BLOOD UREA NITROGEN 28 mg/dL (7-18); CALCIUM 7.8 mg/dL (8.5-10.1); CHLORIDE 101 mmol/L (98-107); CO2 20 mmol/L (21-32); GLUCOSE,RANDOM 203 mg/dL (74-106); MAGNESIUM 2.2 mg/dL (1.8-2.4); PHOSPHOROUS 2.4 mg/dL (2.5-4.9); POTASSIUM 5.1 mmol/L (3.5-5.1); SODIUM 134 mmol/L (136-145)
--- NOTE | 2018-11-29 18:00 | PN ---
Progress Note (short form) - Note Progress Note: Renal follow up for ROMIE Pt seen and examined at the bedside no acute complaints sob slightly improved Vital Signs Temperature 97.8 F 11/29/18 15:20 Pulse Rate 71 11/29/18 15:20 Respiratory Rate 19 11/29/18 15:20 Blood Pressure 140/67 11/29/18 15:20 O2 Sat by Pulse Oximetry (%) 97 11/29/18 09:00 NAD Dec BS no edema CBC, BMP 11/27/18 06:30 11/29/18 11:30 Current Medications Acetaminophen (Tylenol -) 650 mg PO Q6H PRN PRN Reason: FEVER Albuterol Sulfate (Ventolin 0.083% Nebulizer Soln -) 1 amp NEB Q4H PRN PRN Reason: COUGH Last Admin: 11/25/18 01:36 Dose: 1 amp Albuterol/Ipratropium (Duoneb -) 1 amp NEB RQID [facility] Last Admin: 11/29/18 15:56 Dose: 1 amp Benzocaine/Menthol (Cepacol Lozenge -) 1 each MM PRN PRN PRN Reason: SORE THROAT Budesonide/Formoterol Fumarate (Symbicort 160/4.5mcg -) 2 puff IH BID [facility] Last Admin: 11/29/18 09:27 Dose: 2 puff Diltiazem HCl (Cardizem Cd -) 300 mg PO DAILY [facility] Last Admin: 11/29/18 09:24 Dose: 300 mg Guaifenesin (Diabetic Tussin Dm -) 10 ml PO Q6H [facility] Last Admin: 11/29/18 17:03 Dose: 10 ml Insulin Aspart (Novolog Vial Sliding Scale -) 1 vial SQ ACHS [facility]; Protocol Last Admin: 11/29/18 16:34 Dose: 2 units Insulin Detemir (Levemir Vial) 10 units SQ AM [facility] Last Admin: 11/29/18 06:21 Dose: 10 units Levofloxacin (Levaquin -) 250 mg PO DAILY@0600 [facility] Last Admin: 11/29/18 06:20 Dose: 250 mg Metformin HCl (Glucophage -) 500 mg PO BID@0700,1630 [facility] Last Admin: 11/29/18 16:33 Dose: 500 mg Methimazole (Tapazole -) 5 mg PO DAILY [facility] Last Admin: 11/29/18 09:27 Dose: 5 mg Methylprednisolone Sodium Succinate (Solu-Medrol -) 40 mg IVPUSH Q12H [facility] Last Admin: 11/29/18 09:29 Dose: 40 mg Montelukast Sodium (Singulair -) 10 mg PO [facility] Last Admin: 11/28/18 21:42 Dose: 10 mg Ondansetron HCl (Zofran Odt -) 4 mg SL Q6H PRN PRN Reason: NAUSEA AND/OR VOMITING Last Admin: 11/28/18 12:23 Dose: 4 mg Pantoprazole Sodium (Protonix Iv) 40 mg IVPUSH BID [facility] Last Admin: 11/29/18 09:28 Dose: 40 mg Polyethylene Glycol (Miralax (For Daily Use) -) 17 gm PO DAILY [facility] Last Admin: 11/29/18 09:26 Dose: 17 gm Rosuvastatin Calcium (Crestor -) 5 mg PO [facility] Last Admin: 11/28/18 21:42 Dose: 5 mg Senna (Senna -) 1 tab PO [facility] Last Admin: 11/28/18 21:42 Dose: 1 tab Sitagliptin Phosphate (Januvia -) 50 mg PO DAILY@0700 [facility] Last Admin: 11/29/18 06:20 Dose: 50 mg Valsartan (Diovan -) 160 mg PO DAILY [facility] Last Admin: 11/29/18 09:25 Dose: 160 mg 88 year woman with hx of COPD, Asthma, HTN, HLD, DM who presented from home with SOB and cough and noted to have Cr of 1.3 (baseline Cr 0.9). #ROMIE #PNA #COPD exacerbation #Hypertension #DM Renal function improved and stable continue steroids as per pulmonary will sign off case at this time please call if there is any questions or concerns Mamadou Gómez DO
[2018-11-29] MEDS: SENNOSIDES 8.6MG TABLET (FP) PO SCH (21:54)
[2018-11-29] MEDS: MONTELUKAST NA 10 MG TABLET PO SCH (21:54)
[2018-11-29] MEDS: ROSUVASTATIN CA 5 MG TABLET (FP) PO SCH (21:54)
[2018-11-30] MEDS: sitaGLIPtin PHOSPHATE 50 MG TABLET PO SCH (06:09)
[2018-11-30] MEDS: guaiFENesin/D-M SUGAR-FREE/ACLHOL-FREE 118 ML BOTTLE PO SCH ×4 (06:09→22:54)
[2018-11-30] MEDS: metFORMIN HCL 500 MG TABLET (FP) PO SCH ×2 (06:09→17:54)
[2018-11-30] MEDS: INSULIN SLIDING SCALE (NOVOLOG) 1 VIAL SQ SCH ×5 (06:12→20:59)
[2018-11-30] MEDS: INSULIN (LEVEMIR) 100 UNITS/ML UNITS SQ SCH (06:12)
[2018-11-30] MEDS: ALBUTEROL SO4 2.5/IPRATROPIUM 0.5 INH SOL 3 ML VIAL.NEB. NEB SCH (07:26)
--- NOTE | 2018-11-30 09:14 | PN ---
Progress Note, Physician Chief Complaint: SOB COPD exacerbation Pneumonia History of Present Illness: NAD + cough Feeling better Seen by pulmonary on PO Levaquin On medrol IV 40 mg BID Still wheezing with SOB on exertion - Current Medication List Current Medications: Active Medications Acetaminophen (Tylenol -) 650 mg PO Q6H PRN PRN Reason: FEVER Albuterol Sulfate (Ventolin 0.083% Nebulizer Soln -) 1 amp NEB Q4H PRN PRN Reason: COUGH Last Admin: 11/25/18 01:36 Dose: 1 amp Albuterol/Ipratropium (Duoneb -) 1 amp NEB RQID [facility] Last Admin: 11/30/18 07:26 Dose: 1 amp Benzocaine/Menthol (Cepacol Lozenge -) 1 each MM PRN PRN PRN Reason: SORE THROAT Budesonide/Formoterol Fumarate (Symbicort 160/4.5mcg -) 2 puff IH BID [facility] Last Admin: 11/29/18 21:56 Dose: 2 puff Diltiazem HCl (Cardizem Cd -) 300 mg PO DAILY [facility] Last Admin: 11/29/18 09:24 Dose: 300 mg Guaifenesin (Diabetic Tussin Dm -) 10 ml PO Q6H [facility] Last Admin: 11/30/18 06:09 Dose: 10 ml Insulin Aspart (Novolog Vial Sliding Scale -) 1 vial SQ [facility]; Protocol Last Admin: 11/30/18 06:12 Dose: Not Given Insulin Detemir (Levemir Vial) 10 units SQ AM [facility] Last Admin: 11/30/18 06:12 Dose: 10 units Levofloxacin (Levaquin -) 250 mg PO DAILY@0600 [facility] Last Admin: 11/30/18 06:09 Dose: 250 mg Metformin HCl (Glucophage -) 500 mg PO BID@0700,1630 [facility] Last Admin: 11/30/18 06:09 Dose: 500 mg Methimazole (Tapazole -) 5 mg PO DAILY [facility] Last Admin: 11/29/18 09:27 Dose: 5 mg Methylprednisolone Sodium Succinate (Solu-Medrol -) 40 mg IVPUSH Q12H [facility] Last Admin: 11/29/18 21:55 Dose: 40 mg Montelukast Sodium (Singulair -) 10 mg PO HS [facility] Last Admin: 11/29/18 21:54 Dose: 10 mg Ondansetron HCl (Zofran Odt -) 4 mg SL Q6H PRN PRN Reason: NAUSEA AND/OR VOMITING Last Admin: 11/28/18 12:23 Dose: 4 mg Pantoprazole Sodium (Protonix Iv) 40 mg IVPUSH BID [facility] Last Admin: 11/29/18 22:01 Dose: 40 mg Polyethylene Glycol (Miralax (For Daily Use) -) 17 gm PO DAILY [facility] Last Admin: 11/29/18 09:26 Dose: 17 gm Rosuvastatin Calcium (Crestor -) 5 mg PO HS [facility] Last Admin: 11/29/18 21:54 Dose: 5 mg Senna (Senna -) 1 tab PO [facility] Last Admin: 11/29/18 21:54 Dose: 1 tab Sitagliptin Phosphate (Januvia -) 50 mg PO DAILY@0700 [facility] Last Admin: 11/30/18 06:09 Dose: 50 mg Valsartan (Diovan -) 160 mg PO DAILY [facility] Last Admin: 11/29/18 09:25 Dose: 160 mg - Objective Vital Signs: Vital Signs Temperature 98.1 F 11/30/18 06:00 Pulse Rate 84 11/30/18 06:00 Respiratory Rate 19 11/30/18 06:00 Blood Pressure 156/74 11/30/18 06:00 O2 Sat by Pulse Oximetry (%) 97 11/29/18 21:00 Constitutional: Yes: Well Nourished, Calm, Mild Distress Cardiovascular: Yes: Regular Rate and Rhythm Respiratory: Yes: On Nasal O2, SOB on Exertion, Wheezes (diffuse) Gastrointestinal: Yes: Normal Bowel Sounds, Soft Musculoskeletal: Yes: WNL Extremities: Yes: WNL Edema: No Peripheral Pulses WNL: Yes Neurological: Yes: Alert, Oriented Psychiatric: Yes: Alert, Oriented Labs: CBC, BMP 11/27/18 06:30 11/29/18 11:30 Problem List - Problems (1) Pneumonia Assessment/Plan: -Chest CT reviewed -On PO levaquin -Seen by Pulmoanry -ID consulted -legionella urine ag negative -IV steroids medrol 40 mg bid -bronchodilators -Expectorant PRN Code(s): J18.9 - PNEUMONIA, UNSPECIFIED ORGANISM (2) COPD exacerbation Assessment/Plan: -Chest CT reviewed -On PO Levaquin -Seen by Pulmoanry -ID consulted -legionella urine ag neg -IV steroids medrol 40 mg BID -bronchodilators -Expectorant PRN Code(s): J44.1 - CHRONIC OBSTRUCTIVE PULMONARY DISEASE W (ACUTE) EXACERBATION (3) DM2 (diabetes mellitus, type 2) Assessment/Plan: -On metformin at home, hold for now for cr 1.3 -On Januvia 50 mg po daily due to cr cl -Also on Metformin 500 mg po bid -BGM ACHS -Insulin Novolog sliding scale -Diabetic/low sodium diet -RD consult - A1c 8.1 Code(s): E11.9 - TYPE 2 DIABETES MELLITUS WITHOUT COMPLICATIONS (4) Renal insufficiency Assessment/Plan: -Cr improved and stable -Seen by Nephrology Code(s): N28.9 - DISORDER OF KIDNEY AND URETER, UNSPECIFIED Assessment/Plan see problem list Did well with PT
[2018-11-30] MEDS: VALSARTAN 160 MG TABLET (UD) PO SCH (11:10)
[2018-11-30] MEDS: METHIMAZOLE 5 MG TABLET (FP) PO SCH (11:10)
[2018-11-30] MEDS: PANTOPRAZOLE SODIUM 40 MG VIAL IVPUSH SCH ×3 (11:23→20:59)
[2018-11-30] MEDS: POLYETHYLENE GLYCOL 3350 119 GM BTL PO SCH (11:23)
[2018-11-30] MEDS: BUDESONIDE/FORMETEROL FUMARATE 160/4.5 mcg INHALER IH SCH ×2 (11:24→21:35)
[2018-11-30] MEDS: methylPREDNISolone NA SUCC 40 MG/1 ML VIAL IVPUSH SCH ×3 (11:24→21:00)
[2018-11-30] MEDS ORDERED: PT OWN MED DRAWER 7, Y5N ONE (11:27)
--- NOTE | 2018-11-30 12:22 | PN ---
Progress Note (short form) - Note Progress Note: PULMONARY Still with some shortness of breath, cough and wheezing but feeling better. Vital Signs Period Temp Pulse Resp BP Sys/Castorena Pulse Ox Last 24 Hr 97.8 F-98.1 F 71-84 - 140-156/67-74 97 Gen: NAD in chair Heart: RRR Lung: bilateral rhonchi, wheezes Abd: soft, nontender Ext: no edema CBC, BMP 11/27/18 06:30 11/29/18 11:30 Active Medications Acetaminophen (Tylenol -) 650 mg PO Q6H PRN PRN Reason: FEVER Albuterol Sulfate (Ventolin 0.083% Nebulizer Soln -) 1 amp NEB Q4H PRN PRN Reason: COUGH Last Admin: 11/25/18 01:36 Dose: 1 amp Benzocaine/Menthol (Cepacol Lozenge -) 1 each MM PRN PRN PRN Reason: SORE THROAT Budesonide/Formoterol Fumarate (Symbicort 160/4.5mcg -) 2 puff IH BID [facility] Last Admin: 11/30/18 11:24 Dose: 2 puff Diltiazem HCl (Cardizem Cd -) 300 mg PO DAILY [facility] Last Admin: 11/30/18 11:12 Dose: 300 mg Guaifenesin (Diabetic Tussin Dm -) 10 ml PO Q6H [facility] Last Admin: 11/30/18 06:09 Dose: 10 ml Insulin Aspart (Novolog Vial Sliding Scale -) 1 vial SQ ACHS [facility]; Protocol Last Admin: 11/30/18 06:12 Dose: Not Given Insulin Detemir (Levemir Vial) 10 units SQ AM [facility] Last Admin: 11/30/18 06:12 Dose: 10 units Levofloxacin (Levaquin -) 250 mg PO DAILY@0600 [facility] Last Admin: 11/30/18 06:09 Dose: 250 mg Metformin HCl (Glucophage -) 500 mg PO BID@0700,1630 [facility] Last Admin: 11/30/18 06:09 Dose: 500 mg Methimazole (Tapazole -) 5 mg PO DAILY [facility] Last Admin: 11/30/18 11:10 Dose: 5 mg Methylprednisolone Sodium Succinate (Solu-Medrol -) 40 mg IVPUSH Q12H [facility] Last Admin: 11/30/18 11:24 Dose: 40 mg Montelukast Sodium (Singulair -) 10 mg PO [facility] Last Admin: 11/29/18 21:54 Dose: 10 mg Ondansetron HCl (Zofran Odt -) 4 mg SL Q6H PRN PRN Reason: NAUSEA AND/OR VOMITING Last Admin: 11/28/18 12:23 Dose: 4 mg Pantoprazole Sodium (Protonix Iv) 40 mg IVPUSH BID [facility] Last Admin: 11/30/18 11:23 Dose: 40 mg Polyethylene Glycol (Miralax (For Daily Use) -) 17 gm PO DAILY [facility] Last Admin: 11/30/18 11:23 Dose: 17 gm Rosuvastatin Calcium (Crestor -) 5 mg PO [facility] Last Admin: 11/29/18 21:54 Dose: 5 mg Senna (Senna -) 1 tab PO [facility] Last Admin: 11/29/18 21:54 Dose: 1 tab Sitagliptin Phosphate (Januvia -) 50 mg PO DAILY@0700 [facility] Last Admin: 11/30/18 06:09 Dose: 50 mg Valsartan (Diovan -) 160 mg PO DAILY [facility] Last Admin: 11/30/18 11:10 Dose: 160 mg A/P Acute Asthma Exacerbation URI HTN DM Hyperlipidemia - will decrease medrol to 30mg q12h - inhaled bronchodilators standing and PRN - O2 to keep SpO2 >90% - antibiotics per ID - glucose control while on systemic steroids - DVT prophylaxis
[2018-11-30] MEDS ORDERED: FUROSEMIDE 40 MG/4 ML INJECTABLE VIAL IVPUSH ONE (12:45)
[2018-11-30] MEDS: MONTELUKAST NA 10 MG TABLET PO SCH ×2 (20:47→20:59)
[2018-11-30] MEDS: SENNOSIDES 8.6MG TABLET (FP) PO SCH ×2 (20:47→20:59)
[2018-11-30] MEDS: ROSUVASTATIN CA 5 MG TABLET (FP) PO SCH (20:59)
[2018-12-01] MEDS: guaiFENesin/D-M SUGAR-FREE/ACLHOL-FREE 118 ML BOTTLE PO SCH ×4 (05:48→22:38)
[2018-12-01] MEDS: INSULIN SLIDING SCALE (NOVOLOG) 1 VIAL SQ SCH ×4 (06:00→21:47)
[2018-12-01] MEDS: sitaGLIPtin PHOSPHATE 50 MG TABLET PO SCH (06:00)
[2018-12-01] MEDS: INSULIN (LEVEMIR) 100 UNITS/ML UNITS SQ SCH (06:00)
[2018-12-01] MEDS: metFORMIN HCL 500 MG TABLET (FP) PO SCH ×2 (06:00→17:29)
--- NOTE | 2018-12-01 08:53 | PN ---
Progress Note, Physician Chief Complaint: SOB COPD exacerbation Pneumonia History of Present Illness: NAD + cough Feeling better Seen by pulmonary on PO Levaquin On medrol IV 40 mg BID Still wheezing with SOB on exertion - Current Medication List Current Medications: Active Medications Acetaminophen (Tylenol -) 650 mg PO Q6H PRN PRN Reason: FEVER Albuterol Sulfate (Ventolin 0.083% Nebulizer Soln -) 1 amp NEB Q4H PRN PRN Reason: COUGH Last Admin: 11/25/18 01:36 Dose: 1 amp Benzocaine/Menthol (Cepacol Lozenge -) 1 each MM PRN PRN PRN Reason: SORE THROAT Budesonide/Formoterol Fumarate (Symbicort 160/4.5mcg -) 2 puff IH BID [facility] Last Admin: 11/30/18 21:35 Dose: 2 puff Diltiazem HCl (Cardizem Cd -) 300 mg PO DAILY [facility] Last Admin: 11/30/18 11:12 Dose: 300 mg Guaifenesin (Diabetic Tussin Dm -) 10 ml PO Q6H [facility] Last Admin: 12/01/18 05:48 Dose: 10 ml Insulin Aspart (Novolog Vial Sliding Scale -) 1 vial SQ [facility]; Protocol Last Admin: 12/01/18 06:00 Dose: Not Given Insulin Detemir (Levemir Vial) 10 units SQ AM [facility] Last Admin: 12/01/18 06:00 Dose: 10 units Levofloxacin (Levaquin -) 250 mg PO DAILY@0600 [facility] Last Admin: 12/01/18 05:59 Dose: 250 mg Metformin HCl (Glucophage -) 500 mg PO BID@0700,1630 [facility] Last Admin: 12/01/18 06:00 Dose: 500 mg Methimazole (Tapazole -) 5 mg PO DAILY [facility] Last Admin: 11/30/18 11:10 Dose: 5 mg Methylprednisolone Sodium Succinate (Solu-Medrol -) 30 mg IVPUSH BID [facility] Last Admin: 11/30/18 21:00 Dose: Not Given Montelukast Sodium (Singulair -) 10 mg PO HS [facility] Last Admin: 11/30/18 20:59 Dose: Not Given Ondansetron HCl (Zofran Odt -) 4 mg SL Q6H PRN PRN Reason: NAUSEA AND/OR VOMITING Last Admin: 11/28/18 12:23 Dose: 4 mg Pantoprazole Sodium (Protonix Iv) 40 mg IVPUSH BID [facility] Last Admin: 11/30/18 20:59 Dose: Not Given Polyethylene Glycol (Miralax (For Daily Use) -) 17 gm PO DAILY [facility] Last Admin: 11/30/18 11:23 Dose: 17 gm Rosuvastatin Calcium (Crestor -) 5 mg PO HS [facility] Last Admin: 11/30/18 20:59 Dose: Not Given Senna (Senna -) 1 tab PO [facility] Last Admin: 11/30/18 20:59 Dose: Not Given Sitagliptin Phosphate (Januvia -) 50 mg PO DAILY@0700 [facility] Last Admin: 12/01/18 06:00 Dose: 50 mg Valsartan (Diovan -) 160 mg PO DAILY [facility] - Objective Vital Signs: Vital Signs Temperature 97.7 F 12/01/18 06:00 Pulse Rate 70 12/01/18 06:00 Respiratory Rate 18 12/01/18 06:00 Blood Pressure 157/75 12/01/18 06:00 O2 Sat by Pulse Oximetry (%) 95 11/30/18 19:50 Constitutional: Yes: Well Nourished, No Distress, Calm Cardiovascular: Yes: Regular Rate and Rhythm Respiratory: Yes: Regular, Wheezes (LLL) Gastrointestinal: Yes: Normal Bowel Sounds, Soft, Abdomen, Obese Genitourinary: Yes: WNL Musculoskeletal: Yes: WNL Extremities: Yes: WNL Edema: No Peripheral Pulses WNL: Yes Neurological: Yes: Alert, Oriented Psychiatric: Yes: Alert, Oriented Labs: CBC, BMP 11/27/18 06:30 11/29/18 11:30 Problem List - Problems (1) Pneumonia Assessment/Plan: -Chest CT reviewed -On PO levaquin -Seen by Pulmoanry -ID consulted -legionella urine ag negative -IV medrol changed to 30 mg po bid -bronchodilators -Expectorant PRN Code(s): J18.9 - PNEUMONIA, UNSPECIFIED ORGANISM (2) COPD exacerbation Assessment/Plan: -Chest CT reviewed -On PO Levaquin -Seen by Pulmoanry -ID consulted -legionella urine ag neg -IV medrol changed to 30 mg po bid -bronchodilators -Expectorant PRN Code(s): J44.1 - CHRONIC OBSTRUCTIVE PULMONARY DISEASE W (ACUTE) EXACERBATION (3) DM2 (diabetes mellitus, type 2) Assessment/Plan: -On metformin at home, hold for now for cr 1.3 -On Januvia 50 mg po daily due to cr cl -Also on Metformin 500 mg po bid -BGM ACHS -Insulin Novolog sliding scale -Diabetic/low sodium diet -RD consult - A1c 8.1 Code(s): E11.9 - TYPE 2 DIABETES MELLITUS WITHOUT COMPLICATIONS (4) Renal insufficiency Assessment/Plan: -Cr improved and stable -Seen by Nephrology Code(s): N28.9 - DISORDER OF KIDNEY AND URETER, UNSPECIFIED (5) HTN (hypertension) Assessment/Plan: -mild rise in BP 2/2 to medrol -low sodium diet -monitor trend for now -May increase Valsartan to 320 mg if needed Code(s): I10 - ESSENTIAL (PRIMARY) HYPERTENSION Assessment/Plan see problem list Did well with PT
[2018-12-01] MEDS: predniSONE 10 MG TABLET (UD) PO SCH ×2 (11:15→21:48)
[2018-12-01] MEDS: VALSARTAN 160 MG TABLET (UD) PO SCH (11:16)
[2018-12-01] MEDS: METHIMAZOLE 5 MG TABLET (FP) PO SCH (11:16)
[2018-12-01] MEDS: PANTOPRAZOLE SODIUM 40 MG VIAL IVPUSH SCH (11:19)
[2018-12-01] MEDS: POLYETHYLENE GLYCOL 3350 119 GM BTL PO SCH (11:23)
--- NOTE | 2018-12-01 11:23 | PN ---
Progress Note (short form) - Note Progress Note: PULMONARY Still with some shortness of breath, cough and wheezing but overall better. Vital Signs Period Temp Pulse Resp BP Sys/Castorena Pulse Ox Last 24 Hr 97.7 F-98.2 F 70-80 18-18 140-157/66-78 95 Gen: NAD in chair Heart: RRR Lung: scattered rhonchi, wheezes Abd: soft, nontender Ext: no edema CBC, BMP 11/27/18 06:30 11/29/18 11:30 Active Medications Acetaminophen (Tylenol -) 650 mg PO Q6H PRN PRN Reason: FEVER Albuterol Sulfate (Ventolin 0.083% Nebulizer Soln -) 1 amp NEB Q4H PRN PRN Reason: COUGH Last Admin: 11/25/18 01:36 Dose: 1 amp Benzocaine/Menthol (Cepacol Lozenge -) 1 each MM PRN PRN PRN Reason: SORE THROAT Budesonide/Formoterol Fumarate (Symbicort 160/4.5mcg -) 2 puff IH BID [facility] Last Admin: 11/30/18 21:35 Dose: 2 puff Diltiazem HCl (Cardizem Cd -) 300 mg PO DAILY [facility] Last Admin: 12/01/18 11:17 Dose: 300 mg Furosemide (Lasix -) 20 mg PO DAILY [facility] Guaifenesin (Diabetic Tussin Dm -) 10 ml PO Q6H [facility] Last Admin: 12/01/18 05:48 Dose: 10 ml Insulin Aspart (Novolog Vial Sliding Scale -) [facility]; Protocol Last Admin: 12/01/18 06:00 Dose: Not Given Insulin Detemir (Levemir Vial) 10 units SQ AM [facility] Last Admin: 12/01/18 06:00 Dose: 10 units Levofloxacin (Levaquin -) 250 mg PO DAILY@0600 [facility] Last Admin: 12/01/18 05:59 Dose: 250 mg Metformin HCl (Glucophage -) 500 mg PO BID@0700,1630 [facility] Last Admin: 12/01/18 06:00 Dose: 500 mg Methimazole (Tapazole -) 5 mg PO DAILY [facility] Last Admin: 12/01/18 11:16 Dose: 5 mg Montelukast Sodium (Singulair -) 10 mg PO HS [facility] Last Admin: 11/30/18 20:59 Dose: Not Given Ondansetron HCl (Zofran Odt -) 4 mg SL Q6H PRN PRN Reason: NAUSEA AND/OR VOMITING Last Admin: 11/28/18 12:23 Dose: 4 mg Pantoprazole Sodium (Protonix -) 40 mg PO BID [facility] Polyethylene Glycol (Miralax (For Daily Use) -) 17 gm PO DAILY [facility] Last Admin: 11/30/18 11:23 Dose: 17 gm Prednisone (Deltasone -) 30 mg PO BID [facility] Last Admin: 12/01/18 11:15 Dose: 30 mg Rosuvastatin Calcium (Crestor -) 5 mg PO [facility] Last Admin: 11/30/18 20:59 Dose: Not Given Senna (Senna -) 1 tab PO [facility] Last Admin: 11/30/18 20:59 Dose: Not Given Sitagliptin Phosphate (Januvia -) 50 mg PO DAILY@0700 [facility] Last Admin: 12/01/18 06:00 Dose: 50 mg Valsartan (Diovan -) 160 mg PO DAILY [facility] Last Admin: 12/01/18 11:16 Dose: 160 mg A/P Acute Asthma Exacerbation URI HTN DM Hyperlipidemia - prednisone taper - inhaled bronchodilators standing and PRN - O2 to keep SpO2 >90% - antibiotics per ID - glucose control while on systemic steroids - DVT prophylaxis
[2018-12-01] MEDS: BUDESONIDE/FORMETEROL FUMARATE 160/4.5 mcg INHALER IH SCH ×2 (11:52→21:49)
[2018-12-01] MEDS: FUROSEMIDE 20 MG TABLET (FP) PO SCH (11:53)
[2018-12-01] MEDS ORDERED: PT OWN MED DRAWER 7, Y5N ONE (21:39)
[2018-12-01] MEDS: ROSUVASTATIN CA 5 MG TABLET (FP) PO SCH (21:48)
[2018-12-01] MEDS: PANTOPRAZOLE 40 MG TABLET (FP) PO SCH (21:48)
[2018-12-01] MEDS: SENNOSIDES 8.6MG TABLET (FP) PO SCH (21:48)
[2018-12-01] MEDS: MONTELUKAST NA 10 MG TABLET PO SCH (21:48)
[2018-12-02] MEDS: INSULIN (LEVEMIR) 100 UNITS/ML UNITS SQ SCH (06:41)
[2018-12-02] MEDS: INSULIN SLIDING SCALE (NOVOLOG) 1 VIAL SQ SCH ×2 (06:41→11:50)
[2018-12-02] MEDS: guaiFENesin/D-M SUGAR-FREE/ACLHOL-FREE 118 ML BOTTLE PO SCH ×2 (06:42→10:54)
[2018-12-02] MEDS: sitaGLIPtin PHOSPHATE 50 MG TABLET PO SCH (06:42)
[2018-12-02] MEDS: metFORMIN HCL 500 MG TABLET (FP) PO SCH (06:42)
--- NOTE | 2018-12-02 08:13 | DS ---
Physical Examination Vital Signs: Vital Signs Temperature 97.4 F L 12/02/18 06:00 Pulse Rate 66 12/02/18 06:00 Respiratory Rate 20 12/02/18 06:00 Blood Pressure 171/79 H 12/02/18 06:00 O2 Sat by Pulse Oximetry (%) 95 12/01/18 21:55 Constitutional: Yes: No Distress Eyes: Yes: WNL HENT: Yes: WNL Neck: Yes: WNL Cardiovascular: Yes: WNL Respiratory: Yes: CTA Bilaterally Gastrointestinal: Yes: WNL Renal/: Yes: WNL Musculoskeletal: Yes: WNL Extremities: Yes: WNL Edema: No Peripheral Pulses WNL: Yes Integumentary: Yes: WNL Wound/Incision: Yes: Clean/Dry Neurological: Yes: WNL ...Motor Strength: WNL Psychiatric: Yes: WNL Labs: CBC, BMP 11/27/18 06:30 11/29/18 11:30 Discharge Summary Reason For Visit: DYSPNEA,RESP ABNORMALITY,OBST CHRONIC BRONCHITIS Current Active Problems COPD exacerbation (Acute) Pneumonia (Acute) Renal insufficiency (Acute) Subclinical hyperthyroidism (Acute) Procedures: Principal: ECHO Hospital Course: ADMITTED WITH ACUTE ON CHRONIC COPD/ASTHMA EXACERBATION WITH BRONCHITIS TREATED IV STEROIDS, NEBS, ABX Condition: Stable - Instructions Diet, Activity, Other Instructions: SEE DR ESPINAL IN JANUARY FOR FOLLOW UP APPOINTMENT Disposition: HOME - Home Medications Comprehensive Discharge Medication List: Ambulatory Orders Diltiazem [Cardizem -] 300 mg PO HS 03/09/17 Rosuvastatin Calcium [Crestor] 5 mg PO DAILY 03/09/17 Sitagliptin Phos/Metformin HCl [Janumet 50-500 mg Tablet] 1 each PO HS 03/09/17 Tiotropium Faber [Spiriva] 1 inh IH DAILY 03/09/17 Montelukast Na [Singulair -] 10 mg PO HS tablet 06/27/17 Budesonide/Formeterol Fumarate [SYMBICORT 160/4.5mcg -] 2 puff IH DAILY Losartan Potassium 100 mg PO DAILY 11/21/18 Acetaminophen [Tylenol .Regular Strength -] 650 mg PO Q6H PRN tablet 12/02/18 Albuterol 0.083% Nebulizer Alysa [Ventolin 0.083% Nebulizer Soln -] 1 amp NEB Q4H PRN amp 12/02/18 Budesonide/Formeterol Fumarate [SYMBICORT 160/4.5mcg -] 2 puff IH BID inhaler 12/02/18 Diltiazem Cd [Cardizem Cd -] 300 mg PO DAILY cap.cd.24h 12/02/18 Furosemide [Lasix -] 20 mg PO DAILY tablet 12/02/18 Methimazole [Tapazole -] 5 mg PO DAILY #30 tablet 12/02/18 Montelukast Na [Singulair -] 10 mg PO HS tablet 12/02/18 Pantoprazole Sodium [Protonix -] 40 mg PO BID #60 tablet.ec 12/02/18 Polyethylene Glycol 3350 [Miralax 119 gm Btl -] 17 gm PO DAILY bottle 12/02/18 Rosuvastatin [Crestor -] 5 mg PO HS tablet 12/02/18 Sennosides [Senna -] 1 tab PO HS tablet 12/02/18 predniSONE [Deltasone -] See Taper PO BID tablet 12/02/18
--- NOTE | 2018-12-02 09:06 | PN ---
Progress Note (short form) - Note Progress Note: Feels overall better. Still with some WALLS, but improved. No acute events overnight. Intake & Output 11/29/18 11/30/18 12/01/18 12/02/18 23:59 23:59 23:59 23:59 Intake Total 410 397 4242 10 Balance 307 831 4185 10 Last Vital Signs Temp Pulse Resp BP Pulse Ox 97.4 F L 66 20 171/79 H 95 12/02/18 06:00 12/02/18 06:00 12/02/18 06:00 12/02/18 06:00 12/01/18 21:55 Active Medications Acetaminophen (Tylenol -) 650 mg PO Q6H PRN PRN Reason: FEVER Albuterol Sulfate (Ventolin 0.083% Nebulizer Soln -) 1 amp NEB Q4H PRN PRN Reason: COUGH Last Admin: 11/25/18 01:36 Dose: 1 amp Benzocaine/Menthol (Cepacol Lozenge -) 1 each MM PRN PRN PRN Reason: SORE THROAT Budesonide/Formoterol Fumarate (Symbicort 160/4.5mcg -) 2 puff IH BID [facility] Last Admin: 12/01/18 21:49 Dose: 2 puff Diltiazem HCl (Cardizem Cd -) 300 mg PO DAILY [facility] Last Admin: 12/01/18 11:17 Dose: 300 mg Furosemide (Lasix -) 20 mg PO DAILY [facility] Last Admin: 12/01/18 11:53 Dose: 20 mg Guaifenesin (Diabetic Tussin Dm -) 10 ml PO Q6H [facility] Last Admin: 12/02/18 06:42 Dose: 10 ml Insulin Aspart (Novolog Vial Sliding Scale -) 1 vial SQ ACHS [facility]; Protocol Last Admin: 12/02/18 06:41 Dose: Not Given Insulin Detemir (Levemir Vial) 10 units SQ AM [facility] Last Admin: 12/02/18 06:41 Dose: 10 units Levofloxacin (Levaquin -) 250 mg PO DAILY@0600 [facility] Last Admin: 12/02/18 06:42 Dose: 250 mg Metformin HCl (Glucophage -) 500 mg PO BID@0700,1630 [facility] Last Admin: 12/02/18 06:42 Dose: 500 mg Methimazole (Tapazole -) 5 mg PO DAILY [facility] Last Admin: 12/01/18 11:16 Dose: 5 mg Montelukast Sodium (Singulair -) [address] [facility] Last Admin: 12/01/18 21:48 Dose: 10 mg Ondansetron HCl (Zofran Odt -) 4 mg SL Q6H PRN PRN Reason: NAUSEA AND/OR VOMITING Last Admin: 11/28/18 12:23 Dose: 4 mg Pantoprazole Sodium (Protonix -) 40 mg PO BID [facility] Last Admin: 12/01/18 21:48 Dose: 40 mg Polyethylene Glycol (Miralax (For Daily Use) -) 17 gm PO DAILY [facility] Last Admin: 12/01/18 11:23 Dose: 17 gm Prednisone (Deltasone -) 30 mg PO BID [facility] Last Admin: 12/01/18 21:48 Dose: 30 mg Rosuvastatin Calcium (Crestor -) [address] [facility] Last Admin: 12/01/18 21:48 Dose: 5 mg Senna (Senna -) [address] [facility] Last Admin: 12/01/18 21:48 Dose: 1 tab Sitagliptin Phosphate (Januvia -) 50 mg PO DAILY@0700 [facility] Last Admin: 12/02/18 06:42 Dose: 50 mg Valsartan (Diovan -) 160 mg PO DAILY [facility] Last Admin: 12/01/18 11:16 Dose: 160 mg Gen: NAD in chair Heart: RRR Lung: scattered rhonchi, no wheezes Abd: soft, nontender Ext: no edema Laboratory Results - last 24 hr 12/01/18 12/01/18 12/01/18 12:30 17:28 21:46 POC Glucometer 93 163 145 12/02/18 06:40 POC Glucometer 147 A/P Acute Asthma Exacerbation URI HTN DM Hyperlipidemia - prednisone taper - inhaled bronchodilators standing and PRN - O2 to keep SpO2 >90% - antibiotics per ID - glucose control while on systemic steroids - DVT prophylaxis - Follow with Dr Dodd in the office Dr Escobedo
[2018-12-02] MEDS ORDERED: PT OWN MED DRAWER 7, Y5N ONE (10:37)
[2018-12-02] MEDS: predniSONE 10 MG TABLET (UD) PO SCH (10:38)
[2018-12-02] MEDS: PANTOPRAZOLE 40 MG TABLET (FP) PO SCH (10:39)
[2018-12-02] MEDS: FUROSEMIDE 20 MG TABLET (FP) PO SCH (10:39)
[2018-12-02] MEDS: METHIMAZOLE 5 MG TABLET (FP) PO SCH (10:39)
[2018-12-02] MEDS: VALSARTAN 160 MG TABLET (UD) PO SCH (10:39)
[2018-12-02] MEDS: POLYETHYLENE GLYCOL 3350 119 GM BTL PO SCH (10:40)
[2018-12-02 10:41] VITALS: BP 155/71; PULSE 70; TEMP 98.3
[2018-12-02] MEDS: BUDESONIDE/FORMETEROL FUMARATE 160/4.5 mcg INHALER IH SCH (10:46)
== END 2018-12-02 16:46 | disposition home health service (06) | DRG 190 ==
LOC: JER 12:23 → JERBED 16:32 → J8W 19:00 → OBSVTOIN 22:33
PROVIDERS: ADMIT Family Medicine; ATTEND Family Medicine
DX: J44.1 Chronic obstructive pulmonary disease with (acute) exacerbation (principal); J18.9 Pneumonia, unspecified organism; J98.11 Atelectasis; J45.901 Unspecified asthma with (acute) exacerbation; N17.9 Acute kidney failure, unspecified; E11.9 Type 2 diabetes mellitus without complications; N28.9 Disorder of kidney and ureter, unspecified; E78.5 Hyperlipidemia, unspecified; J06.9 Acute upper respiratory infection, unspecified; I10 Essential (primary) hypertension; E05.90 Thyrotoxicosis, unspecified without thyrotoxic crisis or storm
CPT/HCPCS: 36415; 71046-TC-FY; 71250-TC; 76775-TC; 76856-TC; 80048; 80053; 81003; 81015; 82570; 82962; 83036; 83735; 84100; 84156; 84300; 84439; 84443; 84480; 85025; 85027; 87070; 87086; 87186; 87205; 87804; 87899; 93005; 93010; 93306-TC; 94010; 94640; 97116-GP; 97161-GP; 99282-25; G0378; J7030; Q0162

== ENCOUNTER 2018-12-05 17:59 | Inpatient (IN) | payer OTHER, BC ==
--- NOTE | 2018-12-05 19:19 | PDOC ---
History of Present Illness <Sonya Lipscomb - Last Filed: 12/06/18 01:20> - General History Source: Patient Exam Limitations: No Limitations - History of Present Illness Initial Comments: 12/05/18 19:37 88 yo F with a hx of HTN, DM, HLD, and COPD recently admitted for pneumonia and COPD exacerbation for 1 week with discharge this past week presents to the emergency department with generalized weakness and right neck/shoulder pain. Family states since she came home, she has been nauseous, SOB, poor PO intake, and complaining of right arm/shoulder pain that is throbbing/tightness description constant with radiation down to the elbow and up to the midline neck. Subsequently, she had an unwitnessed slide out of her bed this morning as she was going to go to the bathroom (normally ambulates with cane assistance) and hit her knee (unsure if she hit both). Denies LOC and head trauma. Denies antecedent events such as lightheadedness, dizziness, headache, palpitations, chest pain, and vomiting. Denies fevers, chills, abdominal pain, dysuria, hematuria, and hematochezia. Endorses diarrhea. <Dougie Kingston - Last Filed: 12/08/18 19:36> - General Chief Complaint: Weakness Stated Complaint: SICK Time Seen by Provider: 12/05/18 19:18 Past History <Sonya Lipscomb - Last Filed: 12/06/18 01:20> - Past Medical History Anemia: No Asthma: Yes Cancer: No Cardiac Disorders: No CVA: No COPD: Yes CHF: No Dementia: No Diabetes: Yes ([id number]) GI Disorders: Yes (H/O HEMORROIDS) Disorders: No HTN: Yes Hypercholesterolemia: Yes Liver Disease: No Seizures: No Thyroid Disease: No - Surgical History Abdominal Surgery: Yes (umbilical hernia, bilateral inguinal hernias BY Dr. ZAVALA) Appendectomy: No Cardiac Surgery: No Cholecystectomy: No Lung Surgery: No Neurologic Surgery: No Orthopedic Surgery: Yes (Ankle) - Immunization History Immunization Up to Date: Yes - Suicide/Smoking/Psychosocial Hx Smoking Status: No Smoking History: Never smoked Have you smoked in the past 12 months: No Number of Cigarettes Smoked Daily: 0 Cigars Per Day: 0 Information on smoking cessation initiated: No Hx Alcohol Use: No Drug/Substance Use Hx: No Substance Use Type: None Hx Substance Use Treatment: No <Dougie Kingston - Last Filed: 12/08/18 19:36> - Past Medical History Allergies/Adverse Reactions: Allergies Allergy/AdvReac Type Severity Reaction Status Date / Time No Known Drug Allergies Allergy Verified 11/21/18 12:34 Home Medications: Ambulatory Orders Diltiazem [Cardizem -] 300 mg PO HS 03/09/17 Sitagliptin Phos/Metformin HCl [Janumet 50-500 mg Tablet] 1 each PO HS 03/09/17 Tiotropium [place] [Spiriva] 1 inh IH DAILY 03/09/17 Losartan Potassium 100 mg PO DAILY 11/21/18 Acetaminophen [Tylenol .Regular Strength -] 650 mg PO Q6H PRN tablet 12/02/18 Albuterol 0.083% Nebulizer Alysa [Ventolin 0.083% Nebulizer Soln -] 1 amp NEB Q4H PRN amp 12/02/18 Budesonide/Formeterol Fumarate [SYMBICORT 160/4.5mcg -] 2 puff IH BID inhaler 12/02/18 Furosemide [Lasix -] 20 mg PO DAILY tablet 12/02/18 Methimazole [Tapazole -] 5 mg PO DAILY #30 tablet 12/02/18 Montelukast Na [Singulair -] 10 mg PO HS tablet 12/02/18 Pantoprazole Sodium [Protonix -] 40 mg PO BID #60 tablet.ec 12/02/18 Rosuvastatin [Crestor -] 5 mg PO HS tablet 12/02/18 Sennosides [Senna -] 1 tab PO HS tablet 12/02/18 predniSONE [Deltasone -] See Taper PO BID tablet 12/02/18 Review of Systems - Review of Systems Able to Perform ROS?: Yes Is the patient limited Lithuanian proficient: No Constitutional: Yes: Weakness. No: Chills, Diaphoresis, Fever HEENTM: No: Eye Pain, Recent change in vision, Ear Pain, Nose Pain, Throat Pain , Mouth Pain Respiratory: Yes: Shortness of Breath. No: Cough, Hemoptysis Cardiac (ROS): No: Chest Pain, Lightheadedness, Palpitations, Syncope, Chest Tightness ABD/GI: Yes: Diarrhea, Nausea, Poor Appetite, Poor Fluid Intake. No: Constipated, Rectal Bleeding, Vomiting, Tarry Stools : No: Burning, Dysuria, Hematuria, Urgency Musculoskeletal: Yes: Joint Pain (bilateral knee pain. right shoulder pain), Neck Pain. No: Back Pain Neurological: Yes: Weakness. No: Headache, Numbness, Tingling, Tremors, Ataxia , Dizziness Psychiatric: No: Change in Appetite Endocrine: No: Unexplained Weight Gain Hematologic/Lymphatic: No: Anemia <Dougie Kingston - Last Filed: 12/08/18 19:36> *Physical Exam - Vital Signs Last Vital Signs Temp Pulse Resp BP Pulse Ox 98.5 F 87 16 172/80 H 98 12/05/18 18:00 12/05/18 18:00 12/05/18 18:00 12/05/18 18:00 12/05/18 20:25 <Sonya Lipscomb - Last Filed: 12/06/18 01:20> - Vital Signs Last Vital Signs Temp Pulse Resp BP Pulse Ox 98.5 F 87 16 172/80 H 100 12/05/18 18:00 12/05/18 18:00 12/05/18 18:00 12/05/18 18:00 12/05/18 18:00 - Physical Exam General Appearance: Yes: Nourished, Appropriately Dressed, Thin. No: Apparent Distress, Intoxicated HEENT: positive: EOMI, PIERRE, Normal ENT Inspection, Normal Voice, Symmetrical, TMs Normal, Pharynx Normal, Hearing Grossly Normal, Other. negative: Pale Conjunctivae, Scleral Icterus (R), Scleral Icterus (L), Muffled/Hoarse voice, Pharyngeal Erythema, Tonsillar Exudate, Tonsillar Erythema, Nasal Congestion, Rhinorrhea, Sinus Tenderness, Excessive drooling Neck: positive: Trachea midline. negative: Tender, Lymphadenopathy (R), Lymphadenopathy (L), Tender lateral, Tender midline Respiratory/Chest: positive: Lungs Clear, Normal Breath Sounds. negative: Chest Tender, Respiratory Distress, Accessory Muscle Use, Crackles, Rales, Rhonchi, Stridor, Wheezing, Hyperresonant Cardiovascular: positive: Regular Rhythm, Regular Rate, S1, S2. negative: Systolic Murmur Gastrointestinal/Abdominal: positive: Normal Bowel Sounds, Flat, Soft. negative : Tender, Distended, Guarding, Tenderness, Hernia Lymphatic: negative: Adenopathy Musculoskeletal: positive: Normal Inspection. negative: CVA Tenderness, Vertebral Tenderness Extremity: positive: Normal Capillary Refill, Normal Range of Motion, Other ( ecchymosis located bilaterally on the knees lateral aspect L>R. Tenderness to palpation on the ecchymosis bilatrally. Intact ROM. Negative anterior and posterior drawer test bilaterally. Pelvis stable non tender. No tenderness to palpation or limited ROM in the hips and ankles. ). negative: Normal Inspection , Tender Integumentary: positive: Normal Color, Dry, Warm, Ecchymosis (reference extremity note) Neurologic: positive: target protection specialist II-XII NML intact, Fully Oriented, Alert, Normal Mood/ Affect, Normal Response, Motor Strength 5/5. negative: EOM Palsy, Facial Droop , Sensory Deficit <Dougie Kingston - Last Filed: 12/08/18 19:36> Moderate Sedation - Procedure Monitoring Vital Signs: Procedure Monitoring Vital Signs Temperature 98.5 F 12/05/18 18:00 Pulse Rate 87 12/05/18 18:00 Respiratory Rate 16 12/05/18 18:00 Blood Pressure 172/80 H 12/05/18 18:00 O2 Sat by Pulse Oximetry (%) 98 12/05/18 20:25 <Sonya Lipscomb - Last Filed: 12/06/18 01:20> - Procedure Monitoring Vital Signs: Procedure Monitoring Vital Signs Temperature 98.5 F 12/05/18 18:00 Pulse Rate 87 12/05/18 18:00 Respiratory Rate 16 12/05/18 18:00 Blood Pressure 172/80 H 12/05/18 18:00 O2 Sat by Pulse Oximetry (%) 100 12/05/18 18:00 <Dougie Kingston - Last Filed: 12/08/18 19:36> ED Treatment Course - LABORATORY CBC & Chemistry Diagram: 12/05/18 20:25 12/05/18 21:55 - ADDITIONAL ORDERS Additional order review: Laboratory Results 12/05/18 12/05/18 12/05/18 21:55 20:25 20:25 Sodium 130 L Cancelled Potassium 2.9 L* Cancelled Chloride 93 L Cancelled Carbon Dioxide 25 Cancelled Anion Gap 12 Cancelled BUN 12 Cancelled Creatinine 0.5 L Cancelled Creat Clearance w eGFR > 60 Cancelled Random Glucose 63 L Cancelled Calcium 6.7 L* Cancelled Magnesium 1.6 L Total Bilirubin 0.8 Cancelled AST 10 L Cancelled ALT 22 Cancelled Alkaline Phosphatase 50 Cancelled Creatine Kinase 75 Cancelled Troponin I 0.07 H Cancelled B-Natriuretic Peptide 1267.3 H Cancelled Total Protein 4.6 L Cancelled Albumin 2.3 L Cancelled Urine Color Ltyellow Urine Appearance Clear Urine pH 7.0 D Ur Specific [place] 1.012 Urine Protein Negative Urine Glucose (UA) Negative Urine Ketones 1+ H Urine Blood Negative Urine Nitrite Negative Urine Bilirubin Negative Urine Urobilinogen Negative Ur Leukocyte Esterase Negative 12/05/18 20:25 RBC 4.58 MCV 85.5 MCHC 35.5 RDW 13.0 MPV 9.2 Neutrophils % 71.9 Lymphocytes % 20.4 D Monocytes % 6.6 D Eosinophils % 0.9 D Basophils % 0.2 - RADIOLOGY Radiograph Interpretation: EXAM#: TYPE/EXAM: RESULT: [id number] CT/CERVICAL SPINE CT W/O CONTR Cervical spine CT without contrast Impression: No fracture is identified. Paranasal sinus disease as discussed above. Reported By: Kory Orourke MD 12/05/18 23:14 EXAM#: TYPE/EXAM: RESULT: [id number] CT/HEAD CT WITHOUT CONTRAST Cranial CT without contrast Impression: No CT evidence of acute intracranial pathology. Moderate to marked periventricular and subcortical chronic microvascular ischemic changes are seen. Small curvilinear bilateral cerebellar calcifications are noted which may be idiopathic in nature. Clinical/laboratory correlation is also suggested in regards the possibility of thyroid dysfunction. The intracranial structures demonstrate no definite interval change in comparison to a previous CT exam of 08/14/2015. Paranasal sinus disease is seen including mild to moderate mucosal thickening within the sphenoid sinuses - ? Acute/subacute sinusitis. Reported By: Kory Orourke MD 12/05/18 22:56 EXAM#: TYPE/EXAM: RESULT: [id number] RAD/CHEST - PA Chest AP 1 view Clinical information: weakness, dyspnea Similar to a prior radiographic study of 2018 there is mild bibasilar opacity which may be on the basis of atelectasis and/or small infiltrates. The degree of inspiration is limited. A very small right pleural effusion noted on chest CT of 11/21/2018 cannot be appreciated on radiography. Correlation with follow-up CT study may be considered versus close follow-up radiography. The heart, tina and mediastinum demonstrate no obvious pathology. Reported By: Kory Orourke MD 12/05/18 23:28 EXAM#: TYPE/EXAM: RESULT: [id number] RAD/KNEE 3 POS-LEFT [id number] RAD/KNEE Bilateral knee evaluation demonstrates no radiographic evidence of fracture or dislocation. The left knee demonstrates moderate to marked degenerative changes of the medial femoral-tibial joint compartment. A left-sided suprapatellar joint effusion is noted. Reported By: Kory Orourke MD 12/05/18 23:35 12/06/18 01:20 - Medications Given in the ED: ED Medications Discontinued Medications Generic Name Dose Route Start Last Admin Trade Name Freq PRN Reason Stop Dose Admin Acetaminophen 1,000 mg 12/05/18 19:59 12/05/18 20:45 Ofirmev Injection - IVPB 12/05/18 20:00 1,000 mg ONCE ONE Administration Aspirin 162 mg 12/05/18 23:27 12/06/18 00:03 Asa - PO 12/05/18 23:28 162 mg ONCE ONE Administration Furosemide 40 mg 12/05/18 23:21 12/06/18 00:03 Lasix Injection - IVPUSH 12/05/18 23:22 40 mg ONCE ONE Administration Sodium Chloride 1,000 mls @ 1,000 mls/hr 12/05/18 19:59 12/05/18 20:45 Normal Saline - IV 12/05/18 20:58 1,000 mls/hr ASDIR STA Administration Sodium Chloride 1,000 mls @ 1,000 mls/hr 12/05/18 22:30 12/06/18 00:39 Normal Saline - IV 12/05/18 23:29 1,000 mls/hr ASDIR STA Administration Piperacillin Sod/Tazobactam 50 mls @ 100 mls/hr 12/05/18 23:38 12/06/18 00:54 Sod 3.375 gm/ Dextrose IVPB 12/06/18 00:07 100 mls/hr ONCE ONE Administration Protocol Methocarbamol 500 mg 12/05/18 20:39 12/05/18 20:45 Robaxin - PO 12/05/18 20:40 500 mg ONCE ONE Administration Ondansetron HCl 4 mg 12/05/18 20:45 12/05/18 20:51 Zofran Injection IVPUSH 12/05/18 20:46 4 mg ONCE ONE Administration Potassium Chloride 40 meq 12/05/18 23:25 12/06/18 00:03 Potassium Chloride Oral Liquid PO 12/05/18 23:26 40 meq ONCE ONE Administration <Sonya Lipscomb - Last Filed: 12/06/18 01:20> - LABORATORY CBC & Chemistry Diagram: 12/08/18 07:00 12/08/18 07:00 <Dougie Kingston - Last Filed: 12/08/18 19:36> Medical Decision Making - Medical Decision Making 12/05/18 20:47 88 yo F with a hx of HTN, DM, HLD, and COPD recently admitted for pneumonia and COPD exacerbation for 1 week with discharge this past week presents to the emergency department with generalized weakness and right neck/shoulder pain. Initial vitals: Initial Vital Signs Temp Pulse Resp BP Pulse Ox 98.5 F 87 16 172/80 H 100 12/05/18 18:00 12/05/18 18:00 12/05/18 18:00 12/05/18 18:00 12/05/18 18:00 Work up: ddx: weakness (etiology infectious vs malnutrition vs metabolic disturbance vs dehydration vs deconditioning (recent stay in the hospital; 1 week) vs COPD exacerbation vs CHF vs ACS vs UTI. Concerns exist for the fall she sustained out of her bed. patient denies head trauma, but has neck pain on exam paravertebral. Patient's daughter at bedside states she is not confused, off baseline, or disoriented, but acting weaker. will order head ct, cervical spine CT, cxr, and bilateral knee xrays. Laboratory Tests 12/05/18 12/05/18 12/05/18 20:25 20:25 20:25 WBC 17.5 H RBC 4.58 Hgb 13.9 Hct 39.2 MCV 85.5 MCH 30.4 MCHC 35.5 RDW 13.0 Plt Count 208 D MPV 9.2 Absolute Neuts (auto) 12.6 H Neutrophils % 71.9 Lymphocytes % 20.4 D Monocytes % 6.6 D Eosinophils % 0.9 D Basophils % 0.2 Nucleated RBC % 0 Sodium Cancelled Potassium Cancelled Chloride Cancelled Carbon Dioxide Cancelled Anion Gap Cancelled BUN Cancelled Creatinine Cancelled Creat Clearance w eGFR Cancelled Random Glucose Cancelled Calcium Cancelled Magnesium Total Bilirubin Cancelled AST Cancelled ALT Cancelled Alkaline Phosphatase Cancelled Creatine Kinase Cancelled Troponin I Cancelled B-Natriuretic Peptide Cancelled Total Protein Cancelled Albumin Cancelled Urine Color Ltyellow Urine Appearance Clear Urine pH 7.0 D Ur Specific [place] 1.012 Urine Protein Negative Urine Glucose (UA) Negative Urine Ketones 1+ H Urine Blood Negative Urine Nitrite Negative Urine Bilirubin Negative Urine Urobilinogen Negative Ur Leukocyte Esterase Negative 12/05/18 21:55 WBC RBC Hgb Hct MCV MCH MCHC RDW Plt Count MPV Absolute Neuts (auto) Neutrophils % Lymphocytes % Monocytes % Eosinophils % Basophils % Nucleated RBC % Sodium 130 L Potassium 2.9 L* Chloride 93 L Carbon Dioxide 25 Anion Gap 12 BUN 12 Creatinine 0.5 L Creat Clearance w eGFR > 60 Random Glucose 63 L Calcium 6.7 L* Magnesium 1.6 L Total Bilirubin 0.8 AST 10 L ALT 22 Alkaline Phosphatase 50 Creatine Kinase 75 Troponin I 0.07 H B-Natriuretic Peptide 1267.3 H Total Protein 4.6 L Albumin 2.3 L Urine Color Urine Appearance Urine pH Ur Specific [place] Urine Protein Urine Glucose (UA) Urine Ketones Urine Blood Urine Nitrite Urine Bilirubin Urine Urobilinogen Ur Leukocyte Esterase patients potassium was low with a low magnesium. repletion for both were initiated. patient had an elevated troponin. possible infiltrate seen on cxr. refer to radiographic notes. given aspirin, zosyn, vancomycin, fluids, lasix. will admit. Dispo: Admit tele. 12/08/18 19:13 12/08/18 19:23 <Dougie Kingston - Last Filed: 12/08/18 19:36> *DC/Admit/Observation/Transfer - Attestations Scribe Attestion: Documentation prepared by AVTAR Hyman, acting as medical research associate for Maricarmen Yousif DO. 12/06/18 01:24 <Sonya Lipscomb - Last Filed: 12/06/18 01:20> <Dougie Kingston - Last Filed: 12/08/18 19:36> Diagnosis at time of Disposition: CHF (congestive heart failure)
[2018-12-05] MEDS ORDERED: ACETAMINOPHEN 1000 MG/100 ML VIAL (NON FORMULARY) IVPB ONE (19:59)
[2018-12-05] MEDS ORDERED: SODIUM CHLORIDE 1,000 ML IV STA ×2 (19:59→22:30)
[2018-12-05] MEDS ORDERED: METHOCARBAMOL 500 MG TABLET PO ONE (20:39)
--- NOTE | 2018-12-05 20:39 | PDOC ---
Attending Attestation - HPI HPI: The patient is an 88 year old female, with a significant PMH of HTN, DM, HLD, asthma, hypercholesterolemia, and COPD, who presents to the emergency department today complaining of SOB, nausea, diarrhea, decreased PO intake, right neck/shoulder pain, and associated generalized diffuse weakness s/p recent discharge for pneumonia and COPD exacerbation. As per patients daughter , she notes that since the patient was discharged 3 days ago, she has been experiencing SOB, nausea, and diarrhea. Patient has decreased PO intake secondary to her constant nausea and diarrhea. Patient notes she fell out of her bed this morning onto her left side, which was unwitnessed. She reports associated throbbing right neck and shoulder pain/tightness, and both of her knees are visibly bruised. Patient denies LOC or head contusion. The patient denies chest pain, shortness of breath, headache and dizziness. Denies fever, chills, vomit, and constipation. Denies dysuria, frequency, urgency and hematuria. Allergies: NKA Past surgical history: Umbilical hernia, bilateral inguinal hernias, and ankle ORIF Social history: No reported PCP: Dr. Diez 12/05/18 20:51 - Physicial Exam PE: GENERAL: Awake, alert, and fully oriented, appearing uncomfortable HEAD: No signs of trauma EYES: PERRLA, EOMI, sclera anicteric, conjunctiva clear ENT: +Dry mucous membranes. +Dry cracked tongue and lips. Auricles normal inspection, hearing grossly normal, nares patent, oropharynx clear without exudates. NECK: +RIght paraspinal tenderness. No midline or CT tenderness. Normal ROM, supple, no lymphadenopathy, JVD, or masses LUNGS: Breath sounds equal, clear to auscultation bilaterally. No wheezes, and no crackles HEART: Regular rate and rhythm, normal S1 and S2, no murmurs, rubs or gallops ABDOMEN: Soft, nontender, normoactive bowel sounds. No guarding, no rebound. No masses EXTREMITIES: +Ecchymosis bilateral knees, left greater than right. Normal range of motion, no edema. No clubbing or cyanosis. No cords, erythema, or tenderness. NEUROLOGICAL: Cranial nerves II through XII grossly intact. Normal speech, normal gait SKIN: Warm, Dry, normal turgor, no rashes or lesions noted. 12/05/18 20:51 - Medical Decision Making Documentation prepared by AVTAR Hyman, acting as medical billing clerk for Maricarmen Yousif DO. 12/05/18 20:51 <Sonya Lipscomb - Last Filed: 12/05/18 20:51> - Resident Resident Name: Dougie Kingston - ED Attending Attestation I have performed the following: I have examined & evaluated the patient, The case was reviewed & discussed with the resident, I agree w/resident's findings & plan, Exceptions are as noted - Medical Decision Making 12/05/18 20:39 I, Dr. Maricarmen Yousif, DO, attest that this document has been prepared under my direction and personally reviewed by me in its entirety. I further attest, that it accurately reflects all work, treatment, procedures and medical decision -making performed by me. 12/05/18 20:43 a/p: 88yo female with recent admission for pna who has complained of weakness since discharge -not eating and drinking secondary to nausea -no vomiting -no abd pain -no urinary complaints -will send labs, ua, trop, ekg, cxr, knee xrays, head ct and c spine -will give tylenol/ivf hydration -zofran for nausea -will monitor and reassess -pt rolled out of bed last night landed on her knees- bruising 12/05/18 22:22 pt with increasing wbc from last admission 12/05/18 23:32 pt with small bibasilar infiltrate, increasing wbc will treat with abx will send cultures will need admission 12/05/18 23:43 resident discussed the case with RIANNA who accepts pt to service, covering for Dr. Diez <Maricarmen Yousif - Last Filed: 12/06/18 00:05> Heart Score/ECG Review - ECG Intrepretation Comment:: 12/06/18 00:04 sinus at 75, nl axis, nl interval, no acute st/t wave findings <Maricarmen Yousif - Last Filed: 12/06/18 00:05>
[2018-12-05] MEDS ORDERED: ONDANSETRON 4 MG/2 ML VIAL IVPUSH ONE (20:45)
[2018-12-05] MEDS ORDERED: METHOCARBAMOL 500 MG TABLET ONE (20:46)
[2018-12-05] MEDS ORDERED: ONDANSETRON 4 MG/2 ML VIAL ONE (20:46)
[2018-12-05] MEDS ORDERED: ACETAMINOPHEN INJECTION 100 ML IVPB ONE (20:46)
[2018-12-05 21:17] VITALS: BMI 31.2
[2018-12-05 21:21] LABS: BASO % 0.2 % (0-2.0); EOS % 0.9 % (0-4.5); HEMATOCRIT 39.2 % (32.4-45.2); HEMOGLOBIN 13.9 GM/dL (10.7-15.3); LYMPH % 20.4 % (8-40); MCH 30.4 pg (25.7-33.7); MCHC 35.5 g/dl (32.0-36.0); MEAN CELL VOLUME 85.5 fl (80-96); MEAN PLT VOLUME 9.2 fl (7.5-11.1); MONO % 6.6 % (3.8-10.2); NEUT % 71.9 % (42.8-82.8); PLATELET COUNT 208 K/MM3 (134-434); RBC 4.58 M/mm3 (3.60-5.2); WHITE BLOOD COUNT 17.5 K/mm3 (4.0-10.0)
[2018-12-05 22:03] LABS: URINE APPEARANCE CLEAR; URINE BILIRUBIN NEGATIVE (<2.0 mg/dL); URINE COLOR LTYELLOW; URINE GLUCOSE (UA) NEGATIVE (NEGATIVE); URINE KETONE 1+ (NEGATIVE); URINE LEUK ESTERASE NEGATIVE (NEGATIVE); URINE NITRITE NEGATIVE (NEGATIVE); URINE PROTEIN NEGATIVE (NEGATIVE); URINE UROBILINOGEN NEGATIVE mg/dL (0.2-1.0)
[2018-12-05 23:04] LABS: ALBUMIN 2.3 g/dl (3.4-5.0); ALK PHOS 50 U/L (45-117); ANION GAP 12 MMOL/L (8-16); BILIRUBIN,TOTAL 0.8 mg/dL (0.2-1); BLOOD UREA NITROGEN 12 mg/dL (7-18); CHLORIDE 93 mmol/L (98-107); CO2 25 mmol/L (21-32); CREATININE 0.5 mg/dL (0.55-1.3); GLUCOSE,RANDOM 63 mg/dL (74-106); N-TERMINAL BNP 1267.3 pg/ml (5-450); SGOT/AST 10 U/L (15-37); SGPT/ALT 22 U/L (13-61); SODIUM 130 mmol/L (136-145); TOT PROT 4.6 g/dl (6.4-8.2)
[2018-12-05] MEDS ORDERED: FUROSEMIDE 40 MG/4 ML INJECTABLE VIAL IVPUSH ONE (23:21)
[2018-12-05 23:23] LABS: POTASSIUM 2.9 mmol/L (3.5-5.1)
[2018-12-05 23:24] LABS: CALCIUM 6.7 mg/dL (8.5-10.1)
[2018-12-05] MEDS ORDERED: POTASSIUM CHLORIDE ORAL LIQUID 20 MEQ/15 ML PO ONE (23:25)
[2018-12-05] MEDS ORDERED: ASPIRIN 81 MG CHEWABLE TABLETS PO ONE (23:27)
[2018-12-05 23:35] LABS: MAGNESIUM 1.6 mg/dL (1.8-2.4)
[2018-12-05] MEDS ORDERED: VANCOMYCIN 1 GRAM (PRE-DOCKED) 1,000 MG/250 ML BAG IVPB ONE (23:38)
[2018-12-05] MEDS ORDERED: PIPERACILLIN/TAZOB 3.375 GM 3.375 GM in DEXTROSE 5%-WATER - 50 ML IVPB ONE (23:38)
[2018-12-05] MEDS ORDERED: ASPIRIN 81 MG CHEWABLE TABLETS ONE (23:39)
[2018-12-05] MEDS ORDERED: FUROSEMIDE 40 MG/4 ML INJECTABLE VIAL ONE (23:40)
[2018-12-05] MEDS ORDERED: POTASSIUM CHLORIDE ORAL LIQUID 20 MEQ/15 ML ONE (23:40)
[2018-12-05] MEDS ORDERED: KCL 10 MEQ IVPB 10 MEQ/100 ML INFUS.BAG IVPB ONE (23:40)
--- NOTE | 2018-12-05 23:45 | HP ---
Admitting History and Physical - Admission History of Present Illness: This is a 88 yo woman with a past medical history of HTN, DM, HLD, COPD recent admission for Pneumonia and COPD Exacerbation for 1 week with discharge this past week. Who presents to the ED with generalized weakness, right cervical and shoulder pain. Per ED records: Family states since she came home, she has been nauseous, SOB, poor PO intake, and complaining of right arm/shoulder pain that is throbbing/tightness description constant with radiation down to the elbow and up to the midline neck. Subsequently, she had an unwitnessed slide out of her bed this morning as she was going to go to the bathroom (normally ambulates with cane assistance) and hit her knee (unsure if she hit both). Patient denies LOC, head injury. Patient denies fever, chills, cough, dizziness , CP, palpitations, AP, vomiting, constipation, dysuria History Source: Patient, Family Member, Medical Record Limitations to Obtaining History: No Limitations - Past Medical History Cardiovascular: Yes: HTN Pulmonary: Yes: Asthma, COPD Gastrointestinal: Yes: Constipation, Hemorrhoids, Other (RECTAL BLEEDING) Endocrine: Yes: Diabetes Mellitus - Past Surgical History Past Surgical History: Yes: Hernia Repair - Smoking History Smoking history: Never smoked Have you smoked in the past 12 months: No Aproximately how many cigarettes per day: 0 - Alcohol/Substance Use Hx Alcohol Use: No - Social History Usual Living Arrangement: Yes: With Child ADL: Family Assistance History of Recent Travel: No Home Medications - Allergies Allergies/Adverse Reactions: Allergies Allergy/AdvReac Type Severity Reaction Status Date / Time No Known Drug Allergies Allergy Verified 11/21/18 12:34 - Home Medications Home Medications: Ambulatory Orders Diltiazem [Cardizem -] 300 mg PO HS 03/09/17 Sitagliptin Phos/Metformin HCl [Janumet 50-500 mg Tablet] 1 each PO HS 03/09/17 Tiotropium [place] [Spiriva] 1 inh IH DAILY 03/09/17 Losartan Potassium 100 mg PO DAILY 11/21/18 Acetaminophen [Tylenol .Regular Strength -] 650 mg PO Q6H PRN tablet 12/02/18 Albuterol 0.083% Nebulizer Alysa [Ventolin 0.083% Nebulizer Soln -] 1 amp NEB Q4H PRN amp 12/02/18 Budesonide/Formeterol Fumarate [SYMBICORT 160/4.5mcg -] 2 puff IH BID inhaler 12/02/18 Furosemide [Lasix -] 20 mg PO DAILY tablet 12/02/18 Methimazole [Tapazole -] 5 mg PO DAILY #30 tablet 12/02/18 Montelukast Na [Singulair -] 10 mg PO HS tablet 12/02/18 Pantoprazole Sodium [Protonix -] 40 mg PO BID #60 tablet.ec 12/02/18 Rosuvastatin [Crestor -] 5 mg PO HS tablet 12/02/18 Sennosides [Senna -] 1 tab PO HS tablet 12/02/18 predniSONE [Deltasone -] See Taper PO BID tablet 12/02/18 Family Disease History - Family Disease History Family History: Unable to Obtain Review of Systems - Review of Systems Constitutional: reports: Loss of Appetite, Weakness Eyes: reports: No Symptoms HENT: reports: No Symptoms Neck: reports: Pain on Movement Cardiovascular: reports: Shortness of Breath Respiratory: reports: Cough, SOB, SOB on Exertion Gastrointestinal: reports: Diarrhea, Nausea Genitourinary: reports: No Symptoms Breasts: reports: No Symptoms Reported Musculoskeletal: reports: Joint Pain (right shoulder) Integumentary: reports: Bruising Neurological: reports: Unsteady Gait, Weakness Endocrine: reports: No Symptoms Hematology/Lymphatic: reports: No Symptoms Psychiatric: reports: No Symptoms Physical Examination Vital Signs: Vital Signs Temperature 98.5 F 12/05/18 18:00 Pulse Rate 87 12/05/18 18:00 Respiratory Rate 16 12/05/18 18:00 Blood Pressure 172/80 H 12/05/18 18:00 O2 Sat by Pulse Oximetry (%) 98 12/05/18 20:25 Labs: CBC, BMP 12/05/18 20:25 12/05/18 21:55 Imaging - Results Chest X-ray: Report Reviewed, Image Reviewed Problem List - Problems (1) Elevated troponin Code(s): R74.8 - ABNORMAL LEVELS OF OTHER SERUM ENZYMES (2) Hypokalemia Code(s): E87.6 - HYPOKALEMIA (3) Generalized weakness Code(s): R53.1 - WEAKNESS (4) COPD exacerbation Code(s): J44.1 - CHRONIC OBSTRUCTIVE PULMONARY DISEASE W (ACUTE) EXACERBATION (5) Poor appetite Code(s): R63.0 - ANOREXIA (6) Asthma Code(s): J45.909 - UNSPECIFIED ASTHMA, UNCOMPLICATED (7) Vertigo Code(s): R42 - DIZZINESS AND GIDDINESS (8) DM2 (diabetes mellitus, type 2) Code(s): E11.9 - TYPE 2 DIABETES MELLITUS WITHOUT COMPLICATIONS (9) HTN (hypertension) Code(s): I10 - ESSENTIAL (PRIMARY) HYPERTENSION Assessment/Plan This is a 88 y/o woman PMHx of HTN, DM, COPD, Pneumonia admitted to Telemetry for Respiratory Failure, Elevated Troponin, Electrolyte Imbalance, Generalized Weakness for further evaluation of their emergent condition. Problems: Elevated Troponin Hypokalemia Hypocalcemia Acute on Chronic COPD Exacerbation Generalized Weakness Fall HTN DM Plan: Admit to Telemetry Serial Enzymes, first Trop elevated likely demand ischemia Appreciate Cardiology consult Appreicate Pulmonology consult Hypokalemia 2.9 likey due to dehydration K repleted in the ED KCL po and K- riders Monitor K closely Hypocalcemia 6.7- calcium corrected 8.1 Consider Echo Chest Xray- ?infiltrates, small right pleural effusion O2 NS fluid bolus given in ED Lasix given in ED Continue home meds Strict INOs Daily weights CBC, BMP in am Appreciate RD consult Appreciate PT eval Fall Precautions Consider STR FEN PO fluids as tolerated Replete lytes prn Low Na, Diabetic Diet DVT ppx OOB SCDs Heparin SQ Dispo: Requires Inpatient Care Visit type - Emergency Visit Emergency Visit: Yes ED Registration Date: 12/05/18 Care time: The patient presented to the Emergency Department on the above date and was hospitalized for further evaluation of their emergent condition. - New Patient This patient is new to me today: Yes Date on this admission: 12/05/18 - Critical Care Critical Care patient: No
[2018-12-06] MEDS: KCL 10 MEQ IVPB 10 MEQ/100 ML INFUS.BAG IVPB SCH ×2 (00:03→06:19)
[2018-12-06] MEDS ORDERED: MAGNESIUM SULF 50% (8.12 MEQ/2 ML-1 GM VIAL) IVPB ONE (00:05)
[2018-12-06] MEDS ORDERED: PIPERACILLIN/TAZOB 3.375 GM 3.375 GM/50 ML BAG IVPB ONE (00:42)
[2018-12-06] MEDS ORDERED: VANCOMYCIN 1 GRAM (PRE-DOCKED) 1,000 MG/250 ML BAG IVPB ONE (02:40)
[2018-12-06] MEDS ORDERED: MAGNESIUM 1GM/D5W - 1 GM/100 ML IVPB IVPB ONE (05:13)
[2018-12-06] MEDS ORDERED: PHENOL 177 ML SPRAY BOTTLE MM PRN (05:35)
[2018-12-06] MEDS ORDERED: SODIUM CHLORIDE NASAL SPRAY 44 ML BOTTLE NS PRN (05:35)
[2018-12-06] MEDS ORDERED: BENZOCAINE/MENTH/CETYLPYRD CL 1 EACH LOZENGE MM PRN (05:35)
[2018-12-06 05:58] LABS: BASO % 0.2 % (0-2.0); EOS % 0.9 % (0-4.5); HEMATOCRIT 36.2 % (32.4-45.2); HEMOGLOBIN 12.6 GM/dL (10.7-15.3); LYMPH % 15.1 % (8-40); MCH 29.7 pg (25.7-33.7); MCHC 34.9 g/dl (32.0-36.0); MEAN CELL VOLUME 85.1 fl (80-96); MONO % 7.2 % (3.8-10.2); NEUT % 76.6 % (42.8-82.8); PLATELET COUNT 182 K/MM3 (134-434); RBC 4.26 M/mm3 (3.60-5.2); RDW 13.5 % (11.6-15.6)
[2018-12-06] MEDS ORDERED: KCL 10 MEQ IVPB 10 MEQ/100 ML INFUS.BAG IVPB ONE (05:59)
[2018-12-06 06:42] LABS: ANION GAP 10 MMOL/L (8-16); BLOOD UREA NITROGEN 12 mg/dL (7-18); CHLORIDE 98 mmol/L (98-107); CO2 26 mmol/L (21-32); CREATININE 0.7 mg/dL (0.55-1.3); GLUCOSE,RANDOM 128 mg/dL (74-106); MAGNESIUM 2.2 mg/dL (1.8-2.4); PHOSPHOROUS 2.9 mg/dL (2.5-4.9); POTASSIUM 3.2 mmol/L (3.5-5.1); SODIUM 134 mmol/L (136-145)
[2018-12-06 06:46] LABS: CALCIUM 6.7 mg/dL (8.5-10.1)
[2018-12-06] MEDS ORDERED: FOLIC ACID INJECTION - 1 MG, THIAMINE HCL 100 MG, MULTIVIT INJECTION ADULT 10 ML in SOD... IVPB ONE (08:00)
[2018-12-06] MEDS: AMINO ACIDS/PROTEIN HYDROLYS 30 ML LIQUID.PKT PO SCH ×2 (10:09→18:43)
[2018-12-06] MEDS: LORATADINE 10 MG TABLET PO SCH (10:09)
[2018-12-06] MEDS: FLUTICASONE PROP 0.05% 16 GM NASAL SPRAY NS SCH ×2 (10:10→23:15)
--- NOTE | 2018-12-06 11:55 | EKG ---
Test Reason : Blood Pressure : / mmHG Vent. Rate : 075 BPM Atrial Rate : 075 BPM P-R Int : 164 ms QRS Dur : 082 ms QT Int : 404 ms P-R-T Axes : 069 029 075 degrees QTc Int : 451 ms NORMAL SINUS RHYTHM WITH SINUS ARRHYTHMIA NONSPECIFIC ST ABNORMALITY ABNORMAL ECG WHEN COMPARED WITH ECG OF 21-NOV-2018 12:48, [place] INTERVAL HAS DECREASED Confirmed by GREGORY BENJAMIN, JOSEPH ([id number]) on 12/06/2018 11:54:48 AM Referred By: Confirmed By:JOSEPH JENKINS MD
--- NOTE | 2018-12-06 12:40 | CON.CARD ---
Consult Consult Specialty:: cardiology Referred by:: Rg Reason for Consultation:: Diffuse body pains - History of Present Illness Chief Complaint: Status post fall History of Present Illness: The patient is an 88-year-old female, minimally ambulatory with a walker, history of diabetes, hypertension, hyperlipidemia, COPD/asthma, now admitted after falling out of bed. The patient denied loss of consciousness. She looks quite comfortable. Complains of diffuse body aches. No chest pains. No shortness of breath. Breathing comfortably. - History Source History Provided By: Patient - Past Medical History Cardio/Vascular: Yes: HTN Pulmonary: Yes: Asthma, COPD Gastrointestinal: Yes: Constipation, Hemorrhoids, Other (RECTAL BLEEDING) Endocrine: Yes: Diabetes Mellitus - Past Surgical History Past Surgical History: Yes: Hernia Repair - Alcohol/Substance Use Hx Alcohol Use: No - Smoking History Smoking history: Never smoked Have you smoked in the past 12 months: No Aproximately how many cigarettes per day: 0 - Social History ADL: Family Assistance History of Recent Travel: No Home Medications - Allergies Allergies/Adverse Reactions: Allergies Allergy/AdvReac Type Severity Reaction Status Date / Time No Known Drug Allergies Allergy Verified 11/21/18 12:34 - Home Medications Home Medications: Ambulatory Orders Diltiazem [Cardizem -] 300 mg PO HS 03/09/17 Sitagliptin Phos/Metformin HCl [Janumet 50-500 mg Tablet] 1 each PO HS 03/09/17 Tiotropium [place] [Spiriva] 1 inh IH DAILY 03/09/17 Losartan Potassium 100 mg PO DAILY 11/21/18 Acetaminophen [Tylenol .Regular Strength -] 650 mg PO Q6H PRN tablet 12/02/18 Albuterol 0.083% Nebulizer Alysa [Ventolin 0.083% Nebulizer Soln -] 1 amp NEB Q4H PRN amp 12/02/18 Budesonide/Formeterol Fumarate [SYMBICORT 160/4.5mcg -] 2 puff IH BID inhaler 12/02/18 Furosemide [Lasix -] 20 mg PO DAILY tablet 12/02/18 Methimazole [Tapazole -] 5 mg PO DAILY #30 tablet 12/02/18 Montelukast Na [Singulair -] 10 mg PO HS tablet 12/02/18 Pantoprazole Sodium [Protonix -] 40 mg PO BID #60 tablet.ec 12/02/18 Rosuvastatin [Crestor -] 5 mg PO HS tablet 12/02/18 Sennosides [Senna -] 1 tab PO HS tablet 12/02/18 predniSONE [Deltasone -] See Taper PO BID tablet 12/02/18 Review of Systems - Review of Systems Constitutional: reports: Lethargy, Loss of Appetite, Malaise, Weakness Eyes: reports: No Symptoms HENT: reports: No Symptoms Neck: reports: Pain on Movement, Stiffness Cardiovascular: reports: No Symptoms Respiratory: reports: No Symptoms Gastrointestinal: reports: No Symptoms Genitourinary: reports: No Symptoms Breasts: reports: No Symptoms Reported Musculoskeletal: reports: Back Pain, Extremity Pain, Joint Pain, Muscle Pain Integumentary: reports: No Symptoms Neurological: reports: No Symptoms Endocrine: reports: No Symptoms Hematology/Lymphatic: reports: No Symptoms Psychiatric: reports: No Symptoms Vital Signs: Vital Signs Temperature 97.5 F L 12/06/18 07:50 Pulse Rate 80 12/06/18 07:50 Respiratory Rate 16 12/06/18 07:50 Blood Pressure 149/78 12/06/18 07:50 O2 Sat by Pulse Oximetry (%) 93 L 12/06/18 07:50 Constitutional: Yes: Well Nourished, No Distress, Calm Eyes: Yes: WNL, Conjunctiva Clear, EOM Intact HENT: Yes: WNL, Atraumatic, Normocephalic Neck: Yes: Supple, Trachea Midline, Tenderness Respiratory: Yes: WNL, Regular, CTA Bilaterally Gastrointestinal: Yes: WNL, Normal Bowel Sounds, Soft Renal/: Yes: WNL Cardiovascular: Yes: WNL, Regular Rate and Rhythm JVD: No Carotid Bruit: No PMI: Non-Displaced Heart Sounds: Yes: S1, S2 Murmur: Yes: Systolic Murmur, Grade 2 Musculoskeletal: Yes: Back Pain, Joint Stiffness, Muscle Pain Edema: No Peripheral Pulses: 1+ Left Carotid, 1+ Right Carotid, 1+ Left Femoral, 1+ Right Femoral, 1+ Left Popliteal, 1+ Right Popliteal, 1+ Left Doralis Pedis, 1+ Right Dorsalis Pedis Integumentary: Yes: WNL Neurological: Yes: WNL ...Motor Strength: WNL - Other Data Labs, Other Data: CBC, BMP 12/06/18 05:35 12/06/18 05:35 Troponin, BNP 12/05/18 12/05/18 12/06/18 20:25 21:55 05:35 Troponin I Cancelled 0.07 H 0.05 B-Natriuretic Peptide Cancelled 1267.3 H 12/06/18 10:12 Troponin I 0.09 H B-Natriuretic Peptide Troponin, BNP 12/05/18 12/05/18 12/06/18 20:25 21:55 05:35 Troponin I Cancelled 0.07 H 0.05 B-Natriuretic Peptide Cancelled 1267.3 H 12/06/18 10:12 Troponin I 0.09 H B-Natriuretic Peptide Assessment/Plan The patient is an 88-year-old female, minimally ambulatory with a walker, history of diabetes, hypertension, hyperlipidemia, COPD/asthma, now admitted after falling out of bed. The patient denied loss of consciousness. She looks quite comfortable. Complains of diffuse body aches. No chest pains. No shortness of breath. Breathing comfortably. There is no evidence of ischemia nor acute coronary syndrome. The patient is in sinus rhythm. There are no acute ECG changes. No angina. No CHF. No acute events on brain imaging. There is no need for further cardiac workup at this point. Please continue home medications. Gentle intravenous hydration. Pain control. No need for cardiac monitoring. Cardiac stable. Please do not hesitate to call us PRN.
--- NOTE | 2018-12-06 17:03 | PN ---
Progress Note (short form) - Note Progress Note: Renal follow up for ROMIE Pt was seen by our service on her piror admission 11/29/2018 This is a 88 year old woman with hx of COPD/Asthma, Hypertension s/p recent admission for PNA/COPD who presented from home with a fall and weakness and noted to have hyponatremia, hypokalemia and hypocalcemia. During her last admission she had ROMIE that resolved. Pt reports making urine. Could not confirm if she was taking a water pill at home since last admission. No dysuria, cough, fever, chills. Home Medications Medication Instructions Recorded Diltiazem [Cardizem -] 300 mg PO HS 03/09/17 Sitagliptin Phos/Metformin HCl 1 each PO HS 03/09/17 [Janumet 50-500 mg Tablet] Tiotropium [place] [Spiriva] 1 inh IH DAILY 03/09/17 Losartan Potassium 100 mg PO DAILY 11/21/18 Acetaminophen [Tylenol .Regular 650 mg PO Q6H PRN tablet 12/02/18 Strength -] Albuterol 0.083% Nebulizer Alysa 1 amp NEB Q4H PRN amp 12/02/18 [Ventolin 0.083% Nebulizer Soln -] Budesonide/Formeterol Fumarate 2 puff IH BID inhaler 12/02/18 [SYMBICORT 160/4.5mcg -] Furosemide [Lasix -] 20 mg PO DAILY tablet 12/02/18 Methimazole [Tapazole -] 5 mg PO DAILY #30 tablet 12/02/18 Montelukast Na [Singulair -] 10 mg PO HS tablet 12/02/18 Pantoprazole Sodium [Protonix -] 40 mg PO BID #60 tablet.ec 12/02/18 Rosuvastatin [Crestor -] 5 mg PO HS tablet 12/02/18 Sennosides [Senna -] 1 tab PO HS tablet 12/02/18 predniSONE [Deltasone -] See Taper PO BID tablet 12/02/18 Vital Signs Temperature 97.5 F L 12/06/18 07:50 Pulse Rate 80 12/06/18 07:50 Respiratory Rate 16 12/06/18 07:50 Blood Pressure 149/78 12/06/18 07:50 O2 Sat by Pulse Oximetry (%) 93 L 12/06/18 07:50 Intake & Output 12/03/18 12/04/18 12/05/18 12/06/18 23:59 23:59 23:59 23:59 Weight 72.575 kg NAD awake and alert RRR CTA, no rales or wheeze soft NT/ND no LE edema CBC, BMP 12/06/18 05:35 12/06/18 05:35 Current Medications Amino Acids (Prosource No Carb Liquid Pkt) 30 ml PO BID@0800,1730 [facility] Last Admin: 12/06/18 10:09 Dose: 30 ml Benzocaine/Menthol (Cepacol Lozenge -) 1 each MM PRN PRN PRN Reason: SORE THROAT Fluticasone Propionate (Flonase -) 1 spray NS BID [facility] Last Admin: 12/06/18 10:10 Dose: Not Given Loratadine (Claritin -) 10 mg PO DAILY [facility] Last Admin: 12/06/18 10:09 Dose: 10 mg Phenol/Menthol (Chloraseptic -) 1 spray MM Q6HPO PRN PRN Reason: SORE THROAT Sodium Chloride ([place] Nasal [place] -) 2 spray NS TID PRN PRN Reason: NASAL CONGESTION 88 year old woman with hx of COPD/Asthma, Hypertension s/p recent admission for PNA/COPD who presented from home with a fall and weakness and noted to have hyponatremia, hypokalemia and hypocalcemia. #Hyponatremia #Hypokalemia #Hypocalcemia #Fall #weakness #Leukocytosis (? due to recent steroid use) No indication for 3% saline at this time continue oral intake as tolerated hold diuretics for now supplement k to value > 3.5 Corrected Ca is 8, start oral calcium carbonate Trend renal function and electrolytes daily Thank you Will follow Mamadou Gómez DO
[2018-12-06] MEDS ORDERED: ALBUTEROL SO4 0.083% IH SOL 2.5 MG/3 ML VIAL.NEB. NEB PRN (18:14)
--- NOTE | 2018-12-06 18:38 | PN ---
Progress Note, Physician Chief Complaint: Neck/shoulder pain weakness elevated troponin History of Present Illness: Previous notes and events reviewed awake and alert NAD complain of R shoulder pain that radiates up neck, pain is described as aching denies chest pain/sob - Current Medication List Current Medications: Active Medications Albuterol Sulfate (Ventolin 0.083% Nebulizer Soln -) 1 amp NEB Q6H PRN PRN Reason: SHORT OF BREATH/WHEEZING Amino Acids (Prosource No Carb Liquid Pkt) 30 ml PO BID@0800,1730 [facility] Last Admin: 12/06/18 10:09 Dose: 30 ml Benzocaine/Menthol (Cepacol Lozenge -) 1 each MM PRN PRN PRN Reason: SORE THROAT Budesonide/Formoterol Fumarate (Symbicort 160/4.5mcg -) 2 puff IH BID [facility] Calcium Carbonate (Calcium Carbonate -) 650 mg PO BID [facility] Fluticasone Propionate (Flonase -) 1 spray NS BID [facility] Last Admin: 12/06/18 10:10 Dose: Not Given Furosemide (Lasix -) 20 mg PO DAILY [facility] Loratadine (Claritin -) 10 mg PO DAILY [facility] Last Admin: 12/06/18 10:09 Dose: 10 mg Losartan Potassium (Cozaar -) 100 mg PO DAILY [facility] Methimazole (Tapazole -) 5 mg PO DAILY [facility] Montelukast Sodium (Singulair -) 10 mg PO HS [facility] Pantoprazole Sodium (Protonix -) 40 mg PO BID [facility] Phenol/Menthol (Chloraseptic -) 1 spray MM Q6HPO PRN PRN Reason: SORE THROAT Prednisone (Deltasone -) 10 mg PO DAILY [facility] Rosuvastatin Calcium (Crestor -) 5 mg PO HS [facility] Senna (Senna -) 1 tab PO HS [facility] Sodium Chloride ([place] Nasal [place] -) 2 spray NS TID PRN PRN Reason: NASAL CONGESTION Tiotropium [place] (Spiriva Respimat) 2 puff IH DAILY [facility] - Objective Vital Signs: Vital Signs Temperature 98.6 F 12/06/18 17:27 Pulse Rate 90 12/06/18 17:27 Respiratory Rate 16 12/06/18 17:27 Blood Pressure 185/76 H 12/06/18 17:27 O2 Sat by Pulse Oximetry (%) 99 12/06/18 17:27 Constitutional: Yes: No Distress, Calm Eyes: Yes: Conjunctiva Clear HENT: Yes: Other (dry mucous membranes) Neck: Yes: Supple Cardiovascular: Yes: Regular Rate and Rhythm Respiratory: Yes: Regular, CTA Bilaterally Gastrointestinal: Yes: Normal Bowel Sounds, Soft Musculoskeletal: Yes: Muscle Weakness Extremities: Yes: WNL Edema: No Integumentary: Yes: Other (bruising L knee) Neurological: Yes: Alert Psychiatric: Yes: Alert Labs: CBC, BMP 12/06/18 05:35 12/06/18 05:35 Troponin, BNP 12/05/18 12/05/18 12/06/18 20:25 21:55 05:35 Troponin I Cancelled 0.07 H 0.05 B-Natriuretic Peptide Cancelled 1267.3 H 12/06/18 10:12 Troponin I 0.09 H B-Natriuretic Peptide <Ghazala Penaloza - Last Filed: 12/06/18 18:33> - Current Medication List Current Medications: Active Medications Acetaminophen (Tylenol -) 650 mg PO Q6H PRN PRN Reason: Fever Or Pain Last Admin: 12/08/18 05:57 Dose: 325 mg Albuterol Sulfate (Ventolin 0.083% Nebulizer Soln -) 1 amp NEB Q6H PRN PRN Reason: SHORT OF BREATH/WHEEZING Amino Acids (Prosource No Carb Liquid Pkt) 30 ml PO BID@0800,1730 [facility] Last Admin: 12/08/18 08:55 Dose: 30 ml Benzocaine/Menthol (Cepacol Lozenge -) 1 each MM PRN PRN PRN Reason: SORE THROAT Budesonide/Formoterol Fumarate (Symbicort 160/4.5mcg -) 2 puff IH BID [facility] Last Admin: 12/08/18 09:00 Dose: 2 puff Calcium Carbonate (Calcium Carbonate -) 650 mg PO BID [facility] Last Admin: 12/08/18 08:59 Dose: 650 mg Fluticasone Propionate (Flonase -) 1 spray NS BID [facility] Last Admin: 12/08/18 09:00 Dose: 1 spray Furosemide (Lasix -) 20 mg PO DAILY [facility] Insulin Aspart (Novolog Vial Sliding Scale -) 1 vial SQ ACHS [facility]; Protocol Last Admin: 12/08/18 06:28 Dose: Not Given Insulin Aspart (Novolog) 10 units SQ ONCE ONE Stop: 12/08/18 18:48 Ketorolac Tromethamine (Toradol Injection -) 15 mg IVPUSH Q6H PRN PRN Reason: PAIN LEVEL 6-10 Stop: 12/12/18 10:19 Lidocaine (Lidoderm Patch -) 1 patch TP DAILY@2200 [facility] Last Admin: 12/08/18 00:09 Dose: 1 patch Loratadine (Claritin -) 10 mg PO DAILY [facility] Last Admin: 12/08/18 09:00 Dose: 10 mg Losartan Potassium (Cozaar -) 100 mg PO DAILY [facility] Last Admin: 12/08/18 09:00 Dose: Not Given Methimazole (Tapazole -) 5 mg PO DAILY [facility] Last Admin: 12/08/18 09:01 Dose: 5 mg Methyl Salicylate ([place] -) 1 applic TP BID [facility] Last Admin: 12/08/18 08:59 Dose: 1 applic Miscellaneous (Lidoderm Patch Removal) 1 each MC DAILY@1000 [facility] Last Admin: 12/08/18 09:00 Dose: 1 each Montelukast Sodium (Singulair -) 10 mg PO [facility] Last Admin: 12/08/18 00:10 Dose: Not Given Pantoprazole Sodium (Protonix -) 40 mg PO BID [facility] Last Admin: 12/08/18 09:00 Dose: 40 mg Phenol/Menthol (Chloraseptic -) 1 spray MM Q6HPO PRN PRN Reason: SORE THROAT Prednisone (Deltasone -) 10 mg PO DAILY [facility] Last Admin: 12/08/18 09:00 Dose: 10 mg Rosuvastatin Calcium (Crestor -) 5 mg PO [facility] Last Admin: 12/08/18 00:10 Dose: Not Given Senna (Senna -) 1 tab PO [facility] Last Admin: 12/08/18 00:06 Dose: Not Given Sodium Chloride ([place] Nasal [place] -) 2 spray NS TID PRN PRN Reason: NASAL CONGESTION Tiotropium [place] (Spiriva Respimat) 2 puff IH DAILY [facility] Last Admin: 12/08/18 09:00 Dose: 2 puff - Objective Vital Signs: Vital Signs Temperature 98.1 F 12/08/18 05:26 Pulse Rate 74 12/08/18 05:26 Respiratory Rate 20 12/08/18 05:26 Blood Pressure 192/82 H 12/08/18 05:26 O2 Sat by Pulse Oximetry (%) 99 12/07/18 21:00 Labs: CBC, BMP 12/08/18 07:00 12/08/18 07:00 <Paul Diez - Last Filed: 12/08/18 09:04> Problem List - Problems (1) CHF (congestive heart failure) Assessment/Plan: -on lasix po -cardiac consult -1L fluid restriction -daily weights Code(s): I50.9 - HEART FAILURE, UNSPECIFIED (2) Elevated troponin Assessment/Plan: -repeat troponin -cardiology on board Code(s): R74.8 - ABNORMAL LEVELS OF OTHER SERUM ENZYMES (3) Generalized weakness Assessment/Plan: -PT eval -fall precaution Code(s): R53.1 - WEAKNESS (4) Hypokalemia Assessment/Plan: -renal on board -will trend K level and replete as need for >3.5 Code(s): E87.6 - HYPOKALEMIA (5) COPD exacerbation Assessment/Plan: -Pulmonary consult -O2 via [place] PRN -keep SpO2 >90% -neb tx prn for SOB Code(s): J44.1 - CHRONIC OBSTRUCTIVE PULMONARY DISEASE W (ACUTE) EXACERBATION (6) DM2 (diabetes mellitus, type 2) Assessment/Plan: -BGM ACHS -continue with sitagliptan -ISS Code(s): E11.9 - TYPE 2 DIABETES MELLITUS WITHOUT COMPLICATIONS (7) HTN (hypertension) Assessment/Plan: -continue with losartaan -low Na diet Code(s): I10 - ESSENTIAL (PRIMARY) HYPERTENSION <Ghazala Penaloza - Last Filed: 12/06/18 18:33> Assessment/Plan PATIENT SEEN AND EXAMINED AND I AGREE WITH THE ABOVE NOTE <Paul Diez - Last Filed: 12/08/18 09:04>
[2018-12-06] MEDS ORDERED: hydrALAZINE HCL 20 MG/ML VIAL IVPUSH ONE (20:12)
[2018-12-06] MEDS: PANTOPRAZOLE 40 MG TABLET (FP) PO SCH (21:00)
[2018-12-06] MEDS: INSULIN SLIDING SCALE (NOVOLOG) 1 VIAL SQ SCH (21:00)
[2018-12-06] MEDS: SENNOSIDES 8.6MG TABLET (FP) PO SCH (21:00)
[2018-12-06] MEDS: ROSUVASTATIN CA 5 MG TABLET (FP) PO SCH (21:01)
[2018-12-06] MEDS: MONTELUKAST NA 10 MG TABLET PO SCH (21:01)
[2018-12-06] MEDS: LIDOCAINE 5% TOPICAL PATCH TP SCH (21:20)
[2018-12-06] MEDS: BUDESONIDE/FORMETEROL FUMARATE 160/4.5 mcg INHALER IH SCH (23:16)
[2018-12-06] MEDS: CALCIUM CARBONATE 650 MG TABLET PO SCH (23:16)
[2018-12-06] MEDS: ACETAMINOPHEN 325 MG TABLET (FP) PO PRN (23:18)
[2018-12-07] MEDS: INSULIN SLIDING SCALE (NOVOLOG) 1 VIAL SQ SCH ×3 (06:11→17:23)
[2018-12-07 07:06] LABS: BASO % 0.3 % (0-2.0); EOS % 1.2 % (0-4.5); HEMOGLOBIN 12.1 GM/dL (10.7-15.3); LYMPH % 19.4 % (8-40); MCH 29.6 pg (25.7-33.7); MCHC 34.6 g/dl (32.0-36.0); MEAN CELL VOLUME 85.4 fl (80-96); MEAN PLT VOLUME 8.5 fl (7.5-11.1); MONO % 11.3 % (3.8-10.2); NEUT % 67.8 % (42.8-82.8); PLATELET COUNT 192 K/MM3 (134-434); RDW 13.2 % (11.6-15.6); WHITE BLOOD COUNT 13.4 K/mm3 (4.0-10.0)
[2018-12-07 07:26] LABS: ALBUMIN 2.1 g/dl (3.4-5.0); ALK PHOS 54 U/L (45-117); ANION GAP 9 MMOL/L (8-16); BILIRUBIN,TOTAL 0.7 mg/dL (0.2-1); BLOOD UREA NITROGEN 10 mg/dL (7-18); CALCIUM 7.4 mg/dL (8.5-10.1); CHLORIDE 101 mmol/L (98-107); CO2 27 mmol/L (21-32); CREATININE 0.5 mg/dL (0.55-1.3); GLUCOSE,RANDOM 104 mg/dL (74-106); PHOSPHOROUS 2.5 mg/dL (2.5-4.9); SGOT/AST 6 U/L (15-37); SGPT/ALT 19 U/L (13-61); SODIUM 137 mmol/L (136-145); TOT PROT 4.8 g/dl (6.4-8.2)
[2018-12-07] MEDS ORDERED: RANITIDINE HCL 150 MG TABLET (FP) PO SCH (10:00)
[2018-12-07] MEDS ORDERED: FUROSEMIDE 20 MG TABLET (FP) PO SCH (10:00)
[2018-12-07] MEDS ORDERED: PT OWN MED DRAWER 7, Y5N ONE (10:03)
[2018-12-07] MEDS: POTASSIUM CHLORIDE TABS 20 MEQ TABLET.ER (FP) PO SCH ×2 (10:09→11:55)
[2018-12-07] MEDS: AMINO ACIDS/PROTEIN HYDROLYS 30 ML LIQUID.PKT PO SCH ×2 (10:09→17:19)
[2018-12-07] MEDS: LOSARTAN POTASSIUM 50 MG TABLET (FP) PO SCH (10:10)
[2018-12-07] MEDS: CALCIUM CARBONATE 650 MG TABLET PO SCH (10:10)
[2018-12-07] MEDS: PANTOPRAZOLE 40 MG TABLET (FP) PO SCH (10:11)
[2018-12-07] MEDS: METHIMAZOLE 5 MG TABLET (FP) PO SCH (10:11)
[2018-12-07] MEDS: LORATADINE 10 MG TABLET PO SCH (10:11)
[2018-12-07] MEDS: predniSONE 10 MG TABLET (UD) PO SCH (10:11)
[2018-12-07] MEDS: BUDESONIDE/FORMETEROL FUMARATE 160/4.5 mcg INHALER IH SCH (10:15)
[2018-12-07] MEDS: LIDOCAINE PATCH REMOVAL MC SCH (10:15)
[2018-12-07] MEDS: FLUTICASONE PROP 0.05% 16 GM NASAL SPRAY NS SCH (10:15)
[2018-12-07] MEDS: TIOTROPIUM BROMIDE 2.5 MCG (SPIRIVA) RESPIMAT INHALER IH SCH (10:15)
[2018-12-07] MEDS ORDERED: KETOROLAC TROMETHAMINE 15 MG/ML VIAL IVPUSH PRN (10:20)
[2018-12-07] MEDS ORDERED: POTASSIUM CHLORIDE ORAL LIQUID 20 MEQ/15 ML PO ONE (10:22)
[2018-12-07] MEDS ORDERED: KCL 10 MEQ IVPB 10 MEQ/100 ML INFUS.BAG IVPB SCH (10:30)
--- NOTE | 2018-12-07 11:22 | PN ---
Progress Note (short form) - Note Progress Note: Renal follow up for ROMIE Pt seen and examined at the bedside feels weak no sob, cp, abd pain making urine Vital Signs Temperature 98.6 F 12/07/18 06:43 Pulse Rate 88 12/07/18 06:43 Respiratory Rate 18 12/07/18 06:43 Blood Pressure 162/81 12/07/18 06:43 O2 Sat by Pulse Oximetry (%) 98 12/06/18 21:00 Intake & Output 12/04/18 12/05/18 12/06/18 12/07/18 23:59 23:59 23:59 23:59 Intake Total 480 Balance 480 Weight 72.575 kg 72.575 kg NAD awake and alert RRR CTA, no rales or wheeze soft NT/ND no LE edema CBC, BMP 12/07/18 06:30 12/07/18 06:30 Laboratory Tests 12/07/18 06:30 Calcium 7.4 L Phosphorus 2.5 Magnesium 2.0 Current Medications Acetaminophen (Tylenol -) 650 mg PO Q6H PRN PRN Reason: Fever Or Pain Last Admin: 12/06/18 23:18 Dose: 650 mg Albuterol Sulfate (Ventolin 0.083% Nebulizer Soln -) 1 amp NEB Q6H PRN PRN Reason: SHORT OF BREATH/WHEEZING Amino Acids (Prosource No Carb Liquid Pkt) 30 ml PO BID@0800,1730 [facility] Last Admin: 12/07/18 10:09 Dose: 30 ml Benzocaine/Menthol (Cepacol Lozenge -) 1 each MM PRN PRN PRN Reason: SORE THROAT Budesonide/Formoterol Fumarate (Symbicort 160/4.5mcg -) 2 puff IH BID [facility] Last Admin: 12/07/18 10:15 Dose: 2 puff Calcium Carbonate (Calcium Carbonate -) 650 mg PO BID [facility] Last Admin: 12/07/18 10:10 Dose: 650 mg Fluticasone Propionate (Flonase -) 1 spray NS BID [facility] Last Admin: 12/07/18 10:15 Dose: 1 spray Furosemide (Lasix -) 20 mg PO DAILY [facility] Potassium Chloride (Potassium Chloride 10 Meq Premix Ivpb -) 10 meq in 100 mls @ 100 mls/hr IVPB Q60M [facility] Stop: 12/07/18 11:29 Insulin Aspart (Novolog Vial Sliding Scale -) 1 vial SQ ACHS [facility]; Protocol Last Admin: 12/07/18 06:11 Dose: Not Given Ketorolac Tromethamine (Toradol Injection -) 15 mg IVPUSH Q6H PRN PRN Reason: PAIN LEVEL 6-10 Stop: 12/12/18 10:19 Lidocaine (Lidoderm Patch -) 1 patch TP DAILY@2200 [facility] Last Admin: 12/06/18 21:20 Dose: 1 patch Loratadine (Claritin -) 10 mg PO DAILY [facility] Last Admin: 12/07/18 10:11 Dose: 10 mg Losartan Potassium (Cozaar -) 100 mg PO DAILY [facility] Last Admin: 12/07/18 10:10 Dose: 100 mg Methimazole (Tapazole -) 5 mg PO DAILY [facility] Last Admin: 12/07/18 10:11 Dose: 5 mg Methyl Salicylate (Neal-King -) 1 applic TP BID [facility] Miscellaneous (Lidoderm Patch Removal) 1 each MC DAILY@1000 [facility] Last Admin: 12/07/18 10:15 Dose: 1 each Montelukast Sodium (Singulair -) 10 mg PO HS [facility] Last Admin: 12/06/18 21:01 Dose: 10 mg Pantoprazole Sodium (Protonix -) 40 mg PO BID [facility] Last Admin: 12/07/18 10:11 Dose: 40 mg Phenol/Menthol (Chloraseptic -) 1 spray MM Q6HPO PRN PRN Reason: SORE THROAT Prednisone (Deltasone -) 10 mg PO DAILY [facility] Last Admin: 12/07/18 10:11 Dose: 10 mg Rosuvastatin Calcium (Crestor -) 5 mg PO HS [facility] Last Admin: 12/06/18 21:01 Dose: 5 mg Senna (Senna -) 1 tab PO HS [facility] Last Admin: 12/06/18 21:00 Dose: 1 tab Sodium Chloride ([place] Nasal [place] -) 2 spray NS TID PRN PRN Reason: NASAL CONGESTION Tiotropium [place] (Spiriva Respimat) 2 puff IH DAILY [facility] Last Admin: 12/07/18 10:15 Dose: 2 puff 88 year old woman with hx of COPD/Asthma, Hypertension s/p recent admission for PNA/COPD who presented from home with a fall and weakness and noted to have hyponatremia, hypokalemia and hypocalcemia. #Hyponatremia #Hypokalemia #Hypocalcemia #Fall #weakness #Leukocytosis (? due to recent steroid use) Renal function stable K remains low, will given KCL 80meq today Mg is at goal would monitor electrolytes daily continue calcium carbonate Mamadou Gómez DO
--- NOTE | 2018-12-07 13:25 | CON.ORTH ---
Consult Reason for Consultation:: left knee and cervical pain - Past Medical History Cardio/Vascular: Yes: HTN Pulmonary: Yes: Asthma, COPD Gastrointestinal: Yes: Constipation, Hemorrhoids, Other (RECTAL BLEEDING) ...: No Endocrine: Yes: Diabetes Mellitus - Past Surgical History Past Surgical History: Yes: Hernia Repair - Alcohol/Substance Use Hx Alcohol Use: No - Smoking History Smoking history: Never smoked Have you smoked in the past 12 months: No Aproximately how many cigarettes per day: 0 - Social History ADL: Family Assistance History of Recent Travel: No Home Medications - Allergies Allergies/Adverse Reactions: Allergies Allergy/AdvReac Type Severity Reaction Status Date / Time No Known Drug Allergies Allergy Verified 11/21/18 12:34 - Home Medications Home Medications: Ambulatory Orders Diltiazem [Cardizem -] 300 mg PO HS 03/09/17 Sitagliptin Phos/Metformin HCl [Janumet 50-500 mg Tablet] 1 each PO HS 03/09/17 Tiotropium [place] [Spiriva] 1 inh IH DAILY 03/09/17 Losartan Potassium 100 mg PO DAILY 11/21/18 Acetaminophen [Tylenol .Regular Strength -] 650 mg PO Q6H PRN tablet 12/02/18 Albuterol 0.083% Nebulizer [place] [Ventolin 0.083% Nebulizer Soln -] 1 amp NEB Q4H PRN amp 12/02/18 Budesonide/Formeterol Fumarate [SYMBICORT 160/4.5mcg -] 2 puff IH BID inhaler 12/02/18 Furosemide [Lasix -] 20 mg PO DAILY tablet 12/02/18 Methimazole [Tapazole -] 5 mg PO DAILY #30 tablet 12/02/18 Montelukast Na [Singulair -] 10 mg PO HS tablet 12/02/18 Pantoprazole Sodium [Protonix -] 40 mg PO BID #60 tablet.ec 12/02/18 Rosuvastatin [Crestor -] 5 mg PO HS tablet 12/02/18 Sennosides [Senna -] 1 tab PO HS tablet 12/02/18 predniSONE [Deltasone -] See Taper PO BID tablet 12/02/18 Physical Exam for Ortho Vital Signs: Vital Signs Temperature 98.6 F 12/07/18 06:43 Pulse Rate 88 12/07/18 06:43 Respiratory Rate 18 12/07/18 06:43 Blood Pressure 162/81 12/07/18 06:43 O2 Sat by Pulse Oximetry (%) 98 12/06/18 21:00 Labs: CBC, BMP 12/07/18 06:30 12/07/18 06:30 - Lower Extremity Knee: Yes: Left, Pain, Swelling, Tenderness, Other (1+ effusion, rom 0-120, able to SLR, nvi) Imaging - Results X-ray: Report Reviewed, Image Reviewed Cat Scan: Report Reviewed, Image Reviewed Ultrasound: Report Reviewed, Image Reviewed Assessment/Plan 88 year old female, with a significant PMH of HTN, DM, HLD, asthma, hypercholesterolemia, and COPD, who presents to the emergency department today complaining of SOB, nausea, diarrhea, decreased PO intake, right neck/shoulder pain, and associated generalized diffuse weakness s/p recent discharge for pneumonia and COPD exacerbation. As per patients daughter, she notes that since the patient was discharged 3 days ago, she has been experiencing SOB, nausea, and diarrhea. Patient has decreased PO intake secondary to her constant nausea and diarrhea. Patient notes she fell out of her bed this morning onto her left side, which was unwitnessed. She reports associated throbbing right neck and shoulder pain/tightness, and both of her knees are visibly bruised. Patient denies LOC or head contusion. a/p- left knee contusion with grade 4 tricompartmental djd, multi-level cervical DDD D/w with pt and daughter in detail PT eval, wbat ROM exercises pain control If no improvement by Sunday, will aspirate and inject with cortisone Pt and daughter agree with plan d/w Dr. Causey
[2018-12-07] MEDS: METHYL SALICYLATE/MENTHOL OINT 30 GM TUBE TP SCH (13:47)
--- NOTE | 2018-12-07 15:14 | PN ---
Progress Note, Physician Chief Complaint: Neck/shoulder pain weakness elevated troponin History of Present Illness: Previous notes and events reviewed awake and alert NAD complain of R shoulder pain that radiates up neck, pain is described as aching denies chest pain/sob - Current Medication List Current Medications: Active Medications Acetaminophen (Tylenol -) 650 mg PO Q6H PRN PRN Reason: Fever Or Pain Last Admin: 12/06/18 23:18 Dose: 650 mg Albuterol Sulfate (Ventolin 0.083% Nebulizer Soln -) 1 amp NEB Q6H PRN PRN Reason: SHORT OF BREATH/WHEEZING Amino Acids (Prosource No Carb Liquid Pkt) 30 ml PO BID@0800,1730 [facility] Last Admin: 12/07/18 10:09 Dose: 30 ml Benzocaine/Menthol (Cepacol Lozenge -) 1 each MM PRN PRN PRN Reason: SORE THROAT Budesonide/Formoterol Fumarate (Symbicort 160/4.5mcg -) 2 puff IH BID [facility] Last Admin: 12/07/18 10:15 Dose: 2 puff Calcium Carbonate (Calcium Carbonate -) 650 mg PO BID [facility] Last Admin: 12/07/18 10:10 Dose: 650 mg Fluticasone Propionate (Flonase -) 1 spray NS BID [facility] Last Admin: 12/07/18 10:15 Dose: 1 spray Furosemide (Lasix -) 20 mg PO DAILY [facility] Insulin Aspart (Novolog Vial Sliding Scale -) 1 vial SQ ACHS [facility]; Protocol Last Admin: 12/07/18 12:16 Dose: Not Given Ketorolac Tromethamine (Toradol Injection -) 15 mg IVPUSH Q6H PRN PRN Reason: PAIN LEVEL 6-10 Stop: 12/12/18 10:19 Lidocaine (Lidoderm Patch -) 1 patch TP DAILY@2200 [facility] Last Admin: 12/06/18 21:20 Dose: 1 patch Loratadine (Claritin -) 10 mg PO DAILY [facility] Last Admin: 12/07/18 10:11 Dose: 10 mg Losartan Potassium (Cozaar -) 100 mg PO DAILY [facility] Last Admin: 12/07/18 10:10 Dose: 100 mg Methimazole (Tapazole -) 5 mg PO DAILY [facility] Last Admin: 12/07/18 10:11 Dose: 5 mg Methyl Salicylate (Neal-King -) 1 applic TP BID [facility] Last Admin: 12/07/18 13:47 Dose: 1 applic Miscellaneous (Lidoderm Patch Removal) 1 each MC DAILY@1000 [facility] Last Admin: 12/07/18 10:15 Dose: 1 each Montelukast Sodium (Singulair -) 10 mg PO [facility] Last Admin: 12/06/18 21:01 Dose: 10 mg Pantoprazole Sodium (Protonix -) 40 mg PO BID [facility] Last Admin: 12/07/18 10:11 Dose: 40 mg Phenol/Menthol (Chloraseptic -) 1 spray MM Q6HPO PRN PRN Reason: SORE THROAT Prednisone (Deltasone -) 10 mg PO DAILY [facility] Last Admin: 12/07/18 10:11 Dose: 10 mg Rosuvastatin Calcium (Crestor -) 5 mg PO [facility] Last Admin: 12/06/18 21:01 Dose: 5 mg Senna (Senna -) 1 tab PO [facility] Last Admin: 12/06/18 21:00 Dose: 1 tab Sodium Chloride ([place] Nasal [place] -) 2 spray NS TID PRN PRN Reason: NASAL CONGESTION Tiotropium [place] (Spiriva Respimat) 2 puff IH DAILY [facility] Last Admin: 12/07/18 10:15 Dose: 2 puff - Objective Vital Signs: Vital Signs Temperature 98.9 F 12/07/18 14:00 Pulse Rate 97 H 12/07/18 14:00 Respiratory Rate 18 12/07/18 14:00 Blood Pressure 144/64 12/07/18 14:00 O2 Sat by Pulse Oximetry (%) 97 12/07/18 10:00 Constitutional: Yes: No Distress, Calm Eyes: Yes: Conjunctiva Clear Neck: Yes: Supple Cardiovascular: Yes: Regular Rate and Rhythm Respiratory: Yes: Regular, CTA Bilaterally, On Nasal O2 Gastrointestinal: Yes: Normal Bowel Sounds, Soft Musculoskeletal: Yes: Joint Swelling (L knee), Muscle Weakness Extremities: Yes: WNL Edema: No Integumentary: Yes: WNL Neurological: Yes: Alert, Pre-Existing Deficit Psychiatric: Yes: Alert, Oriented Labs: CBC, BMP 12/07/18 06:30 12/07/18 06:30 Microbiology 12/05/18 20:25 Urine - Urine Clean Catch Urine Culture - Final NO GROWTH OBTAINED 12/05/18 10:17 Blood - Peripheral Venous Blood Culture - Preliminary NO GROWTH OBTAINED AFTER 24 HOURS, INCUBATION TO CONTINUE FOR 4 DAYS. 12/05/18 10:12 Blood - Peripheral Venous Blood Culture - Preliminary NO GROWTH OBTAINED AFTER 24 HOURS, INCUBATION TO CONTINUE FOR 4 DAYS. <Ghazlaa Penaloza - Last Filed: 12/07/18 15:08> - Current Medication List Current Medications: Active Medications Acetaminophen (Tylenol -) 650 mg PO Q6H PRN PRN Reason: Fever Or Pain Last Admin: 12/08/18 05:57 Dose: 325 mg Albuterol Sulfate (Ventolin 0.083% Nebulizer Soln -) 1 amp NEB Q6H PRN PRN Reason: SHORT OF BREATH/WHEEZING Amino Acids (Prosource No Carb Liquid Pkt) 30 ml PO BID@0800,1730 [facility] Last Admin: 12/08/18 08:55 Dose: 30 ml Benzocaine/Menthol (Cepacol Lozenge -) 1 each MM PRN PRN PRN Reason: SORE THROAT Budesonide/Formoterol Fumarate (Symbicort 160/4.5mcg -) 2 puff IH BID [facility] Last Admin: 12/08/18 09:00 Dose: 2 puff Calcium Carbonate (Calcium Carbonate -) 650 mg PO BID [facility] Last Admin: 12/08/18 08:59 Dose: 650 mg Fluticasone Propionate (Flonase -) 1 spray NS BID [facility] Last Admin: 12/08/18 09:00 Dose: 1 spray Furosemide (Lasix -) 20 mg PO DAILY [facility] Insulin Aspart (Novolog Vial Sliding Scale -) 1 vial SQ [facility]; Protocol Last Admin: 12/08/18 06:28 Dose: Not Given Insulin Aspart (Novolog) 10 units SQ ONCE ONE Stop: 12/08/18 18:48 Ketorolac Tromethamine (Toradol Injection -) 15 mg IVPUSH Q6H PRN PRN Reason: PAIN LEVEL 6-10 Stop: 12/12/18 10:19 Lidocaine (Lidoderm Patch -) 1 patch TP DAILY@2200 [facility] Last Admin: 12/08/18 00:09 Dose: 1 patch Loratadine (Claritin -) 10 mg PO DAILY [facility] Last Admin: 12/08/18 09:00 Dose: 10 mg Losartan Potassium (Cozaar -) 100 mg PO DAILY [facility] Last Admin: 12/08/18 09:00 Dose: Not Given Methimazole (Tapazole -) 5 mg PO DAILY [facility] Last Admin: 12/08/18 09:01 Dose: 5 mg Methyl Salicylate ([place]al-King -) 1 applic TP BID [facility] Last Admin: 12/08/18 08:59 Dose: 1 applic Miscellaneous (Lidoderm Patch Removal) 1 each MC DAILY@1000 [facility] Last Admin: 12/08/18 09:00 Dose: 1 each Montelukast Sodium (Singulair -) 10 mg PO [facility] Last Admin: 12/08/18 00:10 Dose: Not Given Pantoprazole Sodium (Protonix -) 40 mg PO BID [facility] Last Admin: 12/08/18 09:00 Dose: 40 mg Phenol/Menthol (Chloraseptic -) 1 spray MM Q6HPO PRN PRN Reason: SORE THROAT Prednisone (Deltasone -) 10 mg PO DAILY [facility] Last Admin: 12/08/18 09:00 Dose: 10 mg Rosuvastatin Calcium (Crestor -) 5 mg PO [facility] Last Admin: 12/08/18 00:10 Dose: Not Given Senna (Senna -) 1 tab PO [facility] Last Admin: 12/08/18 00:06 Dose: Not Given Sodium Chloride ([place] Nasal [place] -) 2 spray NS TID PRN PRN Reason: NASAL CONGESTION Tiotropium [place] (Spiriva Respimat) 2 puff IH DAILY [facility] Last Admin: 12/08/18 09:00 Dose: 2 puff - Objective Vital Signs: Vital Signs Temperature 98.1 F 12/08/18 05:26 Pulse Rate 74 12/08/18 05:26 Respiratory Rate 20 12/08/18 05:26 Blood Pressure 192/82 H 12/08/18 05:26 O2 Sat by Pulse Oximetry (%) 99 12/07/18 21:00 Labs: CBC, BMP 12/08/18 07:00 12/08/18 07:00 <Paul Diez - Last Filed: 12/08/18 09:04> Problem List - Problems (1) CHF (congestive heart failure) Assessment/Plan: -on lasix po -cardiac consult -1L fluid restriction -daily weights Code(s): I50.9 - HEART FAILURE, UNSPECIFIED (2) Elevated troponin Assessment/Plan: -troponin 0.06, trending down -cardiology on board Code(s): R74.8 - ABNORMAL LEVELS OF OTHER SERUM ENZYMES (3) Generalized weakness Assessment/Plan: -PT eval -fall precaution Code(s): R53.1 - WEAKNESS (4) Hypokalemia Assessment/Plan: -renal on board -will trend K level and replete as need for >3.5 -K 3.0 received KCl 40mEq PO x 1 -will trend K Code(s): E87.6 - HYPOKALEMIA (5) COPD exacerbation Assessment/Plan: -Pulmonary consult -O2 via NC PRN -keep SpO2 >90% -neb tx prn for SOB Code(s): J44.1 - CHRONIC OBSTRUCTIVE PULMONARY DISEASE W (ACUTE) EXACERBATION (6) DM2 (diabetes mellitus, type 2) Assessment/Plan: -BGM ACHS -continue with sitagliptan -ISS Code(s): E11.9 - TYPE 2 DIABETES MELLITUS WITHOUT COMPLICATIONS (7) HTN (hypertension) Assessment/Plan: -continue with losartaan -low Na diet Code(s): I10 - ESSENTIAL (PRIMARY) HYPERTENSION (8) Contusion of left knee Assessment/Plan: -ortho on board -PT eval -weight bear as tolerated -if pain no better possible aspiration and cortisone injection on sunday Code(s): S80.02XA - CONTUSION OF LEFT KNEE, INITIAL ENCOUNTER <Ghazala Penaloza - Last Filed: 12/07/18 15:08> Assessment/Plan PATIENT SEEN AND EXAMINED AND I AGREE WITH THE ABOVE NOTE <Paul Diez - Last Filed: 12/08/18 09:04>
[2018-12-07 18:32] LABS: ANION GAP 7 MMOL/L (8-16); BLOOD UREA NITROGEN 16 mg/dL (7-18); CALCIUM 7.4 mg/dL (8.5-10.1); CHLORIDE 102 mmol/L (98-107); CO2 23 mmol/L (21-32); CREATININE 0.8 mg/dL (0.55-1.3); SODIUM 132 mmol/L (136-145)
[2018-12-07 18:40] LABS: GLUCOSE,RANDOM 326 mg/dL (74-106); POTASSIUM 6.3 mmol/L (3.5-5.1)
[2018-12-07] MEDS ORDERED: SODIUM POLYSTYRENE SULFONATE 15 GM/60 ML BOTTLE PO ONE (18:44)
[2018-12-07] MEDS ORDERED: CALCIUM GLUCONATE 10% - 1,000 MG/10 ML VIAL IVPB ONE (18:52)
[2018-12-07] MEDS ORDERED: DEXTROSE 50%-WATER - 25 GM/50 ML VIAL IVPUSH ONE (18:53)
[2018-12-08] MEDS: INSULIN SLIDING SCALE (NOVOLOG) 1 VIAL SQ SCH ×5 (00:05→22:12)
[2018-12-08] MEDS: SENNOSIDES 8.6MG TABLET (FP) PO SCH ×2 (00:06→21:59)
[2018-12-08] MEDS: LIDOCAINE 5% TOPICAL PATCH TP SCH ×2 (00:09→22:08)
[2018-12-08] MEDS: MONTELUKAST NA 10 MG TABLET PO SCH ×2 (00:10→22:09)
[2018-12-08] MEDS: METHYL SALICYLATE/MENTHOL OINT 30 GM TUBE TP SCH ×3 (00:10→22:08)
[2018-12-08] MEDS: ROSUVASTATIN CA 5 MG TABLET (FP) PO SCH ×2 (00:10→22:09)
[2018-12-08] MEDS: PANTOPRAZOLE 40 MG TABLET (FP) PO SCH ×3 (00:10→22:09)
[2018-12-08] MEDS: CALCIUM CARBONATE 650 MG TABLET PO SCH ×3 (00:10→22:09)
[2018-12-08] MEDS: BUDESONIDE/FORMETEROL FUMARATE 160/4.5 mcg INHALER IH SCH ×3 (00:13→22:08)
[2018-12-08] MEDS: FLUTICASONE PROP 0.05% 16 GM NASAL SPRAY NS SCH ×3 (00:14→22:08)
[2018-12-08] MEDS: ACETAMINOPHEN 325 MG TABLET (FP) PO PRN ×2 (05:07→05:57)
[2018-12-08] MEDS: LOSARTAN POTASSIUM 50 MG TABLET (FP) PO SCH ×2 (05:54→09:00)
[2018-12-08 07:55] LABS: HEMATOCRIT 32.7 % (32.4-45.2); HEMOGLOBIN 11.6 GM/dL (10.7-15.3); MCH 30.8 pg (25.7-33.7); MCHC 35.6 g/dl (32.0-36.0); MEAN CELL VOLUME 86.4 fl (80-96); MEAN PLT VOLUME 8.6 fl (7.5-11.1); PLATELET COUNT 187 K/MM3 (134-434); RBC 3.79 M/mm3 (3.60-5.2); RDW 13.5 % (11.6-15.6); WHITE BLOOD COUNT 13.2 K/mm3 (4.0-10.0)
[2018-12-08 07:59] LABS: ALBUMIN 2.2 g/dl (3.4-5.0); ALK PHOS 56 U/L (45-117); ANION GAP 7 MMOL/L (8-16); BILIRUBIN,TOTAL 0.6 mg/dL (0.2-1); BLOOD UREA NITROGEN 15 mg/dL (7-18); CALCIUM 7.9 mg/dL (8.5-10.1); CHLORIDE 103 mmol/L (98-107); CO2 26 mmol/L (21-32); CREATININE 0.6 mg/dL (0.55-1.3); GLUCOSE,RANDOM 85 mg/dL (74-106); MAGNESIUM 1.9 mg/dL (1.8-2.4); POTASSIUM 4.3 mmol/L (3.5-5.1); SGOT/AST 8 U/L (15-37); SGPT/ALT 17 U/L (13-61); SODIUM 137 mmol/L (136-145); TOT PROT 5.2 g/dl (6.4-8.2)
[2018-12-08] MEDS ORDERED: PT OWN MED DRAWER 7, Y5N ONE ×2 (08:43→21:58)
[2018-12-08] MEDS: AMINO ACIDS/PROTEIN HYDROLYS 30 ML LIQUID.PKT PO SCH ×2 (08:55→17:12)
[2018-12-08] MEDS: predniSONE 10 MG TABLET (UD) PO SCH (09:00)
[2018-12-08] MEDS: LORATADINE 10 MG TABLET PO SCH (09:00)
[2018-12-08] MEDS: TIOTROPIUM BROMIDE 2.5 MCG (SPIRIVA) RESPIMAT INHALER IH SCH (09:00)
[2018-12-08] MEDS: LIDOCAINE PATCH REMOVAL MC SCH (09:00)
[2018-12-08] MEDS: METHIMAZOLE 5 MG TABLET (FP) PO SCH (09:01)
--- NOTE | 2018-12-08 09:33 | PN ---
Progress Note (short form) - Note Progress Note: Renal follow up for ROMIE Pt seen and examined at the bedside no acute complaints feels a little better no sob, cp, abd pain, N/V making urine Vital Signs Temperature 98.1 F 12/08/18 05:26 Pulse Rate 74 12/08/18 05:26 Respiratory Rate 20 12/08/18 05:26 Blood Pressure 192/82 H 12/08/18 05:26 O2 Sat by Pulse Oximetry (%) 99 12/07/18 21:00 Intake & Output 12/05/18 12/06/18 12/07/18 12/08/18 23:59 23:59 23:59 23:59 Intake Total 480 850 20 Balance 480 850 20 Weight 72.575 kg 72.575 kg NAD awake and alert RRR CTA, no rales or wheeze soft NT/ND no LE edema CBC, BMP 12/08/18 07:00 12/08/18 07:00 Current Medications Acetaminophen (Tylenol -) 650 mg PO Q6H PRN PRN Reason: Fever Or Pain Last Admin: 12/08/18 05:57 Dose: 325 mg Albuterol Sulfate (Ventolin 0.083% Nebulizer Soln -) 1 amp NEB Q6H PRN PRN Reason: SHORT OF BREATH/WHEEZING Amino Acids (Prosource No Carb Liquid Pkt) 30 ml PO BID@0800,1730 [facility] Last Admin: 12/08/18 08:55 Dose: 30 ml Benzocaine/Menthol (Cepacol Lozenge -) 1 each MM PRN PRN PRN Reason: SORE THROAT Budesonide/Formoterol Fumarate (Symbicort 160/4.5mcg -) 2 puff IH BID [facility] Last Admin: 12/08/18 09:00 Dose: 2 puff Calcium Carbonate (Calcium Carbonate -) 650 mg PO BID [facility] Last Admin: 12/08/18 08:59 Dose: 650 mg Fluticasone Propionate (Flonase -) 1 spray NS BID [facility] Last Admin: 12/08/18 09:00 Dose: 1 spray Furosemide (Lasix -) 20 mg PO DAILY [facility] Insulin Aspart (Novolog Vial Sliding Scale -) 1 vial SQ [facility]; Protocol Last Admin: 12/08/18 06:28 Dose: Not Given Insulin Aspart (Novolog) 10 units SQ ONCE ONE Stop: 12/08/18 18:48 Ketorolac Tromethamine (Toradol Injection -) 15 mg IVPUSH Q6H PRN PRN Reason: PAIN LEVEL 6-10 Stop: 12/12/18 10:19 Lidocaine (Lidoderm Patch -) 1 patch TP DAILY@2200 [facility] Last Admin: 12/08/18 00:09 Dose: 1 patch Loratadine (Claritin -) 10 mg PO DAILY [facility] Last Admin: 12/08/18 09:00 Dose: 10 mg Losartan Potassium (Cozaar -) 100 mg PO DAILY [facility] Last Admin: 12/08/18 09:00 Dose: Not Given Methimazole (Tapazole -) 5 mg PO DAILY [facility] Last Admin: 12/08/18 09:01 Dose: 5 mg Methyl Salicylate ([place] -) 1 applic TP BID [facility] Last Admin: 12/08/18 08:59 Dose: 1 applic Miscellaneous (Lidoderm Patch Removal) 1 each MC DAILY@1000 [facility] Last Admin: 12/08/18 09:00 Dose: 1 each Montelukast Sodium (Singulair -) 10 mg PO [facility] Last Admin: 12/08/18 00:10 Dose: Not Given Pantoprazole Sodium (Protonix -) 40 mg PO BID [facility] Last Admin: 12/08/18 09:00 Dose: 40 mg Phenol/Menthol (Chloraseptic -) 1 spray MM Q6HPO PRN PRN Reason: SORE THROAT Prednisone (Deltasone -) 10 mg PO DAILY [facility] Last Admin: 12/08/18 09:00 Dose: 10 mg Rosuvastatin Calcium (Crestor -) 5 mg PO [facility] Last Admin: 12/08/18 00:10 Dose: Not Given Senna (Senna -) 1 tab PO [facility] Last Admin: 12/08/18 00:06 Dose: Not Given Sodium Chloride ([place] Nasal [place] -) 2 spray NS TID PRN PRN Reason: NASAL CONGESTION Tiotropium [place] (Spiriva Respimat) 2 puff IH DAILY [facility] Last Admin: 12/08/18 09:00 Dose: 2 puff 88 year old woman with hx of COPD/Asthma, Hypertension s/p recent admission for PNA/COPD who presented from home with a fall and weakness and noted to have hyponatremia, hypokalemia and hypocalcemia. #Hyponatremia #Hypokalemia #Hypocalcemia #Fall #weakness #Leukocytosis (? due to recent steroid use) Renal function and K stable (noted k yara to 6.3 yesterday and required kayexalate) Trend renal function and electrolytes oral intake as tolerated continue Losartan for BP Mamadou Gómez DO
--- NOTE | 2018-12-08 11:10 | EKG ---
Test Reason : Blood Pressure : / mmHG Vent. Rate : 083 BPM Atrial Rate : 083 BPM P-R Int : 172 ms QRS Dur : 070 ms QT Int : 344 ms P-R-T Axes : 046 018 058 degrees QTc Int : 404 ms NORMAL SINUS RHYTHM NORMAL ECG WHEN COMPARED WITH ECG OF 05-DEC-2018 23:51, NO SIGNIFICANT CHANGE WAS FOUND Confirmed by JANN DO MD ([id number]) on 12/08/2018 11:10:16 AM Referred By: Confirmed By:JANN DO MD
[2018-12-08] MEDS: Insulin (LOG) Aspart 100 UNITS/ML VIAL SQ ONE ×2 (14:42→18:43)
--- NOTE | 2018-12-08 20:22 | PN ---
Progress Note, Physician Chief Complaint: AWAKE ALERT FEELING BETTER IN CHAIR SITTING UP - Current Medication List Current Medications: Active Medications Acetaminophen (Tylenol -) 650 mg PO Q6H PRN PRN Reason: Fever Or Pain Last Admin: 12/08/18 05:57 Dose: 325 mg Albuterol Sulfate (Ventolin 0.083% Nebulizer Soln -) 1 amp NEB Q6H PRN PRN Reason: SHORT OF BREATH/WHEEZING Amino Acids (Prosource No Carb Liquid Pkt) 30 ml PO BID@0800,1730 [facility] Last Admin: 12/08/18 17:12 Dose: 30 ml Benzocaine/Menthol (Cepacol Lozenge -) 1 each MM PRN PRN PRN Reason: SORE THROAT Budesonide/Formoterol Fumarate (Symbicort 160/4.5mcg -) 2 puff IH BID [facility] Last Admin: 12/08/18 09:00 Dose: 2 puff Calcium Carbonate (Calcium Carbonate -) 650 mg PO BID [facility] Last Admin: 12/08/18 08:59 Dose: 650 mg Fluticasone Propionate (Flonase -) 1 spray NS BID [facility] Last Admin: 12/08/18 09:00 Dose: 1 spray Furosemide (Lasix -) 20 mg PO DAILY [facility] Insulin Aspart (Novolog Vial Sliding Scale -) 1 vial SQ ACHS [facility]; Protocol Last Admin: 12/08/18 17:11 Dose: 6 units Ketorolac Tromethamine (Toradol Injection -) 15 mg IVPUSH Q6H PRN PRN Reason: PAIN LEVEL 6-10 Stop: 12/12/18 10:19 Lidocaine (Lidoderm Patch -) 1 patch TP DAILY@2200 [facility] Last Admin: 12/08/18 00:09 Dose: 1 patch Loratadine (Claritin -) 10 mg PO DAILY [facility] Last Admin: 12/08/18 09:00 Dose: 10 mg Losartan Potassium (Cozaar -) 100 mg PO DAILY [facility] Last Admin: 12/08/18 09:00 Dose: Not Given Methimazole (Tapazole -) 5 mg PO DAILY [facility] Last Admin: 12/08/18 09:01 Dose: 5 mg Methyl Salicylate (Neal-King -) 1 applic TP BID [facility] Last Admin: 12/08/18 08:59 Dose: 1 applic Miscellaneous (Lidoderm Patch Removal) 1 each MC DAILY@1000 [facility] Last Admin: 12/08/18 09:00 Dose: 1 each Montelukast Sodium (Singulair -) 10 mg PO [facility] Last Admin: 12/08/18 00:10 Dose: Not Given Pantoprazole Sodium (Protonix -) 40 mg PO BID [facility] Last Admin: 12/08/18 09:00 Dose: 40 mg Phenol/Menthol (Chloraseptic -) 1 spray MM Q6HPO PRN PRN Reason: SORE THROAT Prednisone (Deltasone -) 10 mg PO DAILY [facility] Last Admin: 12/08/18 09:00 Dose: 10 mg Rosuvastatin Calcium (Crestor -) 5 mg PO [facility] Last Admin: 12/08/18 00:10 Dose: Not Given Senna (Senna -) 1 tab PO [facility] Last Admin: 12/08/18 00:06 Dose: Not Given Sodium Chloride ([place] Nasal [place] -) 2 spray NS TID PRN PRN Reason: NASAL CONGESTION Tiotropium [place] (Spiriva Respimat) 2 puff IH DAILY [facility] Last Admin: 12/08/18 09:00 Dose: 2 puff - Objective Vital Signs: Vital Signs Temperature 98.1 F 12/08/18 18:00 Pulse Rate 92 H 12/08/18 18:00 Respiratory Rate 17 12/08/18 18:00 Blood Pressure 174/87 H 12/08/18 18:00 O2 Sat by Pulse Oximetry (%) 98 12/08/18 10:00 Constitutional: Yes: No Distress Eyes: Yes: WNL HENT: Yes: WNL Neck: Yes: WNL Cardiovascular: Yes: WNL Respiratory: Yes: WNL Musculoskeletal: Yes: Back Pain, Muscle Pain Extremities: Yes: WNL Edema: No Peripheral Pulses WNL: Yes Integumentary: Yes: WNL Neurological: Yes: Alert, Oriented Psychiatric: Yes: WNL Labs: CBC, BMP 12/08/18 07:00 12/08/18 07:00 Problem List - Problems (1) Contusion of left knee Code(s): S80.02XA - CONTUSION OF LEFT KNEE, INITIAL ENCOUNTER (2) Generalized weakness Code(s): R53.1 - WEAKNESS (3) Hypokalemia Code(s): E87.6 - HYPOKALEMIA (4) Poor appetite Code(s): R63.0 - ANOREXIA (5) COPD exacerbation Code(s): J44.1 - CHRONIC OBSTRUCTIVE PULMONARY DISEASE W (ACUTE) EXACERBATION (6) DM2 (diabetes mellitus, type 2) Code(s): E11.9 - TYPE 2 DIABETES MELLITUS WITHOUT COMPLICATIONS Assessment/Plan PT ZELDA DAWSON CONSULT PMR MAY NEED SNF REPLETED ELECTROLYTES APPETITE IMPROVING
[2018-12-09] MEDS: LOSARTAN POTASSIUM 50 MG TABLET (FP) PO SCH ×2 (05:43→10:08)
[2018-12-09] MEDS: INSULIN SLIDING SCALE (NOVOLOG) 1 VIAL SQ SCH ×4 (05:59→21:20)
--- NOTE | 2018-12-09 08:41 | PN ---
Progress Note (short form) - Note Progress Note: Ortho Pt seen and examined- feeling much better left knee and c-spine Selected Entries 12/09/18 12/09/18 05:35 06:44 Temperature 98.5 F Pulse Rate 78 Respiratory 18 Rate Blood Pressure 182/86 H Laboratory Tests 12/08/18 07:00 WBC 13.2 H Hgb 11.6 Hct 32.7 Plt Count 187 decr swelling and ttp, incr rom nvi a/p PT wbat pain control as pt is feeling much better will hold off on cortisone inj d/w Dr. Causey
[2018-12-09] MEDS ORDERED: PT OWN MED DRAWER 7, Y5N ONE ×3 (09:56→21:06)
[2018-12-09] MEDS: PANTOPRAZOLE 40 MG TABLET (FP) PO SCH ×2 (10:08→21:22)
[2018-12-09] MEDS: LORATADINE 10 MG TABLET PO SCH (10:08)
[2018-12-09] MEDS: predniSONE 10 MG TABLET (UD) PO SCH (10:09)
[2018-12-09] MEDS: LIDOCAINE PATCH REMOVAL MC SCH (10:09)
[2018-12-09] MEDS: METHIMAZOLE 5 MG TABLET (FP) PO SCH (10:09)
[2018-12-09] MEDS: AMINO ACIDS/PROTEIN HYDROLYS 30 ML LIQUID.PKT PO SCH ×2 (10:09→16:37)
[2018-12-09] MEDS: CALCIUM CARBONATE 650 MG TABLET PO SCH ×2 (10:09→21:21)
[2018-12-09] MEDS: METHYL SALICYLATE/MENTHOL OINT 30 GM TUBE TP SCH ×2 (10:18→21:22)
[2018-12-09] MEDS: BUDESONIDE/FORMETEROL FUMARATE 160/4.5 mcg INHALER IH SCH ×2 (10:18→21:23)
[2018-12-09] MEDS: TIOTROPIUM BROMIDE 2.5 MCG (SPIRIVA) RESPIMAT INHALER IH SCH (10:18)
[2018-12-09] MEDS: FLUTICASONE PROP 0.05% 16 GM NASAL SPRAY NS SCH ×2 (10:18→21:22)
--- NOTE | 2018-12-09 11:09 | CONS ---
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 The patient denies any head trauma or loss of consciousness. On admission, the patient underwent CT of the head, which showed no acute intracranial pathology. It did show [id number] periventricular and subcortical chronic microvascular ischemic changes, possible paranasal sinus disease, hnpk-gt-uhftvraa mucosal thickening, possible acute or subacute sinusitis. The patient, because of the knee trauma, underwent x-rays to bilateral knees. There was no fracture noted. In the left knee, there was zmgdwqah-ng-lgfeav osteoarthritis of the medial femoral tibial joint compartment. The patient underwent a CT of the cervical spine, which showed marked C5-C6 and C6-C7 disk changes. There were wasztatg-wy-rtunzw C3-C4 disk changes, spondylosis, and bilateral qbeeoulc-ct-jkcqrz facet arthropathy. Ultrasound of the lower extremities failed to demonstrate any evidence of deep vein thrombosis on December 07. On admission, the patient had electrolyte abnormalities with a sodium low at 130, potassium 2.9. Her chloride was low at 93. She had leukocyte esterase with WBCs 17.5, hemoglobin normal 13.9, platelet count 208. Troponin was slightly elevated at 0.07 and increased to 0.09 on subsequent testing. Her albumin was low at 2.3. Most recent blood work on December 08, she continued to have mild leukocytosis with WBCs 13.2, hemoglobin stable at 11.6, and platelet count normal at 187. Chemistry normalized with sodium 137, potassium 4.3, chloride 103, CO2 is 26, BUN 15, creatinine 0.6. Her albumin remains low at 2.2. The patient states she is having difficulty ambulating. She was seen by Orthopaedics, and she may undergo cortisone injection in the left knee today. The patient continues to complain of mild right-sided neck discomfort and left knee pain. No numbness or tingling. She occasionally gets some left ankle pain where she underwent ORIF. She also gets shortness of breath with exertion currently on oxygen. She does not use oxygen at home. PAST MEDICAL HISTORY: As above. Hypertension, hyperlipidemia. She also had a recent admission with pneumonia and possible COPD exacerbation. PAST SURGICAL HISTORY: As above. She had a right foot or ankle fracture, which was treated with a boot and a hernia repair. SOCIAL HISTORY: No tobacco, no alcohol. Lives in a private house. Her son resides with her. She has about 3 steps to enter. Premorbidly she ambulated with a straight cane. Current function, she needs assistance because of the left knee. REVIEW OF SYSTEMS: She denies any headache, any lightheadedness, dizziness, any blurry vision or double vision. She is hard of hearing but can hear when presented in a loud voice. No nausea, vomiting, difficulty swallowing, difficulty chewing, but she has had poor appetite. She has dyspnea with exertion but no dyspnea at rest. No chest pain or abdominal pain. She is urinating and moving her bowels, although she states a laxative. She moved her bowels quite a bit yesterday, may have been loose. She has pain in the right side of her neck but no numbness, tingling, or weakness in the upper extremities. In the lower extremities, she has left anterior and medial knee pain and some mild swelling distally in the left lower extremity with left ankle pain. No numbness or tingling. No right knee pain or right foot pain. Again, she has difficulty ambulating. No significant weight gain. Perhaps some weight loss but she is unsure. PHYSICAL EXAMINATION: General: An overweight woman seen sitting in a chair at the bedside. She is awake and cooperative in no acute distress. HEENT: She is normocephalic and atraumatic. Her extraocular muscles appear intact. She has no obvious facial weakness. No oral ulcers. Neck: She has mild tenderness in the right side of her cervical spine and paraspinals, proximal upper trapezius. Worse with rotation to the right. Slightly improved with rotated to the left but limited in all plane. Extremities: She has slight edema of the left lower extremity, trace to +1. No calf tenderness. Right lower extremity, trace without any calf tenderness. Skin: Without any breakdown or erythema noted. No ecchymosis. Neuromuscular: She is awake and alert. She is fully oriented x3. Cranial nerves, she is a little hard of hearing but can hear when presented in a loud voice. Otherwise, 2-12 are grossly intact. She has some arthritic changes in the hands, which are not limiting and fairly good range throughout her upper limbs well within functional limits and at least 4+/5 strength. Normal sensation to light touch. Symmetric reflexes in the lower extremities. She has crepitus and mild joint line tenderness in the left knee but no large joint effusion. Right knee, no medial or lateral joint line tenderness. She has slight tenderness in the left ankle, but fairly good range of motion. Strength at least 3+/5 in proximal left lower extremity and 4/5 in the right lower extremity with good distal dorsiflexion and plantar flexion. Normal sensation to light touch and symmetric reflexes. Toes are downgoing. OVERALL IMPRESSION: 1. Deficits in mobility and activities of daily living. 2. Left knee pain with underlying knee osteoarthritis and probable contusion status post fall. 3. Right-sided neck pain. 4. Underlying chronic obstructive pulmonary disease. 5. Leukocytosis, which maybe due to oral prednisone. 6. Electrolyte abnormalities, resolving. 7. Hypoalbuminemia. 8. History of diabetes without any evidence of peripheral neuropathy. 9. Hypertension. 10. Hyperlipidemia. 11. Elevated body mass index. 12. History of right foot fracture status post boot. 13. History of left ankle fracture, open reduction internal fixation, possible underlying osteoarthritis. PLAN/SUGGESTION: 1. Physical therapy at the bedside to include bed mobility, transfers, gait training, strengthening, reconditioning. Family training is appropriate. 2. Continue out of bed to chair. 3. Orthopaedic follow up for possible left knee cortisone injection. 4. Monitor electrolytes. 5. Consider dietary supplement. 6. DVT prophylaxis suggested until more mobile. Would consider subcutaneous heparin 5000 units q.12 hours. 7. Tylenol for pain. 8. Agree with Lidoderm patch to the left knee. 9. Patient can probably return home with home care if she is able to stand and ambulate versus short-term rehabilitation in a [facility] facility depending on the length of hospitalization and medical status. Thank you for this consultation. NILS DAWSON M.D. [id number]
--- NOTE | 2018-12-09 15:18 | PN ---
Progress Note, Physician Chief Complaint: ASLEEP, COMFORTABLE DENIES CHEST PAIN OR SOB WALKED WITH PT TODAY - Current Medication List Current Medications: Active Medications Acetaminophen (Tylenol -) 650 mg PO Q6H PRN PRN Reason: Fever Or Pain Last Admin: 12/08/18 05:57 Dose: 325 mg Albuterol Sulfate (Ventolin 0.083% Nebulizer Soln -) 1 amp NEB Q6H PRN PRN Reason: SHORT OF BREATH/WHEEZING Last Admin: 12/08/18 20:35 Dose: 1 amp Amino Acids (Prosource No Carb Liquid Pkt) 30 ml PO BID@0800,1730 [facility] Last Admin: 12/09/18 10:09 Dose: 30 ml Benzocaine/Menthol (Cepacol Lozenge -) 1 each MM PRN PRN PRN Reason: SORE THROAT Budesonide/Formoterol Fumarate (Symbicort 160/4.5mcg -) 2 puff IH BID [facility] Last Admin: 12/09/18 10:18 Dose: 2 puff Calcium Carbonate (Calcium Carbonate -) 650 mg PO BID [facility] Last Admin: 12/09/18 10:09 Dose: 650 mg Fluticasone Propionate (Flonase -) 1 spray NS BID [facility] Last Admin: 12/09/18 10:18 Dose: 1 spray Furosemide (Lasix -) 20 mg PO DAILY [facility] Insulin Aspart (Novolog Vial Sliding Scale -) 1 vial SQ ACHS [facility]; Protocol Last Admin: 12/09/18 11:22 Dose: Not Given Ketorolac Tromethamine (Toradol Injection -) 15 mg IVPUSH Q6H PRN PRN Reason: PAIN LEVEL 6-10 Stop: 12/12/18 10:19 Lidocaine (Lidoderm Patch -) 1 patch TP DAILY@2200 [facility] Last Admin: 12/08/18 22:08 Dose: 1 patch Loratadine (Claritin -) 10 mg PO DAILY [facility] Last Admin: 12/09/18 10:08 Dose: 10 mg Losartan Potassium (Cozaar -) 100 mg PO DAILY [facility] Last Admin: 12/09/18 10:08 Dose: Not Given Methimazole (Tapazole -) 5 mg PO DAILY [facility] Last Admin: 12/09/18 10:09 Dose: 5 mg Methyl Salicylate (Neal-King -) 1 applic TP BID [facility] Last Admin: 12/09/18 10:18 Dose: 1 applic Miscellaneous (Lidoderm Patch Removal) 1 each MC DAILY@1000 [facility] Last Admin: 12/09/18 10:09 Dose: 1 each Montelukast Sodium (Singulair -) 10 mg PO [facility] Last Admin: 12/08/18 22:09 Dose: 10 mg Pantoprazole Sodium (Protonix -) 40 mg PO BID [facility] Last Admin: 12/09/18 10:08 Dose: 40 mg Phenol/Menthol (Chloraseptic -) 1 spray MM Q6HPO PRN PRN Reason: SORE THROAT Prednisone (Deltasone -) 10 mg PO DAILY [facility] Last Admin: 12/09/18 10:09 Dose: 10 mg Rosuvastatin Calcium (Crestor -) 5 mg PO [facility] Last Admin: 12/08/18 22:09 Dose: 5 mg Senna (Senna -) 1 tab PO [facility] Last Admin: 12/08/18 21:59 Dose: Not Given Sodium Chloride ([place] Nasal [place] -) 2 spray NS TID PRN PRN Reason: NASAL CONGESTION Tiotropium [place] (Spiriva Respimat) 2 puff IH DAILY [facility] Last Admin: 12/09/18 10:18 Dose: 2 puff - Objective Vital Signs: Vital Signs Temperature 97.9 F 12/09/18 14:00 Pulse Rate 92 H 12/09/18 14:00 Respiratory Rate 18 12/09/18 14:00 Blood Pressure 150/78 12/09/18 14:00 O2 Sat by Pulse Oximetry (%) 97 12/09/18 09:00 Constitutional: Yes: Mild Distress Eyes: Yes: WNL HENT: Yes: WNL Neck: Yes: WNL Cardiovascular: Yes: WNL Respiratory: Yes: WNL Gastrointestinal: Yes: WNL Genitourinary: Yes: WNL Musculoskeletal: Yes: Back Pain, Muscle Pain, Muscle Weakness Extremities: Yes: WNL Edema: No Peripheral Pulses WNL: Yes Integumentary: Yes: WNL Wound/Incision: Yes: Clean/Dry Neurological: Yes: WNL ...Motor Strength: WNL Psychiatric: Yes: WNL Labs: CBC, BMP 12/08/18 07:00 12/08/18 07:00 Problem List - Problems (1) Contusion of left knee Code(s): S80.02XA - CONTUSION OF LEFT KNEE, INITIAL ENCOUNTER (2) Generalized weakness Code(s): R53.1 - WEAKNESS (3) Hypokalemia Code(s): E87.6 - HYPOKALEMIA (4) Poor appetite Code(s): R63.0 - ANOREXIA (5) COPD exacerbation Code(s): J44.1 - CHRONIC OBSTRUCTIVE PULMONARY DISEASE W (ACUTE) EXACERBATION (6) DM2 (diabetes mellitus, type 2) Code(s): E11.9 - TYPE 2 DIABETES MELLITUS WITHOUT COMPLICATIONS Assessment/Plan PT EVAL DR DAWSON CONSULT PMR MAY NEED SNF REPLETED ELECTROLYTES APPETITE IMPROVING CONTINUE CURRENT CARE OOB TO CHAIR
[2018-12-09] MEDS: LIDOCAINE 5% TOPICAL PATCH TP SCH (21:21)
[2018-12-09] MEDS: SENNOSIDES 8.6MG TABLET (FP) PO SCH (21:21)
[2018-12-09] MEDS: ROSUVASTATIN CA 5 MG TABLET (FP) PO SCH (21:22)
[2018-12-09] MEDS: MONTELUKAST NA 10 MG TABLET PO SCH (21:22)
[2018-12-10] MEDS: INSULIN SLIDING SCALE (NOVOLOG) 1 VIAL SQ SCH ×2 (06:07→12:05)
[2018-12-10 07:43] LABS: ANION GAP 8 MMOL/L (8-16); BLOOD UREA NITROGEN 20 mg/dL (7-18); CALCIUM 8.6 mg/dL (8.5-10.1); CHLORIDE 101 mmol/L (98-107); CO2 30 mmol/L (21-32); CREATININE 0.5 mg/dL (0.55-1.3); GLUCOSE,RANDOM 91 mg/dL (74-106); MAGNESIUM 1.8 mg/dL (1.8-2.4); POTASSIUM 3.2 mmol/L (3.5-5.1); SODIUM 140 mmol/L (136-145)
[2018-12-10] MEDS ORDERED: POTASSIUM CHLORIDE TABS 20 MEQ TABLET.ER (FP) PO ONE (08:18)
--- NOTE | 2018-12-10 08:19 | DS ---
Physical Examination Vital Signs: Vital Signs Temperature 98.7 F 12/10/18 06:00 Pulse Rate 81 12/10/18 06:00 Respiratory Rate 18 12/10/18 06:00 Blood Pressure 161/76 12/10/18 06:00 O2 Sat by Pulse Oximetry (%) 96 12/09/18 20:21 Constitutional: Yes: Mild Distress Eyes: Yes: WNL HENT: Yes: WNL Neck: Yes: WNL Cardiovascular: Yes: WNL Respiratory: Yes: Wheezes Gastrointestinal: Yes: WNL Renal/: Yes: WNL Musculoskeletal: Yes: Back Pain, Joint Stiffness, Muscle Pain, Muscle Weakness Extremities: Yes: WNL Edema: No Integumentary: Yes: WNL Wound/Incision: Yes: Clean/Dry Neurological: Yes: Unsteady Gait ...Motor Strength: LLE, RLE Psychiatric: Yes: WNL Labs: CBC, BMP 12/08/18 07:00 12/10/18 06:15 Discharge Summary Reason For Visit: ELEVATED TROPONIN LEVEL PNEUMONIA HYPOKALEMIA Current Active Problems CHF (congestive heart failure) (Acute) Contusion of left knee (Acute) Elevated troponin (Acute) Generalized weakness (Acute) Hypokalemia (Acute) Poor appetite (Acute) Hospital Course: ADMITTED FOR WEAKNES,ARF,DEHYDRATION WITH A FALL AT HOME. TREATED WITH IVF, ELECTROLYTE REPLACEMENT, NEEDS SNF Condition: Good - Instructions Diet, Activity, Other Instructions: SEE DR ESPINAL AFTER SNF Disposition: ASSISTED FACILITY - Home Medications Comprehensive Discharge Medication List: Ambulatory Orders Diltiazem [Cardizem -] 300 mg PO HS 03/09/17 Sitagliptin Phos/Metformin HCl [Janumet 50-500 mg Tablet] 1 each PO HS 03/09/17 Tiotropium [place] [Spiriva] 1 inh IH DAILY 03/09/17 Losartan Potassium 100 mg PO DAILY 11/21/18 Acetaminophen [Tylenol .Regular Strength -] 650 mg PO Q6H PRN tablet 12/02/18 Albuterol 0.083% Nebulizer Alysa [Ventolin 0.083% Nebulizer Soln -] 1 amp NEB Q4H PRN amp 12/02/18 Budesonide/Formeterol Fumarate [SYMBICORT 160/4.5mcg -] 2 puff IH BID inhaler 12/02/18 Furosemide [Lasix -] 20 mg PO DAILY tablet 12/02/18 Methimazole [Tapazole -] 5 mg PO DAILY #30 tablet 12/02/18 Montelukast Na [Singulair -] 10 mg PO HS tablet 12/02/18 Pantoprazole Sodium [Protonix -] 40 mg PO BID #60 tablet.ec 12/02/18 Rosuvastatin [Crestor -] 5 mg PO HS tablet 12/02/18 Sennosides [Senna -] 1 tab PO HS tablet 12/02/18 predniSONE [Deltasone -] See Taper PO BID tablet 12/02/18 Acetaminophen [Tylenol .Regular Strength -] 650 mg PO Q6H PRN tablet 12/10/18 Albuterol 0.083% Nebulizer Alysa [Ventolin 0.083% Nebulizer Soln -] 1 amp NEB Q6H PRN amp 12/10/18 Amino Acids/Protein Hydrolys [Prosource No Carb Liquid Pkt] 30 ml PO BID@0800, 1730 packet 12/10/18 Budesonide/Formeterol Fumarate [SYMBICORT 160/4.5mcg -] 2 puff IH BID inhaler 12/10/18 Calcium Carbonate - 650 mg PO BID tablet 12/10/18 Fluticasone Prop 0.05% Nasal [Flonase -] 1 spray NS BID spray 12/10/18 Furosemide [Lasix -] 20 mg PO DAILY tablet 12/10/18 Insulin Sliding Scale [Novolog Vial Sliding Scale -] 1 vial SQ ACHS units 12/10 Lidocaine 5% Patch [Lidoderm -] 1 patch TP DAILY@2200 patch 12/10/18 Losartan Potassium [Cozaar -] 100 mg PO DAILY tablet 12/10/18 Methimazole [Tapazole -] 5 mg PO DAILY tablet 12/10/18 Methyl Salicylate/Menthol Oint [Analgesic Mathias -] 1 applic TP BID applic Montelukast Na [Singulair -] 10 mg PO HS tablet 12/10/18 Pantoprazole Sodium [Protonix -] 40 mg PO BID tablet.ec 12/10/18 Phenol [Chloraseptic -] 1 spray MM Q6HPO PRN bottle 12/10/18 Rosuvastatin [Crestor -] 5 mg PO HS tablet 12/10/18 Sennosides [Senna -] 1 tab PO HS tablet 12/10/18 Sodium Chloride Nasal [place] [[place] Nasal [place] -] 2 spray NS TID PRN spray 12/10/18 Tiotropium [place] [Spiriva Respimat] 2 puff IH DAILY inhaler 12/10/18 predniSONE [Deltasone -] 10 mg PO DAILY tablet 12/10/18
[2018-12-10] MEDS ORDERED: PT OWN MED DRAWER 7, Y5N ONE (08:34)
[2018-12-10] MEDS: CALCIUM CARBONATE 650 MG TABLET PO SCH (09:12)
[2018-12-10] MEDS: AMINO ACIDS/PROTEIN HYDROLYS 30 ML LIQUID.PKT PO SCH (09:12)
[2018-12-10] MEDS: predniSONE 10 MG TABLET (UD) PO SCH (09:12)
[2018-12-10] MEDS: METHIMAZOLE 5 MG TABLET (FP) PO SCH (09:13)
[2018-12-10] MEDS: PANTOPRAZOLE 40 MG TABLET (FP) PO SCH (09:14)
[2018-12-10] MEDS: LORATADINE 10 MG TABLET PO SCH (09:15)
[2018-12-10] MEDS: LOSARTAN POTASSIUM 50 MG TABLET (FP) PO SCH (09:15)
[2018-12-10] MEDS: BUDESONIDE/FORMETEROL FUMARATE 160/4.5 mcg INHALER IH SCH (09:15)
[2018-12-10] MEDS: FLUTICASONE PROP 0.05% 16 GM NASAL SPRAY NS SCH (09:23)
[2018-12-10] MEDS: METHYL SALICYLATE/MENTHOL OINT 30 GM TUBE TP SCH (09:23)
[2018-12-10] MEDS: TIOTROPIUM BROMIDE 2.5 MCG (SPIRIVA) RESPIMAT INHALER IH SCH (09:23)
[2018-12-10] MEDS: LIDOCAINE PATCH REMOVAL MC SCH (09:29)
[2018-12-10 11:00] VITALS: TEMP 98.2
--- NOTE | 2018-12-10 11:36 | PN ---
Progress Note (short form) - Note Progress Note: Renal follow up for ROMIE Pt seen and examined at the bedside no acute complaints no sob, cp, abd pain, N/V making urine Vital Signs Temperature 98.2 F 12/10/18 10:00 Pulse Rate 81 12/10/18 10:00 Respiratory Rate 18 12/10/18 10:00 Blood Pressure 161/75 12/10/18 10:00 O2 Sat by Pulse Oximetry (%) 98 12/10/18 09:00 Intake & Output 12/07/18 12/08/18 12/09/18 12/10/18 23:59 23:59 23:59 23:59 Intake Total 850 430 550 100 Balance 850 430 550 100 Weight 55.962 kg NAD awake and alert RRR CTA, no rales or wheeze soft NT/ND no LE edema CBC, BMP 12/08/18 07:00 12/10/18 06:15 Current Medications Acetaminophen (Tylenol -) 650 mg PO Q6H PRN PRN Reason: Fever Or Pain Last Admin: 12/08/18 05:57 Dose: 325 mg Albuterol Sulfate (Ventolin 0.083% Nebulizer Soln -) 1 amp NEB Q6H PRN PRN Reason: SHORT OF BREATH/WHEEZING Last Admin: 12/08/18 20:35 Dose: 1 amp Amino Acids (Prosource No Carb Liquid Pkt) 30 ml PO BID@0800,1730 [facility] Last Admin: 12/10/18 09:12 Dose: 30 ml Benzocaine/Menthol (Cepacol Lozenge -) 1 each MM PRN PRN PRN Reason: SORE THROAT Budesonide/Formoterol Fumarate (Symbicort 160/4.5mcg -) 2 puff IH BID [facility] Last Admin: 12/10/18 09:15 Dose: 2 puff Calcium Carbonate (Calcium Carbonate -) 650 mg PO BID [facility] Last Admin: 12/10/18 09:12 Dose: 650 mg Fluticasone Propionate (Flonase -) 1 spray NS BID [facility] Last Admin: 12/10/18 09:23 Dose: 1 spray Furosemide (Lasix -) 20 mg PO DAILY [facility] Last Admin: 12/10/18 09:15 Dose: 20 mg Insulin Aspart (Novolog Vial Sliding Scale -) 1 vial SQ ACHS [facility]; Protocol Last Admin: 12/10/18 06:07 Dose: Not Given Ketorolac Tromethamine (Toradol Injection -) 15 mg IVPUSH Q6H PRN PRN Reason: PAIN LEVEL 6-10 Stop: 12/12/18 10:19 Lidocaine (Lidoderm Patch -) 1 patch TP DAILY@2200 [facility] Last Admin: 12/09/18 21:21 Dose: 1 patch Loratadine (Claritin -) 10 mg PO DAILY [facility] Last Admin: 12/10/18 09:15 Dose: 10 mg Losartan Potassium (Cozaar -) 100 mg PO DAILY [facility] Last Admin: 12/10/18 09:15 Dose: 100 mg Methimazole (Tapazole -) 5 mg PO DAILY [facility] Last Admin: 12/10/18 09:13 Dose: 5 mg Methyl Salicylate (Neal-King -) 1 applic TP BID [facility] Last Admin: 12/10/18 09:23 Dose: 1 applic Miscellaneous (Lidoderm Patch Removal) 1 each MC DAILY@1000 [facility] Last Admin: 12/10/18 09:29 Dose: Not Given Montelukast Sodium (Singulair -) 10 mg PO HS [facility] Last Admin: 12/09/18 21:22 Dose: 10 mg Pantoprazole Sodium (Protonix -) 40 mg PO BID [facility] Last Admin: 12/10/18 09:14 Dose: 40 mg Phenol/Menthol (Chloraseptic -) 1 spray MM Q6HPO PRN PRN Reason: SORE THROAT Prednisone (Deltasone -) 10 mg PO DAILY [facility] Last Admin: 12/10/18 09:12 Dose: 10 mg Rosuvastatin Calcium (Crestor -) 5 mg PO [facility] Last Admin: 12/09/18 21:22 Dose: 5 mg Senna (Senna -) 1 tab PO HS [facility] Last Admin: 12/09/18 21:21 Dose: 1 tab Sodium Chloride ([place] Nasal [place] -) 2 spray NS TID PRN PRN Reason: NASAL CONGESTION Tiotropium [place] (Spiriva Respimat) 2 puff IH DAILY [facility] Last Admin: 12/10/18 09:23 Dose: 2 puff 88 year old woman with hx of COPD/Asthma, Hypertension s/p recent admission for PNA/COPD who presented from home with a fall and weakness and noted to have hyponatremia, hypokalemia and hypocalcemia. #Hyponatremia #Hypokalemia #Hypocalcemia #Fall #weakness #Leukocytosis (? due to recent steroid use) Renal function and electrolytes stable stable for discharge continue losartan and lasix Mamadou Gómez DO
--- NOTE | 2018-12-10 13:49 | PN ---
Progress Note (short form) - Note Progress Note: Patient seen for diabetic foot check. Complains of lesion under left foot and left knee pain. nvs decreased b/l, +mycotic nails b/l feet, -cellulitis, -ulceration, +xerosis b /l feet, +cystic lesion sub met 2 cystic lesion xerosis DM r/o neuropathy Ammonium lactate BID to feet. Foot care q 8 weeks. Diabetic foot care education given. Awaiting ortho for knee pain eval left.
[2018-12-10 15:37] VITALS: BP 160/79; PULSE 88
[2018-12-10] MEDS ORDERED: amLODIPine BESYLATE 5 MG TABLET (FP) PO STA (16:56)
== END 2018-12-10 17:28 | DRG 191 ==
LOC: JER 17:59 → JERBED 23:58 → J4S 12-06 18:11
PROVIDERS: ADMIT Family Medicine; ATTEND Family Medicine
DX: J44.1 Chronic obstructive pulmonary disease with (acute) exacerbation (principal); E87.1 Hypo-osmolality and hyponatremia; N17.9 Acute kidney failure, unspecified; R53.1 Weakness; S80.02XA Contusion of left knee, initial encounter; E86.0 Dehydration; E87.6 Hypokalemia; E11.9 Type 2 diabetes mellitus without complications; E83.51 Hypocalcemia; L85.3 Xerosis cutis; M17.12 Unilateral primary osteoarthritis, left knee; M47.892 Other spondylosis, cervical region; D72.829 Elevated white blood cell count, unspecified; Z79.4 Long term (current) use of insulin; R63.0 Anorexia; I11.0 Hypertensive heart disease with heart failure; I50.9 Heart failure, unspecified; E78.5 Hyperlipidemia, unspecified; W19.XXXA Unspecified fall, initial encounter; Y93.9 Activity, unspecified; Y92.89 Other specified places as the place of occurrence of the external cause; Y99.9 Unspecified external cause status
CPT/HCPCS: 36415; 70450-TC; 71045-TC-FY; 72125-TC; 73562-TC-LT-FY; 73562-TC-RT-FY; 80048; 80053; 81003; 82550; 82962; 83605; 83735; 83880; 84100; 84132; 84484; 85025; 85027; 87040; 87086; 93005; 93010; 93971-TC; 94640; 97116-GP; 97161-GP; 99285-25; J0131; J7030

== ENCOUNTER 2019-05-01 07:25 | Inpatient (IN) | payer OTHER, BC ==
[2019-05-01] MEDS ORDERED: ALBUTEROL SO4 2.5/IPRATROPIUM 0.5 INH SOL 3 ML VIAL.NEB. NEB ONE ×2 (08:13→08:16)
[2019-05-01] MEDS ORDERED: predniSONE 10 MG TABLET (UD) PO ONE (08:19)
--- NOTE | 2019-05-01 08:24 | PDOC ---
History of Present Illness - General Chief Complaint: Shortness of Breath Stated Complaint: SOB Time Seen by Provider: 05/01/19 07:59 - History of Present Illness Initial Comments: 05/01/19 09:21 88F with pmh of HTN, DM, HLD, COPD presents to the Ed for sob and chills overnight. She admits to some mild sore throat and cough. She states that she alternated feeling hot and cold at night. Not on home O2. Taking prednisone 10mg daily for 30 years. Didn't take any of her medication this morning. Patient saturating in the low 90's on room air. Past History - Past Medical History Allergies/Adverse Reactions: Allergies Allergy/AdvReac Type Severity Reaction Status Date / Time No Known Drug Allergies Allergy Verified 05/01/19 08:08 Home Medications: Ambulatory Orders Acetaminophen 650 mg PO PRN PRN 05/01/19 Albuterol 0.083% Nebulizer Alysa [Ventolin 0.083%] 1 neb NEB Q4H PRN 05/01/19 Budesonide/Formeterol Fumarate [SYMBICORT 160/4.5mcg -] 2 inh PO BID 05/01/19 Diltiazem Cd [Cardizem Cd -] 300 mg PO HS 05/01/19 Losartan Potassium 100 mg PO DAILY 05/01/19 Montelukast Na [Singulair -] 10 mg PO HS 05/01/19 Rosuvastatin Calcium [Crestor] 5 mg PO HS 05/01/19 Sennosides [Senna -] 1 tab PO HS 05/01/19 Sitagliptin Phos/Metformin HCl [Janumet 50-500 mg Tablet] 1 each PO HS 05/01/19 Tiotropium [place] [Spiriva Respimat] 1 puff IH DAILY 05/01/19 Anemia: No Asthma: Yes Cancer: No Cardiac Disorders: No CVA: No COPD: Yes CHF: No Dementia: No Diabetes: Yes ([id number]) GI Disorders: Yes (H/O HEMORROIDS) Disorders: No HTN: Yes Hypercholesterolemia: Yes Liver Disease: No Seizures: No Thyroid Disease: No - Surgical History Abdominal Surgery: Yes (umbilical hernia, bilateral inguinal hernias BY Dr. ZAVALA) Appendectomy: No Cardiac Surgery: No Cholecystectomy: No Lung Surgery: No Neurologic Surgery: No Orthopedic Surgery: Yes (Ankle) - Immunization History Immunization Up to Date: Yes - Suicide/Smoking/Psychosocial Hx Smoking Status: No Smoking History: Never smoked Have you smoked in the past 12 months: No Number of Cigarettes Smoked Daily: 0 Cigars Per Day: 0 Information on smoking cessation initiated: No Hx Alcohol Use: No Drug/Substance Use Hx: No Substance Use Type: None Hx Substance Use Treatment: No Review of Systems - Review of Systems Able to Perform ROS?: Yes Is the patient limited Danish proficient: No Constitutional: Yes: See HPI HEENTM: Yes: See HPI Respiratory: Yes: See HPI, Cough, Shortness of Breath Cardiac (ROS): No: Symptoms Reported ABD/GI: No: Symptoms Reported : No: Symptoms Reported Musculoskeletal: No: Symptoms Reported Integumentary: No: Symptoms Reported Neurological: No: Symptoms reported All Other Systems: Reviewed and Negative *Physical Exam - Vital Signs Last Vital Signs Temp Pulse Resp BP Pulse Ox 98.2 F 50 L 16 180/88 H 100 05/01/19 07:25 05/01/19 07:25 05/01/19 07:25 05/01/19 07:25 05/01/19 07:25 - Physical Exam General Appearance: Yes: Nourished, Appropriately Dressed. No: Apparent Distress HEENT: positive: EOMI, PIERRE, Normal ENT Inspection. negative: Pharyngeal Erythema, Tonsillar Exudate, Tonsillar Erythema, Sinus Tenderness Respiratory/Chest: positive: Lungs Clear, Normal Breath Sounds. negative: Chest Tender, Respiratory Distress Cardiovascular: positive: Bradycardia Gastrointestinal/Abdominal: positive: Normal Bowel Sounds, Flat, Soft. negative : Tender Extremity: positive: Normal Capillary Refill, Normal Inspection, Normal Range of Motion Integumentary: positive: Normal Color, Dry, Warm Neurologic: positive: Fully Oriented, Alert, Normal Mood/Affect, Normal Response , Motor Strength 5/5 ED Treatment Course - LABORATORY CBC & Chemistry Diagram: 05/01/19 08:37 05/01/19 08:37 - RADIOLOGY Radiology Studies Ordered: Category Date Time Status CXRPORT [CHEST X-RAY PORTABLE*] [RAD] Stat Radiology 05/01/19 08:10 Ordered - Medications Given in the ED: ED Medications Discontinued Medications Generic Name Dose Route Start Last Admin Trade Name Freq PRN Reason Stop Dose Admin Albuterol/Ipratropium 2 amp 05/01/19 08:13 05/01/19 08:20 Duoneb - NEB 05/01/19 08:14 2 amp ONCE ONE Administration Medical Decision Making - Medical Decision Making 05/01/19 11:20 88F with pmh of HTN, DM, HLD, COPD presents to the Ed for sob and chills overnight. Patient hypoxic here, treated for COPD exacerbation but also considering pneumonia due the chills, even though no fever) Bradycardia possibly due to mild adrenal insufficiency. Back to normal after treatment with solumedrol. Patient satturating at 100% on low O2 nasal canulla. Mild elevation in wbc likely due to chronic prednisone use. CXR negative for acute processes. This is more likely to be mild copd but as the aptient was hypoxic and is of advanced age, more prudent to admit. UA pending as UTI not ruled out yet. Patient admitted to med surg to Dr. Diez. *DC/Admit/Observation/Transfer Diagnosis at time of Disposition: COPD exacerbation - Discharge Dispostion Condition at time of disposition: Improved Decision to Admit order: Yes - Referrals - Patient Instructions - Post Discharge Activity
--- NOTE | 2019-05-01 08:32 | PDOC ---
Attending Attestation - Resident Resident Name: HardenDerek - ED Attending Attestation I have performed the following: I have examined & evaluated the patient, The case was reviewed & discussed with the resident, I agree w/resident's findings & plan, Exceptions are as noted - HPI HPI: 05/01/19 09:49 Ms Chaudhary is a jeffery 88 yo F with a h/o HTN, DM, HLD, COPD recent admission for Pneumonia and COPD Exacerbation Pt presents with a complaint of shortness of breath for the past few days she reports feeling "hot and cold" She was unable to sleep last night due to shortness of breath No chest pain Pt given duoneb and O2 in the Er with improvement in symptoms - Physicial Exam PE: 05/01/19 08:32 GENERAL: The patient is in no acute distress. ENT: Ears normal, nares patent, oropharynx clear without exudates. Moist mucous membranes. NECK: Normal range of motion, supple LUNGS: Breath sounds equal, clear to auscultation bilaterally. (+) crackles bilaterally HEART: Irregularly irregular, no murmur ABDOMEN: Soft, nontender, normoactive bowel sounds. EXTREMITIES: Normal range of motion, no edema. NEUROLOGICAL: Cranial nerves II through XII grossly intact. Normal speech. No focal neurological deficits. SKIN: Warm, Dry, normal turgor, no rashes or lesions noted. 05/01/19 09:55 - Medical Decision Making 05/01/19 10:04 EKG - Sinus rhythm, irregular, no st elevation or depression, 05/01/19 10:05 Laboratory Tests 05/01/19 05/01/19 08:37 08:37 WBC 11.9 H Hgb 14.2 Hct 43.1 D Plt Count 501 H D BUN 9.7 Creatinine 0.8 Troponin I < 0.02 05/01/19 10:05 CXR - no infiltrates, no consolidations Breathing improved with neb and supplemental O2 Will place on observation Clinical Impression: COPD exacerbation, initial presentation
[2019-05-01] MEDS ORDERED: predniSONE 20 MG TABLET (UD) ONE (08:37)
[2019-05-01 08:42] LABS: BASO % 0.6 % (0-2.0); EOS % 9.1 % (0-4.5); HEMATOCRIT 43.1 % (32.4-45.2); HEMOGLOBIN 14.2 GM/dL (10.7-15.3); LYMPH % 36.3 % (8-40); MCH 27.7 pg (25.7-33.7); MEAN CELL VOLUME 84.1 fl (80-96); MONO % 11.3 % (3.8-10.2); NEUT % 42.7 % (42.8-82.8); PLATELET COUNT 501 K/MM3 (134-434); RBC 5.13 M/mm3 (3.60-5.2); RDW 14.7 % (11.6-15.6); WHITE BLOOD COUNT 11.9 K/mm3 (4.0-10.0)
[2019-05-01 09:22] LABS: ALBUMIN 3.7 g/dl (3.4-5.0); ALK PHOS 87 U/L (45-117); ANION GAP 5 MMOL/L (8-16); BILIRUBIN,TOTAL 0.5 mg/dL (0.2-1); BLOOD UREA NITROGEN 9.7 mg/dL (7-18); CALCIUM 9.2 mg/dL (8.5-10.1); CHLORIDE 105 mmol/L (98-107); CO2 29 mmol/L (21-32); CREATININE 0.8 mg/dL (0.55-1.3); GLUCOSE,RANDOM 96 mg/dL (74-106); POTASSIUM 3.7 mmol/L (3.5-5.1); SGOT/AST 7 U/L (15-37); SGPT/ALT 16 U/L (13-61); SODIUM 139 mmol/L (136-145); TOT PROT 6.6 g/dl (6.4-8.2)
[2019-05-01 11:31] LABS: EPI CELLS 0.7 /HPF (0-5/HPF); HYALINE CASTS 5 /lpf (0-8); PH,URINE 6.5 (5.0-8.0); URINE APPEARANCE CLEAR; URINE BACTERIA 26.1 /hpf (NEGATIVE); URINE BILIRUBIN NEGATIVE (NEGATIVE); URINE COLOR YELLOW; URINE GLUCOSE (UA) NEGATIVE (NEGATIVE); URINE KETONE NEGATIVE (NEGATIVE); URINE LEUK ESTERASE 3+ (NEGATIVE); URINE NITRITE NEGATIVE (NEGATIVE); URINE PROTEIN NEGATIVE (NEGATIVE); URINE RBC 1 /hpf (0-4); URINE UROBILINOGEN 0.2 mg/dL (0.2-1.0); URINE WBC 36 /hpf (0-5)
[2019-05-01] MEDS ORDERED: ACETAMINOPHEN 325 MG TABLET (FP) PO PRN (11:41)
--- NOTE | 2019-05-01 12:29 | EKG ---
Test Reason : Blood Pressure : / mmHG Vent. Rate : 069 BPM Atrial Rate : 069 BPM P-R Int : 190 ms QRS Dur : 074 ms QT Int : 392 ms P-R-T Axes : 084 058 041 degrees QTc Int : 420 ms SINUS RHYTHM WITH MARKED SINUS ARRHYTHMIA WITH PREMATURE ATRIAL COMPLEXES NONSPECIFIC ST AND T WAVE ABNORMALITY ABNORMAL ECG WHEN COMPARED WITH ECG OF 07-DEC-2018 19:02, PREMATURE ATRIAL COMPLEXES ARE NOW PRESENT NON-SPECIFIC CHANGE IN ST SEGMENT IN LATERAL LEADS NONSPECIFIC T WAVE ABNORMALITY, WORSE IN LATERAL LEADS Confirmed by JAIME CORDOVA MD ([id number]) on 05/01/2019 12:29:20 PM Referred By: Confirmed By:JAIME CORDOVA MD
--- NOTE | 2019-05-01 13:15 | CON.PULM ---
Consult Consult Specialty:: PULMONARY Referred by:: Dr Diez Reason for Consultation:: shortness of breath - History of Present Illness Chief Complaint: shortness of breath History of Present Illness: 88yo female with h/o HTN, DM, hyperlipidemia, COPD who was admitted with worsening shortness of breath. [place] subjective fevers and chills in the past week, shortness of breath started last few days. +nonproductive cough and wheezing. No chest pain or palpitations. No sick contacts or recent travel. She takes chronic prednisone 10mg daily, compliant with her inhalers. She is a never smoker. - History Source History Provided By: Patient, Medical Record Limitations to Obtaining History: No Limitations - Past Medical History Cardio/Vascular: Yes: HTN Pulmonary: Yes: Asthma, COPD Gastrointestinal: Yes: Constipation, Hemorrhoids, Other (RECTAL BLEEDING) Endocrine: Yes: Diabetes Mellitus - Past Surgical History Past Surgical History: Yes: Hernia Repair - Alcohol/Substance Use Hx Alcohol Use: No - Smoking History Smoking history: Never smoked Have you smoked in the past 12 months: No Aproximately how many cigarettes per day: 0 - Social History ADL: Family Assistance History of Recent Travel: No Home Medications - Allergies Allergies/Adverse Reactions: Allergies Allergy/AdvReac Type Severity Reaction Status Date / Time No Known Drug Allergies Allergy Verified 05/01/19 08:08 - Home Medications Home Medications: Ambulatory Orders Acetaminophen 650 mg PO PRN PRN 05/01/19 Albuterol 0.083% Nebulizer Alysa [Ventolin 0.083%] 1 neb NEB Q4H PRN 05/01/19 Budesonide/Formeterol Fumarate [SYMBICORT 160/4.5mcg -] 2 inh PO BID 05/01/19 Diltiazem Cd [Cardizem Cd -] 300 mg PO HS 05/01/19 Losartan Potassium 100 mg PO DAILY 05/01/19 Montelukast Na [Singulair -] 10 mg PO HS 05/01/19 Rosuvastatin Calcium [Crestor] 5 mg PO HS 05/01/19 Sennosides [Senna -] 1 tab PO HS 05/01/19 Sitagliptin Phos/Metformin HCl [Janumet 50-500 mg Tablet] 1 each PO HS 05/01/19 Tiotropium [place] [Spiriva Respimat] 1 puff IH DAILY 05/01/19 Review of Systems - Review of Systems Constitutional: reports: Chills, Fever, Weakness Eyes: denies: Recent Change in Vision HENT: denies: Nasal Congestion, Throat Pain Neck: denies: Stiffness, Tenderness Cardiovascular: reports: Shortness of Breath. denies: Chest Pain, Edema Respiratory: reports: Cough, SOB, SOB on Exertion, Wheezing. denies: Hemoptysis Gastrointestinal: denies: Abdominal Pain, Nausea, Vomiting Genitourinary: denies: Dysuria, Hematuria Neurological: denies: Dizziness, Headache Endocrine: denies: Unexplained Weight Loss Physical Exam Vital Sings: Vital Signs Temperature 98.1 F 05/01/19 11:37 Pulse Rate 81 05/01/19 11:37 Respiratory Rate 18 05/01/19 11:37 Blood Pressure 137/67 05/01/19 11:37 O2 Sat by Pulse Oximetry (%) 98 05/01/19 11:37 Constitutional: Yes: Calm Eyes: Yes: Conjunctiva Clear, EOM Intact HENT: Yes: Atraumatic, Normocephalic Neck: Yes: Supple, Trachea Midline Cardiovascular: Yes: Regular Rate and Rhythm Respiratory: Yes: Wheezes (scattered) ...Clubbing: No Gastrointestinal: Yes: Normal Bowel Sounds, Soft. No: Tenderness Edema: No Neurological: Yes: Alert, Oriented Labs: CBC, BMP 05/01/19 08:37 05/01/19 08:37 Imaging - Results Chest X-ray: Report Reviewed, Image Reviewed (left base atelectasis) Problem List - Problems (1) COPD exacerbation Code(s): J44.1 - CHRONIC OBSTRUCTIVE PULMONARY DISEASE W (ACUTE) EXACERBATION (2) HTN (hypertension) Code(s): I10 - ESSENTIAL (PRIMARY) HYPERTENSION Assessment/Plan Acute COPD Exacerbation HTN DM Hyperlipidemia - IV medrol - inhaled bronchodilators standing and PRN - azithromycin - O2 to keep Spo2 >90% - glucose control while on systemic steroids - DVT prophylaxis Thank you for this consult Patrice Balderas MD
--- NOTE | 2019-05-01 15:27 | HP ---
Admitting History and Physical - Primary Care Physician PCP: Paul Diez - Admission Chief Complaint: Difficulty breathing History of Present Illness: Patient is an 88 y/o female with past medical history of HTN, DM, HLD, COPD. Patient presented to ER after experiencing difficulty breathing during the night. Patient states during the night she began hsving SOB accompanied with chills, throat pain, dizziness, and feeling diaphoretic. She states these symptoms woke her up in the middle of the night. History Source: Patient Limitations to Obtaining History: No Limitations - Past Medical History Cardiovascular: Yes: HTN Pulmonary: Yes: Asthma, COPD Gastrointestinal: Yes: Constipation, Hemorrhoids, Other (RECTAL BLEEDING) Endocrine: Yes: Diabetes Mellitus - Past Surgical History Past Surgical History: Yes: Hernia Repair - Smoking History Smoking history: Never smoked Have you smoked in the past 12 months: No Aproximately how many cigarettes per day: 0 - Alcohol/Substance Use Hx Alcohol Use: No - Social History Usual Living Arrangement: Yes: Other (with family) ADL: Family Assistance History of Recent Travel: No Home Medications - Allergies Allergies/Adverse Reactions: Allergies Allergy/AdvReac Type Severity Reaction Status Date / Time No Known Drug Allergies Allergy Verified 05/01/19 08:08 - Home Medications Home Medications: Ambulatory Orders Acetaminophen 650 mg PO PRN PRN 05/01/19 Albuterol 0.083% Nebulizer Alyas [Ventolin 0.083%] 1 neb NEB Q4H PRN 05/01/19 Budesonide/Formeterol Fumarate [SYMBICORT 160/4.5mcg -] 2 inh PO BID 05/01/19 Diltiazem Cd [Cardizem Cd -] 300 mg PO HS 05/01/19 Losartan Potassium 100 mg PO DAILY 05/01/19 Montelukast Na [Singulair -] 10 mg PO HS 05/01/19 Rosuvastatin Calcium [Crestor] 5 mg PO HS 05/01/19 Sennosides [Senna -] 1 tab PO HS 05/01/19 Sitagliptin Phos/Metformin HCl [Janumet 50-500 mg Tablet] 1 each PO HS 05/01/19 Tiotropium [place] [Spiriva Respimat] 1 puff IH DAILY 05/01/19 Review of Systems - Review of Systems Constitutional: reports: Weakness Eyes: reports: Blurred Vision HENT: reports: Throat Pain Neck: reports: No Symptoms Cardiovascular: reports: Shortness of Breath Respiratory: reports: SOB on Exertion Gastrointestinal: reports: No Symptoms Genitourinary: reports: No Symptoms Breasts: reports: No Symptoms Reported Musculoskeletal: reports: No Symptoms Integumentary: reports: No Symptoms Neurological: reports: No Symptoms Endocrine: reports: No Symptoms Hematology/Lymphatic: reports: No Symptoms Psychiatric: reports: No Symptoms Physical Examination Vital Signs: Vital Signs Temperature 98.0 F 05/01/19 13:32 Pulse Rate 94 H 05/01/19 13:32 Respiratory Rate 20 05/01/19 13:32 Blood Pressure 155/57 L 05/01/19 13:32 O2 Sat by Pulse Oximetry (%) 95 05/01/19 13:32 Constitutional: Yes: No Distress, Calm Eyes: Yes: Conjunctiva Clear HENT: Yes: Atraumatic Neck: Yes: Supple Cardiovascular: Yes: Regular Rate and Rhythm Respiratory: Yes: Regular, On Nasal O2, Wheezes Gastrointestinal: Yes: Normal Bowel Sounds, Soft Musculoskeletal: Yes: Muscle Weakness Extremities: Yes: WNL Edema: No Neurological: Yes: Alert, Oriented Psychiatric: Yes: Alert, Oriented Labs: CBC, BMP 05/01/19 08:37 05/01/19 08:37 Imaging - Results Chest X-ray: Report Reviewed Problem List - Problems (1) COPD exacerbation Assessment/Plan: -Pulm on board -Azithromycin -Symbicort -Solumedrol -Spiriva -bronchodilators -keep SpO2 >90% -O2 via NC -CXR shows persistent atelectasis/pleural reaction at the left base Code(s): J44.1 - CHRONIC OBSTRUCTIVE PULMONARY DISEASE W (ACUTE) EXACERBATION (2) Acute respiratory distress Assessment/Plan: -Pulm on board -Azithromycin -Solumedrol -bronchodilators -keep SpO2 >90% -O2 via NC -CXR shows persistent atelectasis/pleural reaction at the left base Code(s): R06.00 - DYSPNEA, UNSPECIFIED (3) CHF (congestive heart failure) Assessment/Plan: -1L fluid restriction -daily weights Code(s): I50.9 - HEART FAILURE, UNSPECIFIED (4) DM2 (diabetes mellitus, type 2) Assessment/Plan: -BGM ACHS -ISS -Sitagliptan/Metformin -low Na/diabetic diet Code(s): E11.9 - TYPE 2 DIABETES MELLITUS WITHOUT COMPLICATIONS (5) HTN (hypertension) Assessment/Plan: -Cardizem and Losartan -low Na diet Code(s): I10 - ESSENTIAL (PRIMARY) HYPERTENSION (6) UTI (urinary tract infection) Assessment/Plan: -ID on board -WBC 11.9 -UA 3+ leukocytes -UC pending -Ceftriaxone Code(s): N39.0 - URINARY TRACT INFECTION, SITE NOT SPECIFIED Qualifiers: Urinary tract infection type: site unspecified Hematuria presence: without hematuria Qualified Code(s): N39.0 - Urinary tract infection, site not specified Assessment/Plan see problem list dvt ppx
--- NOTE | 2019-05-01 16:27 | CON.ID ---
Consult Consult Specialty:: infectious disease Referred by:: dr frances Reason for Consultation:: uti - History of Present Illness Chief Complaint: weakness, sweats and chills last night History of Present Illness: 88 yo female with COPD on home prednisone admitted with sweats and chills last night felt very weak this am no history of fevers chronic cough unchanged always wheezes no nausea or vomiting no diarrhea or dysuria no travel no sick contacts - History Source History Provided By: Patient, Medical Record Limitations to Obtaining History: Poor Historian - Past Medical History Cardio/Vascular: Yes: HTN Pulmonary: Yes: Asthma, COPD Gastrointestinal: Yes: Constipation, Hemorrhoids, Other (RECTAL BLEEDING) Endocrine: Yes: Diabetes Mellitus - Past Surgical History Past Surgical History: Yes: Hernia Repair - Alcohol/Substance Use Hx Alcohol Use: No - Smoking History Smoking history: Never smoked Have you smoked in the past 12 months: No Aproximately how many cigarettes per day: 0 - Social History Usual Living Arrangement: Alone ADL: Family Assistance [facility] : [facility] History of Recent Travel: No Home Medications - Allergies Allergies/Adverse Reactions: Allergies Allergy/AdvReac Type Severity Reaction Status Date / Time No Known Drug Allergies Allergy Verified 05/01/19 08:08 - Home Medications Home Medications: Ambulatory Orders Acetaminophen 650 mg PO PRN PRN 05/01/19 Albuterol 0.083% Nebulizer Alysa [Ventolin 0.083%] 1 neb NEB Q4H PRN 05/01/19 Budesonide/Formeterol Fumarate [SYMBICORT 160/4.5mcg -] 2 inh PO BID 05/01/19 Diltiazem Cd [Cardizem Cd -] 300 mg PO HS 05/01/19 Losartan Potassium 100 mg PO DAILY 05/01/19 Montelukast Na [Singulair -] 10 mg PO HS 05/01/19 Rosuvastatin Calcium [Crestor] 5 mg PO HS 05/01/19 Sennosides [Senna -] 1 tab PO HS 05/01/19 Sitagliptin Phos/Metformin HCl [Janumet 50-500 mg Tablet] 1 each PO HS 05/01/19 Tiotropium [place] [Spiriva Respimat] 1 puff IH DAILY 05/01/19 Family Disease History - Family Disease History Family History: Denies Review of Systems - Review of Systems Constitutional: reports: Chills, Night Sweats, Unintentional Wgt. Loss, Weakness Eyes: reports: No Symptoms HENT: reports: No Symptoms, Hearing Loss (chronic). denies: Throat Pain Cardiovascular: denies: Chest Pain Respiratory: reports: Cough (chronic), Wheezing (chronic) Gastrointestinal: denies: Abdominal Pain Genitourinary: reports: No Symptoms Physical Exam Vital Signs: Vital Signs Temperature 98.0 F 05/01/19 13:32 Pulse Rate 94 H 05/01/19 13:32 Respiratory Rate 05/01/19 13:32 Blood Pressure 155/57 L 05/01/19 13:32 O2 Sat by Pulse Oximetry (%) 95 05/01/19 13:32 Constitutional: Yes: Well Nourished, No Distress, Calm Eyes: Yes: Conjunctiva Clear, EOM Intact HENT: No: Pharyngeal Erythema, Thrush Neck: Yes: Supple Cardiovascular: Yes: Regular Rate and Rhythm Respiratory: Yes: Diminished. No: Wheezes Gastrointestinal: Yes: Normal Bowel Sounds, Soft ...Rectal Exam: Yes: Deferred Renal/: No: CVA Tenderness - Left, CVA Tenderness - Right Musculoskeletal: Yes: WNL Extremities: Yes: WNL Edema: No Labs: CBC, BMP 05/01/19 08:37 05/01/19 08:37 Laboratory Tests 05/01/19 10:40 Ur Leukocyte Esterase 3+ H Urine WBC (Auto) 36 Imaging - Results Chest X-ray: Report Reviewed, Image Reviewed (no infiltrate) Problem List - Problems (1) COPD exacerbation Code(s): J44.1 - CHRONIC OBSTRUCTIVE PULMONARY DISEASE W (ACUTE) EXACERBATION (2) UTI (urinary tract infection) Code(s): N39.0 - URINARY TRACT INFECTION, SITE NOT SPECIFIED Qualifiers: Urinary tract infection type: site unspecified Hematuria presence: without hematuria Qualified Code(s): N39.0 - Urinary tract infection, site not specified Assessment/Plan given chills and sweats will add ceftriaxone to treat for UTI until cultures are back management of copd exacerbaton per plmonary
[2019-05-01] MEDS ORDERED: cefTRIAXone SODIUM 1 GM VIAL ONE (17:03)
[2019-05-01] MEDS ORDERED: DEXTROSE 5%-WATER - 50 ML IVPB ONE (17:03)
[2019-05-01] MEDS: INSULIN SLIDING SCALE (NOVOLOG) 1 VIAL SQ SCH ×2 (17:50→22:56)
[2019-05-01] MEDS: CEFTRIAXONE 1 GM in DEXTROSE 5%-WATER - 50 ML IVPB SCH (17:51)
[2019-05-01] MEDS ORDERED: PT OWN MED DRAWER 7, Y5N ONE (20:33)
[2019-05-01] MEDS ORDERED: PATIENT'S OWN MEDICATION (NON-FORMULARY) (Sitagliptin Phos/Metformin Hcl [Janumet 50-500 M PO SCH (22:00)
[2019-05-01] MEDS: MONTELUKAST NA 10 MG TABLET PO SCH (22:56)
[2019-05-01] MEDS: ROSUVASTATIN CA 5 MG TABLET (FP) PO SCH (22:56)
[2019-05-01] MEDS: SENNOSIDES 8.6MG TABLET (FP) PO SCH (22:56)
[2019-05-01] MEDS: BUDESONIDE/FORMETEROL FUMARATE 160/4.5 mcg INHALER IH SCH (22:56)
[2019-05-02] MEDS: INSULIN SLIDING SCALE (NOVOLOG) 1 VIAL SQ SCH ×4 (06:53→22:18)
[2019-05-02] MEDS: ALBUTEROL SO4 0.083% IH SOL 2.5 MG/3 ML VIAL.NEB. NEB PRN (07:15)
[2019-05-02 07:44] LABS: HEMATOCRIT 41.5 % (32.4-45.2); HEMOGLOBIN 13.9 GM/dL (10.7-15.3); MCH 28.2 pg (25.7-33.7); MCHC 33.5 g/dl (32.0-36.0); MEAN CELL VOLUME 84.2 fl (80-96); MEAN PLT VOLUME 8.5 fl (7.5-11.1); PLATELET COUNT 440 K/MM3 (134-434); RBC 4.93 M/mm3 (3.60-5.2); RDW 14.2 % (11.6-15.6); WHITE BLOOD COUNT 10.8 K/mm3 (4.0-10.0)
[2019-05-02 07:45] LABS: BASO % 0.7 % (0-2.0); EOS % 2.1 % (0-4.5); LYMPH % 26.8 % (8-40); MONO % 8.9 % (3.8-10.2); NEUT % 61.5 % (42.8-82.8)
[2019-05-02 08:25] LABS: ALBUMIN 3.4 g/dl (3.4-5.0); ALK PHOS 75 U/L (45-117); ANION GAP 6 MMOL/L (8-16); BILIRUBIN,TOTAL 0.3 mg/dL (0.2-1); BLOOD UREA NITROGEN 17.6 mg/dL (7-18); CALCIUM 8.7 mg/dL (8.5-10.1); CHLORIDE 104 mmol/L (98-107); CO2 29 mmol/L (21-32); CREATININE 0.8 mg/dL (0.55-1.3); GLUCOSE,RANDOM 110 mg/dL (74-106); N-TERMINAL BNP 418.4 pg/ml (5-450); PHOSPHOROUS 4.2 mg/dL (2.5-4.9); SGOT/AST < 3 U/L (15-37); SGPT/ALT 12 U/L (13-61); SODIUM 139 mmol/L (136-145); TOT PROT 6.1 g/dl (6.4-8.2)
[2019-05-02] MEDS ORDERED: AZITHROMYCIN IVPB 500 MG in DEXTROSE 5%-WATER - 250 ML IVPB SCH (10:00)
[2019-05-02] MEDS ORDERED: LOSARTAN POTASSIUM 100 MG TABLET PO SCH (10:00)
[2019-05-02] MEDS ORDERED: PT OWN MED DRAWER 7, Y5N ONE ×2 (10:10→20:31)
[2019-05-02] MEDS ORDERED: DEXTROSE 5%-WATER - 50 ML IVPB ONE (10:10)
[2019-05-02] MEDS ORDERED: cefTRIAXone SODIUM 1 GM VIAL ONE (10:10)
[2019-05-02] MEDS ORDERED: methylPREDNISolone NA SUCC 40 MG/1 ML VIAL IVPB SCH (10:15)
--- NOTE | 2019-05-02 10:27 | PN ---
Progress Note, Physician Chief Complaint: seen in chair coughing sol bull - Current Medication List Current Medications: Active Medications Acetaminophen (Tylenol -) 650 mg PO Q6H PRN PRN Reason: PAIN 1-3 Albuterol Sulfate (Ventolin 0.083% Nebulizer Soln -) 1 amp NEB Q4H PRN PRN Reason: SHORT OF BREATH/WHEEZING Last Admin: 05/02/19 07:15 Dose: 1 amp Budesonide/Formoterol Fumarate (Symbicort 160/4.5mcg -) 2 puff IH BID ON LICENSE OF [facility] Last Admin: 05/01/19 22:56 Dose: 2 puff Diltiazem HCl (Cardizem Cd -) 300 mg PO HS ON LICENSE OF [facility] Last Admin: 05/01/19 22:56 Dose: 300 mg Azithromycin 500 mg/ Dextrose 250 mls @ 250 mls/hr IVPB DAILY ON LICENSE OF [facility] Ceftriaxone Sodium 1 gm/ (Dextrose) 50 mls @ 100 mls/hr IVPB DAILY ON LICENSE OF [facility]; Protocol Last Admin: 05/01/19 17:51 Dose: 100 mls/hr Insulin Aspart (Novolog Vial Sliding Scale -) 1 vial SQ ACHS ON LICENSE OF [facility]; Protocol Last Admin: 05/02/19 06:53 Dose: Not Given Losartan Potassium (Losartan Potassium) 100 mg PO DAILY ON LICENSE OF [facility] Methylprednisolone Sodium Succinate (Solu-Medrol -) 40 mg IVPB Q8H-IV URSULA Montelukast Sodium (Singulair -) [address] [facility] Last Admin: 05/01/19 22:56 Dose: 10 mg Non-Formulary Medication (Sitagliptin Phos/Metformin Hcl [Janumet 50-500 Mg Tablet]) [address] [facility] Rosuvastatin Calcium (Crestor -) [address] [facility] Last Admin: 05/01/19 22:56 Dose: 5 mg Senna (Senna -) [address] [facility] Last Admin: 05/01/19 22:56 Dose: 1 tab Tiotropium [place] (Spiriva Respimat) 1 puff IH DAILY ON LICENSE OF [facility] - Objective Vital Signs: Vital Signs Temperature 98 F 05/02/19 05:39 Pulse Rate 43 L 05/02/19 05:39 Respiratory Rate 18 05/02/19 05:39 Blood Pressure 145/72 05/02/19 05:39 O2 Sat by Pulse Oximetry (%) 99 05/01/19 21:00 Constitutional: Yes: Calm Cardiovascular: Yes: Regular Rate and Rhythm, S1, S2 Respiratory: Yes: Rhonchi, Wheezes Gastrointestinal: Yes: Normal Bowel Sounds, Soft Edema: No Neurological: Yes: Alert, Oriented Labs: CBC, BMP 05/02/19 06:48 05/02/19 06:48 Problem List - Problems (1) COPD exacerbation Assessment/Plan: medrol bronchodilators abx oxygen Code(s): J44.1 - CHRONIC OBSTRUCTIVE PULMONARY DISEASE W (ACUTE) EXACERBATION (2) DM2 (diabetes mellitus, type 2) Assessment/Plan: insulin januvia sliding scale Code(s): E11.9 - TYPE 2 DIABETES MELLITUS WITHOUT COMPLICATIONS
[2019-05-02] MEDS: CEFTRIAXONE 1 GM in DEXTROSE 5%-WATER - 50 ML IVPB SCH (10:36)
[2019-05-02] MEDS ORDERED: LOSARTAN POTASSIUM 50 MG TABLET (FP) PO SCH (11:19)
[2019-05-02] MEDS ORDERED: AZITHROMYCIN IVPB 500 MG/250 ML BAG IVPB SCH (11:23)
[2019-05-02] MEDS: LOSARTAN POTASSIUM 50 MG TABLET (FP) PO SCH (11:29)
[2019-05-02] MEDS: BUDESONIDE/FORMETEROL FUMARATE 160/4.5 mcg INHALER IH SCH ×2 (11:30→22:20)
[2019-05-02] MEDS: AZITHROMYCIN IVPB 500 MG/250 ML BAG IVPB SCH (12:27)
--- NOTE | 2019-05-02 14:21 | PN ---
Progress Note (short form) - Note Progress Note: PULMONARY OOB TO CHAIR VSS/AFEBRILE Constitutional: Yes: Calm Eyes: Yes: Conjunctiva Clear, EOM Intact HENT: Yes: Atraumatic, Normocephalic Neck: Yes: Supple, Trachea Midline Cardiovascular: Yes: Regular Rate and Rhythm Respiratory: Yes: Wheezes (scattered) ...Clubbing: No Gastrointestinal: Yes: Normal Bowel Sounds, Soft. No: Tenderness Edema: No Neurological: Yes: Alert, Oriented Labs: NOTED Images/notes reviewed - Problems (1) COPD exacerbation Code(s): J44.1 - CHRONIC OBSTRUCTIVE PULMONARY DISEASE W (ACUTE) EXACERBATION (2) HTN (hypertension) Code(s): I10 - ESSENTIAL (PRIMARY) HYPERTENSION Assessment/Plan Acute COPD Exacerbation HTN DM Hyperlipidemia - IV medrol to be reduced - inhaled bronchodilators standing and PRN - azithromycin - O2 to keep Spo2 >90% - glucose control while on systemic steroids - DVT prophylaxis Naldo KELLOGG MD
[2019-05-02] MEDS: TIOTROPIUM BROMIDE 2.5 MCG (SPIRIVA) RESPIMAT INHALER IH SCH (17:17)
[2019-05-02] MEDS: metFORMIN HCL 500 MG TABLET (FP) PO SCH (17:17)
[2019-05-02] MEDS: methylPREDNISolone NA SUCC 40 MG/1 ML VIAL IVPB SCH (17:17)
[2019-05-02] MEDS: ROSUVASTATIN CA 5 MG TABLET (FP) PO SCH (22:19)
[2019-05-02] MEDS: MONTELUKAST NA 10 MG TABLET PO SCH (22:19)
[2019-05-02] MEDS: SENNOSIDES 8.6MG TABLET (FP) PO SCH (22:20)
[2019-05-03] MEDS: methylPREDNISolone NA SUCC 40 MG/1 ML VIAL IVPB SCH ×3 (01:26→17:27)
[2019-05-03] MEDS: INSULIN SLIDING SCALE (NOVOLOG) 1 VIAL SQ SCH ×4 (06:19→22:04)
[2019-05-03] MEDS: sitaGLIPtin PHOSPHATE 50 MG TABLET PO SCH (06:19)
[2019-05-03] MEDS: metFORMIN HCL 500 MG TABLET (FP) PO SCH ×2 (06:19→17:27)
[2019-05-03 07:58] LABS: BASO % 0.3 % (0-2.0); HEMATOCRIT 40.2 % (32.4-45.2); HEMOGLOBIN 13.3 GM/dL (10.7-15.3); LYMPH % 13.7 % (8-40); MCH 27.7 pg (25.7-33.7); MEAN CELL VOLUME 83.8 fl (80-96); MEAN PLT VOLUME 8.7 fl (7.5-11.1); PLATELET COUNT 422 K/MM3 (134-434); RDW 14.3 % (11.6-15.6); WHITE BLOOD COUNT 10.3 K/mm3 (4.0-10.0)
[2019-05-03 08:21] LABS: ALBUMIN 3.2 g/dl (3.4-5.0); BILIRUBIN,TOTAL 0.3 mg/dL (0.2-1); BLOOD UREA NITROGEN 23.9 mg/dL (7-18); CALCIUM 8.7 mg/dL (8.5-10.1); CREATININE 0.8 mg/dL (0.55-1.3); POTASSIUM 4.6 mmol/L (3.5-5.1); TOT PROT 5.9 g/dl (6.4-8.2)
[2019-05-03] MEDS ORDERED: DEXTROSE 5%-WATER - 50 ML IVPB ONE (09:14)
[2019-05-03] MEDS ORDERED: cefTRIAXone SODIUM 1 GM VIAL ONE (09:14)
[2019-05-03] MEDS: LOSARTAN POTASSIUM 50 MG TABLET (FP) PO SCH (09:23)
[2019-05-03] MEDS: CEFTRIAXONE 1 GM in DEXTROSE 5%-WATER - 50 ML IVPB SCH (09:24)
[2019-05-03] MEDS: AZITHROMYCIN IVPB 500 MG/250 ML BAG IVPB SCH (09:25)
[2019-05-03] MEDS: BUDESONIDE/FORMETEROL FUMARATE 160/4.5 mcg INHALER IH SCH ×2 (09:26→22:07)
[2019-05-03] MEDS: TIOTROPIUM BROMIDE 2.5 MCG (SPIRIVA) RESPIMAT INHALER IH SCH (09:26)
[2019-05-03] MEDS: ALBUTEROL SO4 0.083% IH SOL 2.5 MG/3 ML VIAL.NEB. NEB PRN (11:32)
--- NOTE | 2019-05-03 12:49 | PN ---
Progress Note (short form) - Note Progress Note: OOB to chair. Still with congested cough. No CP. No hemoptysis. Intake & Output 04/30/19 05/01/19 05/02/19 05/03/19 23:59 23:59 23:59 23:59 Intake Total 150 600 100 Balance 150 600 100 Weight 110 lb 113 lb 9 oz Last Vital Signs Temp Pulse Resp BP Pulse Ox 97.9 F 87 20 135/48 L 94 L 05/03/19 10:00 05/03/19 11:30 05/03/19 10:00 05/03/19 10:00 05/03/19 11:30 Active Medications Acetaminophen (Tylenol -) 650 mg PO Q6H PRN PRN Reason: PAIN 1-3 Albuterol Sulfate (Ventolin 0.083% Nebulizer Soln -) 1 amp NEB Q4H PRN PRN Reason: SHORT OF BREATH/WHEEZING Last Admin: 05/03/19 11:32 Dose: 1 amp Budesonide/Formoterol Fumarate (Symbicort 160/4.5mcg -) 2 puff IH BID [facility] Last Admin: 05/03/19 09:26 Dose: 2 puff Diltiazem HCl (Cardizem Cd -) 300 mg PO HS [facility] Last Admin: 05/02/19 22:19 Dose: 300 mg Ceftriaxone Sodium 1 gm/ (Dextrose) 50 mls @ 100 mls/hr IVPB DAILY [facility]; Protocol Last Admin: 05/03/19 09:24 Dose: 100 mls/hr Azithromycin (Zithromax 500mg Ivpb (Pre-Docked)) 500 mg in 250 mls @ 250 mls/ hr IVPB DAILY [facility] Last Admin: 05/03/19 09:25 Dose: 250 mls/hr Insulin Aspart (Novolog Vial Sliding Scale -) 1 vial SQ ACHS [facility]; Protocol Last Admin: 05/03/19 11:20 Dose: 6 units Losartan Potassium (Cozaar -) 100 mg PO DAILY [facility] Last Admin: 05/03/19 09:23 Dose: 100 mg Metformin HCl (Glucophage -) 500 mg PO BID@0700,1630 [facility] Last Admin: 05/03/19 06:19 Dose: 500 mg Methylprednisolone Sodium Succinate (Solu-Medrol -) 20 mg IVPB Q8H-IV [facility] Last Admin: 05/03/19 09:24 Dose: 20 mg Montelukast Sodium (Singulair -) 10 mg PO [facility] Last Admin: 05/02/19 22:19 Dose: 10 mg Rosuvastatin Calcium (Crestor -) 5 mg PO [facility] Last Admin: 05/02/19 22:19 Dose: 5 mg Senna (Senna -) 1 tab PO [facility] Last Admin: 05/02/19 22:20 Dose: 1 tab Sitagliptin Phosphate (Januvia -) 50 mg PO DAILY@0700 [facility] Last Admin: 05/03/19 06:19 Dose: 50 mg Tiotropium [place] (Spiriva Respimat) 1 puff IH DAILY [facility] Last Admin: 05/03/19 09:26 Dose: 1 puff Constitutional: Yes: NAD Eyes: Yes: Conjunctiva Clear, EOM Intact HENT: Yes: Atraumatic, Normocephalic Neck: Yes: Supple, Trachea Midline Cardiovascular: Yes: Regular Rate and Rhythm Respiratory: Yes: (+) Expiratory wheezes and scattered rhonchi ...Clubbing: No Gastrointestinal: Yes: Normal Bowel Sounds, Soft. No: Tenderness Edema: No Neurological: Yes: Alert, Oriented Laboratory Results - last 24 hr 05/02/19 05/02/19 05/03/19 16:29 22:15 06:17 WBC RBC Hgb Hct MCV MCH MCHC RDW Plt Count MPV Absolute Neuts (auto) Neutrophils % Lymphocytes % Monocytes % Eosinophils % Basophils % Nucleated RBC % Sodium Potassium Chloride Carbon Dioxide Anion Gap BUN Creatinine Est GFR (CKD-EPI)AfAm Est GFR (CKD-EPI)NonAf POC Glucometer 259 312 184 Random Glucose Hemoglobin A1c % Calcium Total Bilirubin AST ALT Alkaline Phosphatase Total Protein Albumin 05/03/19 05/03/19 05/03/19 06:30 06:30 06:30 WBC 10.3 H RBC 4.80 Hgb 13.3 Hct 40.2 MCV 83.8 MCH 27.7 MCHC 33.0 RDW 14.3 Plt Count 422 MPV 8.7 Absolute Neuts (auto) 8.8 H Neutrophils % 85.0 H D Lymphocytes % 13.7 D Monocytes % 1.0 L D Eosinophils % 0.0 D Basophils % 0.3 Nucleated RBC % 0 Sodium 134 L Potassium 4.6 Chloride 101 Carbon Dioxide 24 Anion Gap 9 BUN 23.9 H Creatinine 0.8 Est GFR (CKD-EPI)AfAm 76.29 Est GFR (CKD-EPI)NonAf 65.82 POC Glucometer Random Glucose 183 H Hemoglobin A1c % 7.0 H Calcium 8.7 Total Bilirubin 0.3 AST 8 L ALT 14 Alkaline Phosphatase 79 Total Protein 5.9 L Albumin 3.2 L 05/03/19 11:10 WBC RBC Hgb Hct MCV MCH MCHC RDW Plt Count MPV Absolute Neuts (auto) Neutrophils % Lymphocytes % Monocytes % Eosinophils % Basophils % Nucleated RBC % Sodium Potassium Chloride Carbon Dioxide Anion Gap BUN Creatinine Est GFR (CKD-EPI)AfAm Est GFR (CKD-EPI)NonAf POC Glucometer 325 Random Glucose Hemoglobin A1c % Calcium Total Bilirubin AST ALT Alkaline Phosphatase Total Protein Albumin - Problems (1) COPD exacerbation Code(s): J44.1 - CHRONIC OBSTRUCTIVE PULMONARY DISEASE W (ACUTE) EXACERBATION (2) HTN (hypertension) Code(s): I10 - ESSENTIAL (PRIMARY) HYPERTENSION Assessment/Plan (?) LLL PNA Acute COPD Exacerbation HTN DM Hyperlipidemia - IV medrol - inhaled bronchodilators standing and PRN - Rocephin / azithromycin - O2 to keep Spo2 >90% - glucose control while on systemic steroids - DVT prophylaxis Dr Escobedo
--- NOTE | 2019-05-03 18:41 | PN ---
Progress Note, Physician Chief Complaint: COPD exacerbation History of Present Illness: Previous notes and events reviewed awake and alert NAD sts breathing is getting better continue with cough c/o constipation - Current Medication List Current Medications: Active Medications Acetaminophen (Tylenol -) 650 mg PO Q6H PRN PRN Reason: PAIN 1-3 Albuterol Sulfate (Ventolin 0.083% Nebulizer Soln -) 1 amp NEB Q4H PRN PRN Reason: SHORT OF BREATH/WHEEZING Last Admin: 05/03/19 11:32 Dose: 1 amp Budesonide/Formoterol Fumarate (Symbicort 160/4.5mcg -) 2 puff IH BID [facility] Last Admin: 05/03/19 09:26 Dose: 2 puff Diltiazem HCl (Cardizem Cd -) 300 mg PO HS [facility] Last Admin: 05/02/19 22:19 Dose: 300 mg Ceftriaxone Sodium 1 gm/ (Dextrose) 50 mls @ 100 mls/hr IVPB DAILY [facility]; Protocol Last Admin: 05/03/19 09:24 Dose: 100 mls/hr Azithromycin (Zithromax 500mg Ivpb (Pre-Docked)) 500 mg in 250 mls @ 250 mls/ hr IVPB DAILY [facility] Last Admin: 05/03/19 09:25 Dose: 250 mls/hr Insulin Aspart (Novolog Vial Sliding Scale -) 1 vial SQ ACHS [facility]; Protocol Last Admin: 05/03/19 17:27 Dose: 2 units Losartan Potassium (Cozaar -) 100 mg PO DAILY [facility] Last Admin: 05/03/19 09:23 Dose: 100 mg Metformin HCl (Glucophage -) 500 mg PO BID@0700,1630 [facility] Last Admin: 05/03/19 17:27 Dose: 500 mg Methylprednisolone Sodium Succinate (Solu-Medrol -) 20 mg IVPB Q8H-IV [facility] Last Admin: 05/03/19 17:27 Dose: 20 mg Montelukast Sodium (Singulair -) 10 mg PO HS [facility] Last Admin: 05/02/19 22:19 Dose: 10 mg Rosuvastatin Calcium (Crestor -) 5 mg PO HS [facility] Last Admin: 05/02/19 22:19 Dose: 5 mg Senna (Senna -) 1 tab PO HS [facility] Last Admin: 05/02/19 22:20 Dose: 1 tab Sitagliptin Phosphate (Januvia -) 50 mg PO DAILY@0700 [facility] Last Admin: 05/03/19 06:19 Dose: 50 mg Tiotropium [place] (Spiriva Respimat) 1 puff IH DAILY [facility] Last Admin: 05/03/19 09:26 Dose: 1 puff - Objective Vital Signs: Vital Signs Temperature 98.0 F 05/03/19 14:16 Pulse Rate 78 05/03/19 14:16 Respiratory Rate 20 05/03/19 14:16 Blood Pressure 113/42 L 05/03/19 14:16 O2 Sat by Pulse Oximetry (%) 94 L 05/03/19 11:30 Constitutional: Yes: No Distress, Calm Eyes: Yes: Conjunctiva Clear HENT: Yes: Atraumatic Cardiovascular: Yes: Regular Rate and Rhythm Respiratory: Yes: Regular, On Nasal O2, Wheezes Gastrointestinal: Yes: Normal Bowel Sounds, Soft Musculoskeletal: Yes: Muscle Weakness Extremities: Yes: WNL Edema: No Neurological: Yes: Alert, Oriented Psychiatric: Yes: Alert, Oriented Labs: CBC, BMP 05/03/19 06:30 05/03/19 06:30 Microbiology 05/01/19 10:42 Urine - Urine Clean Catch Urine Culture - Final NO GROWTH OBTAINED Problem List - Problems (1) COPD exacerbation Assessment/Plan: -Pulm on board -Azithromycin -Symbicort -Solumedrol -Spiriva -bronchodilators -keep SpO2 >90% -O2 via NC -CXR shows persistent atelectasis/pleural reaction at the left base Code(s): J44.1 - CHRONIC OBSTRUCTIVE PULMONARY DISEASE W (ACUTE) EXACERBATION (2) Acute respiratory distress Assessment/Plan: -Pulm on board -Azithromycin -Solumedrol -bronchodilators -keep SpO2 >90% -O2 via NC -CXR shows persistent atelectasis/pleural reaction at the left base Code(s): R06.00 - DYSPNEA, UNSPECIFIED (3) CHF (congestive heart failure) Assessment/Plan: -1L fluid restriction -daily weights Code(s): I50.9 - HEART FAILURE, UNSPECIFIED (4) DM2 (diabetes mellitus, type 2) Assessment/Plan: -BGM ACHS -ISS -Sitagliptan/Metformin -low Na/diabetic diet Code(s): E11.9 - TYPE 2 DIABETES MELLITUS WITHOUT COMPLICATIONS (5) HTN (hypertension) Assessment/Plan: -Cardizem and Losartan -low Na diet Code(s): I10 - ESSENTIAL (PRIMARY) HYPERTENSION (6) UTI (urinary tract infection) Assessment/Plan: -ID on board -WBC 10.3 -UA 3+ leukocytes -UC neg -Ceftriaxone Code(s): N39.0 - URINARY TRACT INFECTION, SITE NOT SPECIFIED Qualifiers: Urinary tract infection type: site unspecified Hematuria presence: without hematuria Qualified Code(s): N39.0 - Urinary tract infection, site not specified Assessment/Plan see problem list dvt ppx
[2019-05-03] MEDS ORDERED: PT OWN MED DRAWER 7, Y5N ONE (20:42)
[2019-05-03] MEDS: SENNOSIDES 8.6MG TABLET (FP) PO SCH (22:04)
[2019-05-03] MEDS: ROSUVASTATIN CA 5 MG TABLET (FP) PO SCH (22:04)
[2019-05-03] MEDS: MONTELUKAST NA 10 MG TABLET PO SCH (22:04)
[2019-05-04] MEDS: methylPREDNISolone NA SUCC 40 MG/1 ML VIAL IVPB SCH ×3 (02:13→17:17)
[2019-05-04] MEDS: sitaGLIPtin PHOSPHATE 50 MG TABLET PO SCH (06:09)
[2019-05-04] MEDS: INSULIN SLIDING SCALE (NOVOLOG) 1 VIAL SQ SCH ×4 (06:09→21:35)
[2019-05-04] MEDS: metFORMIN HCL 500 MG TABLET (FP) PO SCH ×2 (06:09→17:17)
[2019-05-04] MEDS ORDERED: INSULIN (NOVOLOG) ASPART 100 UNITS/ML 10ML VIAL ONE (06:38)
[2019-05-04 07:42] LABS: HEMOGLOBIN 12.9 GM/dL (10.7-15.3); MCH 27.9 pg (25.7-33.7); MCHC 33.1 g/dl (32.0-36.0); MEAN CELL VOLUME 84.2 fl (80-96); MEAN PLT VOLUME 8.6 fl (7.5-11.1); PLATELET COUNT 412 K/MM3 (134-434); RBC 4.64 M/mm3 (3.60-5.2); RDW 14.6 % (11.6-15.6); WHITE BLOOD COUNT 16.3 K/mm3 (4.0-10.0)
--- NOTE | 2019-05-04 07:55 | PN ---
Progress Note, Physician Chief Complaint: AWAKE ALERT CHART AND NOTES REVIEWED SITTING UP COUGHING DYSPNEA ON EXERTION - Current Medication List Current Medications: Active Medications Acetaminophen (Tylenol -) 650 mg PO Q6H PRN PRN Reason: PAIN 1-3 Albuterol Sulfate (Ventolin 0.083% Nebulizer Soln -) 1 amp NEB Q4H PRN PRN Reason: SHORT OF BREATH/WHEEZING Last Admin: 05/03/19 11:32 Dose: 1 amp Budesonide/Formoterol Fumarate (Symbicort 160/4.5mcg -) 2 puff IH BID [facility] Last Admin: 05/03/19 22:07 Dose: 2 puff Diltiazem HCl (Cardizem Cd -) 300 mg PO HS [facility] Last Admin: 05/03/19 22:03 Dose: 300 mg Ceftriaxone Sodium 1 gm/ (Dextrose) 50 mls @ 100 mls/hr IVPB DAILY [facility]; Protocol Last Admin: 05/03/19 09:24 Dose: 100 mls/hr Azithromycin (Zithromax 500mg Ivpb (Pre-Docked)) 500 mg in 250 mls @ 250 mls/ hr IVPB DAILY [facility] Last Admin: 05/03/19 09:25 Dose: 250 mls/hr Insulin Aspart (Novolog Vial Sliding Scale -) 1 vial SQ ACHS [facility]; Protocol Last Admin: 05/04/19 06:09 Dose: Not Given Losartan Potassium (Cozaar -) 100 mg PO DAILY [facility] Last Admin: 05/03/19 09:23 Dose: 100 mg Metformin HCl (Glucophage -) 500 mg PO BID@0700,1630 [facility] Last Admin: 05/04/19 06:09 Dose: 500 mg Methylprednisolone Sodium Succinate (Solu-Medrol -) 20 mg IVPB Q8H-IV [facility] Last Admin: 05/04/19 02:13 Dose: 20 mg Montelukast Sodium (Singulair -) 10 mg PO HS [facility] Last Admin: 05/03/19 22:04 Dose: 10 mg Rosuvastatin Calcium (Crestor -) 5 mg PO HS [facility] Last Admin: 05/03/19 22:04 Dose: 5 mg Senna (Senna -) 1 tab PO HS [facility] Last Admin: 05/03/19 22:04 Dose: 1 tab Sitagliptin Phosphate (Januvia -) 50 mg PO DAILY@0700 [facility] Last Admin: 05/04/19 06:09 Dose: 50 mg Tiotropium [place] (Spiriva Respimat) 1 puff IH DAILY [facility] Last Admin: 05/03/19 09:26 Dose: 1 puff - Objective Vital Signs: Vital Signs Temperature 98.2 F 05/04/19 06:00 Pulse Rate 82 05/04/19 06:00 Respiratory Rate 20 05/04/19 06:00 Blood Pressure 126/58 L 05/04/19 06:00 O2 Sat by Pulse Oximetry (%) 94 L 05/03/19 21:00 Constitutional: Yes: Mild Distress Eyes: Yes: WNL, Occular Prosthesis Neck: Yes: WNL Cardiovascular: Yes: Regular Rate and Rhythm Respiratory: Yes: Cough, Rhonchi Gastrointestinal: Yes: Soft, Abdomen, Obese Genitourinary: Yes: WNL Musculoskeletal: Yes: Muscle Weakness Extremities: Yes: WNL Edema: No Peripheral Pulses WNL: Yes Integumentary: Yes: WNL Wound/Incision: Yes: Clean/Dry Neurological: Yes: WNL ...Motor Strength: WNL Psychiatric: Yes: WNL Problem List - Problems (1) COPD exacerbation Code(s): J44.1 - CHRONIC OBSTRUCTIVE PULMONARY DISEASE W (ACUTE) EXACERBATION (2) Acute respiratory distress Code(s): R06.00 - DYSPNEA, UNSPECIFIED (3) Asthma Code(s): J45.909 - UNSPECIFIED ASTHMA, UNCOMPLICATED (4) Asthma dependent on systemic steroids with acute exacerbation Code(s): J45.901 - UNSPECIFIED ASTHMA WITH (ACUTE) EXACERBATION; Z79.52 - SENIOR LIVING (CURRENT) USE OF SYSTEMIC STEROIDS (5) Bronchitis Code(s): J40 - BRONCHITIS, NOT SPECIFIED ACUTE OR CHRONIC (6) DM2 (diabetes mellitus, type 2) Code(s): E11.9 - TYPE 2 DIABETES MELLITUS WITHOUT COMPLICATIONS (7) Dyspnea and respiratory abnormalities Code(s): R06.00 - DYSPNEA, UNSPECIFIED; R06.89 - OTHER ABNORMALITIES OF BREATHING Assessment/Plan IV STEROIDS TAPER OFF SLOWLY SSI WHILE ON STEROIDS MONITOR BGM OOB TO CHAIR PT EVAL PULM EVAL APPRECIATED URINE CX NEGATIVE
[2019-05-04 08:32] LABS: ALBUMIN 3.1 g/dl (3.4-5.0); BILIRUBIN,TOTAL 0.2 mg/dL (0.2-1); CALCIUM 8.7 mg/dL (8.5-10.1); CREATININE 1.1 mg/dL (0.55-1.3); POTASSIUM 4.6 mmol/L (3.5-5.1); TOT PROT 5.8 g/dl (6.4-8.2)
[2019-05-04] MEDS ORDERED: cefTRIAXone SODIUM 1 GM VIAL ONE (09:09)
[2019-05-04] MEDS ORDERED: DEXTROSE 5%-WATER - 50 ML IVPB ONE (09:09)
[2019-05-04] MEDS: BUDESONIDE/FORMETEROL FUMARATE 160/4.5 mcg INHALER IH SCH ×2 (09:39→21:38)
[2019-05-04] MEDS: TIOTROPIUM BROMIDE 2.5 MCG (SPIRIVA) RESPIMAT INHALER IH SCH (09:39)
[2019-05-04] MEDS: CEFTRIAXONE 1 GM in DEXTROSE 5%-WATER - 50 ML IVPB SCH (09:39)
[2019-05-04] MEDS: AZITHROMYCIN IVPB 500 MG/250 ML BAG IVPB SCH (09:40)
[2019-05-04] MEDS: LOSARTAN POTASSIUM 50 MG TABLET (FP) PO SCH (09:40)
[2019-05-04] MEDS: SERTRALINE HCL 25 MG TABLET (FP) PO SCH (09:40)
--- NOTE | 2019-05-04 11:51 | PN ---
Progress Note (short form) - Note Progress Note: OOB to chair. Feels a little better today. Still with congested cough. No CP. No hemoptysis. Intake & Output 05/01/19 05/02/19 05/03/19 05/04/19 23:59 23:59 23:59 23:59 Intake Total 150 600 850 0 Balance 150 600 850 0 Weight 110 lb 113 lb 9 oz Last Vital Signs Temp Pulse Resp BP Pulse Ox 98.2 F 67 16 153/66 94 L 05/04/19 10:00 05/04/19 10:00 05/04/19 10:00 05/04/19 10:00 05/04/19 09:00 Active Medications Acetaminophen (Tylenol -) 650 mg PO Q6H PRN PRN Reason: PAIN 1-3 Albuterol Sulfate (Ventolin 0.083% Nebulizer Soln -) 1 amp NEB Q4H PRN PRN Reason: SHORT OF BREATH/WHEEZING Last Admin: 05/03/19 11:32 Dose: 1 amp Budesonide/Formoterol Fumarate (Symbicort 160/4.5mcg -) 2 puff IH BID [facility] Last Admin: 05/04/19 09:39 Dose: 2 puff Diltiazem HCl (Cardizem Cd -) 300 mg PO HS [facility] Last Admin: 05/03/19 22:03 Dose: 300 mg Ceftriaxone Sodium 1 gm/ (Dextrose) 50 mls @ 100 mls/hr IVPB DAILY [facility]; Protocol Last Admin: 05/04/19 09:39 Dose: 100 mls/hr Azithromycin (Zithromax 500mg Ivpb (Pre-Docked)) 500 mg in 250 mls @ 250 mls/ hr IVPB DAILY [facility] Last Admin: 05/04/19 09:40 Dose: 250 mls/hr Insulin Aspart (Novolog Vial Sliding Scale -) 1 vial SQ ACHS [facility]; Protocol Last Admin: 05/04/19 06:09 Dose: Not Given Losartan Potassium (Cozaar -) 100 mg PO DAILY [facility] Last Admin: 05/04/19 09:40 Dose: 100 mg Metformin HCl (Glucophage -) 500 mg PO BID@0700,1630 [facility] Last Admin: 05/04/19 06:09 Dose: 500 mg Methylprednisolone Sodium Succinate (Solu-Medrol -) 20 mg IVPB Q8H-IV [facility] Last Admin: 05/04/19 09:40 Dose: 20 mg Montelukast Sodium (Singulair -) 10 mg PO [facility] Last Admin: 05/03/19 22:04 Dose: 10 mg Rosuvastatin Calcium (Crestor -) 5 mg PO HS [facility] Last Admin: 05/03/19 22:04 Dose: 5 mg Senna (Senna -) 1 tab PO HS [facility] Last Admin: 05/03/19 22:04 Dose: 1 tab Sertraline HCl (Zoloft -) 25 mg PO DAILY [facility] Last Admin: 05/04/19 09:40 Dose: 25 mg Sitagliptin Phosphate (Januvia -) 50 mg PO DAILY@0700 [facility] Last Admin: 05/04/19 06:09 Dose: 50 mg Tiotropium [place] (Spiriva Respimat) 1 puff IH DAILY [facility] Last Admin: 05/04/19 09:39 Dose: 1 puff Constitutional: Yes: NAD Eyes: Yes: Conjunctiva Clear, EOM Intact HENT: Yes: Atraumatic, Normocephalic Neck: Yes: Supple, Trachea Midline Cardiovascular: Yes: Regular Rate and Rhythm Respiratory: Yes: Less Expiratory wheezes and scattered rhonchi ...Clubbing: No Gastrointestinal: Yes: Normal Bowel Sounds, Soft. No: Tenderness Edema: No Neurological: Yes: Alert, Oriented Laboratory Results - last 24 hr 05/03/19 05/03/19 05/03/19 06:30 16:34 22:00 WBC RBC Hgb Hct MCV MCH MCHC RDW Plt Count MPV Sodium Potassium Chloride Carbon Dioxide Anion Gap BUN Creatinine Est GFR (CKD-EPI)AfAm Est GFR (CKD-EPI)NonAf POC Glucometer 232 319 Random Glucose Hemoglobin A1c % 7.0 H Calcium Total Bilirubin AST ALT Alkaline Phosphatase Total Protein Albumin 05/04/19 05/04/19 05/04/19 06:07 06:52 06:52 WBC 16.3 H RBC 4.64 Hgb 12.9 Hct 39.0 MCV 84.2 MCH 27.9 MCHC 33.1 RDW 14.6 Plt Count 412 MPV 8.6 Sodium 137 Potassium 4.6 Chloride 104 Carbon Dioxide 23 Anion Gap 11 BUN 34.0 H Creatinine 1.1 Est GFR (CKD-EPI)AfAm 51.91 Est GFR (CKD-EPI)NonAf 44.79 POC Glucometer 129 Random Glucose 139 H Hemoglobin A1c % Calcium 8.7 Total Bilirubin 0.2 AST 5 L ALT 14 Alkaline Phosphatase 76 Total Protein 5.8 L Albumin 3.1 L - Problems (1) COPD exacerbation Code(s): J44.1 - CHRONIC OBSTRUCTIVE PULMONARY DISEASE W (ACUTE) EXACERBATION (2) HTN (hypertension) Code(s): I10 - ESSENTIAL (PRIMARY) HYPERTENSION Assessment/Plan (?) LLL PNA Acute COPD Exacerbation HTN DM Hyperlipidemia - Maintain IV medrol - inhaled bronchodilators standing and PRN - Rocephin / azithromycin - O2 to keep Spo2 >90% - glucose control while on systemic steroids - DVT prophylaxis Dr Escobedo
--- NOTE | 2019-05-04 15:01 | PN ---
Progress Note, Physician History of Present Illness: OOB IN CHAIR REPORTS IMPROVEMENT IN BREATHING OCCASIONAL COUGH NO C/O FEVER/ CHILLS AFEBRILE WITH ELEVATED WBC ON STEROIDS - Current Medication List Current Medications: Active Medications Acetaminophen (Tylenol -) 650 mg PO Q6H PRN PRN Reason: PAIN 1-3 Albuterol Sulfate (Ventolin 0.083% Nebulizer Soln -) 1 amp NEB Q4H PRN PRN Reason: SHORT OF BREATH/WHEEZING Last Admin: 05/03/19 11:32 Dose: 1 amp Budesonide/Formoterol Fumarate (Symbicort 160/4.5mcg -) 2 puff IH BID [facility] Last Admin: 05/04/19 09:39 Dose: 2 puff Diltiazem HCl (Cardizem Cd -) 300 mg PO HS [facility] Last Admin: 05/03/19 22:03 Dose: 300 mg Ceftriaxone Sodium 1 gm/ (Dextrose) 50 mls @ 100 mls/hr IVPB DAILY [facility]; Protocol Last Admin: 05/04/19 09:39 Dose: 100 mls/hr Azithromycin (Zithromax 500mg Ivpb (Pre-Docked)) 500 mg in 250 mls @ 250 mls/ hr IVPB DAILY [facility] Last Admin: 05/04/19 09:40 Dose: 250 mls/hr Insulin Aspart (Novolog Vial Sliding Scale -) 1 vial SQ ACHS [facility]; Protocol Last Admin: 05/04/19 12:20 Dose: 2 units Losartan Potassium (Cozaar -) 100 mg PO DAILY [facility] Last Admin: 05/04/19 09:40 Dose: 100 mg Metformin HCl (Glucophage -) 500 mg PO BID@0700,1630 [facility] Last Admin: 05/04/19 06:09 Dose: 500 mg Methylprednisolone Sodium Succinate (Solu-Medrol -) 20 mg IVPB Q8H-IV [facility] Last Admin: 05/04/19 09:40 Dose: 20 mg Montelukast Sodium (Singulair -) 10 mg PO HS [facility] Last Admin: 05/03/19 22:04 Dose: 10 mg Rosuvastatin Calcium (Crestor -) 5 mg PO HS [facility] Last Admin: 05/03/19 22:04 Dose: 5 mg Senna (Senna -) 1 tab PO HS [facility] Last Admin: 05/03/19 22:04 Dose: 1 tab Sertraline HCl (Zoloft -) 25 mg PO DAILY [facility] Last Admin: 05/04/19 09:40 Dose: 25 mg Sitagliptin Phosphate (Januvia -) 50 mg PO DAILY@0700 [facility] Last Admin: 05/04/19 06:09 Dose: 50 mg Tiotropium [place] (Spiriva Respimat) 1 puff IH DAILY [facility] Last Admin: 05/04/19 09:39 Dose: 1 puff - Objective Vital Signs: Vital Signs Temperature 97.6 F 05/04/19 14:38 Pulse Rate 57 L 05/04/19 14:38 Respiratory Rate 18 05/04/19 14:38 Blood Pressure 133/61 05/04/19 14:38 O2 Sat by Pulse Oximetry (%) 94 L 05/04/19 09:00 Constitutional: Yes: No Distress Cardiovascular: Yes: Regular Rate and Rhythm, S1, S2 Respiratory: Yes: CTA Bilaterally Gastrointestinal: Yes: Normal Bowel Sounds, Soft. No: Tenderness Edema: LLE: Trace, RLE: Trace Labs: CBC, BMP 05/04/19 06:52 05/04/19 06:52 Assessment/Plan ?PNEUMONIA EXACERBATION COPD LEUKOCYTOSIS CONTINUE CEFTRIAXONE/ ZITHROMAX
[2019-05-04] MEDS ORDERED: PT OWN MED DRAWER 7, Y5N ONE (20:11)
[2019-05-04] MEDS: SENNOSIDES 8.6MG TABLET (FP) PO SCH (21:37)
[2019-05-04] MEDS: ROSUVASTATIN CA 5 MG TABLET (FP) PO SCH (21:37)
[2019-05-04] MEDS: MONTELUKAST NA 10 MG TABLET PO SCH (21:38)
[2019-05-05] MEDS: methylPREDNISolone NA SUCC 40 MG/1 ML VIAL IVPB SCH ×3 (03:10→19:56)
[2019-05-05] MEDS: sitaGLIPtin PHOSPHATE 50 MG TABLET PO SCH (06:24)
[2019-05-05] MEDS: INSULIN SLIDING SCALE (NOVOLOG) 1 VIAL SQ SCH ×4 (06:24→22:33)
[2019-05-05] MEDS: metFORMIN HCL 500 MG TABLET (FP) PO SCH ×2 (06:24→19:56)
[2019-05-05] MEDS ORDERED: WITCH HAZEL 50% (TUCKS) 40 PAD/JAR PAD TP PRN (08:06)
--- NOTE | 2019-05-05 08:13 | PN ---
Progress Note, Physician Chief Complaint: FEELING BETTER DENIES FEVER OR CHILLS NO SOB + BLEEDING RECTAL HEMMEROID OVERNIGHT - Current Medication List Current Medications: Active Medications Acetaminophen (Tylenol -) 650 mg PO Q6H PRN PRN Reason: PAIN 1-3 Albuterol Sulfate (Ventolin 0.083% Nebulizer Soln -) 1 amp NEB Q4H PRN PRN Reason: SHORT OF BREATH/WHEEZING Last Admin: 05/03/19 11:32 Dose: 1 amp Budesonide/Formoterol Fumarate (Symbicort 160/4.5mcg -) 2 puff IH BID [facility] Last Admin: 05/04/19 21:38 Dose: 2 puff Diltiazem HCl (Cardizem Cd -) 300 mg PO HS [facility] Last Admin: 05/04/19 21:36 Dose: 300 mg Ceftriaxone Sodium 1 gm/ (Dextrose) 50 mls @ 100 mls/hr IVPB DAILY [facility]; Protocol Last Admin: 05/04/19 09:39 Dose: 100 mls/hr Azithromycin (Zithromax 500mg Ivpb (Pre-Docked)) 500 mg in 250 mls @ 250 mls/ hr IVPB DAILY [facility] Last Admin: 05/04/19 09:40 Dose: 250 mls/hr Insulin Aspart (Novolog Vial Sliding Scale -) 1 vial SQ ACHS [facility]; Protocol Last Admin: 05/05/19 06:24 Dose: Not Given Losartan Potassium (Cozaar -) 100 mg PO DAILY [facility] Last Admin: 05/04/19 09:40 Dose: 100 mg Metformin HCl (Glucophage -) 500 mg PO BID@0700,1630 [facility] Last Admin: 05/05/19 06:24 Dose: 500 mg Methylprednisolone Sodium Succinate (Solu-Medrol -) 20 mg IVPB Q8H-IV [facility] Last Admin: 05/05/19 03:10 Dose: 20 mg Montelukast Sodium (Singulair -) 10 mg PO HS [facility] Last Admin: 05/04/19 21:38 Dose: 10 mg Rosuvastatin Calcium (Crestor -) 5 mg PO HS [facility] Last Admin: 05/04/19 21:37 Dose: 5 mg Senna (Senna -) 1 tab PO HS [facility] Last Admin: 05/04/19 21:37 Dose: Not Given Sertraline HCl (Zoloft -) 25 mg PO DAILY [facility] Last Admin: 05/04/19 09:40 Dose: 25 mg Sitagliptin Phosphate (Januvia -) 50 mg PO DAILY@0700 [facility] Last Admin: 05/05/19 06:24 Dose: 50 mg Tiotropium [place] (Spiriva Respimat) 1 puff IH DAILY [facility] Last Admin: 05/04/19 09:39 Dose: 1 puff - Objective Vital Signs: Vital Signs Temperature 98.1 F 05/05/19 05:35 Pulse Rate 57 L 05/05/19 05:35 Respiratory Rate 18 05/05/19 05:35 Blood Pressure 133/65 05/05/19 05:35 O2 Sat by Pulse Oximetry (%) 94 L 05/04/19 21:00 Constitutional: Yes: No Distress Eyes: Yes: WNL HENT: Yes: WNL Neck: Yes: WNL Cardiovascular: Yes: Regular Rate and Rhythm Respiratory: Yes: Diminished, On Nasal O2 Gastrointestinal: Yes: Soft ...Rectal Exam: Yes: Hemorrhoids/External Genitourinary: Yes: WNL Musculoskeletal: Yes: Muscle Weakness Extremities: Yes: WNL Edema: No Peripheral Pulses WNL: Yes Integumentary: Yes: WNL Wound/Incision: Yes: Clean/Dry Neurological: Yes: WNL ...Motor Strength: WNL Psychiatric: Yes: WNL Labs: CBC, BMP 05/04/19 06:52 05/04/19 06:52 Problem List - Problems (1) COPD exacerbation Code(s): J44.1 - CHRONIC OBSTRUCTIVE PULMONARY DISEASE W (ACUTE) EXACERBATION (2) Acute respiratory distress Code(s): R06.00 - DYSPNEA, UNSPECIFIED (3) Asthma Code(s): J45.909 - UNSPECIFIED ASTHMA, UNCOMPLICATED (4) Asthma dependent on systemic steroids with acute exacerbation Code(s): J45.901 - UNSPECIFIED ASTHMA WITH (ACUTE) EXACERBATION; Z79.52 - LOFT RIGGER (CURRENT) USE OF SYSTEMIC STEROIDS (5) Bronchitis Code(s): J40 - BRONCHITIS, NOT SPECIFIED ACUTE OR CHRONIC (6) DM2 (diabetes mellitus, type 2) Code(s): E11.9 - TYPE 2 DIABETES MELLITUS WITHOUT COMPLICATIONS (7) Dyspnea and respiratory abnormalities Code(s): R06.00 - DYSPNEA, UNSPECIFIED; R06.89 - OTHER ABNORMALITIES OF BREATHING (8) External hemorrhoid, bleeding Code(s): K64.4 - RESIDUAL HEMORRHOIDAL SKIN TAGS Assessment/Plan IV ABX WITH NEBS FOR RESP FAILURE/DISTRESS NEBS/STEROIDS/02 SUPPORT ZOLOFT STARTED GLUCERNA DAILY OOB TO CHAIR TUCKS AND RECTAL OITMENT ORDERED FOR HEMMEROIDS
--- NOTE | 2019-05-05 09:29 | PN ---
Progress Note (short form) - Note Progress Note: On the toilet. Large amount of blood noted. Reports previous history of hemorrhoidal bleeding. Breathing feels a little better today. Less congested cough. No CP. No hemoptysis. Intake & Output 05/02/19 05/03/19 05/04/19 05/05/19 23:59 23:59 23:59 23:59 Intake Total 600 850 750 0 Balance 600 850 750 0 Weight 113 lb 9 oz 115 lb Last Vital Signs Temp Pulse Resp BP Pulse Ox 98.1 F 57 L 18 133/65 94 L 05/05/19 05:35 05/05/19 05:35 05/05/19 05:35 05/05/19 05:35 05/04/19 21:00 Active Medications Acetaminophen (Tylenol -) 650 mg PO Q6H PRN PRN Reason: PAIN 1-3 Albuterol Sulfate (Ventolin 0.083% Nebulizer Soln -) 1 amp NEB Q4H PRN PRN Reason: SHORT OF BREATH/WHEEZING Last Admin: 05/03/19 11:32 Dose: 1 amp Budesonide/Formoterol Fumarate (Symbicort 160/4.5mcg -) 2 puff IH BID [facility] Last Admin: 05/04/19 21:38 Dose: 2 puff Diltiazem HCl (Cardizem Cd -) 300 mg PO HS [facility] Last Admin: 05/04/19 21:36 Dose: 300 mg Hydrocortisone (Anusol 2.5% Hc Cream -) 1 applic OR DAILY [facility] Ceftriaxone Sodium 1 gm/ (Dextrose) 50 mls @ 100 mls/hr IVPB DAILY [facility]; Protocol Last Admin: 05/04/19 09:39 Dose: 100 mls/hr Azithromycin (Zithromax 500mg Ivpb (Pre-Docked)) 500 mg in 250 mls @ 250 mls/ hr IVPB DAILY [facility] Last Admin: 05/04/19 09:40 Dose: 250 mls/hr Insulin Aspart (Novolog Vial Sliding Scale -) 1 vial SQ ACHS [facility]; Protocol Last Admin: 05/05/19 06:24 Dose: Not Given Losartan Potassium (Cozaar -) 100 mg PO DAILY [facility] Last Admin: 05/04/19 09:40 Dose: 100 mg Metformin HCl (Glucophage -) 500 mg PO BID@0700,1630 [facility] Last Admin: 05/05/19 06:24 Dose: 500 mg Methylprednisolone Sodium Succinate (Solu-Medrol -) 20 mg IVPB Q8H-IV [facility] Last Admin: 05/05/19 03:10 Dose: 20 mg Montelukast Sodium (Singulair -) 10 mg PO [facility] Last Admin: 05/04/19 21:38 Dose: 10 mg Pramoxine HCl (Tucks Ointment -) 2 applic RC [facility] Rosuvastatin Calcium (Crestor -) 5 mg PO [facility] Last Admin: 05/04/19 21:37 Dose: 5 mg Senna (Senna -) 1 tab PO [facility] Last Admin: 05/04/19 21:37 Dose: Not Given Sertraline HCl (Zoloft -) 25 mg PO DAILY [facility] Last Admin: 05/04/19 09:40 Dose: 25 mg Sitagliptin Phosphate (Januvia -) 50 mg PO DAILY@0700 [facility] Last Admin: 05/05/19 06:24 Dose: 50 mg Tiotropium [place] (Spiriva Respimat) 1 puff IH DAILY [facility] Last Admin: 05/04/19 09:39 Dose: 1 puff Witch Zeny/Glycerin (Tucks Pads -) 1 pad TP PRN PRN PRN Reason: HEMORRHOIDS Constitutional: Yes: NAD Eyes: Yes: Conjunctiva Clear, EOM Intact HENT: Yes: Atraumatic, Normocephalic Neck: Yes: Supple, Trachea Midline Cardiovascular: Yes: Regular Rate and Rhythm Respiratory: Yes: Less Expiratory wheezes and scattered rhonchi ...Clubbing: No Gastrointestinal: Yes: Normal Bowel Sounds, Soft. No: Tenderness Edema: No Neurological: Yes: Alert, Oriented Laboratory Results - last 24 hr 05/04/19 05/04/19 05/04/19 11:48 16:48 21:33 POC Glucometer 248 176 306 05/05/19 06:02 POC Glucometer 109 - Problems (1) COPD exacerbation Code(s): J44.1 - CHRONIC OBSTRUCTIVE PULMONARY DISEASE W (ACUTE) EXACERBATION (2) HTN (hypertension) Code(s): I10 - ESSENTIAL (PRIMARY) HYPERTENSION Assessment/Plan (?) LLL PNA Acute COPD Exacerbation HTN DM Hyperlipidemia - CBC - Tucks pads and ointments - IV medrol - inhaled bronchodilators standing and PRN - Rocephin / azithromycin - O2 to keep Spo2 >90% - glucose control while on systemic steroids - DVT prophylaxis Dr Escobedo
[2019-05-05] MEDS ORDERED: cefTRIAXone SODIUM 1 GM VIAL ONE (09:30)
[2019-05-05] MEDS ORDERED: DEXTROSE 5%-WATER - 50 ML IVPB ONE (09:31)
[2019-05-05] MEDS: AZITHROMYCIN IVPB 500 MG/250 ML BAG IVPB SCH (10:39)
[2019-05-05] MEDS: CEFTRIAXONE 1 GM in DEXTROSE 5%-WATER - 50 ML IVPB SCH (10:39)
[2019-05-05] MEDS: SERTRALINE HCL 25 MG TABLET (FP) PO SCH (10:40)
[2019-05-05] MEDS: TIOTROPIUM BROMIDE 2.5 MCG (SPIRIVA) RESPIMAT INHALER IH SCH (10:48)
[2019-05-05] MEDS: BUDESONIDE/FORMETEROL FUMARATE 160/4.5 mcg INHALER IH SCH ×2 (10:49→22:34)
[2019-05-05] MEDS: HYDROCORTISONE 2.5% TOPICAL CREAM 30 GM TUBE PR SCH (12:03)
[2019-05-05] MEDS: LOSARTAN POTASSIUM 50 MG TABLET (FP) PO SCH (12:03)
[2019-05-05 12:12] LABS: HEMATOCRIT 38.7 % (32.4-45.2); HEMOGLOBIN 12.5 GM/dL (10.7-15.3); MCH 27.5 pg (25.7-33.7); MCHC 32.4 g/dl (32.0-36.0); MEAN CELL VOLUME 84.9 fl (80-96); MEAN PLT VOLUME 9.1 fl (7.5-11.1); PLATELET COUNT 389 K/MM3 (134-434); RBC 4.55 M/mm3 (3.60-5.2); RDW 14.6 % (11.6-15.6); WHITE BLOOD COUNT 16.6 K/mm3 (4.0-10.0)
--- NOTE | 2019-05-05 13:19 | CON.GI ---
Consult Consult Specialty:: GI Referred by:: Medicine Reason for Consultation:: BRBPR - History of Present Illness Chief Complaint: hematochezia History of Present Illness: 88F with h/o DM, HTN, HL, COPD, here for SOB, being treated for COPD exacerbation and PNA. GI consulted for 3 episodes of hematochezia today. At baseline pt reports long hx of hemorrhoids with constipation that she describes as blood on toilet paper when straining Today, went to bathroom, pushed, had solid stool but a large amount of red blood. This happened three times - the third of which was all over the toilet seat and floor. Denies abdominal pain. Reports she was previously a patient of Dr. Mroaes and had hemorrhoids banded 5 years ago. Unclear if she had a full colonoscopy at that time. No change in bowel habits, no weight loss. Last colonoscopy in this system was in 2005, had a cecal polyp, to repeat in 2y. - Past Medical History Cardio/Vascular: Yes: HTN Pulmonary: Yes: Asthma, COPD Gastrointestinal: Yes: Constipation, Hemorrhoids, Other (RECTAL BLEEDING) Endocrine: Yes: Diabetes Mellitus - Past Surgical History Past Surgical History: Yes: Hernia Repair - Alcohol/Substance Use Hx Alcohol Use: No - Smoking History Smoking history: Never smoked Have you smoked in the past 12 months: No Aproximately how many cigarettes per day: 0 - Social History Usual Living Arrangement: Alone ADL: Family Assistance History of Recent Travel: No Home Medications - Allergies Allergies/Adverse Reactions: Allergies Allergy/AdvReac Type Severity Reaction Status Date / Time No Known Drug Allergies Allergy Verified 05/01/19 08:08 - Home Medications Home Medications: Ambulatory Orders Acetaminophen 650 mg PO PRN PRN 05/01/19 Albuterol 0.083% Nebulizer Alysa [Ventolin 0.083%] 1 neb NEB Q4H PRN 05/01/19 Budesonide/Formeterol Fumarate [SYMBICORT 160/4.5mcg -] 2 inh PO BID 05/01/19 Diltiazem Cd [Cardizem Cd -] 300 mg PO HS 05/01/19 Losartan Potassium 100 mg PO DAILY 05/01/19 Montelukast Na [Singulair -] 10 mg PO HS 05/01/19 Rosuvastatin Calcium [Crestor] 5 mg PO HS 05/01/19 Sennosides [Senna -] 1 tab PO HS 05/01/19 Sitagliptin Phos/Metformin HCl [Janumet 50-500 mg Tablet] 1 each PO HS 05/01/19 Tiotropium [place] [Spiriva Respimat] 1 puff IH DAILY 05/01/19 Review of Systems - Review of Systems Constitutional: reports: No Symptoms Eyes: reports: No Symptoms HENT: reports: No Symptoms Neck: reports: No Symptoms Cardiovascular: reports: Shortness of Breath Respiratory: reports: SOB Gastrointestinal: reports: Constipation, Rectal Bleeding. denies: Abdominal Pain, Diarrhea, Melena, Vomiting Genitourinary: reports: No Symptoms Musculoskeletal: reports: No Symptoms Neurological: reports: No Symptoms Endocrine: reports: No Symptoms Hematology/Lymphatic: reports: No Symptoms Physical Exam-GI Vital Signs: Vital Signs Temperature 98.0 F 05/05/19 10:00 Pulse Rate 48 L 05/05/19 10:00 Respiratory Rate 18 05/05/19 10:00 Blood Pressure 135/56 L 05/05/19 10:00 O2 Sat by Pulse Oximetry (%) 94 L 05/04/19 21:00 Constitutional: Yes: Well Nourished, No Distress Eyes: Yes: Conjunctiva Clear HENT: Yes: Atraumatic, Normocephalic Cardiovascular: Yes: Regular Rate and Rhythm ...Palpate: Yes: Soft. No: Firm/Rigid, Guarding, Tenderness ...Rectal Exam: Yes: Other (external no lesions, MARTÍNEZ with soft brown stool, no blood or mass) Neurological: Yes: Alert, Oriented Psychiatric: Yes: Alert, Oriented Labs: CBC, BMP 05/05/19 11:36 05/04/19 06:52 Assessment/Plan Painless hematochezia - ddx includes internal hemorrhoids vs stercoral colitis given h/o chronic constipation vs polyp vs diverticular bleeding For now, given still normal appearing hgb, would continue to observe Trend hgb q12h Would give miralax 17g daily to prevent constipation If concern for active bleeding, would obtain CTA or bleeding scan
[2019-05-05 17:29] LABS: BASO % 0.1 % (0-2.0); HEMATOCRIT 36.7 % (32.4-45.2); HEMOGLOBIN 12.2 GM/dL (10.7-15.3); LYMPH % 9.9 % (8-40); MCH 27.8 pg (25.7-33.7); MCHC 33.1 g/dl (32.0-36.0); MEAN CELL VOLUME 83.9 fl (80-96); MEAN PLT VOLUME 8.6 fl (7.5-11.1); MONO % 2.8 % (3.8-10.2); NEUT % 87.2 % (42.8-82.8); PLATELET COUNT 395 K/MM3 (134-434); RBC 4.37 M/mm3 (3.60-5.2); RDW 14.7 % (11.6-15.6); WHITE BLOOD COUNT 14.7 K/mm3 (4.0-10.0)
[2019-05-05] MEDS ORDERED: PRAMOXINE HCL/MINERAL OIL/ZNOX 30 GM TUBE RC SCH ×2 (22:00)
[2019-05-05] MEDS: ROSUVASTATIN CA 5 MG TABLET (FP) PO SCH (22:33)
[2019-05-05] MEDS: MONTELUKAST NA 10 MG TABLET PO SCH (22:33)
[2019-05-05] MEDS: SENNOSIDES 8.6MG TABLET (FP) PO SCH (22:34)
[2019-05-06] MEDS: methylPREDNISolone NA SUCC 40 MG/1 ML VIAL IVPB SCH ×2 (02:57→09:03)
[2019-05-06] MEDS: metFORMIN HCL 500 MG TABLET (FP) PO SCH ×2 (06:21→16:24)
[2019-05-06] MEDS: sitaGLIPtin PHOSPHATE 50 MG TABLET PO SCH (06:21)
[2019-05-06] MEDS: INSULIN SLIDING SCALE (NOVOLOG) 1 VIAL SQ SCH ×4 (06:21→22:25)
--- NOTE | 2019-05-06 08:27 | PN ---
Progress Note, Physician Chief Complaint: AWAKE ALERT EATING BREAKFAST C/O HEMATOCHEZIA NO FEVER NO CHILLS +WEAKNESS - Current Medication List Current Medications: Active Medications Acetaminophen (Tylenol -) 650 mg PO Q6H PRN PRN Reason: PAIN 1-3 Albuterol Sulfate (Ventolin 0.083% Nebulizer Soln -) 1 amp NEB Q4H PRN PRN Reason: SHORT OF BREATH/WHEEZING Last Admin: 05/03/19 11:32 Dose: 1 amp Budesonide/Formoterol Fumarate (Symbicort 160/4.5mcg -) 2 puff IH BID [facility] Last Admin: 05/05/19 22:34 Dose: 2 puff Diltiazem HCl (Cardizem Cd -) 300 mg PO HS [facility] Last Admin: 05/05/19 22:33 Dose: 300 mg Hydrocortisone (Anusol 2.5% Hc Cream -) 1 applic [place] DAILY [facility] Last Admin: 05/05/19 12:03 Dose: 1 applic Ceftriaxone Sodium 1 gm/ (Dextrose) 50 mls @ 100 mls/hr IVPB DAILY [facility]; Protocol Last Admin: 05/05/19 10:39 Dose: 100 mls/hr Azithromycin (Zithromax 500mg Ivpb (Pre-Docked)) 500 mg in 250 mls @ 250 mls/ hr IVPB DAILY [facility] Last Admin: 05/05/19 10:39 Dose: 250 mls/hr Insulin Aspart (Novolog Vial Sliding Scale -) 1 vial SQ ACHS [facility]; Protocol Last Admin: 05/06/19 06:21 Dose: 2 units Losartan Potassium (Cozaar -) 100 mg PO DAILY [facility] Last Admin: 05/05/19 12:03 Dose: Not Given Metformin HCl (Glucophage -) 500 mg PO BID@0700,1630 [facility] Last Admin: 05/06/19 06:21 Dose: 500 mg Methylprednisolone Sodium Succinate (Solu-Medrol -) 20 mg IVPB Q8H-IV [facility] Last Admin: 05/06/19 02:57 Dose: 20 mg Montelukast Sodium (Singulair -) 10 mg PO HS [facility] Last Admin: 05/05/19 22:33 Dose: 10 mg Polyethylene Glycol (Miralax (For Daily Use) -) 17 gm PO DAILY [facility] Pramoxine HCl (Tucks Ointment -) 2 applic RC [facility] Rosuvastatin Calcium (Crestor -) 5 mg PO [facility] Last Admin: 05/05/19 22:33 Dose: 5 mg Senna (Senna -) 1 tab PO [facility] Last Admin: 05/05/19 22:34 Dose: Not Given Sertraline HCl (Zoloft -) 25 mg PO DAILY [facility] Last Admin: 05/05/19 10:40 Dose: 25 mg Sitagliptin Phosphate (Januvia -) 50 mg PO DAILY@0700 [facility] Last Admin: 05/06/19 06:21 Dose: 50 mg Tiotropium [place] (Spiriva Respimat) 1 puff IH DAILY [facility] Last Admin: 05/05/19 10:48 Dose: 1 puff Witch Zeny/Glycerin (Tucks Pads -) 1 pad TP PRN PRN PRN Reason: HEMORRHOIDS - Objective Vital Signs: Vital Signs Temperature 98.1 F 05/06/19 05:48 Pulse Rate 53 L 05/06/19 05:48 Respiratory Rate 20 05/06/19 05:48 Blood Pressure 141/59 L 05/06/19 05:48 O2 Sat by Pulse Oximetry (%) 97 05/05/19 21:00 Constitutional: Yes: Mild Distress Eyes: Yes: WNL HENT: Yes: WNL Neck: Yes: WNL Cardiovascular: Yes: Regular Rate and Rhythm Respiratory: Yes: Diminished, On Nasal O2 ...Rectal Exam: Yes: Other Genitourinary: Yes: WNL Musculoskeletal: Yes: Muscle Weakness Extremities: Yes: WNL Edema: No Peripheral Pulses WNL: Yes Integumentary: Yes: WNL Wound/Incision: Yes: Clean/Dry Neurological: Yes: Pre-Existing Deficit Psychiatric: Yes: WNL Labs: CBC, BMP 05/05/19 16:30 05/04/19 06:52 Problem List - Problems (1) COPD exacerbation Code(s): J44.1 - CHRONIC OBSTRUCTIVE PULMONARY DISEASE W (ACUTE) EXACERBATION (2) Acute respiratory distress Code(s): R06.00 - DYSPNEA, UNSPECIFIED (3) Asthma Code(s): J45.909 - UNSPECIFIED ASTHMA, UNCOMPLICATED (4) Asthma dependent on systemic steroids with acute exacerbation Code(s): J45.901 - UNSPECIFIED ASTHMA WITH (ACUTE) EXACERBATION; Z79.52 - LONGTERM (CURRENT) USE OF SYSTEMIC STEROIDS (5) Bronchitis Code(s): J40 - BRONCHITIS, NOT SPECIFIED ACUTE OR CHRONIC (6) DM2 (diabetes mellitus, type 2) Code(s): E11.9 - TYPE 2 DIABETES MELLITUS WITHOUT COMPLICATIONS (7) Dyspnea and respiratory abnormalities Code(s): R06.00 - DYSPNEA, UNSPECIFIED; R06.89 - OTHER ABNORMALITIES OF BREATHING (8) External hemorrhoid, bleeding Code(s): K64.4 - RESIDUAL HEMORRHOIDAL SKIN TAGS Assessment/Plan IV ABX WITH NEBS FOR RESP FAILURE/DISTRESS NEBS/STEROIDS/02 SUPPORT ZOLOFT STARTED RESPONDING WELL GLUCERNA DAILY OOB TO CHAIR TUCKS AND RECTAL OITMENT ORDERED FOR HEMMEROIDS GI CONSULT APPRECIATED WILL MONITOR
[2019-05-06] MEDS ORDERED: DEXTROSE 5%-WATER - 50 ML IVPB ONE (08:48)
[2019-05-06] MEDS ORDERED: cefTRIAXone SODIUM 1 GM VIAL ONE (08:48)
[2019-05-06] MEDS: HYDROCORTISONE 2.5% TOPICAL CREAM 30 GM TUBE PR SCH (09:00)
[2019-05-06] MEDS: LOSARTAN POTASSIUM 50 MG TABLET (FP) PO SCH (09:01)
[2019-05-06] MEDS: POLYETHYLENE GLYCOL 3350 119 GM BTL PO SCH (09:03)
[2019-05-06] MEDS: CEFTRIAXONE 1 GM in DEXTROSE 5%-WATER - 50 ML IVPB SCH (09:04)
[2019-05-06] MEDS: TIOTROPIUM BROMIDE 2.5 MCG (SPIRIVA) RESPIMAT INHALER IH SCH (09:05)
[2019-05-06] MEDS: SERTRALINE HCL 25 MG TABLET (FP) PO SCH (09:05)
[2019-05-06] MEDS: BUDESONIDE/FORMETEROL FUMARATE 160/4.5 mcg INHALER IH SCH ×2 (09:05→22:32)
[2019-05-06 09:15] LABS: HEMATOCRIT 35.1 % (32.4-45.2); HEMOGLOBIN 11.6 GM/dL (10.7-15.3); MCH 27.8 pg (25.7-33.7); MEAN CELL VOLUME 84.2 fl (80-96); MEAN PLT VOLUME 8.5 fl (7.5-11.1); RBC 4.17 M/mm3 (3.60-5.2); RDW 14.4 % (11.6-15.6); WHITE BLOOD COUNT 13.3 K/mm3 (4.0-10.0)
[2019-05-06 09:32] LABS: PLATELET COUNT 378 K/MM3 (134-434)
[2019-05-06 09:42] LABS: ALBUMIN 2.9 g/dl (3.4-5.0); ALK PHOS 65 U/L (45-117); ANION GAP 7 MMOL/L (8-16); BILIRUBIN,TOTAL 0.2 mg/dL (0.2-1); BLOOD UREA NITROGEN 30.9 mg/dL (7-18); CALCIUM 8.2 mg/dL (8.5-10.1); CHLORIDE 102 mmol/L (98-107); CO2 27 mmol/L (21-32); CREATININE 0.9 mg/dL (0.55-1.3); GLUCOSE,RANDOM 161 mg/dL (74-106); MAGNESIUM 2.4 mg/dL (1.8-2.4); POTASSIUM 4.9 mmol/L (3.5-5.1); SGOT/AST < 3 U/L (15-37); SGPT/ALT 18 U/L (13-61); SODIUM 136 mmol/L (136-145); TOT PROT 5.4 g/dl (6.4-8.2)
[2019-05-06] MEDS: AZITHROMYCIN IVPB 500 MG/250 ML BAG IVPB SCH (09:48)
--- NOTE | 2019-05-06 11:32 | PN ---
Progress Note (short form) - Note Progress Note: Overall breathing feels much better. Less cough and SOB. (+) hemorrhoidal bleeding again this AM. Intake & Output 05/03/19 05/04/19 05/05/19 05/06/19 23:59 23:59 23:59 23:59 Intake Total 850 750 350 Balance 850 750 350 Weight 113 lb 9 oz 115 lb Last Vital Signs Temp Pulse Resp BP Pulse Ox 97.8 F 66 20 158/77 96 05/06/19 08:39 05/06/19 08:39 05/06/19 09:00 05/06/19 08:39 05/06/19 09:00 Active Medications Acetaminophen (Tylenol -) 650 mg PO Q6H PRN PRN Reason: PAIN 1-3 Albuterol Sulfate (Ventolin 0.083% Nebulizer Soln -) 1 amp NEB Q4H PRN PRN Reason: SHORT OF BREATH/WHEEZING Last Admin: 05/03/19 11:32 Dose: 1 amp Budesonide/Formoterol Fumarate (Symbicort 160/4.5mcg -) 2 puff IH BID [facility] Last Admin: 05/06/19 09:05 Dose: 2 puff Diltiazem HCl (Cardizem Cd -) 300 mg PO HS [facility] Last Admin: 05/05/19 22:33 Dose: 300 mg Hydrocortisone (Anusol 2.5% Hc Cream -) 1 applic [place] DAILY [facility] Last Admin: 05/06/19 09:00 Dose: 1 applic Ceftriaxone Sodium 1 gm/ (Dextrose) 50 mls @ 100 mls/hr IVPB DAILY [facility]; Protocol Last Admin: 05/06/19 09:04 Dose: 100 mls/hr Azithromycin (Zithromax 500mg Ivpb (Pre-Docked)) 500 mg in 250 mls @ 250 mls/ hr IVPB DAILY [facility] Last Admin: 05/06/19 09:48 Dose: 250 mls/hr Insulin Aspart (Novolog Vial Sliding Scale -) 1 vial SQ ACHS [facility]; Protocol Last Admin: 05/06/19 11:15 Dose: Not Given Losartan Potassium (Cozaar -) 100 mg PO DAILY [facility] Last Admin: 05/06/19 09:01 Dose: 100 mg Metformin HCl (Glucophage -) 500 mg PO BID@0700,1630 [facility] Last Admin: 05/06/19 06:21 Dose: 500 mg Methylprednisolone Sodium Succinate (Solu-Medrol -) 20 mg IVPB Q8H-IV [facility] Last Admin: 05/06/19 09:03 Dose: 20 mg Montelukast Sodium (Singulair -) 10 mg PO [facility] Last Admin: 05/05/19 22:33 Dose: 10 mg Polyethylene Glycol (Miralax (For Daily Use) -) 17 gm PO DAILY [facility] Last Admin: 05/06/19 09:03 Dose: 17 grams Pramoxine HCl (Tucks Ointment -) 2 applic RC [facility] Rosuvastatin Calcium (Crestor -) 5 mg PO [facility] Last Admin: 05/05/19 22:33 Dose: 5 mg Senna (Senna -) 1 tab PO [facility] Last Admin: 05/05/19 22:34 Dose: Not Given Sertraline HCl (Zoloft -) 25 mg PO DAILY [facility] Last Admin: 05/06/19 09:05 Dose: 25 mg Sitagliptin Phosphate (Januvia -) 50 mg PO DAILY@0700 [facility] Last Admin: 05/06/19 06:21 Dose: 50 mg Tiotropium [place] (Spiriva Respimat) 1 puff IH DAILY [facility] Last Admin: 05/06/19 09:05 Dose: 1 puff Witch Zeny/Glycerin (Tucks Pads -) 1 pad TP PRN PRN PRN Reason: HEMORRHOIDS Constitutional: Yes: NAD Eyes: Yes: Conjunctiva Clear, EOM Intact HENT: Yes: Atraumatic, Normocephalic Neck: Yes: Supple, Trachea Midline Cardiovascular: Yes: Regular Rate and Rhythm Respiratory: Yes: Less Expiratory wheezes and scattered rhonchi ...Clubbing: No Gastrointestinal: Yes: Normal Bowel Sounds, Soft. No: Tenderness Edema: No Neurological: Yes: Alert, Oriented Laboratory Results - last 24 hr 05/05/19 05/05/19 05/05/19 11:36 16:30 17:41 WBC 16.6 H 14.7 H RBC 4.55 4.37 Hgb 12.5 12.2 Hct 38.7 36.7 MCV 84.9 83.9 MCH 27.5 27.8 MCHC 32.4 33.1 RDW 14.6 14.7 Plt Count 389 395 MPV 9.1 8.6 Absolute Neuts (auto) 12.8 H Neutrophils % 87.2 H Lymphocytes % 9.9 D Monocytes % 2.8 L D Eosinophils % 0.0 Basophils % 0.1 Nucleated RBC % 0 Sodium Potassium Chloride Carbon Dioxide Anion Gap BUN Creatinine Est GFR (CKD-EPI)AfAm Est GFR (CKD-EPI)NonAf POC Glucometer 279 Random Glucose Calcium Magnesium Total Bilirubin AST ALT Alkaline Phosphatase Total Protein Albumin 05/05/19 05/06/19 05/06/19 22:31 06:19 08:53 WBC 13.3 H RBC 4.17 Hgb 11.6 Hct 35.1 MCV 84.2 MCH 27.8 MCHC 33.0 RDW 14.4 Plt Count 378 MPV 8.5 Absolute Neuts (auto) Neutrophils % Lymphocytes % Monocytes % Eosinophils % Basophils % Nucleated RBC % Sodium Potassium Chloride Carbon Dioxide Anion Gap BUN Creatinine Est GFR (CKD-EPI)AfAm Est GFR (CKD-EPI)NonAf POC Glucometer 300 216 Random Glucose Calcium Magnesium Total Bilirubin AST ALT Alkaline Phosphatase Total Protein Albumin 05/06/19 05/06/19 08:53 11:14 WBC RBC Hgb Hct MCV MCH MCHC RDW Plt Count MPV Absolute Neuts (auto) Neutrophils % Lymphocytes % Monocytes % Eosinophils % Basophils % Nucleated RBC % Sodium 136 Potassium 4.9 Chloride 102 Carbon Dioxide 27 Anion Gap 7 L BUN 30.9 H Creatinine 0.9 Est GFR (CKD-EPI)AfAm 66.16 Est GFR (CKD-EPI)NonAf 57.09 POC Glucometer 179 Random Glucose 161 H Calcium 8.2 L Magnesium 2.4 Total Bilirubin 0.2 AST < 3 L ALT 18 Alkaline Phosphatase 65 Total Protein 5.4 L Albumin 2.9 L - Problems (1) COPD exacerbation Code(s): J44.1 - CHRONIC OBSTRUCTIVE PULMONARY DISEASE W (ACUTE) EXACERBATION (2) HTN (hypertension) Code(s): I10 - ESSENTIAL (PRIMARY) HYPERTENSION Assessment/Plan (?) LLL PNA Acute COPD Exacerbation HTN DM Hyperlipidemia - GI workup for Hemorrhoidal bleeding - Tucks pads and ointments - Change to Prednisone - inhaled bronchodilators standing and PRN - Rocephin / azithromycin - O2 to keep Spo2 >90% - glucose control while on systemic steroids - DVT prophylaxis Dr Escobedo
[2019-05-06] MEDS: predniSONE 10 MG TABLET (UD) PO SCH (12:18)
[2019-05-06] MEDS ORDERED: PT OWN MED DRAWER 7, Y5N ONE (21:11)
[2019-05-06] MEDS ORDERED: INSULIN (NOVOLOG) ASPART 100 UNITS/ML 10ML VIAL ONE (21:11)
[2019-05-06] MEDS: ROSUVASTATIN CA 5 MG TABLET (FP) PO SCH (22:25)
[2019-05-06] MEDS: MONTELUKAST NA 10 MG TABLET PO SCH (22:25)
[2019-05-06] MEDS: SENNOSIDES 8.6MG TABLET (FP) PO SCH (22:31)
[2019-05-07] MEDS: INSULIN SLIDING SCALE (NOVOLOG) 1 VIAL SQ SCH ×4 (06:09→22:42)
[2019-05-07] MEDS: metFORMIN HCL 500 MG TABLET (FP) PO SCH ×2 (06:09→18:28)
[2019-05-07] MEDS: sitaGLIPtin PHOSPHATE 50 MG TABLET PO SCH (06:09)
[2019-05-07] MEDS ORDERED: cefTRIAXone SODIUM 1 GM VIAL ONE (09:27)
[2019-05-07] MEDS ORDERED: DEXTROSE 5%-WATER - 50 ML IVPB ONE (09:28)
[2019-05-07] MEDS: AZITHROMYCIN IVPB 500 MG/250 ML BAG IVPB SCH (09:41)
[2019-05-07] MEDS: SERTRALINE HCL 25 MG TABLET (FP) PO SCH (09:41)
[2019-05-07] MEDS: LOSARTAN POTASSIUM 50 MG TABLET (FP) PO SCH (09:41)
[2019-05-07] MEDS: CEFTRIAXONE 1 GM in DEXTROSE 5%-WATER - 50 ML IVPB SCH (09:42)
[2019-05-07] MEDS: TIOTROPIUM BROMIDE 2.5 MCG (SPIRIVA) RESPIMAT INHALER IH SCH (09:54)
[2019-05-07] MEDS: POLYETHYLENE GLYCOL 3350 119 GM BTL PO SCH (09:54)
[2019-05-07] MEDS: HYDROCORTISONE 2.5% TOPICAL CREAM 30 GM TUBE PR SCH (09:54)
[2019-05-07] MEDS: BUDESONIDE/FORMETEROL FUMARATE 160/4.5 mcg INHALER IH SCH ×2 (09:54→22:43)
[2019-05-07] MEDS: predniSONE 10 MG TABLET (UD) PO SCH (09:56)
--- NOTE | 2019-05-07 10:45 | PN ---
Progress Note, Physician Chief Complaint: AWAKE ALERT FEELS WEAK AND TIRED STILL HAVING RECTAL HEMMOROID BLEEDS NO FEVER NO CHILLS - Current Medication List Current Medications: Active Medications Acetaminophen (Tylenol -) 650 mg PO Q6H PRN PRN Reason: PAIN 1-3 Budesonide/Formoterol Fumarate (Symbicort 160/4.5mcg -) 2 puff IH BID [facility] Last Admin: 05/07/19 09:54 Dose: 2 puff Diltiazem HCl (Cardizem Cd -) 300 mg PO [facility] Last Admin: 05/06/19 22:25 Dose: 300 mg Hydrocortisone (Anusol 2.5% Hc Cream -) 1 applic [place] DAILY [facility] Last Admin: 05/07/19 09:54 Dose: 1 applic Ceftriaxone Sodium 1 gm/ (Dextrose) 50 mls @ 100 mls/hr IVPB DAILY [facility]; Protocol Last Admin: 05/07/19 09:42 Dose: 100 mls/hr Azithromycin (Zithromax 500mg Ivpb (Pre-Docked)) 500 mg in 250 mls @ 250 mls/ hr IVPB DAILY [facility] Last Admin: 05/07/19 09:41 Dose: 250 mls/hr Insulin Aspart (Novolog Vial Sliding Scale -) 1 vial SQ ACHS [facility]; Protocol Last Admin: 05/07/19 06:09 Dose: Not Given Losartan Potassium (Cozaar -) 100 mg PO DAILY [facility] Last Admin: 05/07/19 09:41 Dose: 100 mg Metformin HCl (Glucophage -) 500 mg PO BID@0700,1630 [facility] Last Admin: 05/07/19 06:09 Dose: 500 mg Montelukast Sodium (Singulair -) 10 mg PO [facility] Last Admin: 05/06/19 22:25 Dose: 10 mg Polyethylene Glycol (Miralax (For Daily Use) -) 17 gm PO DAILY [facility] Last Admin: 05/07/19 09:54 Dose: 17 grams Pramoxine HCl (Tucks Ointment -) 2 applic RC [facility] Prednisone (Deltasone -) 30 mg PO DAILY [facility] Stop: 05/09/19 10:01 Last Admin: 05/07/19 09:56 Dose: 30 mg Rosuvastatin Calcium (Crestor -) 5 mg PO [facility] Last Admin: 05/06/19 22:25 Dose: 5 mg Senna (Senna -) 1 tab PO HS [facility] Last Admin: 05/06/19 22:31 Dose: Not Given Sertraline HCl (Zoloft -) 25 mg PO DAILY [facility] Last Admin: 05/07/19 09:41 Dose: 25 mg Sitagliptin Phosphate (Januvia -) 50 mg PO DAILY@0700 [facility] Last Admin: 05/07/19 06:09 Dose: 50 mg Tiotropium [place] (Spiriva Respimat) 1 puff IH DAILY [facility] Last Admin: 05/07/19 09:54 Dose: 1 puff Witch Zeny/Glycerin (Tucks Pads -) 1 pad TP PRN PRN PRN Reason: HEMORRHOIDS - Objective Vital Signs: Vital Signs Temperature 98.1 F 05/07/19 09:17 Pulse Rate 70 05/07/19 09:17 Respiratory Rate 18 05/07/19 09:17 Blood Pressure 162/60 05/07/19 09:17 O2 Sat by Pulse Oximetry (%) 97 05/06/19 21:00 Constitutional: Yes: Mild Distress Eyes: Yes: WNL HENT: Yes: WNL Neck: Yes: WNL Cardiovascular: Yes: Regular Rate and Rhythm Respiratory: Yes: Diminished Gastrointestinal: Yes: Soft ...Rectal Exam: Yes: Hemorrhoids/External Genitourinary: Yes: WNL Musculoskeletal: Yes: Muscle Weakness Extremities: Yes: WNL Edema: No Peripheral Pulses WNL: Yes Integumentary: Yes: WNL Wound/Incision: Yes: Clean/Dry Neurological: Yes: WNL ...Motor Strength: WNL Psychiatric: Yes: WNL Labs: CBC, BMP 05/06/19 08:53 05/06/19 08:53 Problem List - Problems (1) COPD exacerbation Code(s): J44.1 - CHRONIC OBSTRUCTIVE PULMONARY DISEASE W (ACUTE) EXACERBATION (2) Acute respiratory distress Code(s): R06.00 - DYSPNEA, UNSPECIFIED (3) Asthma Code(s): J45.909 - UNSPECIFIED ASTHMA, UNCOMPLICATED (4) Asthma dependent on systemic steroids with acute exacerbation Code(s): J45.901 - UNSPECIFIED ASTHMA WITH (ACUTE) EXACERBATION; Z79.52 - CUSTODIAL (CURRENT) USE OF SYSTEMIC STEROIDS (5) Bronchitis Code(s): J40 - BRONCHITIS, NOT SPECIFIED ACUTE OR CHRONIC (6) DM2 (diabetes mellitus, type 2) Code(s): E11.9 - TYPE 2 DIABETES MELLITUS WITHOUT COMPLICATIONS (7) Dyspnea and respiratory abnormalities Code(s): R06.00 - DYSPNEA, UNSPECIFIED; R06.89 - OTHER ABNORMALITIES OF BREATHING (8) External hemorrhoid, bleeding Code(s): K64.4 - RESIDUAL HEMORRHOIDAL SKIN TAGS Assessment/Plan CONTINUE IV ABX/NEBS 02 SUPPORT RESPIRATORY FUNCTION IS IMPROVING. RECTAL HEMMOROID TREATING CONSERVATIVELY TUCKS/ANUSOL/OINTMENTS/STOOL SOFTENERS. PT, OOB TO CHAIR MONITOR LABS
--- NOTE | 2019-05-07 14:38 | PN ---
Progress Note (short form) - Note Progress Note: PULMONARY Denies shortness of breath, cough or wheezing. c/o rectal bleeding. Vital Signs Period Temp Pulse Resp BP Sys/Castorena Pulse Ox Last 24 Hr 97.2 F-98.3 F 54-77 18-20 148-162/51-65 94-97 Gen: NAD at rest Heart: RRR Lung: scattered wheeze Abd: soft, nontender Ext: no edema CBC, BMP 05/06/19 08:53 05/06/19 08:53 Active Medications Acetaminophen (Tylenol -) 650 mg PO Q6H PRN PRN Reason: PAIN 1-3 Budesonide/Formoterol Fumarate (Symbicort 160/4.5mcg -) 2 puff IH BID [facility] Last Admin: 05/07/19 09:54 Dose: 2 puff Diltiazem HCl (Cardizem Cd -) 300 mg PO HS [facility] Last Admin: 05/06/19 22:25 Dose: 300 mg Hydrocortisone (Anusol 2.5% Hc Cream -) 1 applic [place] DAILY [facility] Last Admin: 05/07/19 09:54 Dose: 1 applic Ceftriaxone Sodium 1 gm/ (Dextrose) 50 mls @ 100 mls/hr IVPB DAILY [facility]; Protocol Last Admin: 05/07/19 09:42 Dose: 100 mls/hr Azithromycin (Zithromax 500mg Ivpb (Pre-Docked)) 500 mg in 250 mls @ 250 mls/ hr IVPB DAILY [facility] Last Admin: 05/07/19 09:41 Dose: 250 mls/hr Insulin Aspart (Novolog Vial Sliding Scale -) 1 vial SQ ACHS [facility]; Protocol Last Admin: 05/07/19 06:09 Dose: Not Given Losartan Potassium (Cozaar -) 100 mg PO DAILY [facility] Last Admin: 05/07/19 09:41 Dose: 100 mg Metformin HCl (Glucophage -) 500 mg PO BID@0700,1630 [facility] Last Admin: 05/07/19 06:09 Dose: 500 mg Montelukast Sodium (Singulair -) 10 mg PO HS [facility] Last Admin: 05/06/19 22:25 Dose: 10 mg Polyethylene Glycol (Miralax (For Daily Use) -) 17 gm PO DAILY [facility] Last Admin: 05/07/19 09:54 Dose: 17 grams Pramoxine HCl (Tucks Ointment -) [address] [facility] Prednisone (Deltasone -) 30 mg PO DAILY [facility] Stop: 05/09/19 10:01 Last Admin: 05/07/19 09:56 Dose: 30 mg Rosuvastatin Calcium (Crestor -) 5 mg PO [facility] Last Admin: 05/06/19 22:25 Dose: 5 mg Senna (Senna -) 1 tab PO [facility] Last Admin: 05/06/19 22:31 Dose: Not Given Sertraline HCl (Zoloft -) 25 mg PO DAILY [facility] Last Admin: 05/07/19 09:41 Dose: 25 mg Sitagliptin Phosphate (Januvia -) 50 mg PO DAILY@0700 [facility] Last Admin: 05/07/19 06:09 Dose: 50 mg Tiotropium [place] (Spiriva Respimat) 1 puff IH DAILY [facility] Last Admin: 05/07/19 09:54 Dose: 1 puff Witch Zeny/Glycerin (Tucks Pads -) 1 pad TP PRN PRN PRN Reason: HEMORRHOIDS A/P Acute COPD Exacerbation HTN DM Hyperlipidemia - prednisone taper - inhaled bronchodilators - azithromycin - O2 to keep Spo2 >90% - glucose control while on systemic steroids - DVT prophylaxis Problem List - Problems (1) COPD exacerbation Code(s): J44.1 - CHRONIC OBSTRUCTIVE PULMONARY DISEASE W (ACUTE) EXACERBATION (2) HTN (hypertension) Code(s): I10 - ESSENTIAL (PRIMARY) HYPERTENSION
--- NOTE | 2019-05-07 14:47 | PN ---
Progress Note (short form) - Note Progress Note: hemorrhodal bleeding feels tired no fevers no abdominal pain Vital Signs Period Temp Pulse Resp BP Sys/Castorena Pulse Ox Last 24 Hr 97.2 F-98.3 F 54-77 18-20 148-162/51-65 94-97 cor-rrr lungs clear no wheezing abd soft,nt ext no edema CBC, BMP 05/06/19 08:53 05/06/19 08:53 Microbiology 05/01/19 10:42 Urine - Urine Clean Catch Urine Culture - Final NO GROWTH OBTAINED a/p copd exacerbation-improved on zithromax day #6 can d/c in am urine culture negative- will d/c rocephin hemorrhoidal bleeding-per GI please call back if needed Problem List - Problems (1) COPD exacerbation Code(s): J44.1 - CHRONIC OBSTRUCTIVE PULMONARY DISEASE W (ACUTE) EXACERBATION (2) UTI (urinary tract infection) Code(s): N39.0 - URINARY TRACT INFECTION, SITE NOT SPECIFIED Qualifiers: Urinary tract infection type: site unspecified Hematuria presence: without hematuria Qualified Code(s): N39.0 - Urinary tract infection, site not specified
[2019-05-07] MEDS ORDERED: PT OWN MED DRAWER 7, Y5N ONE (22:23)
[2019-05-07] MEDS ORDERED: INSULIN (NOVOLOG) ASPART 100 UNITS/ML 10ML VIAL ONE (22:41)
[2019-05-07] MEDS: SENNOSIDES 8.6MG TABLET (FP) PO SCH (22:42)
[2019-05-07] MEDS: ROSUVASTATIN CA 5 MG TABLET (FP) PO SCH (22:43)
[2019-05-07] MEDS: MONTELUKAST NA 10 MG TABLET PO SCH (22:43)
[2019-05-08] MEDS: metFORMIN HCL 500 MG TABLET (FP) PO SCH ×2 (06:02→18:08)
[2019-05-08] MEDS: sitaGLIPtin PHOSPHATE 50 MG TABLET PO SCH (06:02)
[2019-05-08] MEDS: INSULIN SLIDING SCALE (NOVOLOG) 1 VIAL SQ SCH ×4 (06:03→22:01)
[2019-05-08] MEDS ORDERED: PT OWN MED DRAWER 7, Y5N ONE ×2 (10:21→10:49)
[2019-05-08] MEDS: LOSARTAN POTASSIUM 50 MG TABLET (FP) PO SCH (10:30)
[2019-05-08] MEDS: SERTRALINE HCL 25 MG TABLET (FP) PO SCH (10:30)
[2019-05-08] MEDS: AZITHROMYCIN IVPB 500 MG/250 ML BAG IVPB SCH (10:45)
[2019-05-08] MEDS: BUDESONIDE/FORMETEROL FUMARATE 160/4.5 mcg INHALER IH SCH ×2 (10:47→22:00)
[2019-05-08] MEDS: TIOTROPIUM BROMIDE 2.5 MCG (SPIRIVA) RESPIMAT INHALER IH SCH (10:47)
[2019-05-08] MEDS: predniSONE 10 MG TABLET (UD) PO SCH (10:50)
[2019-05-08] MEDS: POLYETHYLENE GLYCOL 3350 119 GM BTL PO SCH (10:51)
--- NOTE | 2019-05-08 10:51 | PN ---
Progress Note, Physician Chief Complaint: AWAKE C/O WEAKNESS AND COUGH PRODUCTIVE WITH PHLEGM NO FEVER NO CHILLS TOLERATING MEALS - Current Medication List Current Medications: Active Medications Acetaminophen (Tylenol -) 650 mg PO Q6H PRN PRN Reason: PAIN 1-3 Budesonide/Formoterol Fumarate (Symbicort 160/4.5mcg -) 2 puff IH BID [facility] Last Admin: 05/07/19 22:43 Dose: 2 puff Diltiazem HCl (Cardizem Cd -) 300 mg PO [facility] Last Admin: 05/07/19 23:20 Dose: 300 mg Hydrocortisone (Anusol 2.5% Hc Cream -) 1 applic [place] DAILY [facility] Last Admin: 05/07/19 09:54 Dose: 1 applic Azithromycin (Zithromax 500mg Ivpb (Pre-Docked)) 500 mg in 250 mls @ 250 mls/ hr IVPB DAILY [facility] Last Admin: 05/07/19 09:41 Dose: 250 mls/hr Insulin Aspart (Novolog Vial Sliding Scale -) 1 vial SQ ACHS [facility]; Protocol Last Admin: 05/08/19 06:03 Dose: Not Given Losartan Potassium (Cozaar -) 100 mg PO DAILY [facility] Last Admin: 05/07/19 09:41 Dose: 100 mg Metformin HCl (Glucophage -) 500 mg PO BID@0700,1630 [facility] Last Admin: 05/08/19 06:02 Dose: 500 mg Montelukast Sodium (Singulair -) 10 mg PO [facility] Last Admin: 05/07/19 22:43 Dose: 10 mg Polyethylene Glycol (Miralax (For Daily Use) -) 17 gm PO DAILY [facility] Last Admin: 05/07/19 09:54 Dose: 17 grams Pramoxine HCl (Tucks Ointment -) 2 applic RC [facility] Prednisone (Deltasone -) 30 mg PO DAILY [facility] Stop: 05/09/19 10:01 Last Admin: 05/07/19 09:56 Dose: 30 mg Rosuvastatin Calcium (Crestor -) 5 mg PO [facility] Last Admin: 05/07/19 22:43 Dose: 5 mg Senna (Senna -) 1 tab PO [facility] Last Admin: 05/07/19 22:42 Dose: 1 tab Sertraline HCl (Zoloft -) 25 mg PO DAILY [facility] Last Admin: 05/07/19 09:41 Dose: 25 mg Sitagliptin Phosphate (Januvia -) 50 mg PO DAILY@0700 [facility] Last Admin: 05/08/19 06:02 Dose: 50 mg Tiotropium [place] (Spiriva Respimat) 1 puff IH DAILY [facility] Last Admin: 05/07/19 09:54 Dose: 1 puff Witch Zeny/Glycerin (Tucks Pads -) 1 pad TP PRN PRN PRN Reason: HEMORRHOIDS - Objective Vital Signs: Vital Signs Temperature 98.2 F 05/08/19 05:42 Pulse Rate 67 05/08/19 05:42 Respiratory Rate 20 05/08/19 05:42 Blood Pressure 140/68 05/08/19 05:42 O2 Sat by Pulse Oximetry (%) 95 05/07/19 21:00 Constitutional: Yes: Mild Distress Eyes: Yes: WNL HENT: Yes: WNL Neck: Yes: WNL Cardiovascular: Yes: Regular Rate and Rhythm Respiratory: Yes: On Nasal O2, Rhonchi, Wheezes Genitourinary: Yes: WNL Musculoskeletal: Yes: Muscle Weakness Edema: No Peripheral Pulses WNL: Yes Neurological: Yes: Pre-Existing Deficit ...Motor Strength: LLE, RLE Labs: CBC, BMP 05/06/19 08:53 05/06/19 08:53 Problem List - Problems (1) COPD exacerbation Code(s): J44.1 - CHRONIC OBSTRUCTIVE PULMONARY DISEASE W (ACUTE) EXACERBATION (2) Acute respiratory distress Code(s): R06.00 - DYSPNEA, UNSPECIFIED (3) Asthma Code(s): J45.909 - UNSPECIFIED ASTHMA, UNCOMPLICATED (4) Asthma dependent on systemic steroids with acute exacerbation Code(s): J45.901 - UNSPECIFIED ASTHMA WITH (ACUTE) EXACERBATION; Z79.52 - SKILLED NURSING (CURRENT) USE OF SYSTEMIC STEROIDS (5) Bronchitis Code(s): J40 - BRONCHITIS, NOT SPECIFIED ACUTE OR CHRONIC (6) DM2 (diabetes mellitus, type 2) Code(s): E11.9 - TYPE 2 DIABETES MELLITUS WITHOUT COMPLICATIONS (7) Dyspnea and respiratory abnormalities Code(s): R06.00 - DYSPNEA, UNSPECIFIED; R06.89 - OTHER ABNORMALITIES OF BREATHING (8) External hemorrhoid, bleeding Code(s): K64.4 - RESIDUAL HEMORRHOIDAL SKIN TAGS Assessment/Plan CXR NOW ORDERING LABS WITH BNP AND IRON LEVELS CHECKING EKG PRE-POST 02 SAT FOR HOME 02 THERAPY NEBS STEROIDS OOB TO CHAIR WITH PT
[2019-05-08] MEDS: HYDROCORTISONE 2.5% TOPICAL CREAM 30 GM TUBE PR SCH (11:07)
[2019-05-08 11:36] LABS: HEMATOCRIT 31.7 % (32.4-45.2); HEMOGLOBIN 10.7 GM/dL (10.7-15.3); MCHC 33.7 g/dl (32.0-36.0); MEAN CELL VOLUME 82.9 fl (80-96); MEAN PLT VOLUME 8.7 fl (7.5-11.1); PLATELET COUNT 337 K/MM3 (134-434); RBC 3.83 M/mm3 (3.60-5.2); RDW 14.3 % (11.6-15.6); WHITE BLOOD COUNT 18.2 K/mm3 (4.0-10.0)
[2019-05-08 11:56] LABS: BLOOD UREA NITROGEN 24.6 mg/dL (7-18); CALCIUM 8.3 mg/dL (8.5-10.1); CREATININE 0.7 mg/dL (0.55-1.3); MAGNESIUM 2.2 mg/dL (1.8-2.4); N-TERMINAL BNP 659.8 pg/ml (5-450); POTASSIUM 4.7 mmol/L (3.5-5.1)
--- NOTE | 2019-05-08 13:23 | PN ---
Progress Note (short form) - Note Progress Note: PULMONARY Denies shortness of breath. +cough with yellowish sputum. Vital Signs Period Temp Pulse Resp BP Sys/Castorena Pulse Ox Last 24 Hr 97.7 F-98.3 F 64-70 18-20 140-158/65-75 95 Gen: NAD at rest Heart: RRR Lung: scattered wheeze Abd: soft, nontender Ext: no edema CBC, BMP 05/08/19 10:56 05/08/19 10:56 Active Medications Acetaminophen (Tylenol -) 650 mg PO Q6H PRN PRN Reason: PAIN 1-3 Budesonide/Formoterol Fumarate (Symbicort 160/4.5mcg -) 2 puff IH BID [facility] Last Admin: 05/08/19 10:47 Dose: 2 puff Diltiazem HCl (Cardizem Cd -) 300 mg PO [facility] Last Admin: 05/07/19 23:20 Dose: 300 mg Hydrocortisone (Anusol 2.5% Hc Cream -) 1 applic [place] DAILY [facility] Last Admin: 05/08/19 11:07 Dose: 1 applic Azithromycin (Zithromax 500mg Ivpb (Pre-Docked)) 500 mg in 250 mls @ 250 mls/ hr IVPB DAILY [facility] Last Admin: 05/08/19 10:45 Dose: 250 mls/hr Insulin Aspart (Novolog Vial Sliding Scale -) 1 vial SQ ACHS [facility]; Protocol Last Admin: 05/08/19 06:03 Dose: Not Given Losartan Potassium (Cozaar -) 100 mg PO DAILY [facility] Last Admin: 05/08/19 10:30 Dose: 100 mg Metformin HCl (Glucophage -) 500 mg PO BID@0700,1630 [facility] Last Admin: 05/08/19 06:02 Dose: 500 mg Montelukast Sodium (Singulair -) 10 mg PO [facility] Last Admin: 05/07/19 22:43 Dose: 10 mg Polyethylene Glycol (Miralax (For Daily Use) -) 17 gm PO DAILY [facility] Last Admin: 05/08/19 10:51 Dose: 17 grams Pramoxine HCl (Tucks Ointment -) 2 applic RC [facility] Prednisone (Deltasone -) 30 mg PO DAILY [facility] Stop: 05/09/19 10:01 Last Admin: 05/08/19 10:50 Dose: 30 mg Rosuvastatin Calcium (Crestor -) 5 mg PO HS [facility] Last Admin: 05/07/19 22:43 Dose: 5 mg Senna (Senna -) 1 tab PO [facility] Last Admin: 05/07/19 22:42 Dose: 1 tab Sertraline HCl (Zoloft -) 25 mg PO DAILY [facility] Last Admin: 05/08/19 10:30 Dose: 25 mg Sitagliptin Phosphate (Januvia -) 50 mg PO DAILY@0700 [facility] Last Admin: 05/08/19 06:02 Dose: 50 mg Tiotropium [place] (Spiriva Respimat) 1 puff IH DAILY [facility] Last Admin: 05/08/19 10:47 Dose: 1 puff Witch Zeny/Glycerin (Tucks Pads -) 1 pad TP PRN PRN PRN Reason: HEMORRHOIDS A/P Acute COPD Exacerbation HTN DM Hyperlipidemia - prednisone taper - inhaled bronchodilators - azithromycin - O2 to keep Spo2 >90% - glucose control while on systemic steroids - DVT prophylaxis Problem List - Problems (1) COPD exacerbation Code(s): J44.1 - CHRONIC OBSTRUCTIVE PULMONARY DISEASE W (ACUTE) EXACERBATION (2) HTN (hypertension) Code(s): I10 - ESSENTIAL (PRIMARY) HYPERTENSION
--- NOTE | 2019-05-08 13:37 | EKG ---
Test Reason : Blood Pressure : / mmHG Vent. Rate : 058 BPM Atrial Rate : 058 BPM P-R Int : 160 ms QRS Dur : 072 ms QT Int : 410 ms P-R-T Axes : 054 006 043 degrees QTc Int : 402 ms SINUS BRADYCARDIA WITH MARKED SINUS ARRHYTHMIA CANNOT RULE OUT ANTERIOR INFARCT , AGE UNDETERMINED ABNORMAL ECG WHEN COMPARED WITH ECG OF 01-MAY-2019 08:14, PREMATURE ATRIAL COMPLEXES ARE NO LONGER PRESENT NONSPECIFIC T WAVE ABNORMALITY NO LONGER EVIDENT IN LATERAL LEADS Confirmed by JAIME CORDOVA MD ([id number]) on 05/08/2019 1:37:31 PM Referred By: KYLIE CANO DR Confirmed By:JAIME CORDOVA MD
[2019-05-08] MEDS: ALBUTEROL SO4 0.042% IH SOL 1.25 MG/3 ML VIAL.NEB NEB PRN (15:20)
[2019-05-08 15:46] VITALS: BMI 22.2
--- NOTE | 2019-05-08 19:04 | PN.GI ---
GI Progress Note Subjective: No rectal bleeding. No anorectal pain No abdominal pain - Objective Vital Signs: Vital Signs Temperature 98 F 05/08/19 13:41 Pulse Rate 70 05/08/19 13:41 Respiratory Rate 20 05/08/19 13:41 Blood Pressure 137/57 L 05/08/19 13:41 O2 Sat by Pulse Oximetry (%) 95 05/08/19 09:00 Constitutional: Calm Eyes: No: Sclera Icterus Cardiovascular: Yes: Regular Rate and Rhythm Respiratory: Yes: Wheezes (bilateraly expiratory wheezes) ...Auscultate: Yes: Normoactive Bowel Sounds ...Palpate: Yes: Soft. No: Hepatomegaly, Splenomegaly, Tenderness ...Percussion: No: Tympanitic ...Rectal Exam: Yes: Other (+ external skin tags, no masses palpated, no blood, light martinez stool in rectal vault) Edema: No (No LE edema) Neurological: Yes: Alert Labs: CBC, BMP 05/08/19 10:56 05/08/19 10:56 Hepatic Panel Total Bilirubin 0.2 mg/dL (0.2-1) 05/06/19 08:53 AST < 3 U/L (15-37) L 05/06/19 08:53 ALT 18 U/L (13-61) 05/06/19 08:53 Alkaline Phosphatase 65 U/L (45-117) 05/06/19 08:53 Albumin 2.9 g/dl (3.4-5.0) L 05/06/19 08:53 Problem List - Problems (1) Rectal bleeding Assessment/Plan: Resolved painless bright red rectal bleeding. ? hemorrhoidal in nature / stercoral ulcer bleed (however H/H has been stable) Monitoring for now Bowel regimen: MiraLAX, Senna Recall if continued bleeding. Will sign off for now. Code(s): K62.5 - HEMORRHAGE OF ANUS AND RECTUM
[2019-05-08] MEDS: MONTELUKAST NA 10 MG TABLET PO SCH (21:57)
[2019-05-08] MEDS: SENNOSIDES 8.6MG TABLET (FP) PO SCH (21:57)
[2019-05-08] MEDS: ROSUVASTATIN CA 5 MG TABLET (FP) PO SCH (21:57)
[2019-05-09] MEDS: metFORMIN HCL 500 MG TABLET (FP) PO SCH ×2 (06:42→17:33)
[2019-05-09] MEDS: sitaGLIPtin PHOSPHATE 50 MG TABLET PO SCH (06:42)
[2019-05-09] MEDS: INSULIN SLIDING SCALE (NOVOLOG) 1 VIAL SQ SCH ×4 (06:45→21:58)
[2019-05-09] MEDS ORDERED: PT OWN MED DRAWER 7, Y5N ONE (10:28)
[2019-05-09] MEDS: RANITIDINE HCL 150 MG TABLET (FP) PO SCH (10:31)
[2019-05-09] MEDS: SERTRALINE HCL 25 MG TABLET (FP) PO SCH (10:31)
[2019-05-09] MEDS: LOSARTAN POTASSIUM 50 MG TABLET (FP) PO SCH (10:31)
[2019-05-09] MEDS: BUDESONIDE/FORMETEROL FUMARATE 160/4.5 mcg INHALER IH SCH ×2 (10:32→21:54)
[2019-05-09] MEDS: TIOTROPIUM BROMIDE 2.5 MCG (SPIRIVA) RESPIMAT INHALER IH SCH (10:32)
[2019-05-09] MEDS: POLYETHYLENE GLYCOL 3350 119 GM BTL PO SCH (10:33)
[2019-05-09] MEDS: predniSONE 10 MG TABLET (UD) PO SCH (10:34)
[2019-05-09] MEDS: HYDROCORTISONE 2.5% TOPICAL CREAM 30 GM TUBE PR SCH (10:35)
[2019-05-09] MEDS ORDERED: guaiFENesin/D-M SUGAR-FREE/ACLHOL-FREE 118 ML BOTTLE PO PRN (10:42)
--- NOTE | 2019-05-09 10:50 | PN ---
Progress Note, Physician Chief Complaint: AWAKE ALERT FEELING TIRED WAITING FOR IRON LEVELS MAY HAVE LOW IRON AFTER RECTAL BLEED EKG + POSSIBLE INFARCT - Current Medication List Current Medications: Active Medications Acetaminophen (Tylenol -) 650 mg PO Q6H PRN PRN Reason: PAIN 1-3 Acetylcysteine (Mucomyst 20 Oral / Inh Use Only*) 10 mg PO Q4H [facility] Albuterol Sulfate (Ventolin 0.042trength) -) 1 amp NEB Q4H PRN PRN Reason: SHORT OF BREATH/WHEEZING Last Admin: 05/08/19 15:20 Dose: 1 amp Budesonide/Formoterol Fumarate (Symbicort 160/4.5mcg -) 2 puff IH BID [facility] Last Admin: 05/09/19 10:32 Dose: 2 puff Diltiazem HCl (Cardizem Cd -) 300 mg PO [facility] Last Admin: 05/08/19 21:57 Dose: 300 mg Guaifenesin (Diabetic Tussin Dm -) 5 ml PO Q4H PRN PRN Reason: COUGH Hydrocortisone (Anusol 2.5% Hc Cream -) 1 applic [place] DAILY [facility] Last Admin: 05/09/19 10:35 Dose: Not Given Insulin Aspart (Novolog Vial Sliding Scale -) 1 vial SQ [facility]; Protocol Last Admin: 05/09/19 06:45 Dose: Not Given Losartan Potassium (Cozaar -) 100 mg PO DAILY [facility] Last Admin: 05/09/19 10:31 Dose: 100 mg Metformin HCl (Glucophage -) 500 mg PO BID@0700,1630 [facility] Last Admin: 05/09/19 06:42 Dose: 500 mg Montelukast Sodium (Singulair -) 10 mg PO [facility] Last Admin: 05/08/19 21:57 Dose: Not Given Polyethylene Glycol (Miralax (For Daily Use) -) 17 gm PO DAILY [facility] Last Admin: 05/09/19 10:33 Dose: 17 grams Pramoxine HCl (Tucks Ointment -) 2 applic RC [facility] Ranitidine HCl (Zantac -) 150 mg PO DAILY [facility] Last Admin: 05/09/19 10:31 Dose: 150 mg Rosuvastatin Calcium (Crestor -) 5 mg PO [facility] Last Admin: 05/08/19 21:57 Dose: 5 mg Senna (Senna -) 1 tab PO [facility] Last Admin: 05/08/19 21:57 Dose: 1 tab Sertraline HCl (Zoloft -) 25 mg PO DAILY [facility] Last Admin: 05/09/19 10:31 Dose: 25 mg Sitagliptin Phosphate (Januvia -) 50 mg PO DAILY@0700 [facility] Last Admin: 05/09/19 06:42 Dose: 50 mg Tiotropium [place] (Spiriva Respimat) 1 puff IH DAILY [facility] Last Admin: 05/09/19 10:32 Dose: 1 puff Witch Zeny/Glycerin (Tucks Pads -) 1 pad TP PRN PRN PRN Reason: HEMORRHOIDS - Objective Vital Signs: Vital Signs Temperature 98.1 F 05/09/19 05:05 Pulse Rate 88 05/09/19 10:24 Respiratory Rate 20 05/09/19 05:05 Blood Pressure 136/66 05/09/19 05:05 O2 Sat by Pulse Oximetry (%) 94 L 05/09/19 10:24 Constitutional: Yes: Mild Distress Eyes: Yes: WNL HENT: Yes: WNL Neck: Yes: WNL Cardiovascular: Yes: Regular Rate and Rhythm Respiratory: Yes: Cough, On Nasal O2, Wheezes Gastrointestinal: Yes: WNL Genitourinary: Yes: WNL Musculoskeletal: Yes: Muscle Weakness Extremities: Yes: WNL Edema: No Peripheral Pulses WNL: Yes Integumentary: Yes: WNL Wound/Incision: Yes: Clean/Dry Neurological: Yes: WNL ...Motor Strength: WNL Psychiatric: Yes: WNL Labs: CBC, BMP 05/08/19 10:56 05/08/19 10:56 Problem List - Problems (1) COPD exacerbation Code(s): J44.1 - CHRONIC OBSTRUCTIVE PULMONARY DISEASE W (ACUTE) EXACERBATION (2) Acute respiratory distress Code(s): R06.00 - DYSPNEA, UNSPECIFIED (3) Asthma Code(s): J45.909 - UNSPECIFIED ASTHMA, UNCOMPLICATED (4) Asthma dependent on systemic steroids with acute exacerbation Code(s): J45.901 - UNSPECIFIED ASTHMA WITH (ACUTE) EXACERBATION; Z79.52 - FLEET ADMINISTRATOR (CURRENT) USE OF SYSTEMIC STEROIDS (5) Bronchitis Code(s): J40 - BRONCHITIS, NOT SPECIFIED ACUTE OR CHRONIC (6) DM2 (diabetes mellitus, type 2) Code(s): E11.9 - TYPE 2 DIABETES MELLITUS WITHOUT COMPLICATIONS (7) Dyspnea and respiratory abnormalities Code(s): R06.00 - DYSPNEA, UNSPECIFIED; R06.89 - OTHER ABNORMALITIES OF BREATHING (8) External hemorrhoid, bleeding Code(s): K64.4 - RESIDUAL HEMORRHOIDAL SKIN TAGS Assessment/Plan ORDERING ECHO BEDSIDE CARDIO CONSULT BNP ELEVATED CONSERVATIVE THERAPY RECOMMENDED LASIX 40MG DAILY X 2 DOSES TODAY AND TOMORROW NEBS/RESP SUPPORT GLUCERNA AWAITING IRON LEVELS
[2019-05-09] MEDS: FUROSEMIDE 40 MG/4 ML INJECTABLE VIAL IVPUSH SCH (12:37)
[2019-05-09] MEDS ORDERED: ACETYLCYSTEINE 20% 200MG/ML 30 ML VIAL *FOR ORAL / INH USE ONLY NEB SCH ×3 (14:00→20:00)
--- NOTE | 2019-05-09 15:12 | ECHO ---
Name: MARIA LUZ SNOWDEN Exam:Adult Echocardiogram Study Date: 05/09/2019 01:29 PM Age: 88 yrs Reason For Study: R/O WALL DYSFUNCTION Height: 60 in Weight: 114 lb BSA: 1.5 m2 MMode/2D Measurements & Calculations IVSd: 0.85 cm Ao root diam: 3.0 cm LVIDd: 4.5 cm LA dimension: 3.6 cm LVIDs: 2.9 cm LVPWd: 0.86 cm EDV(Teich): 93.6 ml LVOT diam: 1.9 cm ESV(Teich): 31.7 ml Doppler Measurements & Calculations MV E max karson: 68.6 cm/sec Ao V2 max: 197.6 cm/sec MV A max karson: 120.4 cm/sec Ao max P.6 mmHg MV E/A: 0.57 Ao V2 mean: 130.2 cm/sec MV dec time: 0.39 sec Ao mean P.8 mmHg Ao V2 VTI: 39.4 cm BRANDEN(I,D): 1.9 cm2 BRANDEN(V,D): 1.9 cm2 LV V1 max P.4 mmHg SV(LVOT): 75.9 ml LV V1 mean P.5 mmHg LV V1 max: 135.7 cm/sec LV V1 mean: 101.7 cm/sec LV V1 VTI: 26.9 cm TR max karson: 218.7 cm/sec Med Peak E' Karson: 6.0 cm/sec TR max P.2 mmHg Med E/e': 11.4 Lat Peak E' Karson: 8.7 cm/sec Lat E/e': 7.9 Left Ventricle Left ventricular systolic function is normal. Ejection Fraction = 55-60%. The transmitral spectral Do ppler flow pattern is suggestive of impaired LV relaxation. Right Ventricle The right ventricle is normal in size and function. Atria Normal left and right atrial size and function. Mitral Valve There is moderate mitral annular calcification. There is no mitral valve stenosis. Tricuspid Valve The tricuspid valve is normal in structure and function. There is mild tricuspid regurgitation. Aortic Valve There is mild to moderate aortic sclerosis.;. No hemodynamically significant valvular aortic stenosis . No aortic regurgitation is present. Pulmonic Valve The pulmonic valve is not well seen, but is grossly normal. There is no pulmonic valvular stenosis. T race pulmonic valvular regurgitation. Great Vessels The aortic root is normal size. Pericardium/Pleura There is no pericardial effusion. Interpretation Summary Left ventricular systolic function is normal. Ejection Fraction = 55-60%. The transmitral spectral Doppler flow pattern is suggestive of impaired LV relaxation. The right ventricle is normal in size and function. There is moderate mitral annular calcification. There is mild tricuspid regurgitation. There is mild to moderate aortic sclerosis.; There is no pericardial effusion. MD Jacobs *Shy 05/09/2019 03:12 PM
--- NOTE | 2019-05-09 15:49 | PN ---
Progress Note, Physician History of Present Illness: PULMONARY ALERT,STILL CONGESTED,+ COUGH - Current Medication List Current Medications: Active Medications Acetaminophen (Tylenol -) 650 mg PO Q6H PRN PRN Reason: PAIN 1-3 Acetylcysteine (Mucomyst 20 Oral / Inh Use Only*) 600 mg NEB TID [facility] Albuterol Sulfate (Ventolin 0.042trength) -) 1 amp NEB Q4H PRN PRN Reason: SHORT OF BREATH/WHEEZING Last Admin: 05/08/19 15:20 Dose: 1 amp Budesonide/Formoterol Fumarate (Symbicort 160/4.5mcg -) 2 puff IH BID [facility] Last Admin: 05/09/19 10:32 Dose: 2 puff Diltiazem HCl (Cardizem Cd -) 300 mg PO HS [facility] Last Admin: 05/08/19 21:57 Dose: 300 mg Furosemide (Lasix Injection -) 40 mg IVPUSH DAILY [facility] Stop: 05/11/19 10:59 Last Admin: 05/09/19 12:37 Dose: 40 mg Guaifenesin (Diabetic Tussin Dm -) 5 ml PO Q4H PRN PRN Reason: COUGH Hydrocortisone (Anusol 2.5% Hc Cream -) 1 applic [place] DAILY [facility] Last Admin: 05/09/19 10:35 Dose: Not Given Insulin Aspart (Novolog Vial Sliding Scale -) 1 vial SQ ACHS [facility]; Protocol Last Admin: 05/09/19 12:53 Dose: Not Given Losartan Potassium (Cozaar -) 100 mg PO DAILY [facility] Last Admin: 05/09/19 10:31 Dose: 100 mg Metformin HCl (Glucophage -) 500 mg PO BID@0700,1630 [facility] Last Admin: 05/09/19 06:42 Dose: 500 mg Montelukast Sodium (Singulair -) 10 mg PO [facility] Last Admin: 05/08/19 21:57 Dose: Not Given Polyethylene Glycol (Miralax (For Daily Use) -) 17 gm PO DAILY [facility] Last Admin: 05/09/19 10:33 Dose: 17 grams Pramoxine HCl (Tucks Ointment -) 2 applic RC [facility] Ranitidine HCl (Zantac -) 150 mg PO DAILY [facility] Last Admin: 05/09/19 10:31 Dose: 150 mg Rosuvastatin Calcium (Crestor -) 5 mg PO HS [facility] Last Admin: 05/08/19 21:57 Dose: 5 mg Senna (Senna -) 1 tab PO HS [facility] Last Admin: 05/08/19 21:57 Dose: 1 tab Sertraline HCl (Zoloft -) 25 mg PO DAILY [facility] Last Admin: 05/09/19 10:31 Dose: 25 mg Sitagliptin Phosphate (Januvia -) 50 mg PO DAILY@0700 [facility] Last Admin: 05/09/19 06:42 Dose: 50 mg Tiotropium [place] (Spiriva Respimat) 1 puff IH DAILY [facility] Last Admin: 05/09/19 10:32 Dose: 1 puff Witch Zeny/Glycerin (Tucks Pads -) 1 pad TP PRN PRN PRN Reason: HEMORRHOIDS - Objective Vital Signs: Vital Signs Temperature 98.2 F 05/09/19 13:32 Pulse Rate 79 05/09/19 13:32 Respiratory Rate 20 05/09/19 13:32 Blood Pressure 138/72 05/09/19 13:32 O2 Sat by Pulse Oximetry (%) 94 L 05/09/19 10:24 Constitutional: Yes: Well Nourished, Calm Eyes: Yes: WNL HENT: Yes: WNL Neck: Yes: WNL Cardiovascular: Yes: Regular Rate and Rhythm, S1, S2 Respiratory: Yes: Rhonchi, Wheezes (BILATERAL WHEEZES AND RHONCHI) Gastrointestinal: Yes: Normal Bowel Sounds, Soft Extremities: Yes: WNL Edema: No Labs: CBC, BMP 05/08/19 10:56 05/08/19 10:56 Assessment/Plan A/P Acute COPD Exacerbation HTN DM Hyperlipidemia - MEDROL - inhaled bronchodilators - azithromycin - O2 to keep Spo2 >90% - glucose control while on systemic steroids - DVT prophylaxis Problem List - Problems (1) COPD exacerbation Code(s): J44.1 - CHRONIC OBSTRUCTIVE PULMONARY DISEASE W (ACUTE) EXACERBATION (2) HTN (hypertension) Code(s): I10 - ESSENTIAL (PRIMARY) HYPERTENSION
[2019-05-09] MEDS: methylPREDNISolone NA SUCC 40 MG/1 ML VIAL IVPUSH SCH (17:34)
[2019-05-09] MEDS: ALBUTEROL SO4 0.042% IH SOL 1.25 MG/3 ML VIAL.NEB NEB PRN (20:00)
[2019-05-09] MEDS: ROSUVASTATIN CA 5 MG TABLET (FP) PO SCH (21:53)
[2019-05-09] MEDS: MONTELUKAST NA 10 MG TABLET PO SCH (21:54)
[2019-05-09] MEDS: SENNOSIDES 8.6MG TABLET (FP) PO SCH (21:54)
[2019-05-10] MEDS: methylPREDNISolone NA SUCC 40 MG/1 ML VIAL IVPUSH SCH ×2 (03:19→18:39)
[2019-05-10] MEDS: INSULIN SLIDING SCALE (NOVOLOG) 1 VIAL SQ SCH ×4 (06:00→22:06)
[2019-05-10] MEDS: metFORMIN HCL 500 MG TABLET (FP) PO SCH ×2 (06:00→18:39)
[2019-05-10] MEDS: sitaGLIPtin PHOSPHATE 50 MG TABLET PO SCH (06:00)
[2019-05-10 07:27] LABS: HEMOGLOBIN 10.4 GM/dL (10.7-15.3); MCH 27.8 pg (25.7-33.7); MCHC 33.5 g/dl (32.0-36.0); MEAN CELL VOLUME 83.1 fl (80-96); MEAN PLT VOLUME 9.1 fl (7.5-11.1); PLATELET COUNT 352 K/MM3 (134-434); RBC 3.73 M/mm3 (3.60-5.2); RDW 14.1 % (11.6-15.6); WHITE BLOOD COUNT 13.9 K/mm3 (4.0-10.0)
[2019-05-10 07:40] LABS: BLOOD UREA NITROGEN 33.3 mg/dL (7-18); CALCIUM 8.3 mg/dL (8.5-10.1); CREATININE 0.8 mg/dL (0.55-1.3); MAGNESIUM 2.5 mg/dL (1.8-2.4); POTASSIUM 4.7 mmol/L (3.5-5.1)
[2019-05-10] MEDS: ALBUTEROL SO4 0.042% IH SOL 1.25 MG/3 ML VIAL.NEB NEB PRN ×2 (08:00→20:10)
[2019-05-10] MEDS: ACETYLCYSTEINE 20% 200MG/ML 4 ML VIAL *FOR ORAL / INH USE ONLY NEB SCH ×3 (08:00→20:10)
--- NOTE | 2019-05-10 12:05 | PN ---
Progress Note, Physician History of Present Illness: pulmonary alert ooob-chair,less congested - Current Medication List Current Medications: Active Medications Acetaminophen (Tylenol -) 650 mg PO Q6H PRN PRN Reason: PAIN 1-3 Acetylcysteine (Mucomyst 20 Oral / Inh Use Only*) 600 mg NEB RTID [facility] Last Admin: 05/10/19 08:00 Dose: 600 mg Albuterol Sulfate (Ventolin 0.042trength) -) 1 amp NEB Q4H PRN PRN Reason: SHORT OF BREATH/WHEEZING Last Admin: 05/10/19 08:00 Dose: 1 amp Budesonide/Formoterol Fumarate (Symbicort 160/4.5mcg -) 2 puff IH BID [facility] Last Admin: 05/09/19 21:54 Dose: 2 puff Diltiazem HCl (Cardizem Cd -) 300 mg PO HS [facility] Last Admin: 05/09/19 21:53 Dose: 300 mg Furosemide (Lasix Injection -) 40 mg IVPUSH DAILY [facility] Stop: 05/11/19 10:59 Last Admin: 05/09/19 12:37 Dose: 40 mg Guaifenesin (Diabetic Tussin Dm -) 5 ml PO Q4H PRN PRN Reason: COUGH Hydrocortisone (Anusol 2.5% Hc Cream -) 1 applic [place] DAILY [facility] Last Admin: 05/09/19 10:35 Dose: Not Given Insulin Aspart (Novolog Vial Sliding Scale -) 1 vial SQ ACHS [facility]; Protocol Last Admin: 05/10/19 06:00 Dose: Not Given Losartan Potassium (Cozaar -) 100 mg PO DAILY [facility] Last Admin: 05/09/19 10:31 Dose: 100 mg Metformin HCl (Glucophage -) 500 mg PO BID@0700,1630 [facility] Last Admin: 05/10/19 06:00 Dose: 500 mg Methylprednisolone Sodium Succinate (Solu-Medrol -) 40 mg IVPUSH Q12H [facility] Last Admin: 05/10/19 03:19 Dose: 40 mg Montelukast Sodium (Singulair -) 10 mg PO HS [facility] Last Admin: 05/09/19 21:54 Dose: 10 mg Polyethylene Glycol (Miralax (For Daily Use) -) 17 gm PO DAILY [facility] Last Admin: 05/09/19 10:33 Dose: 17 grams Pramoxine HCl (Tucks Ointment -) 2 applic [facility] Ranitidine HCl (Zantac -) 150 mg PO DAILY [facility] Last Admin: 05/09/19 10:31 Dose: 150 mg Rosuvastatin Calcium (Crestor -) 5 mg PO HS [facility] Last Admin: 05/09/19 21:53 Dose: 5 mg Senna (Senna -) 1 tab PO [facility] Last Admin: 05/09/19 21:54 Dose: 1 tab Sertraline HCl (Zoloft -) 25 mg PO DAILY [facility] Last Admin: 05/09/19 10:31 Dose: 25 mg Sitagliptin Phosphate (Januvia -) 50 mg PO DAILY@0700 [facility] Last Admin: 05/10/19 06:00 Dose: 50 mg Tiotropium [employer] (Spiriva Respimat) 1 puff IH DAILY [facility] Last Admin: 05/09/19 10:32 Dose: 1 puff Witch Zeny/Glycerin (Tucks Pads -) 1 pad TP PRN PRN PRN Reason: HEMORRHOIDS - Objective Vital Signs: Vital Signs Temperature 98.3 F 05/10/19 06:00 Pulse Rate 73 05/10/19 06:00 Respiratory Rate 20 05/10/19 06:00 Blood Pressure 143/60 05/10/19 06:00 O2 Sat by Pulse Oximetry (%) 95 05/09/19 21:00 Constitutional: Yes: Well Nourished, Calm Eyes: Yes: WNL HENT: Yes: WNL Neck: Yes: WNL Cardiovascular: Yes: Regular Rate and Rhythm, S1, S2 Respiratory: Yes: Wheezes (less wheezes bilaterally) Gastrointestinal: Yes: Normal Bowel Sounds, Soft Extremities: Yes: WNL Edema: No Labs: CBC, BMP 05/10/19 05:56 05/10/19 05:56 Assessment/Plan A/P Acute COPD Exacerbation HTN DM Hyperlipidemia - start medrol taper in am - inhaled bronchodilators - azithromycin - O2 to keep Spo2 >90% - glucose control while on systemic steroids - DVT prophylaxis Problem List - Problems (1) COPD exacerbation Code(s): J44.1 - CHRONIC OBSTRUCTIVE PULMONARY DISEASE W (ACUTE) EXACERBATION (2) HTN (hypertension) Code(s): I10 - ESSENTIAL (PRIMARY) HYPERTENSION
[2019-05-10] MEDS ORDERED: PT OWN MED DRAWER 7, Y5N ONE (12:22)
[2019-05-10] MEDS: LOSARTAN POTASSIUM 50 MG TABLET (FP) PO SCH (12:38)
[2019-05-10] MEDS: RANITIDINE HCL 150 MG TABLET (FP) PO SCH (12:39)
[2019-05-10] MEDS: FUROSEMIDE 40 MG/4 ML INJECTABLE VIAL IVPUSH SCH (12:39)
[2019-05-10] MEDS: POLYETHYLENE GLYCOL 3350 119 GM BTL PO SCH (12:39)
[2019-05-10] MEDS: SERTRALINE HCL 25 MG TABLET (FP) PO SCH (12:40)
[2019-05-10] MEDS: BUDESONIDE/FORMETEROL FUMARATE 160/4.5 mcg INHALER IH SCH ×2 (12:40→22:04)
[2019-05-10] MEDS: TIOTROPIUM BROMIDE 2.5 MCG (SPIRIVA) RESPIMAT INHALER IH SCH (12:40)
[2019-05-10] MEDS ORDERED: INSULIN (NOVOLOG) ASPART 100 UNITS/ML 10ML VIAL ONE (12:51)
--- NOTE | 2019-05-10 13:07 | PN ---
Progress Note, Physician - Current Medication List Current Medications: Active Medications Acetaminophen (Tylenol -) 650 mg PO Q6H PRN PRN Reason: PAIN 1-3 Acetylcysteine (Mucomyst 20 Oral / Inh Use Only*) 600 mg NEB RTID [facility] Last Admin: 05/10/19 08:00 Dose: 600 mg Albuterol Sulfate (Ventolin 0.042trength) -) 1 amp NEB Q4H PRN PRN Reason: SHORT OF BREATH/WHEEZING Last Admin: 05/10/19 08:00 Dose: 1 amp Budesonide/Formoterol Fumarate (Symbicort 160/4.5mcg -) 2 puff IH BID [facility] Last Admin: 05/10/19 12:40 Dose: 2 puff Diltiazem HCl (Cardizem Cd -) 300 mg PO [facility] Last Admin: 05/09/19 21:53 Dose: 300 mg Furosemide (Lasix Injection -) 40 mg IVPUSH DAILY [facility] Stop: 05/11/19 10:59 Last Admin: 05/10/19 12:39 Dose: 40 mg Guaifenesin (Diabetic Tussin Dm -) 5 ml PO Q4H PRN PRN Reason: COUGH Hydrocortisone (Anusol 2.5% Hc Cream -) 1 applic [place] DAILY [facility] Last Admin: 05/09/19 10:35 Dose: Not Given Insulin Aspart (Novolog Vial Sliding Scale -) 1 vial SQ [facility]; Protocol Last Admin: 05/10/19 12:54 Dose: 4 units Losartan Potassium (Cozaar -) 100 mg PO DAILY [facility] Last Admin: 05/10/19 12:38 Dose: 100 mg Metformin HCl (Glucophage -) 500 mg PO BID@0700,1630 [facility] Last Admin: 05/10/19 06:00 Dose: 500 mg Methylprednisolone Sodium Succinate (Solu-Medrol -) 40 mg IVPUSH Q12H [facility] Last Admin: 05/10/19 03:19 Dose: 40 mg Montelukast Sodium (Singulair -) 10 mg PO [facility] Last Admin: 05/09/19 21:54 Dose: 10 mg Polyethylene Glycol (Miralax (For Daily Use) -) 17 gm PO DAILY [facility] Last Admin: 05/10/19 12:39 Dose: 17 grams Pramoxine HCl (Tucks Ointment -) 2 applic RC [facility] Ranitidine HCl (Zantac -) 150 mg PO DAILY [facility] Last Admin: 05/10/19 12:39 Dose: 150 mg Rosuvastatin Calcium (Crestor -) 5 mg PO [facility] Last Admin: 05/09/19 21:53 Dose: 5 mg Senna (Senna -) 1 tab PO [facility] Last Admin: 05/09/19 21:54 Dose: 1 tab Sertraline HCl (Zoloft -) 25 mg PO DAILY [facility] Last Admin: 05/10/19 12:40 Dose: 25 mg Sitagliptin Phosphate (Januvia -) 50 mg PO DAILY@0700 [facility] Last Admin: 05/10/19 06:00 Dose: 50 mg Tiotropium [place] (Spiriva Respimat) 1 puff IH DAILY [facility] Last Admin: 05/10/19 12:40 Dose: 1 puff Witch Zeny/Glycerin (Tucks Pads -) 1 pad TP PRN PRN PRN Reason: HEMORRHOIDS - Objective Vital Signs: Vital Signs Temperature 98.3 F 05/10/19 06:00 Pulse Rate 73 05/10/19 06:00 Respiratory Rate 20 05/10/19 06:00 Blood Pressure 143/60 05/10/19 06:00 O2 Sat by Pulse Oximetry (%) 95 05/09/19 21:00 Labs: CBC, BMP 05/10/19 05:56 05/10/19 05:56 Assessment/Plan - Problems (1) COPD exacerbation Assessment/Plan: -Pulm on board -Symbicort -Solumedrol 40 bid -Spiriva -bronchodilators -keep SpO2 >90% -O2 via NC -CXR shows persistent atelectasis/pleural reaction at the left base Code(s): J44.1 - CHRONIC OBSTRUCTIVE PULMONARY DISEASE W (ACUTE) EXACERBATION (2) Acute respiratory distress Assessment/Plan: -Pulm on board -Solumedrol -bronchodilators -keep SpO2 >90% -O2 via NC -CXR shows persistent atelectasis/pleural reaction at the left base Code(s): R06.00 - DYSPNEA, UNSPECIFIED (3) CHF (congestive heart failure) Assessment/Plan: -1L fluid restriction -daily weights -Lasix 40 iv daily Code(s): I50.9 - HEART FAILURE, UNSPECIFIED (4) DM2 (diabetes mellitus, type 2) Assessment/Plan: -BGM ACHS -ISS -Sitagliptan/Metformin -low Na/diabetic diet Code(s): E11.9 - TYPE 2 DIABETES MELLITUS WITHOUT COMPLICATIONS (5) HTN (hypertension) Assessment/Plan: -Cardizem and Losartan -low Na diet Code(s): I10 - ESSENTIAL (PRIMARY) HYPERTENSION (6) UTI (urinary tract infection) Assessment/Plan: -ID on board - neg Microbiology 05/01/19 10:42 Urine - Urine Clean Catch Urine Culture - Final NO GROWTH OBTAINED Code(s): N39.0 - URINARY TRACT INFECTION, SITE NOT SPECIFIED Qualifiers: Urinary tract infection type: site unspecified Hematuria presence: without hematuria Qualified Code(s): N39.0 - Urinary tract infection, site not specified
[2019-05-10] MEDS: HYDROCORTISONE 2.5% TOPICAL CREAM 30 GM TUBE PR SCH (16:52)
[2019-05-10] MEDS: ROSUVASTATIN CA 5 MG TABLET (FP) PO SCH (22:04)
[2019-05-10] MEDS: MONTELUKAST NA 10 MG TABLET PO SCH (22:05)
[2019-05-10] MEDS: SENNOSIDES 8.6MG TABLET (FP) PO SCH (22:05)
[2019-05-11] MEDS: methylPREDNISolone NA SUCC 40 MG/1 ML VIAL IVPUSH SCH ×2 (03:02→17:38)
[2019-05-11] MEDS: INSULIN SLIDING SCALE (NOVOLOG) 1 VIAL SQ SCH ×4 (06:27→21:38)
[2019-05-11] MEDS: metFORMIN HCL 500 MG TABLET (FP) PO SCH ×2 (06:27→17:37)
[2019-05-11] MEDS: sitaGLIPtin PHOSPHATE 50 MG TABLET PO SCH (06:27)
[2019-05-11] MEDS: ACETYLCYSTEINE 20% 200MG/ML 4 ML VIAL *FOR ORAL / INH USE ONLY NEB SCH ×3 (07:42→19:48)
[2019-05-11] MEDS: ALBUTEROL SO4 0.042% IH SOL 1.25 MG/3 ML VIAL.NEB NEB PRN ×3 (07:43→19:48)
--- NOTE | 2019-05-11 11:39 | PN ---
Progress Note, Physician History of Present Illness: pulmonary alert,feeling better,less wheezes - Current Medication List Current Medications: Active Medications Acetaminophen (Tylenol -) 650 mg PO Q6H PRN PRN Reason: PAIN 1-3 Acetylcysteine (Mucomyst 20 Oral / Inh Use Only*) 600 mg NEB RTID [facility] Last Admin: 05/11/19 07:42 Dose: 600 mg Albuterol Sulfate (Ventolin 0.042trength) -) 1 amp NEB Q4H PRN PRN Reason: SHORT OF BREATH/WHEEZING Last Admin: 05/11/19 07:43 Dose: 1 amp Budesonide/Formoterol Fumarate (Symbicort 160/4.5mcg -) 2 puff IH BID [facility] Last Admin: 05/10/19 22:04 Dose: 2 puff Diltiazem HCl (Cardizem Cd -) 300 mg PO [facility] Last Admin: 05/10/19 22:07 Dose: 300 mg Guaifenesin (Diabetic Tussin Dm -) 5 ml PO Q4H PRN PRN Reason: COUGH Last Admin: 05/10/19 18:45 Dose: 5 ml Hydrocortisone (Anusol 2.5% Hc Cream -) 1 applic [place] DAILY [facility] Last Admin: 05/10/19 16:52 Dose: Not Given Insulin Aspart (Novolog Vial Sliding Scale -) [address] [facility]; Protocol Last Admin: 05/11/19 06:27 Dose: 2 units Losartan Potassium (Cozaar -) 100 mg PO DAILY [facility] Last Admin: 05/10/19 12:38 Dose: 100 mg Metformin HCl (Glucophage -) 500 mg PO BID@0700,1630 [facility] Last Admin: 05/11/19 06:27 Dose: 500 mg Methylprednisolone Sodium Succinate (Solu-Medrol -) 40 mg IVPUSH Q12H [facility] Last Admin: 05/11/19 03:02 Dose: 40 mg Montelukast Sodium (Singulair -) 10 mg PO [facility] Last Admin: 05/10/19 22:05 Dose: 10 mg Polyethylene Glycol (Miralax (For Daily Use) -) 17 gm PO DAILY [facility] Last Admin: 05/10/19 12:39 Dose: 17 grams Pramoxine HCl (Tucks Ointment -) 2 applic RC [facility] Ranitidine HCl (Zantac -) 150 mg PO DAILY [facility] Last Admin: 05/10/19 12:39 Dose: 150 mg Rosuvastatin Calcium (Crestor -) 5 mg PO HS [facility] Last Admin: 05/10/19 22:04 Dose: 5 mg Senna (Senna -) 1 tab PO HS [facility] Last Admin: 05/10/19 22:05 Dose: 1 tab Sertraline HCl (Zoloft -) 25 mg PO DAILY [facility] Last Admin: 05/10/19 12:40 Dose: 25 mg Sitagliptin Phosphate (Januvia -) 50 mg PO DAILY@0700 [facility] Last Admin: 05/11/19 06:27 Dose: 50 mg Tiotropium [place] (Spiriva Respimat) 1 puff IH DAILY [facility] Last Admin: 05/10/19 12:40 Dose: 1 puff Witch Zeny/Glycerin (Tucks Pads -) 1 pad TP PRN PRN PRN Reason: HEMORRHOIDS - Objective Vital Signs: Vital Signs Temperature 98.6 F 05/11/19 06:32 Pulse Rate 79 05/11/19 06:32 Respiratory Rate 20 05/11/19 06:32 Blood Pressure 149/62 05/11/19 06:32 O2 Sat by Pulse Oximetry (%) 93 L 05/10/19 21:00 Constitutional: Yes: Well Nourished, Calm Eyes: Yes: WNL HENT: Yes: WNL Neck: Yes: WNL Cardiovascular: Yes: Regular Rate and Rhythm, S1, S2 Respiratory: Yes: Wheezes (less wheezes bilaterally) Gastrointestinal: Yes: Normal Bowel Sounds, Soft Extremities: Yes: WNL Edema: No Labs: CBC, BMP Assessment/Plan A/P Acute COPD Exacerbation HTN DM Hyperlipidemia - taper steroids - inhaled bronchodilators - azithromycin - O2 to keep Spo2 >90% - glucose control while on systemic steroids - DVT prophylaxis Problem List - Problems (1) COPD exacerbation Code(s): J44.1 - CHRONIC OBSTRUCTIVE PULMONARY DISEASE W (ACUTE) EXACERBATION (2) HTN (hypertension) Code(s): I10 - ESSENTIAL (PRIMARY) HYPERTENSION
--- NOTE | 2019-05-11 11:39 | PN ---
Progress Note, Physician - Current Medication List Current Medications: Active Medications Acetaminophen (Tylenol -) 650 mg PO Q6H PRN PRN Reason: PAIN 1-3 Acetylcysteine (Mucomyst 20 Oral / Inh Use Only*) 600 mg NEB RTID [facility] Last Admin: 05/11/19 07:42 Dose: 600 mg Albuterol Sulfate (Ventolin 0.042trength) -) 1 amp NEB Q4H PRN PRN Reason: SHORT OF BREATH/WHEEZING Last Admin: 05/11/19 07:43 Dose: 1 amp Budesonide/Formoterol Fumarate (Symbicort 160/4.5mcg -) 2 puff IH BID [facility] Last Admin: 05/10/19 22:04 Dose: 2 puff Diltiazem HCl (Cardizem Cd -) 300 mg PO [facility] Last Admin: 05/10/19 22:07 Dose: 300 mg Guaifenesin (Diabetic Tussin Dm -) 5 ml PO Q4H PRN PRN Reason: COUGH Last Admin: 05/10/19 18:45 Dose: 5 ml Hydrocortisone (Anusol 2.5% Hc Cream -) 1 applic [place] DAILY [facility] Last Admin: 05/10/19 16:52 Dose: Not Given Insulin Aspart (Novolog Vial Sliding Scale -) 1 vial SQ ACHS [facility]; Protocol Last Admin: 05/11/19 06:27 Dose: 2 units Losartan Potassium (Cozaar -) 100 mg PO DAILY [facility] Last Admin: 05/10/19 12:38 Dose: 100 mg Metformin HCl (Glucophage -) 500 mg PO BID@0700,1630 [facility] Last Admin: 05/11/19 06:27 Dose: 500 mg Methylprednisolone Sodium Succinate (Solu-Medrol -) 40 mg IVPUSH Q12H [facility] Last Admin: 05/11/19 03:02 Dose: 40 mg Montelukast Sodium (Singulair -) 10 mg PO [facility] Last Admin: 05/10/19 22:05 Dose: 10 mg Polyethylene Glycol (Miralax (For Daily Use) -) 17 gm PO DAILY [facility] Last Admin: 05/10/19 12:39 Dose: 17 grams Pramoxine HCl (Tucks Ointment -) 2 applic RC [facility] Ranitidine HCl (Zantac -) 150 mg PO DAILY [facility] Last Admin: 05/10/19 12:39 Dose: 150 mg Rosuvastatin Calcium (Crestor -) 5 mg PO [facility] Last Admin: 05/10/19 22:04 Dose: 5 mg Senna (Senna -) 1 tab PO [facility] Last Admin: 05/10/19 22:05 Dose: 1 tab Sertraline HCl (Zoloft -) 25 mg PO DAILY [facility] Last Admin: 05/10/19 12:40 Dose: 25 mg Sitagliptin Phosphate (Januvia -) 50 mg PO DAILY@0700 [facility] Last Admin: 05/11/19 06:27 Dose: 50 mg Tiotropium [place] (Spiriva Respimat) 1 puff IH DAILY [facility] Last Admin: 05/10/19 12:40 Dose: 1 puff Witch Zeny/Glycerin (Tucks Pads -) 1 pad TP PRN PRN PRN Reason: HEMORRHOIDS - Objective Vital Signs: Vital Signs Temperature 98.6 F 05/11/19 06:32 Pulse Rate 79 05/11/19 06:32 Respiratory Rate 20 05/11/19 06:32 Blood Pressure 149/62 05/11/19 06:32 O2 Sat by Pulse Oximetry (%) 93 L 05/10/19 21:00 Cardiovascular: Yes: Regular Rate and Rhythm Respiratory: Yes: Regular, CTA Bilaterally Gastrointestinal: Yes: Normal Bowel Sounds, Soft Labs: CBC, BMP 05/10/19 05:56 05/10/19 05:56 Assessment/Plan - Problems (1) COPD exacerbation Assessment/Plan: -Pulm on board -Symbicort -Solumedrol 30 bid -Spiriva -bronchodilators -keep SpO2 >90% -O2 via NC -CXR shows persistent atelectasis/pleural reaction at the left base Code(s): J44.1 - CHRONIC OBSTRUCTIVE PULMONARY DISEASE W (ACUTE) EXACERBATION (2) Acute respiratory distress Assessment/Plan: -Pulm on board -Solumedrol -bronchodilators -keep SpO2 >90% -O2 via NC -CXR shows persistent atelectasis/pleural reaction at the left base Code(s): R06.00 - DYSPNEA, UNSPECIFIED (3) CHF (congestive heart failure) Assessment/Plan: -1L fluid restriction -daily weights -Lasix 40 iv daily Code(s): I50.9 - HEART FAILURE, UNSPECIFIED (4) DM2 (diabetes mellitus, type 2) Assessment/Plan: -BGM ACHS -ISS -Sitagliptan/Metformin -low Na/diabetic diet Code(s): E11.9 - TYPE 2 DIABETES MELLITUS WITHOUT COMPLICATIONS (5) HTN (hypertension) Assessment/Plan: -Cardizem and Losartan -low Na diet Code(s): I10 - ESSENTIAL (PRIMARY) HYPERTENSION (6) UTI (urinary tract infection) Assessment/Plan: -ID on board -[facility] Microbiology 05/01/19 10:42 Urine - Urine Clean Catch Urine Culture - Final NO GROWTH OBTAINED Code(s): N39.0 - URINARY TRACT INFECTION, SITE NOT SPECIFIED Qualifiers: Urinary tract infection type: site unspecified Hematuria presence: without hematuria Qualified Code(s): N39.0 - Urinary tract infection, site not specified
[2019-05-11] MEDS: LOSARTAN POTASSIUM 50 MG TABLET (FP) PO SCH (11:54)
[2019-05-11] MEDS: SERTRALINE HCL 25 MG TABLET (FP) PO SCH (11:54)
[2019-05-11] MEDS: RANITIDINE HCL 150 MG TABLET (FP) PO SCH (11:54)
[2019-05-11] MEDS: HYDROCORTISONE 2.5% TOPICAL CREAM 30 GM TUBE PR SCH (11:55)
[2019-05-11] MEDS: FUROSEMIDE 40 MG/4 ML INJECTABLE VIAL IVPUSH SCH (11:59)
[2019-05-11] MEDS: BUDESONIDE/FORMETEROL FUMARATE 160/4.5 mcg INHALER IH SCH ×2 (12:00→21:35)
[2019-05-11] MEDS: TIOTROPIUM BROMIDE 2.5 MCG (SPIRIVA) RESPIMAT INHALER IH SCH (12:00)
[2019-05-11] MEDS: POLYETHYLENE GLYCOL 3350 119 GM BTL PO SCH (17:38)
[2019-05-11] MEDS ORDERED: INSULIN (NOVOLOG) ASPART 100 UNITS/ML 10ML VIAL ONE (21:18)
[2019-05-11] MEDS: ROSUVASTATIN CA 5 MG TABLET (FP) PO SCH (21:35)
[2019-05-11] MEDS: MONTELUKAST NA 10 MG TABLET PO SCH (21:35)
[2019-05-11] MEDS: SENNOSIDES 8.6MG TABLET (FP) PO SCH (21:35)
[2019-05-12] MEDS: methylPREDNISolone NA SUCC 40 MG/1 ML VIAL IVPUSH SCH (05:04)
[2019-05-12] MEDS: INSULIN SLIDING SCALE (NOVOLOG) 1 VIAL SQ SCH ×3 (06:04→17:06)
[2019-05-12] MEDS: metFORMIN HCL 500 MG TABLET (FP) PO SCH ×2 (06:04→17:06)
[2019-05-12] MEDS: sitaGLIPtin PHOSPHATE 50 MG TABLET PO SCH (06:05)
[2019-05-12] MEDS: ACETYLCYSTEINE 20% 200MG/ML 4 ML VIAL *FOR ORAL / INH USE ONLY NEB SCH ×2 (07:31→14:24)
--- NOTE | 2019-05-12 08:34 | DS ---
Physical Examination Vital Signs: Vital Signs Temperature 98.4 F 05/12/19 05:12 Pulse Rate 68 05/12/19 05:12 Respiratory Rate 20 05/12/19 05:12 Blood Pressure 131/51 L 05/12/19 05:12 O2 Sat by Pulse Oximetry (%) 95 05/11/19 21:00 Constitutional: Yes: No Distress Eyes: Yes: WNL HENT: Yes: WNL Neck: Yes: WNL Cardiovascular: Yes: Regular Rate and Rhythm Respiratory: Yes: Wheezes Gastrointestinal: Yes: Soft Musculoskeletal: Yes: WNL Extremities: Yes: WNL Edema: No Peripheral Pulses WNL: Yes Integumentary: Yes: WNL Wound/Incision: Yes: Clean/Dry Neurological: Yes: WNL ...Motor Strength: WNL Psychiatric: Yes: WNL Labs: CBC, BMP 05/10/19 05:56 05/10/19 05:56 Discharge Summary Reason For Visit: ACUTE EXACERBATION OF COPD Current Active Problems COPD exacerbation (Acute) External hemorrhoid, bleeding (Acute) Rectal bleeding (Acute) Procedures: Principal: ECHO/LABS/XRAYS Hospital Course: ADMITTED RESPIRATORY DISTRESS TREATED WITH IV STEROIDS, ABX, NEBS, DEVELOPED RECTAL BLEED AND MONITORED CLOSELY Condition: Improved - Instructions Diet, Activity, Other Instructions: SEE DR YOUNG IN [address] ESPINAL IN 1 WEEK PREDNISONE TAPER FROM 30MG DAILY Disposition: VNS/HOME HEALTH CARE - Home Medications Comprehensive Discharge Medication List: Ambulatory Orders Acetaminophen 650 mg PO PRN PRN 05/01/19 Albuterol 0.083% Nebulizer Alysa [Ventolin 0.083% Nebulizer Soln -] 1 neb NEB Q4H PRN 05/01/19 Budesonide/Formeterol Fumarate [SYMBICORT 160/4.5mcg -] 2 inh PO BID 05/01/19 Diltiazem Cd [Cardizem Cd -] 300 mg PO HS 05/01/19 Losartan Potassium 100 mg PO DAILY 05/01/19 Montelukast Na [Singulair -] 10 mg PO HS 05/01/19 Rosuvastatin Calcium [Crestor] 5 mg PO HS 05/01/19 Sennosides [Senna -] 1 tab PO HS 05/01/19 Sitagliptin Phos/Metformin HCl [Janumet 50-500 mg Tablet] 1 each PO HS 05/01/19 Tiotropium [place] [Spiriva Respimat] 1 puff IH DAILY 05/01/19 Polyethylene Glycol 3350 [Miralax 119 gm Btl -] 17 gm PO DAILY bottle 05/12/19 Sertraline HCl [Zoloft -] 25 mg PO DAILY #90 tablet 05/12/19 Constance Moura 50% (Jorges) [Tucks Pads -] 1 pad TP PRN PRN pad 05/12/19
[2019-05-12] MEDS ORDERED: PT OWN MED DRAWER 7, Y5N ONE (09:20)
[2019-05-12] MEDS ORDERED: predniSONE 10 MG TABLET (UD) PO SCH (10:00)
[2019-05-12] MEDS: LOSARTAN POTASSIUM 50 MG TABLET (FP) PO SCH (10:05)
[2019-05-12] MEDS: POLYETHYLENE GLYCOL 3350 119 GM BTL PO SCH (10:05)
[2019-05-12] MEDS: SERTRALINE HCL 25 MG TABLET (FP) PO SCH (10:05)
[2019-05-12] MEDS: RANITIDINE HCL 150 MG TABLET (FP) PO SCH (10:05)
[2019-05-12] MEDS: BUDESONIDE/FORMETEROL FUMARATE 160/4.5 mcg INHALER IH SCH (10:06)
[2019-05-12] MEDS: TIOTROPIUM BROMIDE 2.5 MCG (SPIRIVA) RESPIMAT INHALER IH SCH (10:06)
[2019-05-12] MEDS: HYDROCORTISONE 2.5% TOPICAL CREAM 30 GM TUBE PR SCH (10:07)
--- NOTE | 2019-05-12 10:20 | PN ---
Progress Note (short form) - Note Progress Note: PULMONARY Denies shortness of breath. Cough improving. No fevers or chills. Vital Signs Period Temp Pulse Resp BP Sys/Castorena Pulse Ox Last 24 Hr 98.1 F-98.6 F 66-74 20-20 131-139/51-64 95 Gen: NAD at rest Heart: RRR Lung: scattered wheeze Abd: soft, nontender Ext: no edema CBC, BMP 05/10/19 05:56 05/10/19 05:56 Active Medications Acetaminophen (Tylenol -) 650 mg PO Q6H PRN PRN Reason: PAIN 1-3 Acetylcysteine (Mucomyst 20 Oral / Inh Use Only*) 600 mg NEB RTID [facility] Last Admin: 05/12/19 07:31 Dose: 600 mg Albuterol Sulfate (Ventolin 0.042trength) -) 1 amp NEB Q4H PRN PRN Reason: SHORT OF BREATH/WHEEZING Last Admin: 05/11/19 19:48 Dose: 1 amp Budesonide/Formoterol Fumarate (Symbicort 160/4.5mcg -) 2 puff IH BID [facility] Last Admin: 05/12/19 10:06 Dose: 2 puff Diltiazem HCl (Cardizem Cd -) 300 mg PO HS [facility] Last Admin: 05/11/19 21:35 Dose: 300 mg Guaifenesin (Diabetic Tussin Dm -) 5 ml PO Q4H PRN PRN Reason: COUGH Last Admin: 05/10/19 18:45 Dose: 5 ml Hydrocortisone (Anusol 2.5% Hc Cream -) 1 applic [place] DAILY [facility] Last Admin: 05/12/19 10:07 Dose: 1 applic Insulin Aspart (Novolog Vial Sliding Scale -) 1 vial SQ ACHS [facility]; Protocol Last Admin: 05/12/19 06:04 Dose: Not Given Losartan Potassium (Cozaar -) 100 mg PO DAILY [facility] Last Admin: 05/12/19 10:05 Dose: 100 mg Metformin HCl (Glucophage -) 500 mg PO BID@0700,1630 [facility] Last Admin: 05/12/19 06:04 Dose: 500 mg Montelukast Sodium (Singulair -) 10 mg PO HS [facility] Last Admin: 05/11/19 21:35 Dose: 10 mg Polyethylene Glycol (Miralax (For Daily Use) -) 17 gm PO DAILY [facility] Last Admin: 05/12/19 10:05 Dose: Not Given Prednisone (Deltasone -) 30 mg PO DAILY [facility] Last Admin: 05/12/19 10:05 Dose: 30 mg Ranitidine HCl (Zantac -) 150 mg PO DAILY [facility] Last Admin: 05/12/19 10:05 Dose: 150 mg Rosuvastatin Calcium (Crestor -) 5 mg PO HS [facility] Last Admin: 05/11/19 21:35 Dose: 5 mg Senna (Senna -) 1 tab PO HS [facility] Last Admin: 05/11/19 21:35 Dose: 1 tab Sertraline HCl (Zoloft -) 25 mg PO DAILY [facility] Last Admin: 05/12/19 10:05 Dose: 25 mg Sitagliptin Phosphate (Januvia -) 50 mg PO DAILY@0700 [facility] Last Admin: 05/12/19 06:05 Dose: 50 mg Tiotropium [place] (Spiriva Respimat) 1 puff IH DAILY [facility] Last Admin: 05/12/19 10:06 Dose: 1 puff Witch Zeny/Glycerin (Tucks Pads -) 1 pad TP PRN PRN PRN Reason: HEMORRHOIDS A/P Acute COPD Exacerbation HTN DM Hyperlipidemia - prednisone taper - inhaled bronchodilators - azithromycin - check ambulatory SpO2 on room air to assess for home O2 - glucose control while on systemic steroids - DVT prophylaxis - d/c planning in progress Problem List - Problems (1) COPD exacerbation Code(s): J44.1 - CHRONIC OBSTRUCTIVE PULMONARY DISEASE W (ACUTE) EXACERBATION (2) HTN (hypertension) Code(s): I10 - ESSENTIAL (PRIMARY) HYPERTENSION
[2019-05-12] MEDS: ALBUTEROL SO4 0.042% IH SOL 1.25 MG/3 ML VIAL.NEB NEB PRN (14:23)
[2019-05-12 15:06] VITALS: BP 133/52; PULSE 76; TEMP 98.6
--- NOTE | 2019-05-21 11:20 | PN ---
Progress Note (short form) - Note Progress Note: ADDENDUM TO DIAGNOSIS: PLEASE AD PNEUMONIA Problem List - Problems (1) COPD exacerbation Code(s): J44.1 - CHRONIC OBSTRUCTIVE PULMONARY DISEASE W (ACUTE) EXACERBATION (2) Acute respiratory distress Code(s): R06.00 - DYSPNEA, UNSPECIFIED (3) Asthma Code(s): J45.909 - UNSPECIFIED ASTHMA, UNCOMPLICATED (4) Asthma dependent on systemic steroids with acute exacerbation Code(s): J45.901 - UNSPECIFIED ASTHMA WITH (ACUTE) EXACERBATION; Z79.52 - NEUROLOGIST (CURRENT) USE OF SYSTEMIC STEROIDS (5) Bronchitis Code(s): J40 - BRONCHITIS, NOT SPECIFIED ACUTE OR CHRONIC (6) DM2 (diabetes mellitus, type 2) Code(s): E11.9 - TYPE 2 DIABETES MELLITUS WITHOUT COMPLICATIONS (7) Dyspnea and respiratory abnormalities Code(s): R06.00 - DYSPNEA, UNSPECIFIED; R06.89 - OTHER ABNORMALITIES OF BREATHING (8) External hemorrhoid, bleeding Code(s): K64.4 - RESIDUAL HEMORRHOIDAL SKIN TAGS
== END 2019-05-12 18:40 | disposition home health service (06) | DRG 190 ==
LOC: JER 07:25 → JERBED 10:43 → J7W 11:54
PROVIDERS: ADMIT Family Medicine; ATTEND Family Medicine
DX: J44.1 Chronic obstructive pulmonary disease with (acute) exacerbation (principal); J18.9 Pneumonia, unspecified organism; J98.11 Atelectasis; N39.0 Urinary tract infection, site not specified; K62.5 Hemorrhage of anus and rectum; J45.901 Unspecified asthma with (acute) exacerbation; E11.9 Type 2 diabetes mellitus without complications; I10 Essential (primary) hypertension; E78.5 Hyperlipidemia, unspecified
CPT/HCPCS: 36415; 71045-TC-FY; 80048; 80053; 81003; 82962; 83036; 83540; 83735; 83880; 84100; 84436; 84443; 84484; 85025; 85027; 87086; 93005; 93010; 93306-TC; 94640; 94761; 97116-GP; 97161-GP; 99284-25

== ENCOUNTER 2019-06-13 13:37 | Inpatient (IN) | payer OTHER, BC | END 2019-06-24 13:27 | disposition home health service (06) | LOC: JER 13:37 → JERBED 17:41 → J5S 19:30 ==

== ENCOUNTER 2019-07-01 09:19 | Inpatient (IN) | payer OTHER, BC ==
--- NOTE | 2019-07-01 09:30 | PDOC ---
History of Present Illness - General Stated Complaint: FALL LT HIP PAIN - History of Present Illness Initial Comments: This is a 89 y/o woman with a PMHx of HTN, HLD, COPD (on 2L PRN), CHF, DM who presents for evaluation after a mechanical fall from standing with left hip pain. The pt reports she tripped and fell this AM while trying to stand. The pt denies feeling lightheaded before or after the fall. Reports left hip pain that is sharp, non-radiating, constant, worse with movement, and not alleviated by anything she can identify. Reports previous surgery to left ankle. Denies previous injury or surgery to left hip. Denies blood thinner use 07/01/19 10:10 Past History - Past Medical History Allergies/Adverse Reactions: Allergies Allergy/AdvReac Type Severity Reaction Status Date / Time No Known Drug Allergies Allergy Verified 07/01/19 09:38 Home Medications: Ambulatory Orders Acetaminophen 650 mg PO PRN PRN 05/01/19 Albuterol 0.083% Nebulizer Alysa [Ventolin 0.083% Nebulizer Soln -] 1 neb NEB Q4H PRN 05/01/19 Budesonide/Formeterol Fumarate [SYMBICORT 160/4.5mcg -] 2 inh PO BID 05/01/19 Diltiazem Cd [Cardizem Cd -] 300 mg PO HS 05/01/19 Losartan Potassium 100 mg PO DAILY 05/01/19 Montelukast Na [Singulair -] 10 mg PO HS 05/01/19 Rosuvastatin Calcium [Crestor] 5 mg PO HS 05/01/19 Sennosides [Senna -] 1 tab PO HS 05/01/19 Sitagliptin Phos/Metformin HCl [Janumet 50-500 mg Tablet] 1 each PO HS 05/01/19 Tiotropium [place] [Spiriva Respimat] 1 puff IH DAILY 05/01/19 Polyethylene Glycol 3350 [Miralax 119 gm Btl -] 17 gm PO DAILY bottle 05/12/19 Sertraline HCl [Zoloft -] 25 mg PO DAILY #90 tablet 05/12/19 Witch Zeny 50% (Tucks) [Tucks Pads -] 1 pad TP PRN PRN pad 05/12/19 Sitagliptin Phosphate [Januvia -] 50 mg PO 1630 #0 tablet 06/23/19 metFORMIN HCL [Glucophage -] 500 mg PO 1630 #0 tablet 06/23/19 Anemia: No Asthma: Yes Cancer: No Cardiac Disorders: No CVA: No COPD: Yes CHF: No Dementia: No Diabetes: Yes ([id number]) GI Disorders: Yes (H/O HEMORROIDS) Disorders: No HTN: Yes Hypercholesterolemia: Yes Liver Disease: No Seizures: No Thyroid Disease: No - Surgical History Abdominal Surgery: Yes (umbilical hernia, bilateral inguinal hernias BY Dr. ZAVALA) Appendectomy: No Cardiac Surgery: No Cholecystectomy: No Lung Surgery: No Neurologic Surgery: No Orthopedic Surgery: Yes (Ankle) - Immunization History Immunization Up to Date: Yes - Suicide/Smoking/Psychosocial Hx Smoking Status: No Smoking History: Unknown if ever smoked Have you smoked in the past 12 months: No Number of Cigarettes Smoked Daily: 0 Cigars Per Day: 0 Hx Alcohol Use: No Drug/Substance Use Hx: No Substance Use Type: None Hx Substance Use Treatment: No Review of Systems - Review of Systems Able to Perform ROS?: Yes Comments:: GENERAL/CONSTITUTIONAL: No fever or chills. No weakness HEAD, EYES, EARS, NOSE AND THROAT: No change in vision. No change in hearing. No sore throat CARDIOVASCULAR: No chest pain or shortness of breath RESPIRATORY: Denies cough, hemoptysis GASTROINTESTINAL: No nausea, vomiting, diarrhea or constipation GENITOURINARY: No dysuria, frequency, or change in urination SKIN: No rash NEUROLOGIC: No headache, vertigo, loss of consciousness, or change in strength/ sensation ENDOCRINE: No increased thirst. No abnormal weight change HEMATOLOGIC/LYMPHATIC: No anemia, easy bleeding, or history of blood clots ALLERGIC/IMMUNOLOGIC: No hives or skin allergy 07/01/19 09:28 Is the patient limited Sami proficient: No *Physical Exam - Vital Signs Initial Vital Signs Temp Pulse Resp BP Pulse Ox 97.7 F 79 16 196/58 H 100 07/01/19 09:20 07/01/19 09:20 07/01/19 09:20 07/01/19 09:20 07/01/19 09:20 07/01/19 11:50 - Physical Exam Comments: GENERAL: Awake, alert, and oriented to person/place/time, in no acute distress HEAD: No signs of trauma, normocephalic, atraumatic EYES: PERRLA, EOMI, sclera anicteric, conjunctiva clear ENT: Hearing grossly normal, nares patent, oropharynx clear without exudates. No uvular deviation. Moist mucosa LUNGS: No distress, speaks in full sentences, clear to auscultation bilaterally HEART: Regular rate and rhythm, normal S1 and S2, no murmurs appreciated, peripheral pulses normal and equal bilaterally ABDOMEN: Soft, nontender, normoactive bowel sounds. No guarding, no rebound. No masses EXTREMITIES: left hip deformity and exquisite TTP, neurovascularly intact distally in LLE NEUROLOGICAL: Cranial nerves II through XII grossly intact. Normal speech, no focal sensorimotor deficits SKIN: Warm, Dry 07/01/19 09:28 ED Treatment Course - LABORATORY CBC & Chemistry Diagram: 07/01/19 09:50 07/01/19 09:50 Medical Decision Making - Medical Decision Making The pt is an 89F w/ a history of DM, CHF, and COPD who presents for evaluation of left hip fx s/p mechanical fall from standing ED Course XR notable for left intertrochanteric femur fx Morphine, oxycodone, and ofirmev for pain Labs sent NPO after midnight Consult order placed for Cardiology Mild leukocytosis, likely 2/2 trauma Mild anemia, no indication for transfusion at this time Lytes wnl No ROMIE LFTs unremarkable Trop I neg Dr. Fuentes consulted for orthopedics, likely OR in AM Pt admitted to Dr. Diez's service 07/01/19 13:49 *DC/Admit/Observation/Transfer Diagnosis at time of Disposition: Fracture, intertrochanteric, left femur Qualifiers: Encounter type: initial encounter Fracture type: closed Fracture alignment: nondisplaced Qualified Code(s): S72.145A - Nondisplaced intertrochanteric fracture of left femur, initial encounter for closed fracture DM2 (diabetes mellitus, type 2) Qualifiers: Diabetes mellitus prison insulin use: unspecified prison insulin use status Diabetes mellitus complication status: with other specified complication Qualified Code(s): E11.69 - Type 2 diabetes mellitus with other specified complication HTN (hypertension) Qualifiers: Hypertension type: unspecified Qualified Code(s): I10 - Essential (primary) hypertension - Discharge Dispostion Condition at time of disposition: Fair Decision to Admit order: Yes - Referrals - Patient Instructions - Post Discharge Activity
[2019-07-01] MEDS ORDERED: ACETAMINOPHEN 1000 MG/100 ML VIAL (NON FORMULARY) IVPB ONE (09:31)
[2019-07-01] MEDS ORDERED: morphine CARPU-JECT 4 MG/1 ML DISP.SYRIN IVPUSH ONE (09:33)
[2019-07-01] MEDS ORDERED: oxyCODONE HCL 5 MG TABLET PO ONE (09:33)
[2019-07-01 09:37] VITALS: BMI 21.2
[2019-07-01] MEDS ORDERED: ACETAMINOPHEN INJECTION 100 ML IVPB ONE (09:37)
[2019-07-01] MEDS ORDERED: MORPHINE SULFATE 2 MG/ML VIAL ONE ×2 (09:39→10:33)
[2019-07-01] MEDS ORDERED: SODIUM CHLORIDE 0.9% 1000 ML INFUS.BAG IV ONE (09:45)
[2019-07-01] MEDS ORDERED: SODIUM CHLORIDE 0.9% 500 ML INFUS.BAG IV ONE (10:00)
[2019-07-01 10:27] LABS: HEMATOCRIT 26.1 % (32.4-45.2); HEMOGLOBIN 8.6 GM/dL (10.7-15.3); MCH 27.5 pg (25.7-33.7); MCHC 33.1 g/dl (32.0-36.0); MEAN CELL VOLUME 83.2 fl (80-96); MEAN PLT VOLUME 8.6 fl (7.5-11.1); PLATELET COUNT 281 K/MM3 (134-434); RBC 3.14 M/mm3 (3.60-5.2); RDW 20.4 % (11.6-15.6); WHITE BLOOD COUNT 16.6 K/mm3 (4.0-10.0)
--- NOTE | 2019-07-01 10:29 | PDOC ---
Documentation entered by Blanca Berrios SCRIBE, acting as scribe for Maricarmen Yousif DO. Maricarmen Yousif DO: This documentation has been prepared by the michelibe, Blanca Berrios SCRIBE, under my direction and personally reviewed by me in its entirety. I confirm that the documentation accurately reflects all work, treatment, procedures, and medical decision making performed by me. Attending Attestation - Resident Resident Name: Fernando Rodriguez - ED Attending Attestation I have performed the following: I have examined & evaluated the patient, The case was reviewed & discussed with the resident, I agree w/resident's findings & plan, Exceptions are as noted - HPI HPI: 07/01/19 10:22 The patient is an 89-year-old female, with a past medical history of asthma, NIDDM, HTN, HLD, and hemorrhoids, who presents to the ED s/p mechanical fall at home today. The patient states she was having her breakfast this morning ( coffee and an [place] muffin) when she got up from her chair, slipped, and fell onto her LT side. There is an obvious deformity of the LT hip which is short and externally rotated. She denies any head trauma or loss of consciousness. Allergies: NKDA Ortho: Dr. Causey PCP: Dr. Diez - Physicial Exam PE: 07/01/19 10:23 GENERAL: (+)In acute pain. Awake, alert, and fully oriented. HEAD: No signs of trauma EYES: PERRLA, EOMI, sclera anicteric, conjunctiva clear ENT: Auricles normal inspection, hearing grossly normal, nares patent, oropharynx clear without exudates. Moist mucosa NECK: Normal ROM, supple, no lymphadenopathy, JVD, or masses LUNGS: Breath sounds equal, clear to auscultation bilaterally. No wheezes, and no crackles HEART: Regular rate and rhythm, normal S1 and S2, no murmurs, rubs or gallops ABDOMEN: Soft, nontender, normoactive bowel sounds. No guarding, no rebound. No masses EXTREMITIES: (+)Deformity to LLE at the hip, tender at the LT lateral hip. Patient wiggling toes bilaterally. No clubbing or cyanosis. No cords. NEUROLOGICAL: Cranial nerves II through XII grossly intact. Normal speech. SKIN: Warm, Dry, normal turgor, no rashes or lesions noted - Medical Decision Making 07/01/19 10:13 I, Dr. Maricarmen Yousif, DO, attest that this document has been prepared under my direction and personally reviewed by me in its entirety. I further attest, that it accurately reflects all work, treatment, procedures and medical decision -making performed by me. 07/01/19 10:13 a/p: 89yo female s/p mechanical fall with acute L hip pain -pt with short externally rotated LLE -pulses, sensation, muscle strength, neurovasc intact -concern for acute L hip fx -will send labs, pelvis/cxr -pain control -type and screen -npo, last po was 7am today -prior orthopedics was Dr. Causey -PMD was Dr. Diez 07/01/19 10:29 resident discussing the xray findings and plan with the patient and her family 07/01/19 10:48 L intertrochanteric fx on xray [address] Fuentes/Padilla for eval cxr clear elevated wbc on labs, hgb 8.7 07/01/19 10:49 baseline h/h 07/01/19 11:42 case discussed with Sachin Penaloza who accepts pt to service resident discussed the case with orthopedics pt will be admitted for surgical fx of the L hip fx Heart Score/ECG Review - ECG Intrepretation Comment:: 07/01/19 11:41 sinus at 72, nl axis, nl interval, q waves anterior leads which are age indeterminate, no acute st/t wave findings
[2019-07-01 10:54] LABS: ALBUMIN 3.5 g/dl (3.4-5.0); BILIRUBIN,TOTAL 0.4 mg/dL (0.2-1); BLOOD UREA NITROGEN 20.4 mg/dL (7-18); CALCIUM 8.1 mg/dL (8.5-10.1); CREATININE 0.7 mg/dL (0.55-1.3); POTASSIUM 3.8 mmol/L (3.5-5.1); TOT PROT 6.1 g/dl (6.4-8.2)
[2019-07-01 10:56] LABS: INR 0.86 (0.83-1.09); PROTHROMBIN TIME (PATIENT) 10.1 SEC (9.7-13.0)
[2019-07-01 10:58] LABS: ACTIVATED PTT 21.8 SECONDS (25.2-36.5)
[2019-07-01 11:02] LABS: EPI CELLS 3.8 /HPF (0-5/HPF); HYALINE CASTS 4 /lpf (0-8); URINE APPEARANCE CLEAR; URINE BACTERIA 1.2 /hpf (NEGATIVE); URINE BILIRUBIN NEGATIVE (NEGATIVE); URINE COLOR YELLOW; URINE GLUCOSE (UA) 2+ (NEGATIVE); URINE KETONE TRACE (NEGATIVE); URINE LEUK ESTERASE NEGATIVE (NEGATIVE); URINE NITRITE NEGATIVE (NEGATIVE); URINE PROTEIN 1+ (NEGATIVE); URINE RBC 2 /hpf (0-4); URINE WBC 0 /hpf (0-5)
--- NOTE | 2019-07-01 13:34 | CON.ORTH ---
Consult Reason for Consultation:: left hip fx - Past Medical History Cardio/Vascular: Yes: HTN Pulmonary: Yes: Asthma, COPD Gastrointestinal: Yes: Constipation, Hemorrhoids, Other (RECTAL BLEEDING) Endocrine: Yes: Diabetes Mellitus - Past Surgical History Past Surgical History: Yes: Hernia Repair - Alcohol/Substance Use Hx Alcohol Use: No History of Substance Use: reports: None - Smoking History Smoking history: Unknown if ever smoked Have you smoked in the past 12 months: No Aproximately how many cigarettes per day: 0 - Social History Usual Living Arrangement: Alone ADL: Family Assistance History of Recent Travel: No Home Medications - Allergies Allergies/Adverse Reactions: Allergies Allergy/AdvReac Type Severity Reaction Status Date / Time No Known Drug Allergies Allergy Verified 07/01/19 09:38 - Home Medications Home Medications: Ambulatory Orders Acetaminophen 650 mg PO PRN PRN 05/01/19 Albuterol 0.083% Nebulizer Alysa [Ventolin 0.083% Nebulizer Soln -] 1 neb NEB Q4H PRN 05/01/19 Budesonide/Formeterol Fumarate [SYMBICORT 160/4.5mcg -] 2 inh PO BID 05/01/19 Diltiazem Cd [Cardizem Cd -] 300 mg PO HS 05/01/19 Losartan Potassium 100 mg PO DAILY 05/01/19 Montelukast Na [Singulair -] 10 mg PO HS 05/01/19 Rosuvastatin Calcium [Crestor] 5 mg PO HS 05/01/19 Sennosides [Senna -] 1 tab PO HS 05/01/19 Sitagliptin Phos/Metformin HCl [Janumet 50-500 mg Tablet] 1 each PO HS 05/01/19 Tiotropium [place] [Spiriva Respimat] 1 puff IH DAILY 05/01/19 Polyethylene Glycol 3350 [Miralax 119 gm Btl -] 17 gm PO DAILY bottle 05/12/19 Sertraline HCl [Zoloft -] 25 mg PO DAILY #90 tablet 05/12/19 Witch Zeny 50% (Tucks) [Tucks Pads -] 1 pad TP PRN PRN pad 05/12/19 Sitagliptin Phosphate [Januvia -] 50 mg PO 1630 #0 tablet 06/23/19 metFORMIN HCL [Glucophage -] 500 mg PO 1630 #0 tablet 06/23/19 Physical Exam for Ortho Vital Signs: Vital Signs Temperature 97.7 F 07/01/19 09:20 Pulse Rate 79 07/01/19 09:20 Respiratory Rate 16 07/01/19 09:20 Blood Pressure 196/58 H 07/01/19 09:20 O2 Sat by Pulse Oximetry (%) 99 07/01/19 09:30 Labs: CBC, BMP 07/01/19 09:50 07/01/19 09:50 INR, PTT INR 0.86 (0.83-1.09) 07/01/19 09:50 - Lower Extremity Hip: Yes: Left, Decreased ROM, Leg Externally Rotated, Leg Shortened, Pain, Swelling, Other (nvi) Imaging - Results X-ray: Report Reviewed, Image Reviewed Assessment/Plan 89-year-old female, with a past medical history of asthma, NIDDM, HTN, HLD, and hemorrhoids, who presents to the ED s/p mechanical fall at home today. The patient states she was having her breakfast this morning (coffee and an [place] muffin) when she got up from her chair, slipped, and fell onto her LT side. There is an obvious deformity of the LT hip which is short and externally rotated. She denies any head trauma or loss of consciousness. a/p left displaced IT fx Risks and benefits were d/w pt and daughter in detail OR for left IM gamma nail scheduled for tomorrow pending surgical clearance surgical clearance NPO after midnight d/w Dr. Causey
--- NOTE | 2019-07-01 13:36 | EKG ---
Test Reason : Blood Pressure : / mmHG Vent. Rate : 072 BPM Atrial Rate : 072 BPM P-R Int : 164 ms QRS Dur : 074 ms QT Int : 404 ms P-R-T Axes : 077 050 049 degrees QTc Int : 442 ms NORMAL SINUS RHYTHM NONSPECIFIC ST AND T WAVE ABNORMALITY ABNORMAL ECG WHEN COMPARED WITH ECG OF 22-JUN-2019 17:12, NONSPECIFIC T WAVE ABNORMALITY HAS REPLACED INVERTED T WAVES IN ANTERIOR LEADS Confirmed by MD MAK, KRISTA ([id number]) on 07/01/2019 1:35:51 PM Referred By: Confirmed By:KRISTA CORADO MD
[2019-07-01 15:29] LABS: ANISOCYTOSIS 2+; MACROCYTOSIS 1+; PLATELET ESTIMATE NORMAL
[2019-07-01] MEDS ORDERED: ALBUTEROL SO4 0.083% IH SOL 2.5 MG/3 ML VIAL.NEB. NEB PRN (16:51)
[2019-07-01] MEDS ORDERED: WITCH HAZEL 50% (TUCKS) 40 PAD/JAR PAD TP PRN (16:51)
[2019-07-01] MEDS ORDERED: ACETAMINOPHEN 325 MG TABLET (FP) PO PRN (16:51)
--- NOTE | 2019-07-01 16:59 | HP ---
Admitting History and Physical - Primary Care Physician PCP: Paul Diez - Admission Chief Complaint: Hip pain s/p fall History of Present Illness: Patient is an 89 y/o female with past medical history HTN, HLD, COPD (2L NC at home), CHF, DM. Patient presented to ER after having mechanical fall at home. Patient states she was walking with walker to recliner and went to sit down but missed the chair and landed on her left side. Denies hitting her head, denies LOC, denies dizziness. Patient complains of left hip pain and and hip xray performed. History Source: Patient Limitations to Obtaining History: No Limitations - Past Medical History Cardiovascular: Yes: HTN Pulmonary: Yes: Asthma, COPD Gastrointestinal: Yes: Constipation, Hemorrhoids, Other (RECTAL BLEEDING) Endocrine: Yes: Diabetes Mellitus - Past Surgical History Past Surgical History: Yes: Hernia Repair - Smoking History Smoking history: Unknown if ever smoked Have you smoked in the past 12 months: No Aproximately how many cigarettes per day: 0 - Alcohol/Substance Use Hx Alcohol Use: No History of Substance Use: reports: None - Social History ADL: Family Assistance History of Recent Travel: No Home Medications - Allergies Allergies/Adverse Reactions: Allergies Allergy/AdvReac Type Severity Reaction Status Date / Time No Known Drug Allergies Allergy Verified 07/01/19 09:38 - Home Medications Home Medications: Ambulatory Orders Acetaminophen 650 mg PO PRN PRN 05/01/19 Albuterol 0.083% Nebulizer Alysa [Ventolin 0.083% Nebulizer Soln -] 1 neb NEB Q4H PRN 05/01/19 Budesonide/Formeterol Fumarate [SYMBICORT 160/4.5mcg -] 2 inh PO BID 05/01/19 Diltiazem Cd [Cardizem Cd -] 300 mg PO HS 05/01/19 Losartan Potassium 100 mg PO DAILY 05/01/19 Montelukast Na [Singulair -] 10 mg PO HS 05/01/19 Rosuvastatin Calcium [Crestor] 5 mg PO HS 05/01/19 Sennosides [Senna -] 1 tab PO HS 05/01/19 Sitagliptin Phos/Metformin HCl [Janumet 50-500 mg Tablet] 1 each PO HS 05/01/19 Tiotropium [place] [Spiriva Respimat] 1 puff IH DAILY 05/01/19 Polyethylene Glycol 3350 [Miralax 119 gm Btl -] 17 gm PO DAILY bottle 05/12/19 Sertraline HCl [Zoloft -] 25 mg PO DAILY #90 tablet 05/12/19 Witch Zeny 50% (Tucks) [Tucks Pads -] 1 pad TP PRN PRN pad 05/12/19 Sitagliptin Phosphate [Januvia -] 50 mg PO 1630 #0 tablet 06/23/19 metFORMIN HCL [Glucophage -] 500 mg PO 1630 #0 tablet 06/23/19 Review of Systems - Review of Systems Constitutional: reports: Weakness Eyes: reports: No Symptoms HENT: reports: No Symptoms Neck: reports: No Symptoms Cardiovascular: reports: No Symptoms Respiratory: reports: No Symptoms Gastrointestinal: reports: No Symptoms Genitourinary: reports: No Symptoms Breasts: reports: No Symptoms Reported Musculoskeletal: reports: Joint Pain, Joint Swelling, Muscle Weakness Integumentary: reports: No Symptoms Neurological: reports: Weakness Endocrine: reports: No Symptoms Hematology/Lymphatic: reports: No Symptoms Psychiatric: reports: No Symptoms Physical Examination Vital Signs: Vital Signs Temperature 97.7 F 07/01/19 09:20 Pulse Rate 72 07/01/19 15:37 Respiratory Rate 15 07/01/19 15:37 Blood Pressure 177/61 H 07/01/19 15:37 O2 Sat by Pulse Oximetry (%) 98 07/01/19 15:37 Constitutional: Yes: No Distress, Calm Eyes: Yes: Conjunctiva Clear HENT: Yes: Atraumatic Neck: Yes: Supple Cardiovascular: Yes: Regular Rate and Rhythm Respiratory: Yes: Regular, CTA Bilaterally Gastrointestinal: Yes: Normal Bowel Sounds, Soft Renal/: Yes: [place] Present Musculoskeletal: Yes: Joint Swelling (left hip), Muscle Weakness Extremities: Yes: Shortened (left leg shorter compared to right) Edema: No Neurological: Yes: Alert, Pre-Existing Deficit Psychiatric: Yes: Alert Labs: CBC, BMP 07/01/19 09:50 07/01/19 09:50 Imaging - Results X-ray: Report Reviewed Problem List - Problems (1) DM2 (diabetes mellitus, type 2) Assessment/Plan: -BGM ACHS -ISS -Metformin, Januvia Code(s): E11.9 - TYPE 2 DIABETES MELLITUS WITHOUT COMPLICATIONS Qualifiers: Diabetes mellitus half-way insulin use: unspecified buttermaker continuous churn insulin use status Diabetes mellitus complication status: with other specified complication Qualified Code(s): E11.69 - Type 2 diabetes mellitus with other specified complication (2) Fracture, intertrochanteric, left femur Assessment/Plan: -Ortho on board -Hip Xray shows acute intertrochanteric fracture with avulsion of the greater and lesser trochanter, normal relationship of femora head to the acetabelum -NPO post midnight for OR in AM for left IM gamma nail -will need cardiology and pulmonary clearance Code(s): S72.142A - DISPLACED INTERTROCHANTERIC FRACTURE OF LEFT FEMUR, INIT Qualifiers: Encounter type: initial encounter Fracture type: closed Fracture alignment: nondisplaced Qualified Code(s): S72.145A - Nondisplaced intertrochanteric fracture of left femur, initial encounter for closed fracture (3) HTN (hypertension) Assessment/Plan: -Losartan, Cardizem -low Na diet Code(s): I10 - ESSENTIAL (PRIMARY) HYPERTENSION Qualifiers: Hypertension type: unspecified Qualified Code(s): I10 - Essential (primary ) hypertension (4) Anemia Assessment/Plan: -monitor Hg level -Hg 8.6 -transfuse for Hg <7.0 Code(s): D64.9 - ANEMIA, UNSPECIFIED (5) CHF (congestive heart failure) Assessment/Plan: -Cardiology consult -1L fluid restriction -daily weights -strict I&Os Code(s): I50.9 - HEART FAILURE, UNSPECIFIED (6) HLD (hyperlipidemia) Assessment/Plan: -Rosuvastatin Code(s): E78.5 - HYPERLIPIDEMIA, UNSPECIFIED Assessment/Plan see problem list dvt ppx
--- NOTE | 2019-07-01 18:17 | PN ---
Progress Note (short form) - Note Progress Note: PULMONARY CONSULTATION DICTATED 07/01/19 IMP ASTHMA LEFT INTRATROCHANTERIC FX S/P MECHANICAL FALL HTN DM HLD ANEMIA PLAN INHALED BRONCHODILATORS DVT PROPHYLAXIS MEDROL O2 MONITOR H+H NORMAL TRANSFUSION THRESHOLD AT THIS TIME THERE ARE NO PULMONARY CONTRAINDICATIONS FOR SURGERY DR YOUNG Problem List - Problems (1) DM2 (diabetes mellitus, type 2) Code(s): E11.9 - TYPE 2 DIABETES MELLITUS WITHOUT COMPLICATIONS Qualifiers: Diabetes mellitus nursing home insulin use: unspecified nursing home insulin use status Diabetes mellitus complication status: with other specified complication Qualified Code(s): E11.69 - Type 2 diabetes mellitus with other specified complication (2) Fracture, intertrochanteric, left femur Code(s): S72.142A - DISPLACED INTERTROCHANTERIC FRACTURE OF LEFT FEMUR, INIT Qualifiers: Encounter type: initial encounter Fracture type: closed Fracture alignment: nondisplaced Qualified Code(s): S72.145A - Nondisplaced intertrochanteric fracture of left femur, initial encounter for closed fracture (3) HTN (hypertension) Code(s): I10 - ESSENTIAL (PRIMARY) HYPERTENSION Qualifiers: Hypertension type: unspecified Qualified Code(s): I10 - Essential (primary ) hypertension (4) Asthma Code(s): J45.909 - UNSPECIFIED ASTHMA, UNCOMPLICATED (5) HLD (hyperlipidemia) Code(s): E78.5 - HYPERLIPIDEMIA, UNSPECIFIED
[2019-07-01] MEDS ORDERED: oxyCODONE HCL 5 MG TABLET PO PRN (18:23)
[2019-07-01] MEDS: methylPREDNISolone NA SUCC 40 MG/1 ML VIAL IVPUSH SCH (18:49)
[2019-07-01] MEDS ORDERED: oxyCODONE HCL 5 MG TABLET ONE (19:18)
--- NOTE | 2019-07-01 20:05 | CON.CARD ---
Consult Referred by:: Dr. Diez Reason for Consultation:: Preop for hip surgery - History of Present Illness Chief Complaint: Left hip pain after a mechnical fall. History of Present Illness: 89 year-old woman with a PMHx of HTN, DM, HLD, diastolic CHF, COPD (on home O2 as needed), asthma, and frequent fall who presented to ED 07/01/19 for left hip pain after a mechanical fall. She was found to have left hip fraction. Seen by ortho, left hip surgery is planned for tomorrow. The patient tripped and fell this morning while trying to stand. She did not have syncope or near syncope and denies lightheadedness or dizziness. She has no chest pain, SOB at rest, palpitation, edema, orthopnea or PND. Her exercise tolerance is very limited. ECG 07/01/19 showed sinus rhythm with minor non-specific ST-T abnormalities. No acute ischemic changes. Echocardiogram 05/09/19: Normal LV size, wall motion and systolic function. LVEF = 55-60%. Normal RV. Normal LA and RA. Moderate AV calcification and MAC. No significant valvular abnormalities. - History Source History Provided By: Patient, Family Member, Medical Record Limitations to Obtaining History: No Limitations - Past Medical History Cardio/Vascular: Yes: HTN Pulmonary: Yes: Asthma, COPD Gastrointestinal: Yes: Constipation, Hemorrhoids, Other (RECTAL BLEEDING) Endocrine: Yes: Diabetes Mellitus - Past Surgical History Past Surgical History: Yes: Hernia Repair - Alcohol/Substance Use Hx Alcohol Use: No History of Substance Use: reports: None - Smoking History Smoking history: Unknown if ever smoked Have you smoked in the past 12 months: No Aproximately how many cigarettes per day: 0 - Social History Usual Living Arrangement: Alone ADL: Family Assistance History of Recent Travel: No Home Medications - Allergies Allergies/Adverse Reactions: Allergies Allergy/AdvReac Type Severity Reaction Status Date / Time No Known Drug Allergies Allergy Verified 07/01/19 09:38 - Home Medications Home Medications: Ambulatory Orders Acetaminophen 650 mg PO PRN PRN 05/01/19 Albuterol 0.083% Nebulizer Alysa [Ventolin 0.083% Nebulizer Soln -] 1 neb NEB Q4H PRN 05/01/19 Budesonide/Formeterol Fumarate [SYMBICORT 160/4.5mcg -] 2 inh PO BID 05/01/19 Diltiazem Cd [Cardizem Cd -] 300 mg PO HS 05/01/19 Losartan Potassium 100 mg PO DAILY 05/01/19 Montelukast Na [Singulair -] 10 mg PO HS 05/01/19 Rosuvastatin Calcium [Crestor] 5 mg PO HS 05/01/19 Sennosides [Senna -] 1 tab PO HS 05/01/19 Sitagliptin Phos/Metformin HCl [Janumet 50-500 mg Tablet] 1 each PO HS 05/01/19 Tiotropium Malone [Spiriva Respimat] 1 puff IH DAILY 05/01/19 Polyethylene Glycol 3350 [Miralax 119 gm Btl -] 17 gm PO DAILY bottle 05/12/19 Sertraline HCl [Zoloft -] 25 mg PO DAILY #90 tablet 05/12/19 Witch Zeny 50% (Tucks) [Tucks Pads -] 1 pad TP PRN PRN pad 05/12/19 Sitagliptin Phosphate [Januvia -] 50 mg PO 1630 #0 tablet 06/23/19 metFORMIN HCL [Glucophage -] 500 mg PO 1630 #0 tablet 06/23/19 Review of Systems - Review of Systems Constitutional: reports: Weakness Eyes: reports: No Symptoms HENT: reports: No Symptoms Neck: reports: No Symptoms Cardiovascular: reports: No Symptoms Respiratory: reports: Exercise Intolerance, SOB, SOB on Exertion Gastrointestinal: reports: No Symptoms Genitourinary: reports: No Symptoms Breasts: reports: No Symptoms Reported Musculoskeletal: reports: Extremity Pain Integumentary: reports: No Symptoms Neurological: reports: No Symptoms Endocrine: reports: No Symptoms Hematology/Lymphatic: reports: No Symptoms Psychiatric: reports: No Symptoms Pain Intensity: 7 Vital Signs: Vital Signs Temperature 98.2 F 07/01/19 11:45 Pulse Rate 72 07/01/19 18:23 Respiratory Rate 12 07/01/19 18:23 Blood Pressure 174/60 H 07/01/19 18:23 O2 Sat by Pulse Oximetry (%) 96 07/01/19 19:37 General: Well developed. Frail. No acute distress. Head: Normocephalic. Atraumatic, Eyes: PERRLA, EOMI. Sclerae anicteric. Conjunctivae clear. Neck: Supple. No JVD. No bruits. Heart: Normal S1, S2: Regular rhythm and rate. No murmur. No gallop or rub. Lungs: Symmetrical air entry. Clear to auscultation. No crackle. No wheezing or rhonchi. Abdomen: Soft. Bowel sound positive. Non tender. No masses. Extremities: No edema. No clubbing or cyanosis. PD 2+, equal bilaterally. - Other Data Labs, Other Data: CBC, BMP 07/01/19 09:50 07/01/19 09:50 INR, PTT INR 0.86 (0.83-1.09) 07/01/19 09:50 Troponin, BNP 07/01/19 09:50 Troponin I < 0.02 Troponin, BNP 07/01/19 09:50 Troponin I < 0.02 Imaging - Results EKG: Image Reviewed (ECG 07/01/19 showed sinus rhythm with minor non-specific ST- T abnormalities. No acute ischemic changes.) Assessment/Plan 89 year-old woman with a PMHx of HTN, DM, HLD, diastolic CHF, COPD (on home O2 as needed), asthma, and frequent fall who presented to ED 07/01/19 for left hip pain after a mechanical fall. She was found to have left hip fraction. Seen by ortho, left hip surgery is planned for tomorrow. ECG 07/01/19 showed sinus rhythm with minor non-specific ST-T abnormalities. No acute ischemic changes. Echocardiogram 05/09/19: Normal LV size, wall motion and systolic function. LVEF = 55-60%. Normal RV. Normal LA and RA. Moderate AV calcification and MAC. No significant valvular abnormalities. 1) Preoperative cardiac risk assessment: The patient has advanced age with a history of diastolic CHF and COPD. But she has no symptoms of angina or physical signs of fluid overload. BP is elevated while in pain. ECG is unremarkable without arrhythmia. Her cardiac function is normal without significant valvular abnormalities. Therefore, the patient is at intermediate risk of cardiac complications for the planned moderate risk operation. There are no direct cardiac contraindication to the operation. BP control as follows. 2) HTN: BP is severely elevated while in pain. -Resume home doses of diltiazem CD 300 mg daily and losartan 100 mg daily. -Pain control. We will see the patient post op as needed.
--- NOTE | 2019-07-01 20:53 | CONS ---
DATE OF CONSULTATION: 07/01/2019 PULMONARY CONSULTATION REFERRING PHYSICIAN: Paul Diez M.D. HISTORY OF PRESENT ILLNESS: The patient is an 89-year-old white female well known to me from previous hospitalization and office followup with past medical history of asthma, steroid dependent, noninsulin dependent diabetes mellitus, hypertension, hyperlipidemia, hemorrhoids, recently hospitalized at [facility] secondary to COPD exacerbation, was doing well at home, earlier today that she was having breakfast this morning, she got up from the chair, slipped, and fell onto her left side. At the time, EMS was called. The patient was noted to have external rotation of the left hip. She underwent x-ray of the hip which revealed acute left intratrochanteric fracture with avulsion of the greater and lesser trochanter. The patient is evaluated by orthopedics, is to undergo surgical intervention in the morning. Patient currently denies any shortness of breath, denies any cough or hemoptysis. There are no chest pains or palpitations. PAST MEDICAL HISTORY: Again includes asthma, hypertension, hyperlipidemia, diabetes. SOCIAL HISTORY: Nonsmoker. No occupational exposures. REVIEW OF SYSTEMS: No shortness of breath. No cough. No chest pain. No palpitations. Positive left lower extremity pain. PHYSICAL EXAMINATION: General: The patient is an elderly white female, awake, alert, in mild distress secondary to left hip pain. Vital Signs: Blood pressure 174/60, respiratory rate 12, O2 saturation is 96% on room air, and temperature is 98.2. HEENT: Normocephalic, atraumatic. Neck: Supple. Heart: Regular S1, S2. Chest: Clear. Abdomen: Soft, bowel sounds positive. Extremities: Left lower extremity externally rotated and shortened. Chest x-ray: No infiltrates and no effusions. WBC is 16.6, hemoglobin 8.6, hematocrit 26.1 with platelet count of 281,000. BUN 20, creatinine 0.7. IMPRESSION: 1. Chronic asthma, currently clinically stable. 2. Acute left intratrochanteric fracture status post mechanical fall. 3. Anemia. 4. Hypertension. 5. Diabetes. 6. Hyperlipidemia. PLAN: Inhaled bronchodilators. DVT prophylaxis. Medrol. Supplemental O2 at this time. Also monitor hemoglobin and hematocrit. Normal transfusion threshold. At this time there is no pulmonary contraindication to participate in surgery. REFUGIO YOUNG M.D. ELAINA/[id number]
[2019-07-01] MEDS ORDERED: SENNOSIDES 8.6MG TABLET (FP) PO ONE (21:39)
[2019-07-01] MEDS ORDERED: HEPARIN NA (PORCINE) 5,000 UNITS/ML 1ML VIAL ONE (21:40)
[2019-07-01] MEDS ORDERED: MONTELUKAST NA 10 MG TABLET ONE (21:40)
[2019-07-01] MEDS: INSULIN SLIDING SCALE (NOVOLOG) 1 VIAL SQ SCH (21:56)
[2019-07-01] MEDS: HEPARIN NA (PORCINE) 5,000 UNITS/ML 1ML VIAL SQ SCH (21:56)
[2019-07-01] MEDS ORDERED: MONTELUKAST NA 10 MG TABLET PO SCH (22:00)
[2019-07-01] MEDS ORDERED: SENNOSIDES 8.6MG TABLET (FP) PO SCH (22:00)
[2019-07-01] MEDS ORDERED: ROSUVASTATIN CA 5 MG TABLET (FP) PO SCH (22:00)
[2019-07-01] MEDS: BUDESONIDE/FORMETEROL FUMARATE 160/4.5 mcg INHALER IH SCH (22:23)
[2019-07-02] MEDS: methylPREDNISolone NA SUCC 40 MG/1 ML VIAL IVPUSH SCH ×2 (01:59→09:04)
[2019-07-02] MEDS: INSULIN SLIDING SCALE (NOVOLOG) 1 VIAL SQ SCH ×3 (06:33→21:19)
[2019-07-02 08:07] LABS: BASO % 0.4 % (0-2.0); HEMATOCRIT 24.2 % (32.4-45.2); HEMOGLOBIN 7.9 GM/dL (10.7-15.3); MCH 27.3 pg (25.7-33.7); MCHC 32.7 g/dl (32.0-36.0); MEAN CELL VOLUME 83.4 fl (80-96); MEAN PLT VOLUME 8.5 fl (7.5-11.1); MONO % 1.4 % (3.8-10.2); NEUT % 88.2 % (42.8-82.8); PLATELET COUNT 211 K/MM3 (134-434); WHITE BLOOD COUNT 17.1 K/mm3 (4.0-10.0)
[2019-07-02 08:37] LABS: ALBUMIN 3.3 g/dl (3.4-5.0); ALK PHOS 71 U/L (45-117); AMYLASE 54 U/L (25-115); ANION GAP 8 MMOL/L (8-16); BILIRUBIN,TOTAL 1.4 mg/dL (0.2-1); BLOOD UREA NITROGEN 14.8 mg/dL (7-18); CALCIUM 7.5 mg/dL (8.5-10.1); CHLORIDE 103 mmol/L (98-107); CO2 26 mmol/L (21-32); CREATININE 0.4 mg/dL (0.55-1.3); GLUCOSE,RANDOM 196 mg/dL (74-106); LIPASE 60 U/L (73-393); MAGNESIUM 1.9 mg/dL (1.8-2.4); N-TERMINAL BNP 939.2 pg/ml (5-450); PHOSPHOROUS 2.2 mg/dL (2.5-4.9); POTASSIUM 3.6 mmol/L (3.5-5.1); SGOT/AST 10 U/L (15-37); SGPT/ALT 23 U/L (13-61); SODIUM 137 mmol/L (136-145); TOT PROT 5.3 g/dl (6.4-8.2)
[2019-07-02] MEDS: HEPARIN NA (PORCINE) 5,000 UNITS/ML 1ML VIAL SQ SCH (09:03)
[2019-07-02] MEDS: BUDESONIDE/FORMETEROL FUMARATE 160/4.5 mcg INHALER IH SCH ×2 (09:03→21:19)
[2019-07-02] MEDS ORDERED: BUPIVACAINE HCL/PF 0.5% (5 MG/ML) 30 ML VIAL IJ ONE (09:20)
[2019-07-02] MEDS ORDERED: PROPOFOL 20 ML ONE (09:23)
[2019-07-02] MEDS ORDERED: POLYETHYLENE GLYCOL 3350 119 GM BTL PO SCH (10:00)
[2019-07-02] MEDS ORDERED: SERTRALINE HCL 25 MG TABLET (FP) PO SCH (10:00)
[2019-07-02] MEDS ORDERED: LOSARTAN POTASSIUM 50 MG TABLET (FP) PO SCH (10:00)
[2019-07-02] MEDS ORDERED: TIOTROPIUM BROMIDE 2.5 MCG (SPIRIVA) RESPIMAT INHALER IH SCH (10:00)
[2019-07-02] MEDS ORDERED: ceFAZolin SODIUM 1 GM VIAL ONE (10:06)
[2019-07-02] MEDS ORDERED: ceFAZolin SODIUM 1 GM VIAL IVPB ONE (10:11)
[2019-07-02] MEDS ORDERED: DEXAMETHASONE SOD PHOSPHATE 4 MG/1 ML VIAL ONE (10:14)
[2019-07-02] MEDS ORDERED: ACETAMINOPHEN INJECTION 100 ML IVPB ONE (10:47)
[2019-07-02] MEDS ORDERED: ACETAMINOPHEN 1000 MG/100 ML VIAL (NON FORMULARY) IVPB ONE (10:50)
--- NOTE | 2019-07-02 10:52 | OP ---
Operative Note - Note: Operative Date: 07/02/19 ([facility]) Pre-Operative Diagnosis: left IT fx Operation: left IM gamma nail Post-Operative Diagnosis: Same as Pre-op Surgeon: Heron Causey Anesthesiologist/OVERLOCK WAISTLINE JOINER: Alejandra Marie Anesthesia: General Estimated Blood Loss (mls): 50 Operative Report Dictated: Yes
[2019-07-02] MEDS ORDERED: methylPREDNISolone NA SUCC 40 MG/1 ML VIAL ONE (11:27)
[2019-07-02] MEDS ORDERED: ALBUTEROL SO4 0.083% IH SOL 2.5 MG/3 ML VIAL.NEB. NEB PRN (11:34)
[2019-07-02] MEDS ORDERED: ACETAMINOPHEN 325 MG TABLET (FP) PO PRN (11:34)
[2019-07-02] MEDS ORDERED: WITCH HAZEL 50% (TUCKS) 40 PAD/JAR PAD TP PRN (11:34)
[2019-07-02] MEDS ORDERED: methylPREDNISolone NA SUCC 40 MG/1 ML VIAL IVPB ONE (11:39)
[2019-07-02 12:45] LABS: ANISOCYTOSIS 1+; MACROCYTOSIS 1+; OVALOCYTE 1+; PLATELET ESTIMATE NORMAL
[2019-07-02] MEDS: LACTATED RINGERS SOLUTION 1,000 ML IV SCH ×2 (12:47→23:50)
--- NOTE | 2019-07-02 13:58 | PN ---
Progress Note, Physician History of Present Illness: PULMONARY DROWSY,COMFORTABLE,-RESP DISTRESS S/P LEFT IM GAMMA NAIL TOLERATED PROCEDURE WELL W/O COMPLICATIONS - Current Medication List Current Medications: Active Medications Acetaminophen (Tylenol -) 650 mg PO PRN PRN PRN Reason: PAIN Albuterol Sulfate (Ventolin 0.083% Nebulizer Soln -) 1 amp NEB Q4H PRN PRN Reason: SHORT OF BREATH/WHEEZING Budesonide/Formoterol Fumarate (Symbicort 160/4.5mcg -) 2 puff IH BID [facility] Diltiazem HCl (Cardizem Cd -) 300 mg PO HS [facility] Enoxaparin Sodium (Lovenox -) 40 mg SQ DAILY [facility] Fentanyl (Sublimaze Injection -) 25 mcg IVPUSH [id number] PRN PRN Reason: PAIN-PACU ORDER X 4 DOSES ONLY Lactated Ringer's (Lactated Ringers Solution) 1,000 mls @ 75 mls/hr IV ASDIR URSULA Last Admin: 07/02/19 12:47 Dose: Not Given Insulin Aspart (Novolog Vial Sliding Scale -) 1 vial SQ ACHS URSULA; Protocol Losartan Potassium (Cozaar -) 100 mg PO DAILY [facility] Metformin HCl (Glucophage -) 500 mg PO DAILY@1630 [facility] Methylprednisolone Sodium Succinate (Solu-Medrol -) 40 mg IVPUSH Q8H-IV [facility] Montelukast Sodium (Singulair -) 10 mg PO HS [facility] Oxycodone HCl (Roxicodone -) 5 mg PO Q6H PRN PRN Reason: PAIN LEVEL 7 - 10 Polyethylene Glycol (Miralax (For Daily Use) -) 17 gm PO DAILY [facility] Rosuvastatin Calcium (Crestor -) 5 mg PO HS [facility] Senna (Senna -) 1 tab PO HS [facility] Sertraline HCl (Zoloft -) 25 mg PO DAILY [facility] Sitagliptin Phosphate (Januvia -) 50 mg PO DAILY@1630 [facility] Tiotropium [place] (Spiriva Respimat) 1 puff IH DAILY [facility] Witch Zeny/Glycerin (Tucks Pads -) 1 pad TP PRN PRN PRN Reason: HEMORRHOIDS - Objective Vital Signs: Vital Signs Temperature 97.6 F 07/02/19 12:56 Pulse Rate 68 07/02/19 12:56 Respiratory Rate 18 07/02/19 12:56 Blood Pressure 148/71 07/02/19 12:56 O2 Sat by Pulse Oximetry (%) 98 07/02/19 12:56 Constitutional: Yes: Well Nourished, Calm Eyes: Yes: WNL HENT: Yes: WNL Neck: Yes: WNL Cardiovascular: Yes: Regular Rate and Rhythm, S1, S2 Respiratory: Yes: Diminished Gastrointestinal: Yes: Normal Bowel Sounds, Soft Extremities: Yes: WNL Edema: No Labs: CBC, BMP 07/02/19 06:51 07/02/19 06:51 INR, PTT INR 0.86 (0.83-1.09) 07/01/19 09:50 Problem List - Problems (1) DM2 (diabetes mellitus, type 2) Code(s): E11.9 - TYPE 2 DIABETES MELLITUS WITHOUT COMPLICATIONS Qualifiers: Diabetes mellitus meterman insulin use: unspecified skilled nursing insulin use status Diabetes mellitus complication status: with other specified complication Qualified Code(s): E11.69 - Type 2 diabetes mellitus with other specified complication (2) Fracture, intertrochanteric, left femur Code(s): S72.142A - DISPLACED INTERTROCHANTERIC FRACTURE OF LEFT FEMUR, INIT Qualifiers: Encounter type: initial encounter Fracture type: closed Fracture alignment: nondisplaced Qualified Code(s): S72.145A - Nondisplaced intertrochanteric fracture of left femur, initial encounter for closed fracture (3) HTN (hypertension) Code(s): I10 - ESSENTIAL (PRIMARY) HYPERTENSION Qualifiers: Hypertension type: unspecified Qualified Code(s): I10 - Essential (primary ) hypertension (4) Asthma Code(s): J45.909 - UNSPECIFIED ASTHMA, UNCOMPLICATED (5) HLD (hyperlipidemia) Code(s): E78.5 - HYPERLIPIDEMIA, UNSPECIFIED Assessment/Plan IMP ASTHMA STABLE LEFT INTRATROCHANTERIC FX S/P MECHANICAL FALL s/p LEFT IM GAMMA NAIL HTN DM HLD ANEMIA PLAN INHALED BRONCHODILATORS DVT PROPHYLAXIS D/C MEDROL PREDNISONE 10MG DAILY IN AM O2 MONITOR H+H NORMAL TRANSFUSION THRESHOLD PT DR YOUNG Problem List - Problems (1) DM2 (diabetes mellitus, type 2) Code(s): E11.9 - TYPE 2 DIABETES MELLITUS WITHOUT COMPLICATIONS Qualifiers: Diabetes mellitus meterman insulin use: unspecified skilled nursing insulin use status Diabetes mellitus complication status: with other specified complication Qualified Code(s): E11.69 - Type 2 diabetes mellitus with other specified complication (2) Fracture, intertrochanteric, left femur Code(s): S72.142A - DISPLACED INTERTROCHANTERIC FRACTURE OF LEFT FEMUR, INIT Qualifiers: Encounter type: initial encounter Fracture type: closed Fracture alignment: nondisplaced Qualified Code(s): S72.145A - Nondisplaced intertrochanteric fracture of left femur, initial encounter for closed fracture (3) HTN (hypertension) Code(s): I10 - ESSENTIAL (PRIMARY) HYPERTENSION Qualifiers: Hypertension type: unspecified Qualified Code(s): I10 - Essential (primary ) hypertension (4) Asthma Code(s): J45.909 - UNSPECIFIED ASTHMA, UNCOMPLICATED (5) HLD (hyperlipidemia) Code(s): E78.5 - HYPERLIPIDEMIA, UNSPECIFIED
--- NOTE | 2019-07-02 14:47 | PN ---
Progress Note, Physician Chief Complaint: L intertrochanteric fracture S/P L IM Gamma Nail History of Present Illness: Previous notes and events reviewed sleeping but easily arouseable NAD POD #0 left IM Gamma nail pain control denies chest pain or SOB - Current Medication List Current Medications: Active Medications Acetaminophen (Tylenol -) 650 mg PO PRN PRN PRN Reason: PAIN Albuterol Sulfate (Ventolin 0.083% Nebulizer Soln -) 1 amp NEB Q4H PRN PRN Reason: SHORT OF BREATH/WHEEZING Budesonide/Formoterol Fumarate (Symbicort 160/4.5mcg -) 2 puff IH BID [facility]RSULA Diltiazem HCl (Cardizem Cd -) 300 mg PO HS [facility] Enoxaparin Sodium (Lovenox -) 40 mg SQ DAILY [facility] Fentanyl (Sublimaze Injection -) 25 mcg IVPUSH [id number] PRN PRN Reason: PAIN-PACU ORDER X 4 DOSES ONLY Lactated Ringer's (Lactated Ringers Solution) 1,000 mls @ 75 mls/hr IV ASDIR URSULA Last Admin: 07/02/19 12:47 Dose: Not Given Insulin Aspart (Novolog Vial Sliding Scale -) 1 vial SQ ACHS URSULA; Protocol Losartan Potassium (Cozaar -) 100 mg PO DAILY [facility] Metformin HCl (Glucophage -) 500 mg PO DAILY@1630 [facility] Methylprednisolone Sodium Succinate (Solu-Medrol -) 40 mg IVPUSH Q8H-IV [facility]RS[facility]A Stop: 07/02/19 18:00 Montelukast Sodium (Singulair -) 10 mg PO HS [facility] Oxycodone HCl (Roxicodone -) 5 mg PO Q6H PRN PRN Reason: PAIN LEVEL 7 - 10 Polyethylene Glycol (Miralax (For Daily Use) -) 17 gm PO DAILY [facility] Prednisone (Deltasone -) 10 mg PO DAILY [facility] Rosuvastatin Calcium (Crestor -) 5 mg PO HS [facility] Senna (Senna -) 1 tab PO HS [facility] Sertraline HCl (Zoloft -) 25 mg PO DAILY [facility] Sitagliptin Phosphate (Januvia -) 50 mg PO DAILY@1630 [facility] Tiotropium [place]y (Spiriva Respimat) 1 puff IH DAILY [facility] Witch Zeny/Glycerin (Tucks Pads -) 1 pad TP PRN PRN PRN Reason: HEMORRHOIDS - Objective Vital Signs: Vital Signs Temperature 97.6 F 07/02/19 12:56 Pulse Rate 68 07/02/19 12:56 Respiratory Rate 18 07/02/19 12:56 Blood Pressure 148/71 07/02/19 12:56 O2 Sat by Pulse Oximetry (%) 98 07/02/19 12:56 Constitutional: Yes: No Distress, Calm Eyes: Yes: Conjunctiva Clear HENT: Yes: Atraumatic Cardiovascular: Yes: Regular Rate and Rhythm Respiratory: Yes: Regular, CTA Bilaterally, On Nasal O2 Gastrointestinal: Yes: Normal Bowel Sounds, Soft Genitourinary: Yes: [place] Present Musculoskeletal: Yes: Muscle Weakness Extremities: Yes: WNL Edema: No Wound/Incision: Yes: Dressing Dry and Intact (L hip) Neurological: Yes: Alert, Oriented Psychiatric: Yes: Alert, Oriented Labs: CBC, BMP 07/02/19 06:51 07/02/19 06:51 INR, PTT INR 0.86 (0.83-1.09) 07/01/19 09:50 Problem List - Problems (1) DM2 (diabetes mellitus, type 2) Assessment/Plan: -BGM ACHS -ISS -Metformin, Januvia Code(s): E11.9 - TYPE 2 DIABETES MELLITUS WITHOUT COMPLICATIONS Qualifiers: Diabetes mellitus correction insulin use: 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 Diabetes mellitus complication status: with other specified complication Qualified Code(s): E11.69 - Type 2 diabetes mellitus with other specified complication (2) Fracture, intertrochanteric, left femur Assessment/Plan: -Ortho on board -Hip Xray shows acute intertrochanteric fracture with avulsion of the greater and lesser trochanter, normal relationship of femora head to the acetabelum -POD #0 left IM gamma nail -Incentive spirometer -pain control -dvt ppx Code(s): S72.142A - DISPLACED INTERTROCHANTERIC FRACTURE OF LEFT FEMUR, INIT Qualifiers: Encounter type: initial encounter Fracture type: closed Fracture alignment: nondisplaced Qualified Code(s): S72.145A - Nondisplaced intertrochanteric fracture of left femur, initial encounter for closed fracture (3) HTN (hypertension) Assessment/Plan: -Losartan, Cardizem -low Na diet Code(s): I10 - ESSENTIAL (PRIMARY) HYPERTENSION Qualifiers: Hypertension type: unspecified Qualified Code(s): I10 - Essential (primary ) hypertension (4) Anemia Assessment/Plan: -monitor Hg level -Hg 7.9 -transfuse for Hg <7.0 Code(s): D64.9 - ANEMIA, UNSPECIFIED (5) CHF (congestive heart failure) Assessment/Plan: -Cardiology consult -1L fluid restriction -daily weights -strict I&Os Code(s): I50.9 - HEART FAILURE, UNSPECIFIED (6) HLD (hyperlipidemia) Assessment/Plan: -Rosuvastatin Code(s): E78.5 - HYPERLIPIDEMIA, UNSPECIFIED Assessment/Plan see problem list dvt ppx will need SNF placement when ready for d/c
--- NOTE | 2019-07-02 15:19 | PN ---
Progress Note (short form) - Note Progress Note: ID consult dictated imp/reccd 89 yo female known copd, just discharged on 06/24 on prednisone taper she was down to 30 mg daily when she tripped and fell using her walker she was found to have left femur fracture and underwent Gamma nail this am asked to see her for leukocytosis I suspect her leukocytosis is due to steroids and stress from the fall no fevers she was feeling well when she fell UA and cxray ae normal only complaint is incisional pain antibiotics per ortho for the surgery was given suggest blood cultures for completeness other brice observe suspect wbc will stay elevated as she is on iv steroids now Problem List - Problems (1) Fracture, intertrochanteric, left femur Code(s): S72.142A - DISPLACED INTERTROCHANTERIC FRACTURE OF LEFT FEMUR, INIT Qualifiers: Encounter type: initial encounter Fracture type: closed Fracture alignment: nondisplaced Qualified Code(s): S72.145A - Nondisplaced intertrochanteric fracture of left femur, initial encounter for closed fracture (2) Leukocytosis Code(s): D72.829 - ELEVATED WHITE BLOOD CELL COUNT, UNSPECIFIED (3) COPD (chronic obstructive pulmonary disease) Code(s): J44.9 - CHRONIC OBSTRUCTIVE PULMONARY DISEASE, UNSPECIFIED
[2019-07-02] MEDS: sitaGLIPtin PHOSPHATE 50 MG TABLET PO SCH (15:58)
[2019-07-02] MEDS: metFORMIN HCL 500 MG TABLET (FP) PO SCH (15:58)
[2019-07-02] MEDS ORDERED: sitaGLIPtin PHOSPHATE 50 MG TABLET PO SCH (16:30)
[2019-07-02] MEDS ORDERED: metFORMIN HCL 500 MG TABLET (FP) PO SCH (16:30)
[2019-07-02] MEDS ORDERED: methylPREDNISolone NA SUCC 40 MG/1 ML VIAL IVPUSH SCH (18:00)
--- NOTE | 2019-07-02 18:51 | CONS ---
INFECTIOUS DISEASE CONSULTATION DATE OF CONSULTATION: DATE OF DICTATION: 07/02/2019 REQUESTING PHYSICIAN: Paul Diez MD This is an 89-year-old woman with known COPD. She was just discharged for admission for COPD from the to the june on a prednisone taper. She was down to 30 mg a day when she tripped and fell using her walker at home yesterday. She was found to have a left femur fracture, and she underwent Gamma nail this a.m. We are asked to see her for leukocytosis. PAST MEDICAL HISTORY: Notable for history of hypertension, COPD, constipation, hemorrhoids, diabetes. She uses 2 L of oxygen at home. She has a history of heart failure as well. SURGICAL HISTORY: Notable for hernia repair. SOCIAL HISTORY: There is no history of any cigarette or substance use. She lives in the community. Her niece is involved in her care. There is no history of any recent travel. ALLERGIES: She has no known drug allergies. MEDICATIONS: Include 30 mg of prednisone, metformin, Spiriva, Januvia, Zoloft, senna, Crestor, Singulair, losartan, Cardizem, Symbicort, and albuterol inhaler and nebulizer. REVIEW OF SYSTEMS: She reports feeling well. She has no trouble with her breathing at present. She has no dysuria or cough. PHYSICAL EXAMINATION: General: She is a pleasant, elderly woman in no acute distress. Vital Signs: Temperature is 97.9. Pulse is 69. Blood pressure 144/75. Respiratory rate of 18. HEENT: She is normocephalic. Her eyes are anicteric. Neck: Supple. Lungs: Clear to auscultation. Heart: Regular rate and rhythm. Abdomen: Soft, nontender. Musculoskeletal: She has a postoperative dressing on her left ice with an ice pack. In summary, this is an 89-year-old woman with known chronic obstructive pulmonary disease, who has leukocytosis that I suspect is on the basis of steroids and stress from the fall. She has no fevers. She was feeling well with no gastrointestinal, genitourinary, or pulmonary complaints when she fell. Urinalysis and chest x-ray are normal. Her only complaint is incisional pain. She was given antibiotics per Orthopedics for the surgery that was performed. I would suggest blood cultures for completeness, otherwise observe. Suspect her white count will stay elevated as she is on IV steroids. LABORATORY DATA: Her labs during this admission: Her white count yesterday was 16.6; today is 17.1. Hemoglobin 7.9. Platelets are 211. BUN is 14 and creatinine 0.4 with total bilirubin of 1.4 and normal transaminases. Urinalysis is negative. Fred GRACIA/[id number]
[2019-07-02] MEDS ORDERED: INSULIN (NOVOLOG) ASPART 100 UNITS/ML 10ML VIAL ONE (20:51)
[2019-07-02] MEDS ORDERED: PT OWN MED DRAWER 7, Y5N ONE (20:53)
[2019-07-02] MEDS: SENNOSIDES 8.6MG TABLET (FP) PO SCH (21:17)
[2019-07-02] MEDS: MONTELUKAST NA 10 MG TABLET PO SCH (21:17)
[2019-07-02] MEDS: ROSUVASTATIN CA 5 MG TABLET (FP) PO SCH (21:17)
[2019-07-03] MEDS: oxyCODONE HCL 5 MG TABLET PO PRN ×2 (06:05→13:54)
[2019-07-03] MEDS: INSULIN SLIDING SCALE (NOVOLOG) 1 VIAL SQ SCH ×4 (06:09→21:21)
--- NOTE | 2019-07-03 06:55 | SPEC ---
DATE OF OPERATION: 07/02/2019 PREOPERATIVE DIAGNOSIS: Left intertrochanteric hip fracture. POSTOPERATIVE DIAGNOSIS: Left intertrochanteric hip fracture. PROCEDURE: Left Gamma nailing. SURGICAL ATTENDING: Heron Causey MD BUSINESS JOB TITLES: Benja Fuentes M.D. ANESTHESIA: General with LMA. CLOSURE: A short Gamma nail with appropriate interlocking screws, 1 Vicryl for fascia, 2-0 for subcutaneous, anders to skin. ESTIMATED BLOOD LOSS: 50 mL. COMPLICATIONS: None. CONDITION: To Recovery in stable condition. DESCRIPTION OF THE PROCEDURE: The patient was taken to the operating room on July 02, 2019. IV Kefzol was administered prophylactically prior to the case. Anesthesia was administered by the anesthesiologist. The patient was then fastened to the fracture table with all prominences well padded. Excellent reduction of the fracture was confirmed in AP and lateral plane by use of fluoroscopy. The left hip area was then prepped and draped in the usual sterile fashion by use of a shower curtain. A small 2-cm longitudinal incision over the tip of the greater trochanter was incised, hemostasis achieved using Bovie cautery. Sharp dissection was carried through the fascia. A guidewire was drilled from the tip of the greater trochanter into the intramedullary canal past the fracture. This was directed by fluoroscopy in both the AP and lateral plane. This was overreamed with a proximal reamer. A short Gamma nail was then malleted down into place. Using the outrigger and a small stab incision laterally, a guidewire was drilled from the lateral aspect of the femur, through the chucho, through the neck into the femoral head. Proper placement was confirmed in the AP and lateral plane by using the image intensifier. The guidewire was measured for length, reamed with a triple reamer, and then screwed with the appropriate-sized lag screw. With the traction removed, the compression device was used to compress the fracture. A set screw was placed from above in the dynamic fashion. Again using the outrigger and through a small stab incision distally, a distal hole was drilled, depth gauged and screwed with the appropriate length locking screw in the static hole. The outrigger was removed. The x-rays in the AP and lateral plane revealed excellent position of the hardware with excellent reduction of the fracture. All incisions were irrigated out with copious amounts of irrigation. The fascia was closed in 0 Vicryl, 2-0 subcutaneous, and anders to the skin. Sterile pressure dressing was applied, patient awakened from anesthesia and transferred to Recovery in stable condition. No complications. Estimated blood loss negligible. Fred [id number]
--- NOTE | 2019-07-03 08:57 | PN ---
Progress Note (short form) - Note Progress Note: Ortho Pt seen and examined s/p left IM gamma nail pod #1 Selected Entries 07/03/19 05:11 Temperature 97.8 F Pulse Rate 64 Respiratory 18 Rate Blood Pressure 127/54 L Laboratory Tests 07/02/19 06:51 WBC 17.1 H Hgb 7.9 L Hct 24.2 L Plt Count 211 D dressing c/d/i, calf soft, nt nvi a/p PT wbat monitor h/h dvt ppx pain control d/c planning
[2019-07-03] MEDS ORDERED: PT OWN MED DRAWER 7, Y5N ONE (09:17)
[2019-07-03] MEDS: ENOXAPARIN NA (PORCINE) 40 MG/0.4 ML DISP.SYRIN SQ SCH (09:32)
[2019-07-03] MEDS: PANTOPRAZOLE 40 MG TABLET (FP) PO SCH (09:32)
[2019-07-03] MEDS: LOSARTAN POTASSIUM 50 MG TABLET (FP) PO SCH (09:32)
[2019-07-03] MEDS: predniSONE 5 MG TABLET (UD) PO SCH (09:33)
[2019-07-03] MEDS: SERTRALINE HCL 25 MG TABLET (FP) PO SCH (09:33)
[2019-07-03] MEDS: BUDESONIDE/FORMETEROL FUMARATE 160/4.5 mcg INHALER IH SCH ×2 (09:34→21:25)
[2019-07-03 09:44] LABS: HEMATOCRIT 16.4 % (32.4-45.2); MCH 28.1 pg (25.7-33.7); MEAN CELL VOLUME 85.1 fl (80-96); MEAN PLT VOLUME 8.3 fl (7.5-11.1); PLATELET COUNT 141 K/MM3 (134-434); RBC 1.92 M/mm3 (3.60-5.2); RDW 23.5 % (11.6-15.6); WHITE BLOOD COUNT 15.7 K/mm3 (4.0-10.0)
[2019-07-03 09:54] LABS: BLOOD UREA NITROGEN 17.6 mg/dL (7-18); CALCIUM 7.3 mg/dL (8.5-10.1); CREATININE 0.5 mg/dL (0.55-1.3)
[2019-07-03] MEDS ORDERED: ENOXAPARIN NA (PORCINE) 40 MG/0.4 ML DISP.SYRIN SQ SCH (10:00)
[2019-07-03 10:01] LABS: HEMOGLOBIN 5.4 GM/dL (10.7-15.3)
[2019-07-03] MEDS: POLYETHYLENE GLYCOL 3350 119 GM BTL PO SCH (10:08)
[2019-07-03] MEDS: TIOTROPIUM BROMIDE 2.5 MCG (SPIRIVA) RESPIMAT INHALER IH SCH (10:08)
--- NOTE | 2019-07-03 10:24 | PN ---
Progress Note (short form) - Note Progress Note: Post op day#1.S/P L hip gamma nail under GA uneventful.Patient stable.No any anesthesia related problem.Patient Dc from the anesthesia care.
--- NOTE | 2019-07-03 10:25 | PN ---
Progress Note, Physician Chief Complaint: L intertrochanteric fracture S/P L IM Gamma Nail History of Present Illness: Previous notes and events reviewed sleeping but easily arouseable NAD POD #1 left IM Gamma nail pain control PT at bedside Hg 5.4--denies chest pain, palpitations, SOB - Current Medication List Current Medications: Active Medications Acetaminophen (Tylenol -) 650 mg PO PRN PRN PRN Reason: PAIN Albuterol Sulfate (Ventolin 0.083% Nebulizer Soln -) 1 amp NEB Q4H PRN PRN Reason: SHORT OF BREATH/WHEEZING Budesonide/Formoterol Fumarate (Symbicort 160/4.5mcg -) 2 puff IH BID [facility] Last Admin: 07/03/19 09:34 Dose: 2 puff Diltiazem HCl (Cardizem Cd -) 300 mg PO HS [facility] Last Admin: 07/02/19 21:18 Dose: 300 mg Enoxaparin Sodium (Lovenox -) 40 mg SQ DAILY [facility] Last Admin: 07/03/19 09:32 Dose: 40 mg Fentanyl (Sublimaze Injection -) 25 mcg IVPUSH [id number] PRN PRN Reason: PAIN-PACU ORDER X 4 DOSES ONLY Lactated Ringer's (Lactated Ringers Solution) 1,000 mls @ 75 mls/hr IV ASDIR [facility] Last Admin: 07/02/19 23:50 Dose: 75 mls/hr Insulin Aspart (Novolog Vial Sliding Scale -) 1 vial SQ ACHS [facility]; Protocol Last Admin: 07/03/19 06:09 Dose: Not Given Losartan Potassium (Cozaar -) 100 mg PO DAILY [facility] Last Admin: 07/03/19 09:32 Dose: 100 mg Metformin HCl (Glucophage -) 500 mg PO DAILY@1630 [facility] Last Admin: 07/02/19 15:58 Dose: 500 mg Montelukast Sodium (Singulair -) 10 mg PO HS [facility] Last Admin: 07/02/19 21:17 Dose: 10 mg Oxycodone HCl (Roxicodone -) 5 mg PO Q6H PRN PRN Reason: PAIN LEVEL 7 - 10 Last Admin: 07/03/19 06:05 Dose: 5 mg Pantoprazole Sodium (Protonix -) 40 mg PO DAILY [facility] Last Admin: 07/03/19 09:32 Dose: 40 mg Polyethylene Glycol (Miralax (For Daily Use) -) 17 gm PO DAILY [facility] Last Admin: 07/03/19 10:08 Dose: 17 gm Prednisone (Deltasone -) 10 mg PO DAILY [facility] Last Admin: 07/03/19 09:33 Dose: 10 mg Rosuvastatin Calcium (Crestor -) 5 mg PO HS [facility] Last Admin: 07/02/19 21:17 Dose: 5 mg Senna (Senna -) 1 tab PO [facility] Last Admin: 07/02/19 21:17 Dose: 1 tab Sertraline HCl (Zoloft -) 25 mg PO DAILY [facility] Last Admin: 07/03/19 09:33 Dose: 25 mg Sitagliptin Phosphate (Januvia -) 50 mg PO DAILY@1630 [facility] Last Admin: 07/02/19 15:58 Dose: 50 mg Tiotropium [place] (Spiriva Respimat) 1 puff IH DAILY [facility] Last Admin: 07/03/19 10:08 Dose: Not Given Witch Zeny/Glycerin (Tucks Pads -) 1 pad TP PRN PRN PRN Reason: HEMORRHOIDS - Objective Vital Signs: Vital Signs Temperature 98.3 F 07/03/19 09:00 Pulse Rate 65 07/03/19 09:00 Respiratory Rate 19 07/03/19 09:00 Blood Pressure 136/47 L 07/03/19 09:00 O2 Sat by Pulse Oximetry (%) 98 07/02/19 22:00 Constitutional: Yes: No Distress, Calm Eyes: Yes: Conjunctiva Clear HENT: Yes: Atraumatic Cardiovascular: Yes: Regular Rate and Rhythm Respiratory: Yes: Regular, CTA Bilaterally Gastrointestinal: Yes: Normal Bowel Sounds, Soft Genitourinary: Yes: Eagle Present Musculoskeletal: Yes: Muscle Weakness Extremities: Yes: WNL Edema: No Wound/Incision: Yes: Dressing Dry and Intact Neurological: Yes: Alert, Oriented Psychiatric: Yes: Alert, Oriented Labs: CBC, BMP 07/03/19 08:18 07/03/19 08:18 INR, PTT INR 0.86 (0.83-1.09) 07/01/19 09:50 Microbiology 07/01/19 12:00 Urine - Urine Clean Catch Urine Culture - Final NO GROWTH OBTAINED Problem List - Problems (1) DM2 (diabetes mellitus, type 2) Assessment/Plan: -BGM ACHS -ISS -Metformin, Januvia Code(s): E11.9 - TYPE 2 DIABETES MELLITUS WITHOUT COMPLICATIONS Qualifiers: 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 Diabetes mellitus complication status: with other specified complication Qualified Code(s): E11.69 - Type 2 diabetes mellitus with other specified complication (2) Fracture, intertrochanteric, left femur Assessment/Plan: -Ortho on board -Hip Xray shows acute intertrochanteric fracture with avulsion of the greater and lesser trochanter, normal relationship of femora head to the acetabelum -POD #1 left IM gamma nail -Incentive spirometer -pain control -dvt ppx -PT Code(s): S72.142A - DISPLACED INTERTROCHANTERIC FRACTURE OF LEFT FEMUR, INIT Qualifiers: Encounter type: initial encounter Fracture type: closed Fracture alignment: nondisplaced Qualified Code(s): S72.145A - Nondisplaced intertrochanteric fracture of left femur, initial encounter for closed fracture (3) HTN (hypertension) Assessment/Plan: -Losartan, Cardizem -low Na diet Code(s): I10 - ESSENTIAL (PRIMARY) HYPERTENSION Qualifiers: Hypertension type: unspecified Qualified Code(s): I10 - Essential (primary ) hypertension (4) Anemia Assessment/Plan: -monitor Hg level -Hg 5.4 -type and screen ordered -2U PRBC for transfusion--infuse over 3 hrs -repeat CBC in evening -transfuse for Hg <7.0 Code(s): D64.9 - ANEMIA, UNSPECIFIED (5) CHF (congestive heart failure) Assessment/Plan: -Cardiology consult -1L fluid restriction -daily weights -strict I&Os Code(s): I50.9 - HEART FAILURE, UNSPECIFIED (6) HLD (hyperlipidemia) Assessment/Plan: -Rosuvastatin Code(s): E78.5 - HYPERLIPIDEMIA, UNSPECIFIED Assessment/Plan see problem list dvt ppx will need SNF placement when ready for d/c
--- NOTE | 2019-07-03 10:42 | PN ---
Progress Note (short form) - Note Progress Note: Addendum.Patient Hb5.So patient will get 2 units PRBC today.
[2019-07-03] MEDS: LACTATED RINGERS SOLUTION 1,000 ML IV SCH (12:10)
[2019-07-03] MEDS: metFORMIN HCL 500 MG TABLET (FP) PO SCH (16:20)
[2019-07-03] MEDS: sitaGLIPtin PHOSPHATE 50 MG TABLET PO SCH (16:20)
--- NOTE | 2019-07-03 16:41 | PN ---
Progress Note (short form) - Note Progress Note: PULMONARY Denies shortness of breath, cough or wheezing. Pain under control. Vital Signs Period Temp Pulse Resp BP Sys/[place] Pulse Ox Last 24 Hr 97.7 F-98.6 F 64-74 18-20 105-150/47-67 93-98 Gen: NAD at rest Heart: RRR Lung: decreased breath sounds at the bases Abd: soft, nontender Ext: no edema CBC, BMP 07/03/19 08:18 07/03/19 08:18 Active Medications Acetaminophen (Tylenol -) 650 mg PO PRN PRN PRN Reason: PAIN Albuterol Sulfate (Ventolin 0.083% Nebulizer Soln -) 1 amp NEB Q4H PRN PRN Reason: SHORT OF BREATH/WHEEZING Budesonide/Formoterol Fumarate (Symbicort 160/4.5mcg -) 2 puff IH BID [facility] Last Admin: 07/03/19 09:34 Dose: 2 puff Diltiazem HCl (Cardizem Cd -) 300 mg PO [facility] Last Admin: 07/02/19 21:18 Dose: 300 mg Enoxaparin Sodium (Lovenox -) 40 mg SQ DAILY [facility] Last Admin: 07/03/19 09:32 Dose: 40 mg Fentanyl (Sublimaze Injection -) 25 mcg IVPUSH [id number] PRN PRN Reason: PAIN-PACU ORDER X 4 DOSES ONLY Lactated Ringer's (Lactated Ringers Solution) 1,000 mls @ 75 mls/hr IV ASDIR [facility] Last Admin: 07/03/19 12:10 Dose: Not Given Insulin Aspart (Novolog Vial Sliding Scale -) 1 vial SQ [facility]; Protocol Last Admin: 07/03/19 11:37 Dose: Not Given Losartan Potassium (Cozaar -) 100 mg PO DAILY [facility] Last Admin: 07/03/19 09:32 Dose: 100 mg Metformin HCl (Glucophage -) 500 mg PO DAILY@1630 [facility] Last Admin: 07/03/19 16:20 Dose: 500 mg Montelukast Sodium (Singulair -) 10 mg PO HS [facility] Last Admin: 07/02/19 21:17 Dose: 10 mg Oxycodone HCl (Roxicodone -) 5 mg PO Q6H PRN PRN Reason: PAIN LEVEL 7 - 10 Last Admin: 07/03/19 13:54 Dose: 5 mg Pantoprazole Sodium (Protonix -) 40 mg PO DAILY [facility] Last Admin: 07/03/19 09:32 Dose: 40 mg Polyethylene Glycol (Miralax (For Daily Use) -) 17 gm PO DAILY [facility] Last Admin: 07/03/19 10:08 Dose: 17 gm Prednisone (Deltasone -) 10 mg PO DAILY [facility] Last Admin: 07/03/19 09:33 Dose: 10 mg Rosuvastatin Calcium (Crestor -) 5 mg PO HS [facility] Last Admin: 07/02/19 21:17 Dose: 5 mg Senna (Senna -) 1 tab PO HS [facility] Last Admin: 07/02/19 21:17 Dose: 1 tab Sertraline HCl (Zoloft -) 25 mg PO DAILY [facility] Last Admin: 07/03/19 09:33 Dose: 25 mg Sitagliptin Phosphate (Januvia -) 50 mg PO DAILY@1630 [facility] Last Admin: 07/03/19 16:20 Dose: 50 mg Tiotropium [place] (Spiriva Respimat) 1 puff IH DAILY [facility] Last Admin: 07/03/19 10:08 Dose: Not Given Witch Zeny/Glycerin (Tucks Pads -) 1 pad TP PRN PRN PRN Reason: HEMORRHOIDS A/P s/p Fall Left Hip Fracture s/p Left IM Gamma Nail Acute Blood Loss Anemia COPD/Asthma HTN DM Hyperlipidemia - transfuse PRBC - monitor H/H - inhaled bronchodilators - continue home prednisone 10mg daily - pain control - incentive spirometry - DVT prophylaxis
[2019-07-03 20:52] LABS: HEMATOCRIT 22.1 % (32.4-45.2); HEMOGLOBIN 7.3 GM/dL (10.7-15.3); MCH 28.2 pg (25.7-33.7); MCHC 33.3 g/dl (32.0-36.0); MEAN CELL VOLUME 84.7 fl (80-96); MEAN PLT VOLUME 8.2 fl (7.5-11.1); PLATELET COUNT 128 K/MM3 (134-434); RBC 2.61 M/mm3 (3.60-5.2); RDW 18.4 % (11.6-15.6); WHITE BLOOD COUNT 18.5 K/mm3 (4.0-10.0)
[2019-07-03] MEDS: SENNOSIDES 8.6MG TABLET (FP) PO SCH (21:17)
[2019-07-03] MEDS: MONTELUKAST NA 10 MG TABLET PO SCH (21:18)
[2019-07-03] MEDS: ROSUVASTATIN CA 5 MG TABLET (FP) PO SCH (21:25)
[2019-07-04] MEDS: INSULIN SLIDING SCALE (NOVOLOG) 1 VIAL SQ SCH ×4 (06:12→22:21)
[2019-07-04 08:14] LABS: HEMATOCRIT 27.3 % (32.4-45.2); HEMOGLOBIN 9.3 GM/dL (10.7-15.3); MCHC 34.2 g/dl (32.0-36.0); MEAN CELL VOLUME 84.8 fl (80-96); MEAN PLT VOLUME 8.4 fl (7.5-11.1); PLATELET COUNT 123 K/MM3 (134-434); RBC 3.21 M/mm3 (3.60-5.2); RDW 17.8 % (11.6-15.6); WHITE BLOOD COUNT 17.6 K/mm3 (4.0-10.0)
[2019-07-04 08:53] LABS: ALBUMIN 2.5 g/dl (3.4-5.0); BILIRUBIN,TOTAL 0.9 mg/dL (0.2-1); BLOOD UREA NITROGEN 15.8 mg/dL (7-18); CALCIUM 7.6 mg/dL (8.5-10.1); CREATININE 0.5 mg/dL (0.55-1.3); POTASSIUM 3.9 mmol/L (3.5-5.1); TOT PROT 4.5 g/dl (6.4-8.2)
[2019-07-04] MEDS: ENOXAPARIN NA (PORCINE) 40 MG/0.4 ML DISP.SYRIN SQ SCH ×2 (09:45→09:54)
[2019-07-04] MEDS: POLYETHYLENE GLYCOL 3350 119 GM BTL PO SCH ×2 (09:45→09:56)
[2019-07-04] MEDS: oxyCODONE HCL 5 MG TABLET PO PRN ×2 (09:53→16:33)
[2019-07-04] MEDS: SERTRALINE HCL 25 MG TABLET (FP) PO SCH (09:53)
[2019-07-04] MEDS: PANTOPRAZOLE 40 MG TABLET (FP) PO SCH (09:53)
[2019-07-04] MEDS: LOSARTAN POTASSIUM 50 MG TABLET (FP) PO SCH (09:53)
[2019-07-04] MEDS: predniSONE 5 MG TABLET (UD) PO SCH (09:55)
[2019-07-04] MEDS: BUDESONIDE/FORMETEROL FUMARATE 160/4.5 mcg INHALER IH SCH ×2 (09:56→21:42)
[2019-07-04] MEDS: TIOTROPIUM BROMIDE 2.5 MCG (SPIRIVA) RESPIMAT INHALER IH SCH (09:56)
[2019-07-04] MEDS: LACTATED RINGERS SOLUTION 1,000 ML IV SCH (12:01)
--- NOTE | 2019-07-04 12:06 | PN ---
Progress Note (short form) - Note Progress Note: Ortho Pt seen and examined s/p left IM gamma nail pod #2. received PRBCs yesterday Selected Entries 07/03/19 22:00 Temperature 98.0 F Pulse Rate 79 Respiratory 20 Rate Blood Pressure 153/75 Laboratory Tests 07/04/19 06:35 WBC 17.6 H Hgb 9.3 L Hct 27.3 L D Plt Count 123 L dressing c/d/i, calf soft, nt nvi a/p PT wbat monitor h/h dvt ppx pain control d/c planning
--- NOTE | 2019-07-04 14:14 | PN ---
Progress Note, Physician Chief Complaint: L intertrochanteric fracture S/P L IM Gamma Nail History of Present Illness: Previous notes and events reviewed awake and alert NAD POD #2 left IM Gamma nail sts pain is better today denies chest pain or SOB - Current Medication List Current Medications: Active Medications Acetaminophen (Tylenol -) 650 mg PO PRN PRN PRN Reason: PAIN Albuterol Sulfate (Ventolin 0.083% Nebulizer Soln -) 1 amp NEB Q4H PRN PRN Reason: SHORT OF BREATH/WHEEZING Budesonide/Formoterol Fumarate (Symbicort 160/4.5mcg -) 2 puff IH BID [facility] Last Admin: 07/04/19 09:56 Dose: 2 puff Diltiazem HCl (Cardizem Cd -) 300 mg PO [facility] Last Admin: 07/04/19 00:04 Dose: 300 mg Enoxaparin Sodium (Lovenox -) 40 mg SQ DAILY [facility] Last Admin: 07/04/19 09:54 Dose: 40 mg Fentanyl (Sublimaze Injection -) 25 mcg IVPUSH [id number] PRN PRN Reason: PAIN-PACU ORDER X 4 DOSES ONLY Lactated Ringer's (Lactated Ringers Solution) 1,000 mls @ 75 mls/hr IV ASDIR [facility] Last Admin: 07/04/19 12:01 Dose: Not Given Insulin Aspart (Novolog Vial Sliding Scale -) 1 vial SQ ACHS [facility]; Protocol Last Admin: 07/04/19 12:03 Dose: Not Given Losartan Potassium (Cozaar -) 100 mg PO DAILY [facility] Last Admin: 07/04/19 09:53 Dose: 100 mg Metformin HCl (Glucophage -) 500 mg PO DAILY@1630 [facility] Last Admin: 07/03/19 16:20 Dose: 500 mg Montelukast Sodium (Singulair -) 10 mg PO [facility] Last Admin: 07/03/19 21:18 Dose: 10 mg Oxycodone HCl (Roxicodone -) 5 mg PO Q6H PRN PRN Reason: PAIN LEVEL 7 - 10 Last Admin: 07/04/19 09:53 Dose: 5 mg Pantoprazole Sodium (Protonix -) 40 mg PO DAILY [facility] Last Admin: 07/04/19 09:53 Dose: 40 mg Polyethylene Glycol (Miralax (For Daily Use) -) 17 gm PO DAILY [facility] Last Admin: 07/04/19 09:56 Dose: 17 gm Prednisone (Deltasone -) 10 mg PO DAILY [facility] Last Admin: 07/04/19 09:55 Dose: 10 mg Rosuvastatin Calcium (Crestor -) 5 mg PO HS [facility] Last Admin: 07/03/19 21:25 Dose: 5 mg Senna (Senna -) 1 tab PO HS [facility] Last Admin: 07/03/19 21:17 Dose: 1 tab Sertraline HCl (Zoloft -) 25 mg PO DAILY [facility] Last Admin: 07/04/19 09:53 Dose: 25 mg Sitagliptin Phosphate (Januvia -) 50 mg PO DAILY@1630 [facility] Last Admin: 07/03/19 16:20 Dose: 50 mg Tiotropium [place] (Spiriva Respimat) 1 puff IH DAILY [facility] Last Admin: 07/04/19 09:56 Dose: 1 puff Witch Zeny/Glycerin (Tucks Pads -) 1 pad TP PRN PRN PRN Reason: HEMORRHOIDS - Objective Vital Signs: Vital Signs Temperature 98.0 F 07/03/19 22:00 Pulse Rate 79 07/03/19 22:00 Respiratory Rate 20 07/04/19 09:00 Blood Pressure 153/75 07/03/19 22:00 O2 Sat by Pulse Oximetry (%) 95 07/04/19 09:00 Constitutional: Yes: No Distress, Calm Eyes: Yes: Conjunctiva Clear HENT: Yes: Atraumatic Cardiovascular: Yes: Regular Rate and Rhythm Respiratory: Yes: Regular, CTA Bilaterally, On Nasal O2 Gastrointestinal: Yes: Normal Bowel Sounds, Soft Genitourinary: Yes: Eagle Present Musculoskeletal: Yes: Joint Swelling, Muscle Weakness Extremities: Yes: WNL Edema: No Integumentary: Yes: Other (surgical wound L hip) Wound/Incision: Yes: Dressing Dry and Intact Neurological: Yes: Alert, Oriented Psychiatric: Yes: Alert, Oriented Labs: CBC, BMP 07/04/19 06:35 07/04/19 06:35 INR, PTT INR 0.86 (0.83-1.09) 07/01/19 09:50 Microbiology 07/02/19 19:25 Blood - Peripheral Venous Blood Culture - Preliminary NO GROWTH OBTAINED AFTER 24 HOURS, INCUBATION TO CONTINUE FOR 4 DAYS. 07/02/19 16:30 Blood - Peripheral Venous Blood Culture - Preliminary NO GROWTH OBTAINED AFTER 24 HOURS, INCUBATION TO CONTINUE FOR 4 DAYS. 07/01/19 12:00 Urine - Urine Clean Catch Urine Culture - Final NO GROWTH OBTAINED Problem List - Problems (1) DM2 (diabetes mellitus, type 2) Assessment/Plan: -BGM ACHS -ISS -Metformin, Januvia Code(s): E11.9 - TYPE 2 DIABETES MELLITUS WITHOUT COMPLICATIONS Qualifiers: Diabetes mellitus skilled nursing insulin use: unspecified ornament setter insulin use status Diabetes mellitus complication status: with other specified complication Qualified Code(s): E11.69 - Type 2 diabetes mellitus with other specified complication (2) Fracture, intertrochanteric, left femur Assessment/Plan: -Ortho on board -Hip Xray shows acute intertrochanteric fracture with avulsion of the greater and lesser trochanter, normal relationship of femora head to the acetabelum -POD #2 left IM gamma nail -Incentive spirometer -pain control -dvt ppx -PT Code(s): S72.142A - DISPLACED INTERTROCHANTERIC FRACTURE OF LEFT FEMUR, INIT Qualifiers: Encounter type: initial encounter Fracture type: closed Fracture alignment: nondisplaced Qualified Code(s): S72.145A - Nondisplaced intertrochanteric fracture of left femur, initial encounter for closed fracture (3) HTN (hypertension) Assessment/Plan: -Losartan, Cardizem -low Na diet Code(s): I10 - ESSENTIAL (PRIMARY) HYPERTENSION Qualifiers: Hypertension type: unspecified Qualified Code(s): I10 - Essential (primary ) hypertension (4) Anemia Assessment/Plan: -monitor Hg level -Hg 9.3 -s/p 2U PRBC for transfusion -transfuse for Hg <7.0 Code(s): D64.9 - ANEMIA, UNSPECIFIED (5) CHF (congestive heart failure) Assessment/Plan: -Cardiology consult -1L fluid restriction -daily weights -strict I&Os Code(s): I50.9 - HEART FAILURE, UNSPECIFIED (6) HLD (hyperlipidemia) Assessment/Plan: -Rosuvastatin Code(s): E78.5 - HYPERLIPIDEMIA, UNSPECIFIED Assessment/Plan see problem list dvt ppx will need SNF placement when ready for d/c begin d/c planning
--- NOTE | 2019-07-04 14:34 | PN ---
Progress Note, Physician History of Present Illness: PULMONARY ALERT,COMFORTABLE,-RESP DISTRESS,LOWER PAIN IMPROVING - Current Medication List Current Medications: Active Medications Acetaminophen (Tylenol -) 650 mg PO PRN PRN PRN Reason: PAIN Albuterol Sulfate (Ventolin 0.083% Nebulizer Soln -) 1 amp NEB Q4H PRN PRN Reason: SHORT OF BREATH/WHEEZING Budesonide/Formoterol Fumarate (Symbicort 160/4.5mcg -) 2 puff IH BID [facility] Last Admin: 07/04/19 09:56 Dose: 2 puff Diltiazem HCl (Cardizem Cd -) 300 mg PO HS [facility] Last Admin: 07/04/19 00:04 Dose: 300 mg Enoxaparin Sodium (Lovenox -) 40 mg SQ DAILY [facility] Last Admin: 07/04/19 09:54 Dose: 40 mg Fentanyl (Sublimaze Injection -) 25 mcg IVPUSH [id number] PRN PRN Reason: PAIN-PACU ORDER X 4 DOSES ONLY Lactated Ringer's (Lactated Ringers Solution) 1,000 mls @ 75 mls/hr IV ASDIR [facility] Last Admin: 07/04/19 12:01 Dose: Not Given Insulin Aspart (Novolog Vial Sliding Scale -) 1 vial SQ ACHS [facility]; Protocol Last Admin: 07/04/19 12:03 Dose: Not Given Losartan Potassium (Cozaar -) 100 mg PO DAILY [facility] Last Admin: 07/04/19 09:53 Dose: 100 mg Metformin HCl (Glucophage -) 500 mg PO DAILY@1630 [facility] Last Admin: 07/03/19 16:20 Dose: 500 mg Montelukast Sodium (Singulair -) 10 mg PO [facility] Last Admin: 07/03/19 21:18 Dose: 10 mg Oxycodone HCl (Roxicodone -) 5 mg PO Q6H PRN PRN Reason: PAIN LEVEL 7 - 10 Last Admin: 07/04/19 09:53 Dose: 5 mg Pantoprazole Sodium (Protonix -) 40 mg PO DAILY [facility] Last Admin: 07/04/19 09:53 Dose: 40 mg Polyethylene Glycol (Miralax (For Daily Use) -) 17 gm PO DAILY [facility] Last Admin: 07/04/19 09:56 Dose: 17 gm Prednisone (Deltasone -) 10 mg PO DAILY [facility] Last Admin: 07/04/19 09:55 Dose: 10 mg Rosuvastatin Calcium (Crestor -) 5 mg PO [facility] Last Admin: 07/03/19 21:25 Dose: 5 mg Senna (Senna -) 1 tab PO [facility] Last Admin: 07/03/19 21:17 Dose: 1 tab Sertraline HCl (Zoloft -) 25 mg PO DAILY [facility] Last Admin: 07/04/19 09:53 Dose: 25 mg Sitagliptin Phosphate (Januvia -) 50 mg PO DAILY@1630 [facility] Last Admin: 07/03/19 16:20 Dose: 50 mg Tiotropium [place] (Spiriva Respimat) 1 puff IH DAILY [facility] Last Admin: 07/04/19 09:56 Dose: 1 puff Witch Zeny/Glycerin (Tucks Pads -) 1 pad TP PRN PRN PRN Reason: HEMORRHOIDS - Objective Vital Signs: Vital Signs Temperature 98.0 F 07/04/19 10:00 Pulse Rate 75 07/04/19 10:00 Respiratory Rate 20 07/04/19 10:00 Blood Pressure 182/75 H 07/04/19 10:00 O2 Sat by Pulse Oximetry (%) 95 07/04/19 09:00 Constitutional: Yes: Well Nourished, Calm Eyes: Yes: WNL HENT: Yes: WNL Neck: Yes: WNL Cardiovascular: Yes: Regular Rate and Rhythm, S1, S2 Respiratory: Yes: CTA Bilaterally Gastrointestinal: Yes: Normal Bowel Sounds, Soft Extremities: Yes: WNL Edema: No Labs: CBC, BMP 07/04/19 06:35 07/04/19 06:35 INR, PTT INR 0.86 (0.83-1.09) 07/01/19 09:50 Problem List - Problems (1) DM2 (diabetes mellitus, type 2) Code(s): E11.9 - TYPE 2 DIABETES MELLITUS WITHOUT COMPLICATIONS Qualifiers: Diabetes mellitus skilled nursing insulin use: unspecified skilled nursing insulin use status Diabetes mellitus complication status: with other specified complication Qualified Code(s): E11.69 - Type 2 diabetes mellitus with other specified complication (2) Fracture, intertrochanteric, left femur Code(s): S72.142A - DISPLACED INTERTROCHANTERIC FRACTURE OF LEFT FEMUR, INIT Qualifiers: Encounter type: initial encounter Fracture type: closed Fracture alignment: nondisplaced Qualified Code(s): S72.145A - Nondisplaced intertrochanteric fracture of left femur, initial encounter for closed fracture (3) HTN (hypertension) Code(s): I10 - ESSENTIAL (PRIMARY) HYPERTENSION Qualifiers: Hypertension type: unspecified Qualified Code(s): I10 - Essential (primary ) hypertension (4) Asthma Code(s): J45.909 - UNSPECIFIED ASTHMA, UNCOMPLICATED (5) HLD (hyperlipidemia) Code(s): E78.5 - HYPERLIPIDEMIA, UNSPECIFIED Assessment/Plan IMP ASTHMA STABLE LEFT INTRATROCHANTERIC FX S/P MECHANICAL FALL s/p LEFT IM GAMMA NAIL HTN DM HLD ANEMIA PLAN INHALED BRONCHODILATORS DVT PROPHYLAXIS PREDNISONE 10MG DAILY IN AM O2 MONITOR H+H NORMAL TRANSFUSION THRESHOLD PT DR YOUNG Problem List - Problems (1) DM2 (diabetes mellitus, type 2) Code(s): E11.9 - TYPE 2 DIABETES MELLITUS WITHOUT COMPLICATIONS Qualifiers: Diabetes mellitus skilled nursing insulin use: unspecified skilled nursing insulin use status Diabetes mellitus complication status: with other specified complication Qualified Code(s): E11.69 - Type 2 diabetes mellitus with other specified complication (2) Fracture, intertrochanteric, left femur Code(s): S72.142A - DISPLACED INTERTROCHANTERIC FRACTURE OF LEFT FEMUR, INIT Qualifiers: Encounter type: initial encounter Fracture type: closed Fracture alignment: nondisplaced Qualified Code(s): S72.145A - Nondisplaced intertrochanteric fracture of left femur, initial encounter for closed fracture (3) HTN (hypertension) Code(s): I10 - ESSENTIAL (PRIMARY) HYPERTENSION Qualifiers: Hypertension type: unspecified Qualified Code(s): I10 - Essential (primary ) hypertension (4) Asthma Code(s): J45.909 - UNSPECIFIED ASTHMA, UNCOMPLICATED (5) HLD (hyperlipidemia) Code(s): E78.5 - HYPERLIPIDEMIA, UNSPECIFIED
[2019-07-04] MEDS: metFORMIN HCL 500 MG TABLET (FP) PO SCH (16:33)
[2019-07-04] MEDS: sitaGLIPtin PHOSPHATE 50 MG TABLET PO SCH (16:33)
[2019-07-04] MEDS: SENNOSIDES 8.6MG TABLET (FP) PO SCH (21:42)
[2019-07-04] MEDS: ROSUVASTATIN CA 5 MG TABLET (FP) PO SCH (21:42)
[2019-07-04] MEDS: MONTELUKAST NA 10 MG TABLET PO SCH (21:42)
[2019-07-05] MEDS: INSULIN SLIDING SCALE (NOVOLOG) 1 VIAL SQ SCH ×5 (06:39→23:31)
[2019-07-05 08:05] LABS: HEMATOCRIT 28.7 % (32.4-45.2); HEMOGLOBIN 9.8 GM/dL (10.7-15.3); MCH 29.2 pg (25.7-33.7); MCHC 34.2 g/dl (32.0-36.0); MEAN CELL VOLUME 85.3 fl (80-96); MEAN PLT VOLUME 8.2 fl (7.5-11.1); PLATELET COUNT 145 K/MM3 (134-434); RBC 3.36 M/mm3 (3.60-5.2); RDW 18.8 % (11.6-15.6); WHITE BLOOD COUNT 14.2 K/mm3 (4.0-10.0)
[2019-07-05 08:42] LABS: ALBUMIN 2.6 g/dl (3.4-5.0); BILIRUBIN,TOTAL 0.7 mg/dL (0.2-1); BLOOD UREA NITROGEN 10.3 mg/dL (7-18); CALCIUM 7.5 mg/dL (8.5-10.1); CREATININE 0.4 mg/dL (0.55-1.3); POTASSIUM 3.8 mmol/L (3.5-5.1); TOT PROT 4.6 g/dl (6.4-8.2)
[2019-07-05] MEDS: LOSARTAN POTASSIUM 50 MG TABLET (FP) PO SCH (09:25)
[2019-07-05] MEDS: SERTRALINE HCL 25 MG TABLET (FP) PO SCH (09:25)
[2019-07-05] MEDS: PANTOPRAZOLE 40 MG TABLET (FP) PO SCH (09:25)
[2019-07-05] MEDS: ENOXAPARIN NA (PORCINE) 40 MG/0.4 ML DISP.SYRIN SQ SCH (09:25)
[2019-07-05] MEDS: predniSONE 5 MG TABLET (UD) PO SCH (09:25)
[2019-07-05] MEDS: TIOTROPIUM BROMIDE 2.5 MCG (SPIRIVA) RESPIMAT INHALER IH SCH (09:26)
[2019-07-05] MEDS: oxyCODONE HCL 5 MG TABLET PO PRN (09:26)
[2019-07-05] MEDS: POLYETHYLENE GLYCOL 3350 119 GM BTL PO SCH (09:34)
[2019-07-05] MEDS: BUDESONIDE/FORMETEROL FUMARATE 160/4.5 mcg INHALER IH SCH ×2 (09:37→23:32)
--- NOTE | 2019-07-05 11:04 | PN ---
Progress Note, Physician History of Present Illness: pulmonary alert,c/o r hip pain,-sob - Current Medication List Current Medications: Active Medications Acetaminophen (Tylenol -) 650 mg PO Q4H PRN PRN Reason: PAIN LEVEL 6-10 Albuterol Sulfate (Ventolin 0.083% Nebulizer Soln -) 1 amp NEB Q4H PRN PRN Reason: SHORT OF BREATH/WHEEZING Budesonide/Formoterol Fumarate (Symbicort 160/4.5mcg -) 2 puff IH BID [facility] Last Admin: 07/05/19 09:37 Dose: 2 puff Diltiazem HCl (Cardizem Cd -) 300 mg PO [facility] Last Admin: 07/04/19 21:42 Dose: 300 mg Enoxaparin Sodium (Lovenox -) 40 mg SQ DAILY [facility] Last Admin: 07/05/19 09:25 Dose: 40 mg Fentanyl (Sublimaze Injection -) 25 mcg IVPUSH [id number] PRN PRN Reason: PAIN-PACU ORDER X 4 DOSES ONLY Lactated Ringer's (Lactated Ringers Solution) 1,000 mls @ 75 mls/hr IV ASDIR [facility] Last Admin: 07/04/19 12:01 Dose: Not Given Insulin Aspart (Novolog Vial Sliding Scale -) 1 vial SQ ACHS [facility]; Protocol Last Admin: 07/05/19 06:39 Dose: Not Given Losartan Potassium (Cozaar -) 100 mg PO DAILY [facility] Last Admin: 07/05/19 09:25 Dose: 100 mg Metformin HCl (Glucophage -) 500 mg PO DAILY@1630 [facility] Last Admin: 07/04/19 16:33 Dose: 500 mg Montelukast Sodium (Singulair -) 10 mg PO [facility] Last Admin: 07/04/19 21:42 Dose: 10 mg Oxycodone HCl (Roxicodone -) 5 mg PO Q6H PRN PRN Reason: PAIN LEVEL 7 - 10 Last Admin: 07/05/19 09:26 Dose: 5 mg Pantoprazole Sodium (Protonix -) 40 mg PO DAILY [facility] Last Admin: 07/05/19 09:25 Dose: 40 mg Polyethylene Glycol (Miralax (For Daily Use) -) 17 gm PO DAILY [facility] Last Admin: 07/05/19 09:34 Dose: Not Given Prednisone (Deltasone -) 10 mg PO DAILY [facility] Last Admin: 07/05/19 09:25 Dose: 10 mg Rosuvastatin Calcium (Crestor -) 5 mg PO [facility] Last Admin: 07/04/19 21:42 Dose: 5 mg Senna (Senna -) 1 tab PO [facility] Last Admin: 07/04/19 21:42 Dose: 1 tab Sertraline HCl (Zoloft -) 25 mg PO DAILY [facility] Last Admin: 07/05/19 09:25 Dose: 25 mg Sitagliptin Phosphate (Januvia -) 50 mg PO DAILY@1630 [facility] Last Admin: 07/04/19 16:33 Dose: 50 mg Tiotropium [place] (Spiriva Respimat) 1 puff IH DAILY [facility] Last Admin: 07/05/19 09:26 Dose: 1 puff Witch Zeny/Glycerin (Tucks Pads -) 1 pad TP PRN PRN PRN Reason: HEMORRHOIDS - Objective Vital Signs: Vital Signs Temperature 98.4 F 07/05/19 04:00 Pulse Rate 72 07/05/19 04:00 Respiratory Rate 18 07/05/19 04:00 Blood Pressure 155/73 07/05/19 04:00 O2 Sat by Pulse Oximetry (%) 95 07/04/19 21:00 Constitutional: Yes: Well Nourished, Calm Eyes: Yes: WNL HENT: Yes: WNL Neck: Yes: WNL Cardiovascular: Yes: Regular Rate and Rhythm, S1, S2 Respiratory: Yes: CTA Bilaterally Gastrointestinal: Yes: Normal Bowel Sounds, Soft Extremities: Yes: WNL Edema: No Labs: CBC, BMP 07/05/19 06:52 07/05/19 06:52 INR, PTT INR 0.86 (0.83-1.09) 07/01/19 09:50 Problem List - Problems (1) DM2 (diabetes mellitus, type 2) Code(s): E11.9 - TYPE 2 DIABETES MELLITUS WITHOUT COMPLICATIONS Qualifiers: Diabetes mellitus alf insulin use: unspecified moth exterminator insulin use status Diabetes mellitus complication status: with other specified complication Qualified Code(s): E11.69 - Type 2 diabetes mellitus with other specified complication (2) Fracture, intertrochanteric, left femur Code(s): S72.142A - DISPLACED INTERTROCHANTERIC FRACTURE OF LEFT FEMUR, INIT Qualifiers: Encounter type: initial encounter Fracture type: closed Fracture alignment: nondisplaced Qualified Code(s): S72.145A - Nondisplaced intertrochanteric fracture of left femur, initial encounter for closed fracture (3) HTN (hypertension) Code(s): I10 - ESSENTIAL (PRIMARY) HYPERTENSION Qualifiers: Hypertension type: unspecified Qualified Code(s): I10 - Essential (primary ) hypertension (4) Asthma Code(s): J45.909 - UNSPECIFIED ASTHMA, UNCOMPLICATED (5) HLD (hyperlipidemia) Code(s): E78.5 - HYPERLIPIDEMIA, UNSPECIFIED Assessment/Plan IMP ASTHMA STABLE LEFT INTRATROCHANTERIC FX S/P MECHANICAL FALL s/p LEFT IM GAMMA NAIL HTN DM HLD ANEMIA PLAN INHALED BRONCHODILATORS DVT PROPHYLAXIS PREDNISONE 10MG DAILY IN AM O2 MONITOR H+H PT DR YOUNG Problem List - Problems (1) DM2 (diabetes mellitus, type 2) Code(s): E11.9 - TYPE 2 DIABETES MELLITUS WITHOUT COMPLICATIONS Qualifiers: Diabetes mellitus moth exterminator insulin use: unspecified alf insulin use status Diabetes mellitus complication status: with other specified complication Qualified Code(s): E11.69 - Type 2 diabetes mellitus with other specified complication (2) Fracture, intertrochanteric, left femur Code(s): S72.142A - DISPLACED INTERTROCHANTERIC FRACTURE OF LEFT FEMUR, INIT Qualifiers: Encounter type: initial encounter Fracture type: closed Fracture alignment: nondisplaced Qualified Code(s): S72.145A - Nondisplaced intertrochanteric fracture of left femur, initial encounter for closed fracture (3) HTN (hypertension) Code(s): I10 - ESSENTIAL (PRIMARY) HYPERTENSION Qualifiers: Hypertension type: unspecified Qualified Code(s): I10 - Essential (primary ) hypertension (4) Asthma Code(s): J45.909 - UNSPECIFIED ASTHMA, UNCOMPLICATED (5) HLD (hyperlipidemia) Code(s): E78.5 - HYPERLIPIDEMIA, UNSPECIFIED
--- NOTE | 2019-07-05 14:23 | PN ---
Progress Note, Physician Chief Complaint: L intertrochanteric fracture S/P L IM Gamma Nail History of Present Illness: Previous notes and events reviewed awake and alert NAD POD #3 left IM Gamma nail sts pain is better today denies chest pain or SOB ecchymosis noted to LLE when SCD removed, (+) pedal pulse--will order Vascular US and INR/PT - Current Medication List Current Medications: Active Medications Acetaminophen (Tylenol -) 650 mg PO Q4H PRN PRN Reason: PAIN LEVEL 6-10 Albuterol Sulfate (Ventolin 0.083% Nebulizer Soln -) 1 amp NEB Q4H PRN PRN Reason: SHORT OF BREATH/WHEEZING Budesonide/Formoterol Fumarate (Symbicort 160/4.5mcg -) 2 puff IH BID [facility] Last Admin: 07/05/19 09:37 Dose: 2 puff Diltiazem HCl (Cardizem Cd -) 300 mg PO HS [facility] Last Admin: 07/04/19 21:42 Dose: 300 mg Enoxaparin Sodium (Lovenox -) 40 mg SQ DAILY [facility] Last Admin: 07/05/19 09:25 Dose: 40 mg Fentanyl (Sublimaze Injection -) 25 mcg IVPUSH [id number] PRN PRN Reason: PAIN-PACU ORDER X 4 DOSES ONLY Lactated Ringer's (Lactated Ringers Solution) 1,000 mls @ 75 mls/hr IV ASDIR [facility] Last Admin: 07/04/19 12:01 Dose: Not Given Insulin Aspart (Novolog Vial Sliding Scale -) 1 vial SQ ACHS [facility]; Protocol Last Admin: 07/05/19 12:15 Dose: Not Given Losartan Potassium (Cozaar -) 100 mg PO DAILY [facility] Last Admin: 07/05/19 09:25 Dose: 100 mg Metformin HCl (Glucophage -) 500 mg PO DAILY@1630 [facility] Last Admin: 07/04/19 16:33 Dose: 500 mg Montelukast Sodium (Singulair -) 10 mg PO HS [facility] Last Admin: 07/04/19 21:42 Dose: 10 mg Pantoprazole Sodium (Protonix -) 40 mg PO DAILY [facility] Last Admin: 07/05/19 09:25 Dose: 40 mg Polyethylene Glycol (Miralax (For Daily Use) -) 17 gm PO DAILY [facility] Last Admin: 07/05/19 09:34 Dose: Not Given Prednisone (Deltasone -) 10 mg PO DAILY [facility] Last Admin: 07/05/19 09:25 Dose: 10 mg Rosuvastatin Calcium (Crestor -) 5 mg PO [facility] Last Admin: 07/04/19 21:42 Dose: 5 mg Senna (Senna -) 1 tab PO HS [facility] Last Admin: 07/04/19 21:42 Dose: 1 tab Sertraline HCl (Zoloft -) 25 mg PO DAILY [facility] Last Admin: 07/05/19 09:25 Dose: 25 mg Sitagliptin Phosphate (Januvia -) 50 mg PO DAILY@1630 [facility] Last Admin: 07/04/19 16:33 Dose: 50 mg Tiotropium [place] (Spiriva Respimat) 1 puff IH DAILY [facility] Last Admin: 07/05/19 09:26 Dose: 1 puff Witch Zeny/Glycerin (Tucks Pads -) 1 pad TP PRN PRN PRN Reason: HEMORRHOIDS - Objective Vital Signs: Vital Signs Temperature 98.2 F 07/05/19 10:00 Pulse Rate 67 07/05/19 10:00 Respiratory Rate 18 07/05/19 10:00 Blood Pressure 152/66 07/05/19 10:00 O2 Sat by Pulse Oximetry (%) 95 07/05/19 09:00 Constitutional: Yes: No Distress, Calm Eyes: Yes: Conjunctiva Clear HENT: Yes: Atraumatic Cardiovascular: Yes: Regular Rate and Rhythm Respiratory: Yes: Regular, CTA Bilaterally Gastrointestinal: Yes: Normal Bowel Sounds, Soft Genitourinary: Yes: [place] Present Musculoskeletal: Yes: Muscle Weakness Extremities: Yes: WNL Edema: Yes (left pedal ) Integumentary: Yes: Bruising (lle) Neurological: Yes: Alert, Oriented Psychiatric: Yes: Alert, Oriented Labs: CBC, BMP 07/05/19 06:52 07/05/19 06:52 INR, PTT INR 0.86 (0.83-1.09) 07/01/19 09:50 Microbiology 07/02/19 19:25 Blood - Peripheral Venous Blood Culture - Preliminary NO GROWTH OBTAINED AFTER 48 HOURS, INCUBATION TO CONTINUE FOR 3 DAYS. 07/02/19 16:30 Blood - Peripheral Venous Blood Culture - Preliminary NO GROWTH OBTAINED AFTER 48 HOURS, INCUBATION TO CONTINUE FOR 3 DAYS. 07/01/19 12:00 Urine - Urine Clean Catch Urine Culture - Final NO GROWTH OBTAINED Problem List - Problems (1) DM2 (diabetes mellitus, type 2) Assessment/Plan: -BGM ACHS -ISS -Metformin, Januvia Code(s): E11.9 - TYPE 2 DIABETES MELLITUS WITHOUT COMPLICATIONS Qualifiers: Diabetes mellitus ferry terminal supervisor insulin use: unspecified ferry terminal supervisor insulin use status Diabetes mellitus complication status: with other specified complication Qualified Code(s): E11.69 - Type 2 diabetes mellitus with other specified complication (2) Fracture, intertrochanteric, left femur Assessment/Plan: -Ortho on board -Hip Xray shows acute intertrochanteric fracture with avulsion of the greater and lesser trochanter, normal relationship of femora head to the acetabelum -POD #3 left IM gamma nail -Incentive spirometer -pain control -dvt ppx -PT Code(s): S72.142A - DISPLACED INTERTROCHANTERIC FRACTURE OF LEFT FEMUR, INIT Qualifiers: Encounter type: initial encounter Fracture type: closed Fracture alignment: nondisplaced Qualified Code(s): S72.145A - Nondisplaced intertrochanteric fracture of left femur, initial encounter for closed fracture (3) HTN (hypertension) Assessment/Plan: -Losartan, Cardizem -low Na diet Code(s): I10 - ESSENTIAL (PRIMARY) HYPERTENSION Qualifiers: Hypertension type: unspecified Qualified Code(s): I10 - Essential (primary ) hypertension (4) Anemia Assessment/Plan: -monitor Hg level daily -Hg 9.8 -transfuse for Hg <7.0 Code(s): D64.9 - ANEMIA, UNSPECIFIED (5) CHF (congestive heart failure) Assessment/Plan: -Cardiology consult -1L fluid restriction -daily weights -strict I&Os Code(s): I50.9 - HEART FAILURE, UNSPECIFIED (6) HLD (hyperlipidemia) Assessment/Plan: -Rosuvastatin Code(s): E78.5 - HYPERLIPIDEMIA, UNSPECIFIED Assessment/Plan see problem list dvt ppx awaiting bed at SNF for placement
[2019-07-05 15:40] LABS: PROTHROMBIN TIME (PATIENT) 11.8 SEC (9.7-13.0)
[2019-07-05] MEDS: sitaGLIPtin PHOSPHATE 50 MG TABLET PO SCH (17:08)
[2019-07-05] MEDS: metFORMIN HCL 500 MG TABLET (FP) PO SCH (17:08)
[2019-07-05] MEDS: ACETAMINOPHEN 325 MG TABLET (FP) PO PRN (18:55)
[2019-07-05] MEDS: ROSUVASTATIN CA 5 MG TABLET (FP) PO SCH (23:29)
[2019-07-05] MEDS: MONTELUKAST NA 10 MG TABLET PO SCH (23:29)
[2019-07-05] MEDS: SENNOSIDES 8.6MG TABLET (FP) PO SCH (23:29)
[2019-07-06] MEDS: INSULIN SLIDING SCALE (NOVOLOG) 1 VIAL SQ SCH ×4 (05:59→21:10)
[2019-07-06 09:01] LABS: HEMATOCRIT 30.1 % (32.4-45.2); HEMOGLOBIN 10.3 GM/dL (10.7-15.3); MCH 29.3 pg (25.7-33.7); MCHC 34.3 g/dl (32.0-36.0); MEAN CELL VOLUME 85.5 fl (80-96); PLATELET COUNT 184 K/MM3 (134-434); RBC 3.53 M/mm3 (3.60-5.2); RDW 18.9 % (11.6-15.6); WHITE BLOOD COUNT 11.5 K/mm3 (4.0-10.0)
[2019-07-06 09:13] LABS: ALBUMIN 2.5 g/dl (3.4-5.0); BILIRUBIN,TOTAL 0.7 mg/dL (0.2-1); BLOOD UREA NITROGEN 11.2 mg/dL (7-18); CALCIUM 7.5 mg/dL (8.5-10.1); CREATININE 0.3 mg/dL (0.55-1.3); POTASSIUM 3.4 mmol/L (3.5-5.1); TOT PROT 4.7 g/dl (6.4-8.2)
[2019-07-06] MEDS: LOSARTAN POTASSIUM 50 MG TABLET (FP) PO SCH (09:23)
[2019-07-06] MEDS: PANTOPRAZOLE 40 MG TABLET (FP) PO SCH (09:23)
[2019-07-06] MEDS: predniSONE 5 MG TABLET (UD) PO SCH (09:24)
[2019-07-06] MEDS: SERTRALINE HCL 25 MG TABLET (FP) PO SCH (09:24)
[2019-07-06] MEDS: ENOXAPARIN NA (PORCINE) 40 MG/0.4 ML DISP.SYRIN SQ SCH (09:24)
[2019-07-06] MEDS: TIOTROPIUM BROMIDE 2.5 MCG (SPIRIVA) RESPIMAT INHALER IH SCH (09:25)
[2019-07-06] MEDS: BUDESONIDE/FORMETEROL FUMARATE 160/4.5 mcg INHALER IH SCH ×2 (09:26→21:11)
[2019-07-06] MEDS: POLYETHYLENE GLYCOL 3350 119 GM BTL PO SCH (09:27)
[2019-07-06] MEDS: ACETAMINOPHEN 325 MG TABLET (FP) PO PRN ×2 (10:16→18:40)
--- NOTE | 2019-07-06 10:53 | PN ---
Progress Note, Physician History of Present Illness: pulmonary alrt,-sob,c/o lle red pain,+ ecchymosis - Current Medication List Current Medications: Active Medications Acetaminophen (Tylenol -) 650 mg PO Q4H PRN PRN Reason: PAIN LEVEL 6-10 Last Admin: 07/06/19 10:16 Dose: 650 mg Albuterol Sulfate (Ventolin 0.083% Nebulizer Soln -) 1 amp NEB Q4H PRN PRN Reason: SHORT OF BREATH/WHEEZING Budesonide/Formoterol Fumarate (Symbicort 160/4.5mcg -) 2 puff IH BID [facility] Last Admin: 07/06/19 09:26 Dose: 2 puff Diltiazem HCl (Cardizem Cd -) 300 mg PO [facility] Last Admin: 07/05/19 23:29 Dose: 300 mg Enoxaparin Sodium (Lovenox -) 40 mg SQ DAILY [facility] Last Admin: 07/06/19 09:24 Dose: 40 mg Fentanyl (Sublimaze Injection -) 25 mcg IVPUSH [id number] PRN PRN Reason: PAIN-PACU ORDER X 4 DOSES ONLY Insulin Aspart (Novolog Vial Sliding Scale -) 1 vial SQ ACHS [facility]; Protocol Last Admin: 07/06/19 05:59 Dose: Not Given Losartan Potassium (Cozaar -) 100 mg PO DAILY [facility] Last Admin: 07/06/19 09:23 Dose: 100 mg Metformin HCl (Glucophage -) 500 mg PO DAILY@1630 [facility] Last Admin: 07/05/19 17:08 Dose: 500 mg Montelukast Sodium (Singulair -) 10 mg PO [facility] Last Admin: 07/05/19 23:29 Dose: 10 mg Pantoprazole Sodium (Protonix -) 40 mg PO DAILY [facility] Last Admin: 07/06/19 09:23 Dose: 40 mg Polyethylene Glycol (Miralax (For Daily Use) -) 17 gm PO DAILY [facility] Last Admin: 07/06/19 09:27 Dose: 17 gm Prednisone (Deltasone -) 10 mg PO DAILY [facility] Last Admin: 07/06/19 09:24 Dose: 10 mg Rosuvastatin Calcium (Crestor -) 5 mg PO [facility] Last Admin: 07/05/19 23:29 Dose: 5 mg Senna (Senna -) 1 tab PO [facility] Last Admin: 07/05/19 23:29 Dose: 1 tab Sertraline HCl (Zoloft -) 25 mg PO DAILY [facility] Last Admin: 07/06/19 09:24 Dose: 25 mg Sitagliptin Phosphate (Januvia -) 50 mg PO DAILY@1630 [facility] Last Admin: 07/05/19 17:08 Dose: 50 mg Tiotropium [place] (Spiriva Respimat) 1 puff IH DAILY [facility] Last Admin: 07/06/19 09:25 Dose: 1 puff Witch Zeny/Glycerin (Tucks Pads -) 1 pad TP PRN PRN PRN Reason: HEMORRHOIDS - Objective Vital Signs: Vital Signs Temperature 98.9 F 07/06/19 06:00 Pulse Rate 74 07/06/19 06:00 Respiratory Rate 20 07/06/19 06:00 Blood Pressure 158/60 07/06/19 06:00 O2 Sat by Pulse Oximetry (%) 96 07/05/19 21:00 Constitutional: Yes: Well Nourished, Calm Eyes: Yes: WNL HENT: Yes: WNL Neck: Yes: WNL Cardiovascular: Yes: Regular Rate and Rhythm, S1, S2 Respiratory: Yes: CTA Bilaterally Gastrointestinal: Yes: Normal Bowel Sounds, Soft Extremities: Yes: Other (ecchymosis left red) Labs: CBC, BMP 07/06/19 07:55 07/06/19 07:55 INR, PTT INR 1.00 (0.83-1.09) 07/05/19 15:08 Problem List - Problems (1) DM2 (diabetes mellitus, type 2) Code(s): E11.9 - TYPE 2 DIABETES MELLITUS WITHOUT COMPLICATIONS Qualifiers: Diabetes mellitus long term care pharmacist insulin use: unspecified residential insulin use status Diabetes mellitus complication status: with other specified complication Qualified Code(s): E11.69 - Type 2 diabetes mellitus with other specified complication (2) Fracture, intertrochanteric, left femur Code(s): S72.142A - DISPLACED INTERTROCHANTERIC FRACTURE OF LEFT FEMUR, INIT Qualifiers: Encounter type: initial encounter Fracture type: closed Fracture alignment: nondisplaced Qualified Code(s): S72.145A - Nondisplaced intertrochanteric fracture of left femur, initial encounter for closed fracture (3) HTN (hypertension) Code(s): I10 - ESSENTIAL (PRIMARY) HYPERTENSION Qualifiers: Hypertension type: unspecified Qualified Code(s): I10 - Essential (primary ) hypertension (4) Asthma Code(s): J45.909 - UNSPECIFIED ASTHMA, UNCOMPLICATED (5) HLD (hyperlipidemia) Code(s): E78.5 - HYPERLIPIDEMIA, UNSPECIFIED Assessment/Plan IMP ASTHMA STABLE LEFT INTRATROCHANTERIC FX S/P MECHANICAL FALL s/p LEFT IM GAMMA NAIL HTN DM HLD ANEMIA PLAN INHALED BRONCHODILATORS DVT PROPHYLAXIS PREDNISONE 10MG DAILY IN AM O2 MONITOR H+H PT DR YOUNG Problem List - Problems (1) DM2 (diabetes mellitus, type 2) Code(s): E11.9 - TYPE 2 DIABETES MELLITUS WITHOUT COMPLICATIONS Qualifiers: Diabetes mellitus residential insulin use: unspecified long term care pharmacist insulin use status Diabetes mellitus complication status: with other specified complication Qualified Code(s): E11.69 - Type 2 diabetes mellitus with other specified complication (2) Fracture, intertrochanteric, left femur Code(s): S72.142A - DISPLACED INTERTROCHANTERIC FRACTURE OF LEFT FEMUR, INIT Qualifiers: Encounter type: initial encounter Fracture type: closed Fracture alignment: nondisplaced Qualified Code(s): S72.145A - Nondisplaced intertrochanteric fracture of left femur, initial encounter for closed fracture (3) HTN (hypertension) Code(s): I10 - ESSENTIAL (PRIMARY) HYPERTENSION Qualifiers: Hypertension type: unspecified Qualified Code(s): I10 - Essential (primary ) hypertension (4) Asthma Code(s): J45.909 - UNSPECIFIED ASTHMA, UNCOMPLICATED (5) HLD (hyperlipidemia) Code(s): E78.5 - HYPERLIPIDEMIA, UNSPECIFIED
--- NOTE | 2019-07-06 14:47 | PN ---
Progress Note, Physician Chief Complaint: L intertrochanteric fracture S/P L IM Gamma Nail History of Present Illness: Previous notes and events reviewed awake and alert NAD POD #4 left IM Gamma nail sts pain is better today denies chest pain or SOB ecchymosis noted to LLE, tender on palpation - Current Medication List Current Medications: Active Medications Acetaminophen (Tylenol -) 650 mg PO Q4H PRN PRN Reason: PAIN LEVEL 6-10 Last Admin: 07/06/19 10:16 Dose: 650 mg Albuterol Sulfate (Ventolin 0.083% Nebulizer Soln -) 1 amp NEB Q4H PRN PRN Reason: SHORT OF BREATH/WHEEZING Budesonide/Formoterol Fumarate (Symbicort 160/4.5mcg -) 2 puff IH BID [facility] Last Admin: 07/06/19 09:26 Dose: 2 puff Diltiazem HCl (Cardizem Cd -) 300 mg PO HS [facility] Last Admin: 07/05/19 23:29 Dose: 300 mg Enoxaparin Sodium (Lovenox -) 40 mg SQ DAILY [facility] Last Admin: 07/06/19 09:24 Dose: 40 mg Fentanyl (Sublimaze Injection -) 25 mcg IVPUSH [id number] PRN PRN Reason: PAIN-PACU ORDER X 4 DOSES ONLY Insulin Aspart (Novolog Vial Sliding Scale -) 1 vial SQ [facility]; Protocol Last Admin: 07/06/19 11:41 Dose: Not Given Losartan Potassium (Cozaar -) 100 mg PO DAILY [facility] Last Admin: 07/06/19 09:23 Dose: 100 mg Metformin HCl (Glucophage -) 500 mg PO DAILY@1630 [facility] Last Admin: 07/05/19 17:08 Dose: 500 mg Montelukast Sodium (Singulair -) 10 mg PO HS [facility] Last Admin: 07/05/19 23:29 Dose: 10 mg Pantoprazole Sodium (Protonix -) 40 mg PO DAILY [facility] Last Admin: 07/06/19 09:23 Dose: 40 mg Polyethylene Glycol (Miralax (For Daily Use) -) 17 gm PO DAILY [facility] Last Admin: 07/06/19 09:27 Dose: 17 gm Prednisone (Deltasone -) 10 mg PO DAILY [facility] Last Admin: 07/06/19 09:24 Dose: 10 mg Rosuvastatin Calcium (Crestor -) 5 mg PO HS [facility] Last Admin: 07/05/19 23:29 Dose: 5 mg Senna (Senna -) 1 tab PO [facility] Last Admin: 07/05/19 23:29 Dose: 1 tab Sertraline HCl (Zoloft -) 25 mg PO DAILY [facility] Last Admin: 07/06/19 09:24 Dose: 25 mg Sitagliptin Phosphate (Januvia -) 50 mg PO DAILY@1630 [facility] Last Admin: 07/05/19 17:08 Dose: 50 mg Tiotropium [place] (Spiriva Respimat) 1 puff IH DAILY [facility] Last Admin: 07/06/19 09:25 Dose: 1 puff Witch Zeny/Glycerin (Tucks Pads -) 1 pad TP PRN PRN PRN Reason: HEMORRHOIDS - Objective Vital Signs: Vital Signs Temperature 98.9 F 07/06/19 06:00 Pulse Rate 74 07/06/19 06:00 Respiratory Rate 20 07/06/19 06:00 Blood Pressure 158/60 07/06/19 06:00 O2 Sat by Pulse Oximetry (%) 96 07/05/19 21:00 Constitutional: Yes: No Distress, Calm Eyes: Yes: Conjunctiva Clear HENT: Yes: Atraumatic Cardiovascular: Yes: Regular Rate and Rhythm Respiratory: Yes: Regular, CTA Bilaterally Gastrointestinal: Yes: Normal Bowel Sounds, Soft Genitourinary: Yes: [place] Present Musculoskeletal: Yes: Muscle Weakness Extremities: Yes: WNL Edema: No Integumentary: Yes: Other (ecchymosis with LLE) Neurological: Yes: Alert, Oriented Psychiatric: Yes: Alert, Oriented Labs: CBC, BMP 07/06/19 07:55 07/06/19 07:55 INR, PTT INR 1.00 (0.83-1.09) 07/05/19 15:08 Microbiology 07/02/19 19:25 Blood - Peripheral Venous Blood Culture - Preliminary NO GROWTH OBTAINED AFTER 72 HOURS, INCUBATION TO CONTINUE FOR 2 DAYS. 07/02/19 16:30 Blood - Peripheral Venous Blood Culture - Preliminary NO GROWTH OBTAINED AFTER 72 HOURS, INCUBATION TO CONTINUE FOR 2 DAYS. 07/01/19 12:00 Urine - Urine Clean Catch Urine Culture - Final NO GROWTH OBTAINED Problem List - Problems (1) DM2 (diabetes mellitus, type 2) Assessment/Plan: -BGM ACHS -ISS -Metformin, Januvia Code(s): E11.9 - TYPE 2 DIABETES MELLITUS WITHOUT COMPLICATIONS Qualifiers: Diabetes mellitus ocean transportation intermediary insulin use: unspecified correction insulin use status Diabetes mellitus complication status: with other specified complication Qualified Code(s): E11.69 - Type 2 diabetes mellitus with other specified complication (2) Fracture, intertrochanteric, left femur Assessment/Plan: -Ortho on board -Hip Xray shows acute intertrochanteric fracture with avulsion of the greater and lesser trochanter, normal relationship of femora head to the acetabelum -POD #4 left IM gamma nail -Incentive spirometer -pain control -dvt ppx -PT Code(s): S72.142A - DISPLACED INTERTROCHANTERIC FRACTURE OF LEFT FEMUR, INIT Qualifiers: Encounter type: initial encounter Fracture type: closed Fracture alignment: nondisplaced Qualified Code(s): S72.145A - Nondisplaced intertrochanteric fracture of left femur, initial encounter for closed fracture (3) HTN (hypertension) Assessment/Plan: -Losartan, Cardizem -low Na diet Code(s): I10 - ESSENTIAL (PRIMARY) HYPERTENSION Qualifiers: Hypertension type: unspecified Qualified Code(s): I10 - Essential (primary ) hypertension (4) Anemia Assessment/Plan: -monitor Hg level daily -Hg 10.3 -transfuse for Hg <7.0 Code(s): D64.9 - ANEMIA, UNSPECIFIED (5) CHF (congestive heart failure) Assessment/Plan: -Cardiology consult -1L fluid restriction -daily weights -strict I&Os Code(s): I50.9 - HEART FAILURE, UNSPECIFIED (6) HLD (hyperlipidemia) Assessment/Plan: -Rosuvastatin Code(s): E78.5 - HYPERLIPIDEMIA, UNSPECIFIED Assessment/Plan see problem list dvt ppx awaiting bed at SNF for placement
[2019-07-06] MEDS: metFORMIN HCL 500 MG TABLET (FP) PO SCH (17:13)
[2019-07-06] MEDS: sitaGLIPtin PHOSPHATE 50 MG TABLET PO SCH (17:13)
[2019-07-06] MEDS ORDERED: INSULIN (NOVOLOG) ASPART 100 UNITS/ML 10ML VIAL ONE (20:10)
[2019-07-06] MEDS: ROSUVASTATIN CA 5 MG TABLET (FP) PO SCH (21:10)
[2019-07-06] MEDS: SENNOSIDES 8.6MG TABLET (FP) PO SCH (21:10)
[2019-07-06] MEDS: MONTELUKAST NA 10 MG TABLET PO SCH (21:11)
[2019-07-07] MEDS: INSULIN SLIDING SCALE (NOVOLOG) 1 VIAL SQ SCH ×2 (06:01→11:13)
[2019-07-07] MEDS ORDERED: ONDANSETRON *ODT* 4 MG TABLET SL ONE (06:14)
[2019-07-07 07:45] LABS: HEMATOCRIT 35.7 % (32.4-45.2); HEMOGLOBIN 12.1 GM/dL (10.7-15.3); MCH 29.4 pg (25.7-33.7); MCHC 33.8 g/dl (32.0-36.0); MEAN CELL VOLUME 87.1 fl (80-96); MEAN PLT VOLUME 8.2 fl (7.5-11.1); PLATELET COUNT 232 K/MM3 (134-434); RBC 4.11 M/mm3 (3.60-5.2); RDW 20.6 % (11.6-15.6)
[2019-07-07 07:48] LABS: ALBUMIN 2.9 g/dl (3.4-5.0); BILIRUBIN,TOTAL 1.8 mg/dL (0.2-1); BLOOD UREA NITROGEN 15.6 mg/dL (7-18); CREATININE 0.6 mg/dL (0.55-1.3); TOT PROT 5.4 g/dl (6.4-8.2)
[2019-07-07] MEDS: LOSARTAN POTASSIUM 50 MG TABLET (FP) PO SCH (09:01)
[2019-07-07] MEDS: PANTOPRAZOLE 40 MG TABLET (FP) PO SCH (09:01)
[2019-07-07] MEDS: ENOXAPARIN NA (PORCINE) 40 MG/0.4 ML DISP.SYRIN SQ SCH (09:01)
[2019-07-07] MEDS: POLYETHYLENE GLYCOL 3350 119 GM BTL PO SCH (09:01)
[2019-07-07] MEDS: SERTRALINE HCL 25 MG TABLET (FP) PO SCH (09:01)
[2019-07-07] MEDS: predniSONE 5 MG TABLET (UD) PO SCH (09:01)
[2019-07-07] MEDS: TIOTROPIUM BROMIDE 2.5 MCG (SPIRIVA) RESPIMAT INHALER IH SCH (09:02)
[2019-07-07] MEDS: BUDESONIDE/FORMETEROL FUMARATE 160/4.5 mcg INHALER IH SCH (09:02)
--- NOTE | 2019-07-07 10:27 | PN ---
Progress Note (short form) - Note Progress Note: Ortho Pt seen and examined s/p left IM gamma nail pod. c/o abd pain and pain in left ankle. Received enema with some relief. Also has xrays and US of left LE. Selected Entries 07/03/19 22:00 Temperature 98.0 F Pulse Rate 79 Respiratory 20 Rate Blood Pressure 153/75 Laboratory Tests 07/04/19 06:35 WBC 17.6 H Hgb 9.3 L Hct 27.3 L D Plt Count 123 L dressing c/d/i, calf soft, nt, + ecchymosis over left ankle, mild ttp of ankle, good rom nvi xrays neg for acute pathology, previous ORIF in good position US neg for dvt a/p PT wbat dvt ppx pain control d/c planning
--- NOTE | 2019-07-07 12:08 | PN ---
Progress Note, Physician History of Present Illness: PULMONARY ALERT,NO RESP DISTRESS,+ ABD DISCOMFORT LAST NIGHT - Current Medication List Current Medications: Active Medications Acetaminophen (Tylenol -) 650 mg PO Q4H PRN PRN Reason: PAIN LEVEL 6-10 Last Admin: 07/06/19 18:40 Dose: 650 mg Budesonide/Formoterol Fumarate (Symbicort 160/4.5mcg -) 2 puff IH BID [facility] Last Admin: 07/07/19 09:02 Dose: 2 puff Diltiazem HCl (Cardizem Cd -) 300 mg PO HS [facility] Last Admin: 07/06/19 21:10 Dose: 300 mg Enoxaparin Sodium (Lovenox -) 40 mg SQ DAILY [facility] Last Admin: 07/07/19 09:01 Dose: 40 mg Fentanyl (Sublimaze Injection -) 25 mcg IVPUSH [id number] PRN PRN Reason: PAIN-PACU ORDER X 4 DOSES ONLY Insulin Aspart (Novolog Vial Sliding Scale -) 1 vial SQ ACHS [facility]; Protocol Last Admin: 07/07/19 11:13 Dose: Not Given Losartan Potassium (Cozaar -) 100 mg PO DAILY [facility] Last Admin: 07/07/19 09:01 Dose: 100 mg Metformin HCl (Glucophage -) 500 mg PO DAILY@1630 [facility] Last Admin: 07/06/19 17:13 Dose: 500 mg Montelukast Sodium (Singulair -) 10 mg PO HS [facility] Last Admin: 07/06/19 21:11 Dose: 10 mg Pantoprazole Sodium (Protonix -) 40 mg PO DAILY [facility] Last Admin: 07/07/19 09:01 Dose: 40 mg Polyethylene Glycol (Miralax (For Daily Use) -) 17 gm PO DAILY [facility] Last Admin: 07/07/19 09:01 Dose: 17 gm Prednisone (Deltasone -) 10 mg PO DAILY [facility] Last Admin: 07/07/19 09:01 Dose: 10 mg Rosuvastatin Calcium (Crestor -) 5 mg PO [facility] Last Admin: 07/06/19 21:10 Dose: 5 mg Senna (Senna -) 1 tab PO HS [facility] Last Admin: 07/06/19 21:10 Dose: 1 tab Sertraline HCl (Zoloft -) 25 mg PO DAILY [facility] Last Admin: 07/07/19 09:01 Dose: 25 mg Sitagliptin Phosphate (Januvia -) 50 mg PO DAILY@1630 [facility] Last Admin: 07/06/19 17:13 Dose: 50 mg Tiotropium [place] (Spiriva Respimat) 1 puff IH DAILY [facility] Last Admin: 07/07/19 09:02 Dose: 1 puff Witch Zeny/Glycerin (Tucks Pads -) 1 pad TP PRN PRN PRN Reason: HEMORRHOIDS - Objective Vital Signs: Vital Signs Temperature 98.0 F 07/07/19 10:28 Pulse Rate 98 H 07/07/19 10:28 Respiratory Rate 18 07/07/19 10:28 Blood Pressure 123/69 07/07/19 10:28 O2 Sat by Pulse Oximetry (%) 95 07/07/19 10:00 Constitutional: Yes: Well Nourished, Calm Eyes: Yes: WNL HENT: Yes: WNL Neck: Yes: WNL Cardiovascular: Yes: Regular Rate and Rhythm, S1, S2 Respiratory: Yes: CTA Bilaterally Gastrointestinal: Yes: Soft (NON-TENDER) Extremities: Yes: WNL Edema: No Labs: CBC, BMP 07/07/19 06:20 07/07/19 06:20 INR, PTT INR 1.00 (0.83-1.09) 07/05/19 15:08 Problem List - Problems (1) DM2 (diabetes mellitus, type 2) Code(s): E11.9 - TYPE 2 DIABETES MELLITUS WITHOUT COMPLICATIONS Qualifiers: Diabetes mellitus intermediate insulin use: unspecified termite exterminator insulin use status Diabetes mellitus complication status: with other specified complication Qualified Code(s): E11.69 - Type 2 diabetes mellitus with other specified complication (2) Fracture, intertrochanteric, left femur Code(s): S72.142A - DISPLACED INTERTROCHANTERIC FRACTURE OF LEFT FEMUR, INIT Qualifiers: Encounter type: initial encounter Fracture type: closed Fracture alignment: nondisplaced Qualified Code(s): S72.145A - Nondisplaced intertrochanteric fracture of left femur, initial encounter for closed fracture (3) HTN (hypertension) Code(s): I10 - ESSENTIAL (PRIMARY) HYPERTENSION Qualifiers: Hypertension type: unspecified Qualified Code(s): I10 - Essential (primary ) hypertension (4) Asthma Code(s): J45.909 - UNSPECIFIED ASTHMA, UNCOMPLICATED (5) HLD (hyperlipidemia) Code(s): E78.5 - HYPERLIPIDEMIA, UNSPECIFIED Assessment/Plan IMP ASTHMA STABLE LEFT INTRATROCHANTERIC FX S/P MECHANICAL FALL s/p LEFT IM GAMMA NAIL HTN DM HLD ANEMIA PLAN INHALED BRONCHODILATORS DVT PROPHYLAXIS PREDNISONE 10MG DAILY IN AM O2 MONITOR H+H PT REPLETE DEMARCUS YOUNG Problem List - Problems (1) DM2 (diabetes mellitus, type 2) Code(s): E11.9 - TYPE 2 DIABETES MELLITUS WITHOUT COMPLICATIONS Qualifiers: Diabetes mellitus termite exterminator insulin use: unspecified termite exterminator insulin use status Diabetes mellitus complication status: with other specified complication Qualified Code(s): E11.69 - Type 2 diabetes mellitus with other specified complication (2) Fracture, intertrochanteric, left femur Code(s): S72.142A - DISPLACED INTERTROCHANTERIC FRACTURE OF LEFT FEMUR, INIT Qualifiers: Encounter type: initial encounter Fracture type: closed Fracture alignment: nondisplaced Qualified Code(s): S72.145A - Nondisplaced intertrochanteric fracture of left femur, initial encounter for closed fracture (3) HTN (hypertension) Code(s): I10 - ESSENTIAL (PRIMARY) HYPERTENSION Qualifiers: Hypertension type: unspecified Qualified Code(s): I10 - Essential (primary ) hypertension (4) Asthma Code(s): J45.909 - UNSPECIFIED ASTHMA, UNCOMPLICATED (5) HLD (hyperlipidemia) Code(s): E78.5 - HYPERLIPIDEMIA, UNSPECIFIED
[2019-07-07] MEDS ORDERED: POTASSIUM CHLORIDE TABS 20 MEQ TABLET.ER (FP) PO ONE (12:09)
--- NOTE | 2019-07-07 12:36 | DS ---
Physical Examination Vital Signs: Vital Signs Temperature 98.0 F 07/07/19 10:28 Pulse Rate 98 H 07/07/19 10:28 Respiratory Rate 18 07/07/19 10:28 Blood Pressure 123/69 07/07/19 10:28 O2 Sat by Pulse Oximetry (%) 95 07/07/19 10:00 seen and examined had small BM after enema Constitutional: Yes: Calm, Thin Cardiovascular: Yes: Regular Rate and Rhythm, S1, S2 Respiratory: Yes: CTA Bilaterally Gastrointestinal: Yes: Normal Bowel Sounds, Soft Extremities: Yes: Other (left leg echhymosis left hip dressing) Labs: CBC, BMP 07/07/19 06:20 07/07/19 06:20 Discharge Summary Reason For Visit: FRACTURE OF HIP Current Active Problems COPD (chronic obstructive pulmonary disease) (Acute) DM2 (diabetes mellitus, type 2) (Acute) Fall (Acute) Fracture, intertrochanteric, left femur (Acute) HTN (hypertension) (Acute) Leukocytosis (Acute) Hospital Course: PCP: Paul Diez - Admission Chief Complaint: Hip pain s/p fall History of Present Illness: Patient is an 89 y/o female with past medical history HTN, HLD, COPD (2L NC at home), CHF, DM. Patient presented to ER after having mechanical fall at home. Patient states she was walking with walker to recliner and went to sit down but missed the chair and landed on her left side. Denies hitting her head, denies LOC, denies dizziness. Patient complains of left hip pain and and hip xray performed. s/p ORIF gamma nail contispated miralax and enema hypokalemia repleted remove segura cath and trial of void Condition: Fair - Instructions Diet, Activity, Other Instructions: check CMP in 2 days potassium 20meq po daily fir 2 days Disposition: [facility] - Home Medications Comprehensive Discharge Medication List: Ambulatory Orders Acetaminophen 650 mg PO PRN PRN 05/01/19 Albuterol 0.083% Nebulizer Alysa [Ventolin 0.083% Nebulizer Soln -] 1 neb NEB Q4H PRN 05/01/19 Budesonide/Formeterol Fumarate [SYMBICORT 160/4.5mcg -] 2 inh PO BID 05/01/19 Diltiazem Cd [Cardizem Cd -] 300 mg PO HS 05/01/19 Losartan Potassium 100 mg PO DAILY 05/01/19 Montelukast Na [Singulair -] 10 mg PO HS 05/01/19 Rosuvastatin Calcium [Crestor] 5 mg PO HS 05/01/19 Sennosides [Senna -] 1 tab PO HS 05/01/19 Sitagliptin Phos/Metformin HCl [Janumet 50-500 mg Tablet] 1 each PO HS 05/01/19 Tiotropium [place] [Spiriva Respimat] 1 puff IH DAILY 05/01/19 Polyethylene Glycol 3350 [Miralax 119 gm Btl -] 17 gm PO DAILY bottle 05/12/19 Sertraline HCl [Zoloft -] 25 mg PO DAILY #90 tablet 05/12/19 Witch Zeny 50% (Tucks) [Tucks Pads -] 1 pad TP PRN PRN pad 05/12/19 Sitagliptin Phosphate [Januvia -] 50 mg PO 1630 #0 tablet 06/23/19 metFORMIN HCL [Glucophage -] 500 mg PO 1630 #0 tablet 06/23/19
[2019-07-07] MEDS ORDERED: MINERAL OIL ENEMA 133 ML ENEMA PR ONE (12:45)
[2019-07-07 15:27] VITALS: BP 137/60; PULSE 81; TEMP 98.4
== END 2019-07-07 16:44 | DRG 481 ==
LOC: JER 09:19 → JERBED 11:25 → J6S 23:21
PROVIDERS: ADMIT Family Medicine; ATTEND Family Medicine
PROC: 0QS704Z Reposition Left Upper Femur with Internal Fixation Device, Open Approach (ICD-10-PCS; principal; 2019-07-02 08:45)
PROC: 30233N1 Transfusion of Nonautologous Red Blood Cells into Peripheral Vein, Percutaneous Approach (ICD-10-PCS; 2019-07-03)
DX: S72.145A Nondisplaced intertrochanteric fracture of left femur, initial encounter for closed fracture (principal); I50.30 Unspecified diastolic (congestive) heart failure; D62 Acute posthemorrhagic anemia; E78.5 Hyperlipidemia, unspecified; E11.9 Type 2 diabetes mellitus without complications; J44.9 Chronic obstructive pulmonary disease, unspecified; D72.829 Elevated white blood cell count, unspecified; K59.09 Other constipation; J45.909 Unspecified asthma, uncomplicated; K64.8 Other hemorrhoids; E87.6 Hypokalemia; I11.0 Hypertensive heart disease with heart failure; S90.02XA Contusion of left ankle, initial encounter; W01.0XXA Fall on same level from slipping, tripping and stumbling without subsequent striking against object, initial encounter; Y92.098 Other place in other non-institutional residence as the place of occurrence of the external cause; Z99.81 Dependence on supplemental oxygen
CPT/HCPCS: 36415; 36430; 36511; 71045-TC-FY; 73523-TC-FY; 73590-TC-LT-FY; 76000-TC-FY; 80048; 80053; 81003; 82150; 82962; 83690; 83735; 83880; 84100; 84436; 84443; 84484; 85025; 85027; 85610; 85730; 86850; 86900; 86901; 86922; 87040; 87086; 93005; 93010; 93971-TC; 94010; 94640; 94760; 97116-GP; 97162-GP; 99285-25; J0131; J1644; J7030; P9038; P9058; Q0162